=== PATIENT | male | born 1955 | race Caucasian/White ===

== ENCOUNTER 2018-07-15 10:27 | Inpatient (IN) ==
[2018-07-15] MEDS ORDERED: ALBUT/IPRATROP 3MG/0.5MG NEB 3 ML VIAL INH STA (10:42)
[2018-07-15] MEDS ORDERED: methylPREDNISolone 125 MG/2 ML VIAL IV STA (10:42)
[2018-07-15 11:02] LABS: Basophils # (auto) 0.03 K/uL (0-0.2); Basophils % (auto) 0.2 %; Eosinophils # (auto) 0.16 K/uL (0-0.5); Eosinophils % (auto) 1.2 %; Hematocrit (blood only) 52.1 % (42-52); Hemoglobin 18.4 g/dL (14.0-18.0); Immature Granulocytes # (auto) 0.04 K/uL (0.00-0.02); Immature Granulocytes % (auto) 0.3 %; Mean Corpuscular Hgb Conc 35.3 g/dL (32-36); Mean Corpuscular Volume 93.2 fL (80-100); Mean Platelet Volume 9.6 fL (7.4-10.4); Monocytes # (auto) 2.36 K/uL (0.11-0.59); Monocytes % (auto) 17.3 %; Neutrophils # (auto) 9.56 K/uL (1.4-6.5); Platelet Count 238 K/uL (130-400); RDW Coefficient of Variation 13.4 % (11.5-14.5); Red Blood Count 5.59 M/uL (4.7-6.1); White Blood Count 13.65 K/uL (4.8-10.8)
[2018-07-15 11:15] LABS: Alanine Aminotransferase 33 U/L (12-78); Albumin Level 3.8 gm/dl (3.4-5.0); Aspartate Aminotransferase 21 U/L (15-37); BUN Creatinine Ratio 16.1 (10-20); Blood Urea Nitrogen 17 mg/dl (7-18); Calcium 8.8 mg/dl (8.5-10.1); Carbon Dioxide 30 mmol/L (21-32); Chloride 103 mmol/L (98-107); Est GFR (Non-African American) 75.1; Glucose 102 mg/dl (70-99); Potassium 3.4 mmol/L (3.5-5.1); Sodium 139 mmol/L (136-145)
[2018-07-15 11:19] LABS: INR 1.1 (0.9-1.1); Partial Thromboplastin Ratio 1.1; Partial Thromboplastin Time 29.4 Seconds (21.0-31.0); Prothrombin Time 10.7 Seconds (9.0-12.0)
[2018-07-15 11:20] LABS: Albumin Globulin Ratio 1.1 (0.9-2); Alkaline Phosphatase 78 U/L (45-117); Bilirubin,Total 0.9 mg/dl (0.2-1); Globulin 3.4 gm/dl (2.5-4.0); Total Protein 7.2 gm/dl (6.4-8.2); Troponin I 0.129 ng/ml (0-0.045)
[2018-07-15] MEDS ORDERED: ASPIRIN CHEW 324 MG PO STA (11:23)
[2018-07-15 11:40] LABS: Influenza A virus by PCR Neg for Influ A (Neg); Influenza B virus by PCR Neg for Influ B (Neg)
--- NOTE | 2018-07-15 11:44 | XRay Report ---
XR chest 1V portable CLINICAL HISTORY: Dyspnea COMPARISON STUDY: Chest radiograph February 28, 2018. Chest CT May 12, 2017. FINDINGS: Severe emphysema is noted. There are postoperative finding within the left lung apex. There is no pneumothorax or pleural effusion. There is no evidence for pulmonary edema. A few nodular dens ities within the lungs are noted, the largest of which is within the right lung apex. This correspond s to a largely calcified abnormality on CT and is probably benign. Cardiomediastinal silhouette is no rmal. IMPRESSION: 1. Severe emphysema. 2. No acute cardiopulmonary findings. 3. A few nodular densities within the lungs which are largely calcified by CT. These are indeterminat e but probably benign. Electronically signed by: Eder Fontaine M.D. 07/15/2018 11:43 AM
--- NOTE | 2018-07-15 12:03 | Emergency Department Note ---
Entered by Ning Thorpe acting as a scribe for Britton Aguilera M.D. History of Present Illness General Chief complaint: Shortness of Breath/Dyspnea Stated complaint: ACUTE COPD,SOB Source: patient Mode of arrival: ambulatory Limitations: no limitations History of Present Illness Onset (ago): day(s) 2 Location: chest Radiation: non-radiation Pain Consistency: + constant Maximum Pain Intensity: 8 Current Pain Intensity: 8 Relieved By: + other (Oxygen) Associated symptoms: + chest pain, + cough and + fever/chills Treatments prior to arrival: none The patient is a 62 year old male who presents to the Emergency Room with complaints of shortness of breath for the past 2 days. He admits to a history of COPD and is on 4L NC chronically. He thinks his last COPD flare was 1 year ago. He admits to a cough, fever, chest pain and rhinorrhea. He has been trying to stay hydrated by drinking water but notes he started feeling like he is "swelling up". The patient denies any recent sick contacts. He notes his PCP did place him on steroids and antibiotics 10 days ago, which he has finished. Home Medications Home Medications Medication Instructions Recorded Confirmed Type ergocalciferol (vitamin D2) 50,000 unit PO Q14D 07/15/18 07/15/18 History fluticasone 2 spray INTRANASAL DAILY 07/15/18 07/15/18 History fluticasone-salmeterol [Advair 2 puff INHALATION DAILY 07/15/18 07/15/18 History Diskus] furosemide 20 mg PO DAILY 07/15/18 07/15/18 History pravastatin 40 mg PO DAILY 07/15/18 07/15/18 History tiotropium bromide [Spiriva 2 puff INHALATION DAILY 07/15/18 07/15/18 History Respimat] Allergies Allergy/AdvReac Type Severity Reaction Status Date / Time codeine AdvReac Unknown Rash Unverified 07/15/18 12:14 Sulfa (Sulfonamide AdvReac Unknown Rash Unverified 07/15/18 12:14 Antibiotics) Past Med/Surg History Medical History COPD with acute exacerbation (Acute) Social History Current Living Situation: Family Other Information That Helps Us Care for You: No Feels Safe at Home: Yes Safety Concerns: Feels Safe At This Time Smoking Status: Former smoker Do You Dip or Chew Tobacco: No Smoking End Date: 2013 Second Hand Exposure: No Tobacco Cessation Education Requested by Patient: No Hx Alcohol Use: Yes Alcohol Intake Frequency: other Hx Substance Use: No Beliefs That Will Affect Care: None Preferred Language: Maori Communication Ability: Effective Home Security Alarm Installer Required: No Review of Systems See HPI for pertinent positives & negatives. and A total of 10 systems reviewed and were otherwise negative Physical Exam Vital Signs Vital Signs - 24 hr 07/15/18 10:31 07/15/18 10:41 07/15/18 11:02 Temperature 37.2 C Temperature Source Oral Sepsis Recent Fever Within 48 Hours No Sepsis New/Unexplained Change in Mental Status No Sepsis Action Taken by Nursing No Action Required Pulse Rate 109 H Pulse Rate [Radial] Respiratory Rate 20 Respiratory Effort / Characteristics Labored Respiratory Depth Respiratory Pattern Blood Pressure 135/78 Blood Pressure [Left Arm] Blood Pressure Mean 97 Blood Pressure Mean [Left Arm] Pulse Oximetry 94 95 95 Oxygen Delivery Method Nasal Cannula Nasal Cannula Nasal Cannula Oxygen Flow Rate 4 4 4 07/15/18 11:10 07/15/18 11:40 07/15/18 12:00 Temperature Temperature Source Sepsis Recent Fever Within 48 Hours Sepsis New/Unexplained Change in Mental Status Sepsis Action Taken by Nursing Pulse Rate Pulse Rate [Radial] 104 H 107 H 108 H Respiratory Rate 24 30 H 25 H Respiratory Effort / Characteristics Accessory Muscle Use Labored Respiratory Depth Respiratory Pattern Blood Pressure Blood Pressure [Left Arm] 118/89 122/80 Blood Pressure Mean Blood Pressure Mean [Left Arm] 98 94 Pulse Oximetry 95 97 96 Oxygen Delivery Method Nasal Cannula Nebulizer Nasal Cannula Oxygen Flow Rate 4 4 07/15/18 12:18 07/15/18 12:30 07/15/18 13:00 Temperature Temperature Source Sepsis Recent Fever Within 48 Hours Sepsis New/Unexplained Change in Mental Status Sepsis Action Taken by Nursing Pulse Rate Pulse Rate [Radial] 110 H 110 H Respiratory Rate 28 H 27 H Respiratory Effort / Characteristics Labored Short of Breath SOB on Exertion Respiratory Depth Shallow Respiratory Pattern Tachypnea Blood Pressure Blood Pressure [Left Arm] 102/72 122/79 Blood Pressure Mean Blood Pressure Mean [Left Arm] 82 93 Pulse Oximetry 99 93 Oxygen Delivery Method Nasal Cannula Nasal Cannula Nasal Cannula Oxygen Flow Rate 4 4 4 GENERAL: Awake, alert, sitting on the edge of bed, tripoding with increased work of breathing. HENT: Normocephalic, atraumatic. Oropharynx unremarkable. EYES: Normal conjunctiva. Sclera non-icteric. NECK: Supple. No nuchal rigidity. RESPIRATORY: Increased work of breathing, very diminished air movement. CARDIAC: Tachycardic heart rate. Normal rhythm. Extremities warm and well perfused. GI: Soft, non-distended. No tenderness to palpation. No rebound or guarding. RECTAL: Deferred. MUSCULOSKELETAL: Atraumatic. Chest examination reveals no tenderness. LOWER EXTREMITIES: Calves are equal size bilaterally and non-tender. Trace bilateral pedal edema. NEURO: Normal sensorium. No sensory or motor deficits noted. No facial droop. SKIN: Warm and dry. No rash or jaundice noted. Course 1038: Past medical records reviewed. The patient was evaluated in room B10, and a complete history and physical examination were performed. 1135: I reevaluated the patient. He is resting comfortably. I discussed his results so far. 1215: I alerted Dr. Arreola about the patients case. The patient will be further evaluated. Reevaluation(s) Reevaluation #1: I alerted Dr. Arreola about the patients case. The patient will be further evaluated. Time: 12:15 Administered Medications Discontinued Medications Albuterol (Duoneb) 12 ml INH ONE STA Stop: 07/15/18 10:43 Last Admin: 07/15/18 11:10 Dose: 12 ml Aspirin (Aspirin) 324 mg PO NOW STA Stop: 07/15/18 11:24 Last Admin: 07/15/18 11:36 Dose: 324 mg Methylprednisolone (Solumedrol) 125 mg IV NOW STA Stop: 07/15/18 10:43 Last Admin: 07/15/18 11:12 Dose: 125 mg Medical Decision Making Differential Diagnosis Differential diagnoses includes but is not limited to pneumonia, bronchitis, COPD/Asthma exacerbation, pneumothorax, pulmonary embolism, congestive heart failure, acute coronary syndrome Medical Records Attestation: I reviewed the patient's medical records. Home Medications Current Medication List: was personally reviewed by me Laboratory Data Attestation: I reviewed the patient's lab results. Result diagrams: 07/15/18 10:50 07/15/18 10:50 Lab Results 07/15/18 07/15/18 07/15/18 Range/Units 10:48 10:50 10:50 WBC 13.65 H (4.8-10.8) K/uL RBC 5.59 (4.7-6.1) M/uL Hgb 18.4 H (14.0-18.0) g/dL Hct 52.1 H (42-52) % MCV 93.2 (80-100) fL MCH 32.9 (25-34) pg MCHC 35.3 (32-36) g/dL RDW Std Deviation 46.0 (36.4-46.3) fL RDW Coeff of Trent 13.4 (11.5-14.5) % Plt Count 238 (130-400) K/uL MPV 9.6 (7.4-10.4) fL Immature Gran % (Auto) 0.3 % Neut % (Auto) 70.0 % Lymph % (Auto) 11.0 % [place] % (Auto) 17.3 % Eos % (Auto) 1.2 % Baso % (Auto) 0.2 % Immature Gran # (Auto) 0.04 H (0.00-0.02) K/uL Neut # (Auto) 9.56 H (1.4-6.5) K/uL Lymph # (Auto) 1.50 (1.2-3.4) K/uL [place] # (Auto) 2.36 H (0.11-0.59) K/uL Eos # (Auto) 0.16 (0-0.5) K/uL Baso # (Auto) 0.03 (0-0.2) K/uL PT 10.7 (9.0-12.0) Seconds INR 1.1 (0.9-1.1) APTT 29.4 (21.0-31.0) Seconds PTT Ratio 1.1 Sodium (136-145) mmol/L Potassium (3.5-5.1) mmol/L Chloride (98-107) mmol/L Carbon Dioxide (21-32) mmol/L Anion Gap (3-11) BUN (7-18) mg/dl Creatinine (0.6-1.4) mg/dl Est Cr Clr Drug Dosing Est GFR ( Amer) Est GFR (Non-Af Amer) BUN/Creatinine Ratio (10-20) Glucose (70-99) mg/dl Calcium (8.5-10.1) mg/dl Total Bilirubin (0.2-1) mg/dl AST (15-37) U/L ALT (12-78) U/L Alkaline Phosphatase (45-117) U/L Troponin I (0-0.045) ng/ml Total Protein (6.4-8.2) gm/dl Albumin (3.4-5.0) gm/dl Globulin (2.5-4.0) gm/dl Albumin/Globulin Ratio (0.9-2) Influenza Type A (PCR) Neg for Influ A (Neg) Influenza Type B (PCR) Neg for Influ B (Neg) 07/15/18 Range/Units 10:50 WBC (4.8-10.8) K/uL RBC (4.7-6.1) M/uL Hgb (14.0-18.0) g/dL Hct (42-52) % MCV (80-100) fL MCH (25-34) pg MCHC (32-36) g/dL RDW Std Deviation (36.4-46.3) fL RDW Coeff of Trent (11.5-14.5) % Plt Count (130-400) K/uL MPV (7.4-10.4) fL Immature Gran % (Auto) % Neut % (Auto) % Lymph % (Auto) % [place] % (Auto) % Eos % (Auto) % Baso % (Auto) % Immature Gran # (Auto) (0.00-0.02) K/uL Neut # (Auto) (1.4-6.5) K/uL Lymph # (Auto) (1.2-3.4) K/uL [place] # (Auto) (0.11-0.59) K/uL Eos # (Auto) (0-0.5) K/uL Baso # (Auto) (0-0.2) K/uL PT (9.0-12.0) Seconds INR (0.9-1.1) APTT (21.0-31.0) Seconds PTT Ratio Sodium 139 (136-145) mmol/L Potassium 3.4 L (3.5-5.1) mmol/L Chloride 103 (98-107) mmol/L Carbon Dioxide 30 (21-32) mmol/L Anion Gap 6.0 (3-11) BUN 17 (7-18) mg/dl Creatinine 1.07 (0.6-1.4) mg/dl Est Cr Clr Drug Dosing Not Reportable Est GFR ( Amer) 87.0 Est GFR (Non-Af Amer) 75.1 BUN/Creatinine Ratio 16.1 (10-20) Glucose 102 H (70-99) mg/dl Calcium 8.8 (8.5-10.1) mg/dl Total Bilirubin 0.9 (0.2-1) mg/dl AST 21 (15-37) U/L ALT 33 (12-78) U/L Alkaline Phosphatase 78 (45-117) U/L Troponin I 0.129 H* (0-0.045) ng/ml Total Protein 7.2 (6.4-8.2) gm/dl Albumin 3.8 (3.4-5.0) gm/dl Globulin 3.4 (2.5-4.0) gm/dl Albumin/Globulin Ratio 1.1 (0.9-2) Influenza Type A (PCR) (Neg) Influenza Type B (PCR) (Neg) ECG Data Attestation: I personally reviewed and interpreted this ECG as follows: Indication: SOB/dyspnea Rate (beats per minute): 102 Rhythm: sinus tachycardia Findings: + other (normal axis); no PVC and no ST elevation Comparison ECG Date: no prior available Blood Pressure Blood Pressure Findings: Normal blood pressure MDM Narrative 62-year-old gentleman history of COPD made liters coming in with difficulty breathing over the last 2 days. Recently finished course of antibiotic and steroid from primary care doctor. Recently moved here from [place]. Tripoding with increased work of breathing diminished air sounds. Endorses some chest pain believe likely related to his increased work of breathing. Given neb and steroid. Chest x-ray completed along with EKG and laboratory studies look for evidence of pneumonia, pneumothorax, or cardiac injury. No evidence of pneumothorax. Basic labs do not show any significant electrolyte abnormality or leukocytosis. There is a slight troponin elevation of 0.1. He was given aspirin. He experienced some chest pain. Believe is likely demand related to his respiratory status. No evidence of acute pneumonia. Influenza swab was sent. Patient was significant work of breathing still with a + troponin believe that observation with continued steroids breathing treatments and cardiac monitoring is appropriate. Impression & Plan COPD with acute exacerbation, Non-ST elevation MA (NSTEMI) Critical Care Time I have personally spent 30 minutes of critical care time in the direct management of this patient. This includes bedside care, interpretation of diagnostic studies, and testing, discussion with consultants, patient, and family members, and other required patient management activities. These 30 minutes is in excess of all separately billable procedures. Critical Care Time: Yes Total Critical Care Time: 30 Discharge Plan Visit Data Chief Complaint: Shortness of Breath/Dyspnea Stated Complaint: ACUTE COPD,SOB ED Provider: Britton Aguilera Discharge Problem: COPD with acute exacerbation, Non-ST elevation MA (NSTEMI) Patient Disposition: Being Evaluated by Hospitalist Forms Stand Alone Forms: [facility] Pres[facility] Prescriptions: No Action pravastatin 40 mg tablet 40 mg PO DAILY RF: 0 fluticasone-salmeterol [Advair Diskus] 500-50 mcg/dose blister with device 2 puff Inhalation DAILY RF: 0 furosemide 20 mg tablet 20 mg PO DAILY RF: 0 ergocalciferol (vitamin D2) 50,000 unit capsule 50,000 unit PO Q14D RF: 0 fluticasone 50 mcg/actuation spray,suspension 2 spray Intranasal DAILY RF: 0 tiotropium bromide [Spiriva Respimat] 2.5 mcg/actuation mist 2 puff Inhalation DAILY RF: 0 Referrals Referrals: Reece Lambert III, CRNP [Primary Care Provider] - The scribe's documentation has been prepared under my direction and personally reviewed by me in its entirety. I confirm that the note above accurately reflects all work, treatment, procedures, and medical decision making performed by me.
--- NOTE | 2018-07-15 13:24 | History & Physical Report ---
Date of Service July 15, 2018 Assessment & Plan (1) COPD with acute exacerbation: 62 y/o M Hx advanced COPD om home 02, LE edema, HLD. Presents with progressive SOB for 2-3 days. He describes a cough which is chronic and denies fevers or rigors. He denies CP but states he has had an odd sensation of a log rolling around in his chest. His oxygen requirements have increased from 2 to 4 litres. Initial labs are notable for an elevated troponin. An EKG does not support acute ischemia. 1) COPD exacerbation - Steroids, Abx, 02, scheduled nebs 2) Elevated trop - Maybe due to hypoxia/demand - an echo has been ordered to evaluate for WMAs - ASA, high-intensity statin, heparin drip ordered. We will consult cardiology and trend his enzymes. The pt states that he h a normal stress test 2 years ago. 3) LE edema - Cont Lasix 4) HLD - Statin dose increased as above Full code - full dose Heparin Total time for this admit including review of labs, meds, imaging, records - discussion with pt and ER attending - 37 min Present on Admission?: Yes History of Present Illness Chief Complaint: Shortness of breath Primary Care Provider: Reece Lambert, III, WELL DRILL OPERATOR HELPER [employer]OL 62 y/o M Hx advanced COPD om home 02, LE edema, HLD. Presents with progressive SOB for 2-3 days. He describes a cough which is chronic and denies fevers or rigors. He denies CP but states he has had an odd sensation of a log rolling around in his chest. His oxygen requirements have increased from 2 to 4 litres. Initial labs are notable for an elevated troponin. An EKG does not support acute ischemia. PMH: 1) COPD - 02-dependent 2) HTN 3) HLD 4) Vitamin D deficiency 5) Lower extremity edema Social: Quit smoking 5 years prior, drinks in moderation Family: Mother due to complications of COPD father in good health Allergies Allergy/AdvReac Type Severity Reaction Status Date / Time codeine AdvReac Unknown Rash Unverified 07/15/18 12:14 Sulfa (Sulfonamide AdvReac Unknown Rash Unverified 07/15/18 12:14 Antibiotics) Home Medications Home Medications Medication Instructions Recorded Confirmed Type ergocalciferol (vitamin D2) 50,000 unit PO Q14D 07/15/18 07/15/18 History fluticasone 2 spray INTRANASAL DAILY 07/15/18 07/15/18 History fluticasone-salmeterol [Advair 2 puff INHALATION DAILY 07/15/18 07/15/18 History Diskus] furosemide 20 mg PO DAILY 07/15/18 07/15/18 History pravastatin 40 mg PO DAILY 07/15/18 07/15/18 History tiotropium bromide [Spiriva 2 puff INHALATION DAILY 07/15/18 07/15/18 History Respimat] Past Med/Surg History Medical History COPD with acute exacerbation (Acute) Social History Current Living Situation: Family Other Information That Helps Us Care for You: No Feels Safe at Home: Yes Safety Concerns: Feels Safe At This Time Smoking Status: Former smoker Do You Dip or Chew Tobacco: No Smoking End Date: 2013 Second Hand Exposure: No Tobacco Cessation Education Requested by Patient: No Hx Alcohol Use: Yes Alcohol Intake Frequency: other Hx Substance Use: No Beliefs That Will Affect Care: None Preferred Language: Tunisian Communication Ability: Effective Christian Science Healer Required: No Review of Systems Gen: Denies fevers, night sweats, rigors, fatigue, malaise, weight loss/gain ENT: Denies congestion, throat pain, hearing loss Eyes: Denies acute visual changes CV: Denies CP, palpitations - feeling of foreign object in chest Pulmonary: Progressive SOB as above GI: Denies N/V, diarrhea, constipation Neuro: Denies acute or unilateral weakness, acute gait impairment, headache or acute visual changes Musculoskeletal: Denies joint pain, inflammation Endocrine: Denies polydipsia, polyuria Skin: Denies acute rashes or ulcers Physical Exam 2 Vital Signs (Past 24 Hours): Last Vital Signs Temp 37.2 C 07/15/18 10:31 Pulse 107 H 07/15/18 11:40 Resp 30 H 07/15/18 11:40 BP 118/89 07/15/18 11:40 Pulse Ox 97 07/15/18 11:40 Physical Exam: General: AAO x 3, no distress ENT: No erythema or exudates, no thrush Eyes: SARIAH, EOMI Head and neck: Normocephalic, atraumatic, No JVD, neck is supple. Chest/heart: Nontender, S1,2, RRR, no murmurs, no gallops Lungs: Very poor BL air movement without wheezing/crackles Abdomen: Nontender, nondistended, BS+ Neuro: AAO x 3, speech is clear, no unilateral weakness or loss of sensation, coordination intact Musculoskeletal: No joint inflammation, muscle tenderness, FROM Skin: No acute rashes or ulcers Extremities: No clubbing, cyanosis, edema
[2018-07-15] MEDS ORDERED: POTASSIUM CHLORIDE 20 MEQ TABCR PO STA (14:58)
[2018-07-15] MEDS ORDERED: NITROGLYCERIN SL 0.4 MG/TAB TAB SL PRN (14:58)
[2018-07-15] MEDS ORDERED: methylPREDNISolone 125 MG/2 ML VIAL IV SCH (14:58)
[2018-07-15] MEDS ORDERED: ALUMINUM/MAGNESIUM SUSP 30 ML UDC PO PRN (14:58)
[2018-07-15] MEDS ORDERED: ACETAMINOPHEN 325 MG TAB PO PRN (14:58)
[2018-07-15] MEDS ORDERED: MoRPHine SULFATE 4 MG/ML 1 ML CARP\\VIAL IV PRN (14:58)
[2018-07-15] MEDS ORDERED: POLYETHYLENE (MIRALAX) 17 GM PACK PO PRN (14:58)
[2018-07-15] MEDS ORDERED: ALBUTEROL 0.083% NEBU SOLN 3 ML VIAL NEB PRN (14:58)
[2018-07-15] MEDS ORDERED: ONDANSETRON INJ 2 MG/ML 2 ML VIAL IV PRN (14:58)
[2018-07-15] MEDS ORDERED: MAGNESIUM HYDROXIDE SUSP 30 ML UDC PO PRN (14:58)
[2018-07-15] MEDS: ALBUT/IPRATROP 3MG/0.5MG NEB 3 ML VIAL NEB SCH ×2 (15:26→19:14)
[2018-07-15] MEDS ORDERED: MAGNESIUM SULFATE / D5W 1 GM/100 ML BAG IV ONE (15:30)
[2018-07-15] MEDS ORDERED: HEPARIN IV BOLUS 5,000 UNITS in SYRINGE 0 ML IV ONE (16:45)
[2018-07-15] MEDS: HEPARIN STANDARD DEXTROSE 25,000 UNITS/500 ML IV SCH (16:51)
[2018-07-15] MEDS: methylPREDNISolone 60 MG in SYRINGE 0 ML IV SCH (17:25)
[2018-07-15] MEDS ORDERED: PNEUMOCOCCAL POLYSACCHARIDES 25 MCG/0.5 ML VIAL/SYR IM ONE (18:45)
[2018-07-15] MEDS ORDERED: PNEUMOCOCCAL ADMINISTRATION CHARGE ONE (18:45)
[2018-07-15] MEDS: ATORVASTATIN 40 MG TAB PO SCH (20:17)
[2018-07-15 23:30] LABS: Partial Thromboplastin Ratio 3.8
[2018-07-15 23:31] LABS: Partial Thromboplastin Time 99.6 Seconds (21.0-31.0)
[2018-07-16] MEDS: methylPREDNISolone 60 MG in SYRINGE 0 ML IV SCH ×5 (00:14→23:48)
[2018-07-16] MEDS: ALBUT/IPRATROP 3MG/0.5MG NEB 3 ML VIAL NEB SCH ×4 (06:15→19:06)
[2018-07-16 06:48] LABS: Hematocrit (blood only) 49.6 % (42-52); Hemoglobin 17.2 g/dL (14.0-18.0); Immature Granulocytes # (auto) 0.03 K/uL (0.00-0.02); Immature Granulocytes % (auto) 0.4 %; Lymphocytes # (auto) 0.57 K/uL (1.2-3.4); Lymphocytes % (auto) 6.7 %; Mean Corpuscular Hgb Conc 34.7 g/dL (32-36); Mean Corpuscular Volume 93.6 fL (80-100); Mean Platelet Volume 9.6 fL (7.4-10.4); Monocytes % (auto) 3.5 %; Neutrophils # (auto) 7.64 K/uL (1.4-6.5); Neutrophils % (auto) 89.4 %; Platelet Count 238 K/uL (130-400); RDW Coefficient of Variation 13.4 % (11.5-14.5); RDW Standard Deviation 45.9 fL (36.4-46.3); White Blood Count 8.54 K/uL (4.8-10.8)
[2018-07-16 07:07] LABS: Partial Thromboplastin Ratio 2.4
[2018-07-16 07:17] LABS: BUN Creatinine Ratio 17.1 (10-20); Calcium 8.6 mg/dl (8.5-10.1); Creatinine Clr Calc Pharmacy 77.8 ml/min; Est GFR (African American) 107.2; Est GFR (Non-African American) 92.5; Magnesium 2.4 mg/dl (1.8-2.4); Potassium 4.1 mmol/L (3.5-5.1)
[2018-07-16 07:28] LABS: Partial Thromboplastin Time 61.3 Seconds (21.0-31.0)
[2018-07-16] MEDS: ASPIRIN 81 MG ECTAB PO SCH (08:05)
[2018-07-16] MEDS: FUROSEMIDE 20 MG TAB PO SCH (08:06)
--- NOTE | 2018-07-16 15:12 | Hospitalist Progress Note ---
Date of Service July 16, 2018 Assessment & Plan (1) COPD with acute exacerbation: 62 y/o M Hx advanced COPD om home 02, LE edema, HLD admitted because of acute on chronic respiratory distress and COPD exacerbation Patient recently moved from [facility] to his son's family in [place]. He has COPD, O2 dependent , every year average about 3-4 times exacerbation which required hospitalization, Acute on chronic respiratory distress Chronic respiratory failure on home O2 dependent COPD exacerbation Continue steroids, Abx, 02, scheduled nebs Elevated trop - Maybe due to hypoxia/demand Echo was done normal LVEF grade 1 diastolic dysfunction Has been on ASA, high-intensity statin, heparin drip ordered. We will follow-up cardiology input and trend his enzymes. The pt states that he had a normal stress test 2 years ago. Possible mild acute on chronic diastolic CHF exacerbation with mild LE edema Cont Lasix Dyslipidemia continue current medication, Patient willike to talk to employment case manager about home oxygen setting in his son's home, which could be evaluated by home health care Has ordered PT OT, cM Subjective Generally feeling better, on 4 L nasal cannula oxygen which is he usually uses at home, however when talking there was some labored breathing during the conversation, some cough with white sputum, no obvious wheezing however has significant decreased airway movement Review of Systems Constitutional: positive mild weakness, or fatigue Respiratory: See HPI Cardiac: No chest pain, No orthopnea, No PND, No claudication, No palpitations , Abdomen: No pain, No nausea, No vomiting, No diarrhea, No constipation, No GI bleeding Musculoskeletal: No joint pain, No muscle pain, No swelling, No calf pain, No problem reported : No dysuria, No urinary frequency, No incontinence, No hematuria Neurologic: No paralysis, No weakness, No numbness/tingling, No vertigo, No balance problems Psychiatric: No depression symptoms, No anhedonism, No anxiety, No insomnia, No substance abuse Heme: No abnormal bleeding/bruising, No clotting problems, No swollen lymph nodes, No night sweats Skin: No rash, No itch, No new/changing skin lesions, No color change, No bleeding Physical Exam 2 Vital Signs (Past 24 Hours): Last Vital Signs Temp 36.7 C 07/16/18 11:33 Pulse 101 H 07/16/18 15:09 Resp 18 07/16/18 15:09 BP 115/68 07/16/18 11:33 Pulse Ox 93 02/17/19 15:09 Physical Exam: General: AAO x 3, no distress, conversational ENT: No erythema or exudates, no thrush Eyes: SARIAH, EOMI Head and neck: Normocephalic, atraumatic, No JVD, neck is supple. Chest/heart: Nontender, S1,2, RRR, no murmurs, no gallops Lungs: Significant decrease in both lung breathing sound, poor air movement Abdomen: Nontender, nondistended, BS+ Neuro: AAO x 3, speech is clear, no unilateral weakness or loss of sensation, coordination intact Musculoskeletal: No joint inflammation, muscle tenderness, FROM Skin: No acute rashes or ulcers Extremities: No clubbing, cyanosis, edema Results & Data Laboratory Results Laboratory Results - last 24 hr 07/15/18 07/15/18 07/15/18 15:15 20:53 23:00 WBC RBC Hgb Hct MCV MCH MCHC RDW Std Deviation RDW Coeff of Trent Plt Count MPV Immature Gran % (Auto) Neut % (Auto) Lymph % (Auto) [place] % (Auto) Eos % (Auto) Baso % (Auto) Immature Gran # (Auto) Neut # (Auto) Lymph # (Auto) [place] # (Auto) Eos # (Auto) Baso # (Auto) APTT 99.6 H* PTT Ratio 3.8 Sodium Potassium Chloride Carbon Dioxide Anion Gap BUN Creatinine Est Cr Clr Drug Dosing Est GFR ( Amer) Est GFR (Non-Af Amer) BUN/Creatinine Ratio Glucose Calcium Magnesium Troponin I 0.083 H* 0.059 H* Triglycerides Cholesterol LDL Cholesterol, Calc VLDL Cholesterol, Calc HDL Cholesterol Cholesterol/HDL Ratio 07/16/18 07/16/18 07/16/18 06:28 06:28 06:28 WBC 8.54 RBC 5.30 Hgb 17.2 Hct 49.6 MCV 93.6 MCH 32.5 MCHC 34.7 RDW Std Deviation 45.9 RDW Coeff of Trent 13.4 Plt Count 238 MPV 9.6 Immature Gran % (Auto) 0.4 Neut % (Auto) 89.4 Lymph % (Auto) 6.7 [place] % (Auto) 3.5 Eos % (Auto) 0.0 Baso % (Auto) 0.0 Immature Gran # (Auto) 0.03 H Neut # (Auto) 7.64 H Lymph # (Auto) 0.57 L [place] # (Auto) 0.30 Eos # (Auto) 0.00 Baso # (Auto) 0.00 APTT 61.3 H* PTT Ratio 2.4 Sodium 139 Potassium 4.1 D Chloride 105 Carbon Dioxide 29 Anion Gap 5.0 BUN 15 Creatinine 0.90 Est Cr Clr Drug Dosing 77.8 Est GFR ( Amer) 107.2 Est GFR (Non-Af Amer) 92.5 BUN/Creatinine Ratio 17.1 Glucose 130 H Calcium 8.6 Magnesium 2.4 Troponin I Triglycerides 96 Cholesterol 147 LDL Cholesterol, Calc 67 VLDL Cholesterol, Calc 19 HDL Cholesterol 61 Cholesterol/HDL Ratio 2
[2018-07-16] MEDS: HEPARIN STANDARD DEXTROSE 25,000 UNITS/500 ML IV SCH (16:49)
[2018-07-16] MEDS ORDERED: COUGH DROP (SUGAR FREE) LOZ 24 LOZ/1 BOX BUCCAL STA (18:36)
[2018-07-16] MEDS ORDERED: COUGH DROP (SUGAR FREE) LOZ 24 LOZ/1 BOX BUCCAL PRN (18:40)
[2018-07-16] MEDS: ATORVASTATIN 40 MG TAB PO SCH (20:08)
[2018-07-17] MEDS: methylPREDNISolone 60 MG in SYRINGE 0 ML IV SCH ×2 (04:57→17:18)
[2018-07-17] MEDS: ALBUT/IPRATROP 3MG/0.5MG NEB 3 ML VIAL NEB SCH ×5 (05:04→19:25)
[2018-07-17 06:35] LABS: Basophils # (auto) 0.01 K/uL (0-0.2); Basophils % (auto) 0.1 %; Hematocrit (blood only) 50.6 % (42-52); Hemoglobin 17.3 g/dL (14.0-18.0); Immature Granulocytes # (auto) 0.07 K/uL (0.00-0.02); Immature Granulocytes % (auto) 0.4 %; Lymphocytes # (auto) 1.09 K/uL (1.2-3.4); Lymphocytes % (auto) 5.6 %; Mean Corpuscular Hgb Conc 34.2 g/dL (32-36); Mean Corpuscular Volume 95.3 fL (80-100); Mean Platelet Volume 9.6 fL (7.4-10.4); Monocytes # (auto) 1.01 K/uL (0.11-0.59); Monocytes % (auto) 5.2 %; Neutrophils # (auto) 17.14 K/uL (1.4-6.5); Neutrophils % (auto) 88.7 %; Platelet Count 254 K/uL (130-400); RDW Coefficient of Variation 13.4 % (11.5-14.5); RDW Standard Deviation 46.5 fL (36.4-46.3); Red Blood Count 5.31 M/uL (4.7-6.1); White Blood Count 19.32 K/uL (4.8-10.8)
[2018-07-17 07:02] LABS: BUN Creatinine Ratio 22.5 (10-20); Calcium 8.7 mg/dl (8.5-10.1); Creatinine Clr Calc Pharmacy 87.5 ml/min; Est GFR (African American) 112.5; Est GFR (Non-African American) 97.1; Magnesium 2.3 mg/dl (1.8-2.4); Potassium 3.6 mmol/L (3.5-5.1)
[2018-07-17 07:29] LABS: Partial Thromboplastin Ratio 1.9
[2018-07-17 07:31] LABS: Partial Thromboplastin Time 48.6 Seconds (21.0-31.0)
[2018-07-17] MEDS: FUROSEMIDE 20 MG TAB PO SCH (08:00)
[2018-07-17] MEDS: ASPIRIN 81 MG ECTAB PO SCH (08:00)
--- NOTE | 2018-07-17 08:22 | Hospitalist Progress Note ---
Date of Service July 17, 2018 Assessment & Plan (1) COPD with acute exacerbation: 62 y/o M Hx advanced COPD om home 02, LE edema, HLD admitted because of acute on chronic respiratory failure and COPD exacerbation Patient moved 6 months ago from [place] to be near his son's family in [place]. He has COPD, O2 dependent ,has only been hospitalized 4 times in 7 years for his copd Acute and chronic respiratory failure Chronic respiratory failure on home O2 dependent COPD exacerbation Continue steroids, Abx, 02, scheduled nebs (2) Elevated troponin: possible demand ischemia in the presence of respiratory failure, no concern for ACS (3) Diastolic heart failure: Possible mild acute on chronic diastolic CHF exacerbation with mild LE edema Cont Lasix, this could also be cor pulmonale from pulmonary htn Subjective Patient is currently moderate respiratory distress he seems fairly invested in understanding his disease process he is moved here from area about 6 months ago has seen a pulmonary clinic. He states he feels about 40% of his usual baseline he is speaking in short sentences has purse lipped breathing and significant accessory muscle use he is barrel chested likely is that at baseline Review of Systems ROS: well developed. Patient is thin but seems well-nourished No double vision blurry vision No problems with speech or swallowing No palpitations, chest pain or pressure Significant respiratory distress purse lipped breathing no audible wheezing No abdominal pain nausea vomiting diarrhea changes in appetite or weight No burning urine urine frequency or changes in color No focal joint pain or muscle pain No skin rashes or oral lesions No unusual bruising or bleeding No focused back pain or numbness or loss of strength No changes in memory or confusion Physical Exam 2 Vital Signs (Past 24 Hours): Last Vital Signs Temp 36.7 C 07/17/18 07:15 Pulse 90 07/17/18 07:15 Resp 18 07/17/18 07:15 BP 115/80 07/17/18 07:15 Pulse Ox 100 07/17/18 07:15 The patient appeared well nourished and normally developed. Vital signs as documented. Tachypneic Head exam is unremarkable. normocephalic, atraumatic Neck is with mild jugular venous distension, thyromegaly, or lymphademopathy Lungs are chávez no wheezes Cardiac exam reveals Rhythm is regular. First and second heart sounds normal. Abdominal exam reveals normal bowel sounds, no masses, no organomegaly Extremities are nonedematous and both pedal pulses are present Neurologic exam is A&Ox3, no focal deficits, strength is equal bilateral Psychologically seems neither anxious or depressed Skin is warm Dry without bruises or lesions
[2018-07-17] MEDS: ATORVASTATIN 40 MG TAB PO SCH (20:17)
[2018-07-17] MEDS: HEPARIN SOD 5,000 UNIT/0.5 ML VIAL SQ SCH (20:18)
[2018-07-18] MEDS: ALBUT/IPRATROP 3MG/0.5MG NEB 3 ML VIAL NEB SCH ×5 (05:12→19:25)
[2018-07-18] MEDS: methylPREDNISolone 60 MG in SYRINGE 0 ML IV SCH ×2 (05:27→17:43)
[2018-07-18 06:05] LABS: Hematocrit (blood only) 49.8 % (42-52); Immature Granulocytes # (auto) 0.03 K/uL (0.00-0.02); Immature Granulocytes % (auto) 0.2 %; Lymphocytes # (auto) 0.91 K/uL (1.2-3.4); Lymphocytes % (auto) 7.3 %; Mean Corpuscular Hgb Conc 34.1 g/dL (32-36); Mean Corpuscular Volume 96.5 fL (80-100); Mean Platelet Volume 9.4 fL (7.4-10.4); Monocytes # (auto) 0.74 K/uL (0.11-0.59); Monocytes % (auto) 5.9 %; Neutrophils % (auto) 86.6 %; Platelet Count 224 K/uL (130-400); RDW Coefficient of Variation 13.4 % (11.5-14.5); RDW Standard Deviation 47.5 fL (36.4-46.3); Red Blood Count 5.16 M/uL (4.7-6.1); White Blood Count 12.48 K/uL (4.8-10.8)
[2018-07-18 06:38] LABS: BUN Creatinine Ratio 24.8 (10-20); Calcium 8.6 mg/dl (8.5-10.1); Est GFR (African American) 112.5; Est GFR (Non-African American) 97.1; Magnesium 2.3 mg/dl (1.8-2.4); Potassium 4.2 mmol/L (3.5-5.1)
[2018-07-18 06:50] LABS: Partial Thromboplastin Time 26.6 Seconds (21.0-31.0)
[2018-07-18] MEDS: FUROSEMIDE 20 MG TAB PO SCH (07:35)
[2018-07-18] MEDS: ASPIRIN 81 MG ECTAB PO SCH (07:35)
[2018-07-18] MEDS: HEPARIN SOD 5,000 UNIT/0.5 ML VIAL SQ SCH ×2 (07:36→20:59)
--- NOTE | 2018-07-18 18:34 | Hospitalist Progress Note ---
Date of Service July 18, 2018 Assessment & Plan (1) COPD with acute exacerbation: 62 y/o M Hx advanced COPD om home 02, LE edema, HLD admitted because of acute on chronic respiratory failure and COPD exacerbation Patient moved 6 months ago from [place] to be near his son's family in [place]. He has COPD, O2 dependent ,has only been hospitalized 4 times in 7 years for his copd Acute and chronic respiratory failure he continues to have slow improvement but persistent dysfunction remissive tapering steroids today due to clinical evaluation showing persistent exacerbation Chronic respiratory failure on home O2 dependent COPD exacerbation Continue steroids, Abx, 02, scheduled nebs adding Brovana for long-acting beta agonist at this time (2) Elevated troponin: demand ischemia in the presence of respiratory failure, no concern for ACS (3) Diastolic heart failure: Possible mild acute on chronic diastolic CHF exacerbation with mild LE edema Cont Lasix, this could also be cor pulmonale from pulmonary htn Subjective Remains significantly short of breath using accessory muscles of breathing, pursed lip breathing, and tachypnea even at rest Review of Systems ROS: well nourished well developed. No double vision blurry vision No problems with speech or swallowing No palpitations, chest pain or pressure Of breath speaking in broken sentences No abdominal pain nausea vomiting diarrhea changes in appetite or weight No burning urine urine frequency or changes in color No focal joint pain or muscle pain No skin rashes or oral lesions No unusual bruising or bleeding No focused back pain or numbness or loss of strength No changes in memory or confusion Physical Exam 2 Vital Signs (Past 24 Hours): Last Vital Signs Temp 36.6 C 07/18/18 17:11 Pulse 102 H 07/18/18 17:11 Resp 20 07/18/18 17:11 BP 148/89 H 07/18/18 17:11 Pulse Ox 94 07/18/18 17:11 The patient appeared well nourished and normally developed. Vital signs as documented. Head exam is unremarkable. normocephalic, atraumatic Neck is without jugular venous distension, thyromegaly, or lymphademopathy Lungs very diminished breath sounds bilaterally no wheezing no focal air loss barrel chested purse lipped breathing. Cardiac exam reveals Rhythm is regular. First and second heart sounds normal. Abdominal exam reveals normal bowel sounds, no masses, no organomegaly Extremities are nonedematous and both pedal pulses are present Neurologic exam is A&Ox3, no focal deficits, strength is equal bilateral Psychologically seems neither anxious or depressed Skin is warm Dry without bruises or lesions
[2018-07-18] MEDS: ARFORMOTEROL TART 15MCG/2ML VIAL INH SCH (19:25)
[2018-07-18] MEDS: ATORVASTATIN 40 MG TAB PO SCH (20:59)
[2018-07-19] MEDS: methylPREDNISolone 60 MG in SYRINGE 0 ML IV SCH ×2 (05:22→17:10)
[2018-07-19 06:45] LABS: Partial Thromboplastin Time 27.8 Seconds (21.0-31.0)
[2018-07-19] MEDS: ARFORMOTEROL TART 15MCG/2ML VIAL INH SCH ×2 (07:17→19:42)
[2018-07-19] MEDS: ALBUT/IPRATROP 3MG/0.5MG NEB 3 ML VIAL NEB SCH ×4 (07:19→19:42)
[2018-07-19] MEDS: ASPIRIN 81 MG ECTAB PO SCH (08:25)
[2018-07-19] MEDS: FUROSEMIDE 20 MG TAB PO SCH (08:25)
[2018-07-19] MEDS: HEPARIN SOD 5,000 UNIT/0.5 ML VIAL SQ SCH ×2 (08:25→20:25)
--- NOTE | 2018-07-19 16:01 | Hospitalist Progress Note ---
Date of Service July 19, 2018 Assessment & Plan (1) COPD with acute exacerbation: 62 y/o M Hx advanced COPD om home 02, LE edema, HLD admitted because of acute on chronic respiratory failure and COPD exacerbation Patient moved 6 months ago from [place] to be near his son's family in [place]. He has COPD, O2 dependent ,has only been hospitalized 4 times in 7 years for his copd Acute and chronic respiratory failure he continues to have slow to no improvement but persistent dysfunction we will continue with steroid dosing considering pulmonary consultation attempting to retrieve outpatient pulmonary function testing records Chronic respiratory failure on home O2 dependent COPD exacerbation Continue steroids, Abx, 02, scheduled nebs adding Brovana for long-acting beta agonist at this time (2) Elevated troponin: demand ischemia in the presence of respiratory failure, no concern for ACS no chest pain even with exertion (3) Diastolic heart failure: Possible mild acute on chronic diastolic CHF exacerbation with mild LE edema Lasix, this could also be cor pulmonale from pulmonary htn Subjective Patient remains significantly short of breath with dyspnea on exertion having to pause frequently walking around his room he has no audible wheezes he has had no cough to be fairly anxious and distressed regarding this Review of Systems ROS: No double vision blurry vision No problems with speech or swallowing No palpitations, chest pain or pressure Significant dyspnea and breathlessness No abdominal pain nausea vomiting diarrhea changes in appetite or weight No burning urine urine frequency or changes in color No focal joint pain or muscle pain No skin rashes or oral lesions No unusual bruising or bleeding No focused back pain or numbness or loss of strength No changes in memory or confusion Physical Exam 2 Vital Signs (Past 24 Hours): Last Vital Signs Temp 36.7 C 07/19/18 15:52 Pulse 92 H 07/19/18 15:52 Resp 18 07/19/18 15:52 BP 94/61 L 07/19/18 07:15 Pulse Ox 98 07/19/18 15:52 The patient appeared in mild to moderate respiratory distress is barrel chested Vital signs as documented. Remains with low level tachypnea Head exam is unremarkable. normocephalic, atraumatic Neck is without jugular venous distension, thyromegaly, or lymphademopathy Lungs are almost no auscultated will breath sounds no wheezes no focal loss Cardiac exam reveals Rhythm is regular. First and second heart sounds normal. Abdominal exam reveals normal bowel sounds, no masses, no organomegaly Extremities are nonedematous and both pedal pulses are present Neurologic exam is A&Ox3, no focal deficits, strength is equal bilateral Psychologically seems anxious and depressed Skin is warm Dry without bruises or lesions
[2018-07-19] MEDS: ATORVASTATIN 40 MG TAB PO SCH (20:25)
[2018-07-20] MEDS: methylPREDNISolone 60 MG in SYRINGE 0 ML IV SCH (03:11)
[2018-07-20 06:03] LABS: Hematocrit (blood only) 48.7 % (42-52); Hemoglobin 16.7 g/dL (14.0-18.0); Mean Corpuscular Hgb Conc 34.3 g/dL (32-36); Mean Corpuscular Volume 94.9 fL (80-100); Mean Platelet Volume 9.3 fL (7.4-10.4); Platelet Count 241 K/uL (130-400); RDW Coefficient of Variation 13.2 % (11.5-14.5); RDW Standard Deviation 45.6 fL (36.4-46.3); Red Blood Count 5.13 M/uL (4.7-6.1); White Blood Count 14.34 K/uL (4.8-10.8)
[2018-07-20] MEDS: ALBUT/IPRATROP 3MG/0.5MG NEB 3 ML VIAL NEB SCH ×2 (06:08→11:21)
[2018-07-20 06:26] LABS: Partial Thromboplastin Time 27.9 Seconds (21.0-31.0)
[2018-07-20] MEDS: ARFORMOTEROL TART 15MCG/2ML VIAL INH SCH (07:12)
[2018-07-20] MEDS: ASPIRIN 81 MG ECTAB PO SCH (07:53)
[2018-07-20] MEDS: HEPARIN SOD 5,000 UNIT/0.5 ML VIAL SQ SCH (07:53)
[2018-07-20] MEDS: FUROSEMIDE 20 MG TAB PO SCH (07:54)
[2018-07-20] MEDS ORDERED: predniSONE 50 MG TAB PO SCH (09:00)
--- NOTE | 2018-07-20 19:33 | Discharge Summary ---
Date of Service July 20, 2018 Admission HPI Per Admitting Provider 62 y/o M Hx advanced COPD om home 02, LE edema, HLD. Presents with progressive SOB for 2-3 days. He describes a cough which is chronic and denies fevers or rigors. He denies CP but states he has had an odd sensation of a log rolling around in his chest. His oxygen requirements have increased from 2 to 4 litres. Initial labs are notable for an elevated troponin. An EKG does not support acute ischemia. PMH: 1) COPD - 02-dependent 2) HTN 3) HLD 4) Vitamin D deficiency 5) Lower extremity edema Social: Quit smoking 5 years prior, drinks in moderation Family: Mother due to complications of COPD father in good health Principal Diagnosis COPD with exacerbation Discharge Exam Patient's has stable oxygen sats on 4 L with ambulation he needs 5 L. He has very poor air movement in all lung chávez but no wheezes he has had no productive cough Discharge Data Allergies Allergy/AdvReac Type Severity Reaction Status Date / Time codeine AdvReac Unknown Rash Unverified 07/15/18 12:14 Sulfa (Sulfonamide AdvReac Unknown Rash Unverified 07/15/18 12:14 Antibiotics) Consultations 07/15/18 12:01 ED Decision to Admit Stat 07/16/18 15:24 Consult Case Management - Discharge Planning Routine Hospital Course (1) COPD with acute exacerbation: 62 y/o M Hx advanced COPD om home 02, LE edema, HLD admitted because of acute on chronic respiratory failure and COPD exacerbation Patient moved 6 months ago from [place] to be near his son's family in [place]. He has COPD, O2 dependent ,has only been hospitalized 4 times in 7 years for his copd Acute and chronic respiratory failure he continues to have slow to no improvement but persistent dysfunction we will continue with steroid dosing I did personally speak with Dr. James newell who follows the patient as an outpatient. He will begin to discuss the possibility of volume reduction surgery or even lung transplant as an outpatient. I had a sudarshan discussion with the patient and he is understanding that his lung disease is severe however he is 8 years old and relatively in good condition otherwise. He does have some history of distant heart related problems. The patient will continue to want to proceed with aggressive therapy Chronic respiratory failure on home O2 dependent COPD exacerbation Patient be home on oral steroids Brovana duo nebs and Spiriva (2) Elevated troponin: demand ischemia in the presence of respiratory failure, no concern for ACS no chest pain even with exertion although he gets hypoxic with exertion this is what likely precipitates is demand ischemia (3) Diastolic heart failure: Possible mild acute on chronic diastolic CHF exacerbation with mild LE edema Lasix, this could also be cor pulmonale from pulmonary htn Total Time Total Time Spent Total Time Spent (In Minutes): greater than 30 minutes were required to prepare discharge Discharge Plan Discharge Items Patient Disposition: Home - Home Health Services Reason For Visit: COPD EXACERBATION - TROP ELEVATED Discharge Diagnosis: copd exacerbation Discharge Goals: Decrease discomfort and Diagnostic testing Activity: Resume your previous activity Non-emergency contact: Primary Care Provider Call non-emergency contact if: you have any medication questions Follow-up/Referrals: Campbell Mayers MD [Physician] - 07/26/18 1:45 pm (Please, follow up at [facility] Pulmnology Office with Dr. Mayers on TuesdayJuly 26 at 1:45 pm. *This office is located in [address] of [facility]. If you need to change this appointment, call the office at [phone].) Reece Lambert III, CRNP [Primary Care Provider] - 07/24/18 11:00 am (Please, follow up with Reece SPARKS on TuesdayJuly 24 at 11:00 am. If you need to change this appointment, call the office at [phone].) Diet: Regular Addtl Provider Instructions: Please follow up [facility] pulmonary medicine Prescriptions: New arformoterol [Brovana] 15 mcg/2 mL Solution For Nebulization 15 mcg Inhalation BIDR Qty: 120 RF: 0 prednisone 10 mg tablet 10 mg PO UD Qty: 40 RF: 0 tiotropium bromide [Spiriva Respimat] 2.5 mcg/actuation mist 2 puff Inhalation DAILY Qty: 4 RF: 4 lorazepam [Ativan] 0.5 mg tablet 0.5 mg PO TID Qty: 20 RF: 0 Continue pravastatin 40 mg tablet 40 mg PO DAILY RF: 0 furosemide 20 mg tablet 20 mg PO DAILY RF: 0 ergocalciferol (vitamin D2) 50,000 unit capsule 50,000 unit PO Q14D RF: 0 fluticasone 50 mcg/actuation spray,suspension 2 spray Intranasal DAILY RF: 0 Discontinued fluticasone-salmeterol [Advair Diskus] 500-50 mcg/dose blister with device 2 puff Inhalation DAILY RF: 0 Stand-Alone Forms: [facility] Discharge Orders: Discharge Order (Routine); Ordered 07/20/18 Ordered By: Galo Joseph Admission Data Admit Date/Time: 07/15/18 12:47 Attending Provider: Galo Joseph Admit Provider: Hany Arreola Primary Care Provider: Reece Lambert III Other Providers: Ernesto Henry Roy Service: Medical Other Interventions: Discharge Summary Assessment (RN) Last Done: 07/20/18 12:41 DC Date/Time DO NOT enter until pt leaves facility: 07/20/18 14:10
== END 2018-07-20 14:10 | disposition home or self-care (01) | DRG 189 ==
LOC: ED 10:27 → SUATTDRO 12:47 → 2E 12:47 → 4W 07-18 14:35

== ENCOUNTER 2021-05-03 10:28 | Inpatient (IN) ==
[2021-05-03] MEDS ORDERED: methylPREDNISolone 125 MG/2 ML VIAL IV STA (10:58)
[2021-05-03] MEDS ORDERED: ALBUT/IPRATROP 3MG/0.5MG NEB 3 ML VIAL NEB ONE (10:58)
--- NOTE | 2021-05-03 11:03 | Emergency Department Note ---
Impression & Plan Respiratory distress, SOB (shortness of breath), Pneumonia, COVID-19, COPD exacerbation ED Provider Note NAME: HERO ORTEGA AGE: 65 SEX: M : 1955 ARRIVES VIA: Walk-In INFORMANT: [Patient][family] ED PROVIDER(S): [Sachin Franklin MD] CHIEF COMPLAINT: Short of breath HISTORY OF PRESENT ILLNESS: The patient is a 65-year-old male presents to the ER with dyspnea and cough. He has been short of breath for 3 days. He normally wears 5 L of oxygen for his COPD and this oxygen level has not been enough. He is speaking in very short sentences. He has a tightness in his chest. His upper abdominal muscles are sore from his coughing. His cough is productive of yellow mucus. No fever. No chest pain. He has not had vomiting or diarrhea. No sick contacts. He is vaccinated against COVID-19 and influenza. REVIEW OF SYSTEMS: See HPI for pertinent positives and negatives. A total of ten systems were reviewed and were otherwise negative. PMHx/PSHx: See Below SOCIAL HISTORY: See Below. PHYSICAL EXAM: GENERAL: Patient is in moderate respiratory distress. HEENT: No acute trauma, normocephalic atraumatic, mucous membranes moist, no nasal congestion, no scleral icterus. NECK: No stridor, no adenopathy, no meningismus, trachea is midline. LUNGS: Moderate respiratory distress noted. Minimal breath sounds heard bilaterally. A few scattered wheezes are heard. Speaks in very short sentences. Increased respiratory rate. Accessory muscle use noted. HEART: Mildly tachycardic, regular rhythm, no murmurs. ABDOMEN: Soft, nontender, bowel sounds positive, no hernias, no peritonitis. EXTREMITIES: No cyanosis or edema, full range of motion of all the joints without pain or difficulty, no signs for acute trauma. NEUROLOGIC: Oriented x 3, no acute motor or sensory deficits, no focal weakness. SKIN: No rash, no jaundice, no diaphoresis. DIFFERENTIAL DIAGNOSIS: Reactive airway disease, pneumonia, pneumothorax, COPD, influenza, COVID-19, CHF, infection, cardiac ischemia, pulmonary embolism, bronchitis, musculoskeletal, gastrointestinal, as well as other pathologies. EMERGENCY DEPARTMENT COURSE/PROCEDURES: ECG: Indication was shortness of breath. The ECG shows a sinus tachycardia with some PVCs. The rate is 114. There is no ST elevation, the QTc is 454. Continuous Cardiac Monitoring: An order was placed for continuous cardiac monitoring. The monitor shows a rate of 100 with normal sinus rhythm. Critical Care Note: I have personally spent 51 minutes of critical care time in the direct management of this patient. This includes bedside care, interpretation of diagnostic studies, and testing, discussion with consultants, patient, and family members, and other required patient management activities. This 51 minutes is in excess of all separately billable procedures. MEDICAL DECISION MAKING: There is a mild leukocytosis at around 12,000, this could be consistent with infection or the stress of his presentation. There is a normal hemoglobin and platelet count. No coagulopathy. No significant electrolyte abnormality or kidney failure. Lactic acid level is not elevated making severe sepsis less likely. No concerning liver enzyme elevation. ECG shows a sinus tachycardia, no obvious ischemic change. Cardiac enzyme testing x1 is slightly elevated. This elevation could be consistent with cardiac injury or potentially mismatch. Bio fire testing returned positive for COVID-19. Chest film does show a subtle bilateral lower lung pneumonia. No CHF, no pneumothorax. On exam, the patient was in some moderate respiratory distress. He was speaking in very short sentences. The patient was aggressively managed. He was placed on a 1 hour DuoNeb. He basically refused BiPAP. He does not want to be intubated. The patient was given IV saline, 500 cc. He was given IV Zosyn as antibiotic coverage. He received IV Solu-Medrol. Patient does seem to be somewhat improved compared to when he arrived. He seems to be breathing easier. He remains somewhat tachycardic though. The patient is aware of his findings, I spoke with the foster care case manager. The on- call hospitalist has been consulted. Past Med/Surg History Medical History Chronic dyspnea Chronic hypoxemic respiratory failure Chronic obstructive pulmonary disease COPD with acute exacerbation Former smoker Non-ST elevation GA (NSTEMI) Surgical History History of cataract surgery History of knee surgery S/P inguinal hernia repair Family History Sister Breast cancer Brother Lung disease Other Myocardial infarction Denies family history of Colon cancer Ovarian cancer Prostate cancer Social History Smoking Status: Never smoker Second Hand Exposure: No; Hx Alcohol Use: Yes Hx Substance Use: No Preferred Language: Slovenian Communication Ability: Effective Visual Impairment: No Limitations Hearing Ability: Hard of Hearing [employer] Required: No Beliefs That Will Affect Care: None Current Living Situation: Family current occupational status: disabled Feels Safe at Home: Yes Dental Care, Regularly: Yes Physical Activity Frequency: Does not Exercise Seatbelt Use: always Assistive Devices: Oxygen - Continuous Allergies Allergies Allergy/AdvReac Type Severity Reaction Status Date / Time fluticasone furoate AdvReac Mild Trelegy Verified 05/01/21 16:36 [From Trelegy Ellipta] 200 caused shakiness but able to use Trelegy 100 umeclidinium AdvReac Mild Trelegy Verified 05/01/21 16:36 [From Trelegy Ellipta] 200 caused shakiness but able to use Trelegy 100 vilanterol AdvReac Mild Trelegy Verified 05/01/21 16:36 [From Trelegy Ellipta] 200 caused shakiness but able to use Trelegy 100 codeine AdvReac Unknown Rash Verified 04/08/21 10:46 Sulfa (Sulfonamide AdvReac Unknown Rash Verified 04/08/21 10:46 Antibiotics) Home Meds Previous Rx's Medication Instructions Recorded Oxygen Home #1 ea 11/03/18 albuterol sulfate 90 mcg/actuation 2 puffs INHALATION Q6H PRN #18 gm 10/30/19 aerosol inhaler (Ventolin HFA) ipratropium 0.5 mg-albuterol 3 mg 3 ml INHALATION QID PRN #360 ml 11/04/20 (2.5 mg base)/3 mL nebulization soln montelukast 10 mg tablet 10 mg PO QPM #90 tab 11/04/20 (Singulair) oxycodone 5 mg tablet 5 mg PO Q4H PRN #15 tab 12/16/20 fluticasone fur. 100 mcg-umeclid 1 inh INHALATION DAILY #1 inhaler 01/08/21 62.5 mcg-vilant 25 mcg inhalat.powder (Trelegy Ellipta) furosemide 40 mg tablet 40 mg PO DAILY #90 tab 02/10/21 prednisone 10 mg tablet 10 mg PO DAILY #90 tab 03/05/21 roflumilast 500 mcg tablet 500 mcg PO DAILY #30 tab 04/08/21 (Daliresp) clotrimazole 10 mg luis 10 mg MUCOUS MEMBRANE 5XD 14 Days 04/10/21 #70 tab azelastine 137 mcg (0.1 %) nasal 2 spray INTRANASAL BID #30 ml 04/15/21 spray aerosol potassium chloride 20 mEq 20 meq PO DAILY #90 tab 04/15/21 tablet,extended release pravastatin 40 mg tablet 40 mg PO DAILY #90 tab 04/15/21 Results & Data (ED) Vital Signs Vital Signs - 24 hr 05/03/21 10:39 05/03/21 11:19 05/03/21 11:20 Temperature 37.1 C Temperature Source Temporal Artery Scan Pulse Rate 100 H 115 H 115 H Pulse Rate [Right Finger] Pulse Rate from SpO2 Sensor 116 H Respiratory Rate 26 H 21 26 H Respiratory Effort / Characteristics Non-Labored Spontaneous Respiratory Depth Normal Respiratory Pattern Regular Blood Pressure 147/84 H 145/90 H Blood Pressure Mean 105 108 Pulse Oximetry 97 93 Oxygen Delivery Method Nasal Cannula Nasal Cannula Nasal Cannula Oxygen Flow Rate 5 5 5 Sepsis Recent Fever Within 48 Hours No Sepsis New/Unexplained Change in Mental Status No Sepsis Action Taken by Nursing No Action Required 05/03/21 11:21 05/03/21 11:30 05/03/21 11:40 Temperature Temperature Source Pulse Rate 113 H 114 H Pulse Rate [Right Finger] 113 H Pulse Rate from SpO2 Sensor 114 H 115 H Respiratory Rate 22 16 19 Respiratory Effort / Characteristics Spontaneous Short of Breath SOB on Exertion Respiratory Depth Respiratory Pattern Blood Pressure 133/79 Blood Pressure Mean 97 Pulse Oximetry 93 98 97 Oxygen Delivery Method Nasal Cannula Nasal Cannula Nasal Cannula Oxygen Flow Rate 5 5 5 Sepsis Recent Fever Within 48 Hours Sepsis New/Unexplained Change in Mental Status Sepsis Action Taken by Nursing 05/03/21 11:50 05/03/21 12:00 05/03/21 12:10 Temperature Temperature Source Pulse Rate 117 H 119 H 121 H Pulse Rate [Right Finger] Pulse Rate from SpO2 Sensor 117 H 118 H 113 H Respiratory Rate 18 29 H 44 H Respiratory Effort / Characteristics Respiratory Depth Respiratory Pattern Blood Pressure 129/73 Blood Pressure Mean 91 Pulse Oximetry 95 98 93 Oxygen Delivery Method Nasal Cannula Nasal Cannula Nasal Cannula Oxygen Flow Rate 5 5 5 Sepsis Recent Fever Within 48 Hours Sepsis New/Unexplained Change in Mental Status Sepsis Action Taken by Nursing 05/03/21 12:20 05/03/21 12:30 05/03/21 12:40 Temperature Temperature Source Pulse Rate 118 H 122 H 119 H Pulse Rate [Right Finger] Pulse Rate from SpO2 Sensor 124 H 122 H 119 H Respiratory Rate 19 24 29 H Respiratory Effort / Characteristics Respiratory Depth Respiratory Pattern Blood Pressure 124/76 Blood Pressure Mean 92 Pulse Oximetry 96 98 96 Oxygen Delivery Method Nasal Cannula Nasal Cannula Nasal Cannula Oxygen Flow Rate 5 5 5 Sepsis Recent Fever Within 48 Hours Sepsis New/Unexplained Change in Mental Status Sepsis Action Taken by Nursing 05/03/21 12:50 05/03/21 13:00 Temperature Temperature Source Pulse Rate 121 H 121 H Pulse Rate [Right Finger] Pulse Rate from SpO2 Sensor 122 H 114 H Respiratory Rate 25 H 20 Respiratory Effort / Characteristics Respiratory Depth Respiratory Pattern Blood Pressure Blood Pressure Mean Pulse Oximetry 98 96 Oxygen Delivery Method Nasal Cannula Nasal Cannula Oxygen Flow Rate 5 5 Sepsis Recent Fever Within 48 Hours Sepsis New/Unexplained Change in Mental Status Sepsis Action Taken by Half-Way Medications Current Medication List: was personally reviewed by me Laboratory Data Attestation: I reviewed the patient's lab results. Result diagrams: 05/03/21 11:14 05/03/21 11:14 Lab Results 05/03/21 05/03/21 05/03/21 Range/Units 10:58 11:14 11:14 WBC 12.29 H (4.8-10.8) K/uL RBC 4.61 L (4.7-6.1) M/uL Hgb 15.6 (14.0-18.0) g/dL Hct 44.7 (42-52) % MCV 97.0 (80-100) fL MCH 33.8 (25-34) pg MCHC 34.9 (32-36) g/dL RDW Std Deviation 47.5 H (36.4-46.3) fL RDW Coeff of Trent 13.4 (11.5-14.5) % Plt Count 286 (130-400) K/uL MPV 8.8 (7.4-10.4) fL Immature Gran % (Auto) 0.3 % Neut % (Auto) 84.1 % Lymph % (Auto) 6.1 % Fountain % (Auto) 9.2 % Eos % (Auto) 0.2 % Baso % (Auto) 0.1 % Neut # (Auto) 10.34 H (1.4-6.5) K/uL Lymph # (Auto) 0.75 L (1.2-3.4) K/uL Fountain # (Auto) 1.13 H (0.11-0.59) K/uL Eos # (Auto) 0.02 (0-0.5) K/uL Baso # (Auto) 0.01 (0-0.2) K/uL Immature Gran # (Auto) 0.04 H (0.00-0.02) K/uL Absolute Nucleated RBC 0.03 H (0-0) K/uL Nucleated RBC % (auto) 0.2 % PT 10.6 (9.0-12.0) Seconds INR 1.0 (0.9-1.1) APTT 30.2 (21.0-31.0) Seconds PTT Ratio 1.1 Sodium (136-145) mmol/L Potassium (3.5-5.1) mmol/L Chloride (98-107) mmol/L Carbon Dioxide (21-32) mmol/L Anion Gap (3-11) BUN (7-18) mg/dl Creatinine (0.6-1.4) mg/dl Est Cr Clr Drug Dosing ml/min Est GFR ( Amer) ml/min Est GFR (Non-Af Amer) ml/min BUN/Creatinine Ratio (10-20) Glucose (70-99) mg/dl Lactate (0.4-2.0) mmol/L Calcium (8.5-10.1) mg/dl Magnesium (1.8-2.4) mg/dl Total Bilirubin (0.2-1) mg/dl AST (15-37) U/L ALT (12-78) Alkaline Phosphatase (45-117) U/L Troponin I (0-0.045) ng/ml C-Reactive Protein 13.70 H (0-0.29) mg/dl Total Protein (6.4-8.2) gm/dl Albumin (3.4-5.0) gm/dl Globulin (2.5-4.0) gm/dl Albumin/Globulin Ratio (0.9-2) Procalcitonin (0-0.5) ng/ml Adenovirus (PCR) (NotDetected) B. pertussis DNA (PCR) (NotDetected) B.parapertussis DNA PCR (NotDetected) C. pneumoniae DNA (PCR) (NotDetected) Coronavirus OC43 (PCR) (NotDetected) Coronavirus HKU1 (PCR) (NotDetected) Coronavirus 229E (PCR) (NotDetected) SARS-CoV-2 (PCR) (NotDetected) Coronavirus NL63 (PCR) (NotDetected) Human Metapneumovir PCR (NotDetected) Influenza Type A (PCR) (NotDetected) Influenza Type B (PCR) (NotDetected) M. pneumoniae (PCR) (NotDetected) Parainfluenza 1 (PCR) (NotDetected) Parainfluenza 2 (PCR) (NotDetected) Parainfluenza 3 (PCR) (NotDetected) Parainfluenza 4 (PCR) (NotDetected) RSV (PCR) (NotDetected) Entero/Rhino (PCR) (NotDetected) 05/03/21 05/03/21 05/03/21 Range/Units 11:14 11:14 11:14 WBC (4.8-10.8) K/uL RBC (4.7-6.1) M/uL Hgb (14.0-18.0) g/dL Hct (42-52) % MCV (80-100) fL MCH (25-34) pg MCHC (32-36) g/dL RDW Std Deviation (36.4-46.3) fL RDW Coeff of Trent (11.5-14.5) % Plt Count (130-400) K/uL MPV (7.4-10.4) fL Immature Gran % (Auto) % Neut % (Auto) % Lymph % (Auto) % Fountain % (Auto) % Eos % (Auto) % Baso % (Auto) % Neut # (Auto) (1.4-6.5) K/uL Lymph # (Auto) (1.2-3.4) K/uL Fountain # (Auto) (0.11-0.59) K/uL Eos # (Auto) (0-0.5) K/uL Baso # (Auto) (0-0.2) K/uL Immature Gran # (Auto) (0.00-0.02) K/uL Absolute Nucleated RBC (0-0) K/uL Nucleated RBC % (auto) % PT (9.0-12.0) Seconds INR (0.9-1.1) APTT (21.0-31.0) Seconds PTT Ratio Sodium 138 (136-145) mmol/L Potassium 3.7 (3.5-5.1) mmol/L Chloride 105 (98-107) mmol/L Carbon Dioxide 25 (21-32) mmol/L Anion Gap 8.0 (3-11) BUN 23 H (7-18) mg/dl Creatinine 1.09 (0.6-1.4) mg/dl Est Cr Clr Drug Dosing 62.6 ml/min Est GFR ( Amer) 83.3 ml/min Est GFR (Non-Af Amer) 71.9 ml/min BUN/Creatinine Ratio 20.8 H (10-20) Glucose 84 (70-99) mg/dl Lactate 1.6 (0.4-2.0) mmol/L Calcium 9.5 (8.5-10.1) mg/dl Magnesium 2.1 (1.8-2.4) mg/dl Total Bilirubin 0.7 (0.2-1) mg/dl AST 17 (15-37) U/L ALT 41 (12-78) Alkaline Phosphatase 81 (45-117) U/L Troponin I 0.102 H* (0-0.045) ng/ml C-Reactive Protein (0-0.29) mg/dl Total Protein 7.6 (6.4-8.2) gm/dl Albumin 3.5 (3.4-5.0) gm/dl Globulin 4.1 H (2.5-4.0) gm/dl Albumin/Globulin Ratio 0.8 L (0.9-2) Procalcitonin 0.61 H (0-0.5) ng/ml Adenovirus (PCR) (NotDetected) B. pertussis DNA (PCR) (NotDetected) B.parapertussis DNA PCR (NotDetected) C. pneumoniae DNA (PCR) (NotDetected) Coronavirus OC43 (PCR) (NotDetected) Coronavirus HKU1 (PCR) (NotDetected) Coronavirus 229E (PCR) (NotDetected) SARS-CoV-2 (PCR) (NotDetected) Coronavirus NL63 (PCR) (NotDetected) Human Metapneumovir PCR (NotDetected) Influenza Type A (PCR) (NotDetected) Influenza Type B (PCR) (NotDetected) M. pneumoniae (PCR) (NotDetected) Parainfluenza 1 (PCR) (NotDetected) Parainfluenza 2 (PCR) (NotDetected) Parainfluenza 3 (PCR) (NotDetected) Parainfluenza 4 (PCR) (NotDetected) RSV (PCR) (NotDetected) Entero/Rhino (PCR) (NotDetected) 05/03/21 Range/Units 11:21 WBC (4.8-10.8) K/uL RBC (4.7-6.1) M/uL Hgb (14.0-18.0) g/dL Hct (42-52) % MCV (80-100) fL MCH (25-34) pg MCHC (32-36) g/dL RDW Std Deviation (36.4-46.3) fL RDW Coeff of Trent (11.5-14.5) % Plt Count (130-400) K/uL MPV (7.4-10.4) fL Immature Gran % (Auto) % Neut % (Auto) % Lymph % (Auto) % Fountain % (Auto) % Eos % (Auto) % Baso % (Auto) % Neut # (Auto) (1.4-6.5) K/uL Lymph # (Auto) (1.2-3.4) K/uL Fountain # (Auto) (0.11-0.59) K/uL Eos # (Auto) (0-0.5) K/uL Baso # (Auto) (0-0.2) K/uL Immature Gran # (Auto) (0.00-0.02) K/uL Absolute Nucleated RBC (0-0) K/uL Nucleated RBC % (auto) % PT (9.0-12.0) Seconds INR (0.9-1.1) APTT (21.0-31.0) Seconds PTT Ratio Sodium (136-145) mmol/L Potassium (3.5-5.1) mmol/L Chloride (98-107) mmol/L Carbon Dioxide (21-32) mmol/L Anion Gap (3-11) BUN (7-18) mg/dl Creatinine (0.6-1.4) mg/dl Est Cr Clr Drug Dosing ml/min Est GFR ( Amer) ml/min Est GFR (Non-Af Amer) ml/min BUN/Creatinine Ratio (10-20) Glucose (70-99) mg/dl Lactate (0.4-2.0) mmol/L Calcium (8.5-10.1) mg/dl Magnesium (1.8-2.4) mg/dl Total Bilirubin (0.2-1) mg/dl AST (15-37) U/L ALT (12-78) Alkaline Phosphatase (45-117) U/L Troponin I (0-0.045) ng/ml C-Reactive Protein (0-0.29) mg/dl Total Protein (6.4-8.2) gm/dl Albumin (3.4-5.0) gm/dl Globulin (2.5-4.0) gm/dl Albumin/Globulin Ratio (0.9-2) Procalcitonin (0-0.5) ng/ml Adenovirus (PCR) Not Detected (NotDetected) B. pertussis DNA (PCR) Not Detected (NotDetected) B.parapertussis DNA PCR Not Detected (NotDetected) C. pneumoniae DNA (PCR) Not Detected (NotDetected) Coronavirus OC43 (PCR) Not Detected (NotDetected) Coronavirus HKU1 (PCR) Not Detected (NotDetected) Coronavirus 229E (PCR) Not Detected (NotDetected) SARS-CoV-2 (PCR) DETECTED A* (NotDetected) Coronavirus NL63 (PCR) Not Detected (NotDetected) Human Metapneumovir PCR Not Detected (NotDetected) Influenza Type A (PCR) Not Detected (NotDetected) Influenza Type B (PCR) Not Detected (NotDetected) M. pneumoniae (PCR) Not Detected (NotDetected) Parainfluenza 1 (PCR) Not Detected (NotDetected) Parainfluenza 2 (PCR) Not Detected (NotDetected) Parainfluenza 3 (PCR) Not Detected (NotDetected) Parainfluenza 4 (PCR) Not Detected (NotDetected) RSV (PCR) Not Detected (NotDetected) Entero/Rhino (PCR) Not Detected (NotDetected) Administered Medications Miscellaneous Information (Piperacill/Tazobac Consult Active) 1 ea N/A UD PRN PRN Reason: Consult Stop: 06/02/21 11:56 Last Admin: 05/03/21 12:53 Dose: 1 ea Documented by: [id number] Discontinued Medications Albuterol (Albut/Ipratrop 3mg/0.5mg Neb 3 Ml Vial) 12 ml NEB ONE ONE Stop: 05/03/21 10:59 Last Admin: 05/03/21 11:19 Dose: 12 ml Documented by: [id number] Piperacillin Sod/Tazobactam Sod (Zosyn) 4.5 gm in 120 mls @ 240 mls/hr IV NOW ONE Stop: 05/03/21 12:26 Last Admin: 05/03/21 12:53 Dose: 240 mls/hr Documented by: [id number] Sodium Chloride (Nss 1000ml) 500 mls @ 999 mls/hr IV .Q31M ONE Stop: 05/03/21 12:57 Last Admin: 05/03/21 12:53 Dose: 999 mls/hr Documented by: [id number] Methylprednisolone (Methylprednisolone 125 Mg/2 Ml Vial) 125 mg IV NOW STA Stop: 05/03/21 10:59 Last Admin: 05/03/21 11:15 Dose: 125 mg Documented by: [id number] Imaging Data Radiologist's Impression: Chest X-Ray 05/03/21 10:58 XR chest 1V portable HISTORY: Shortness of breath. COMPARISON: Chest 02/09/2019. FINDINGS: The lungs are hyperexpanded with severe apical predominant emphysematous changes. This remains unchanged. No pneumothorax. No pleural effusions. The heart is normal in size. There is a mildly tortuous thoracic aorta. Suture material within the left lung apex is again noted. Interstitial thickening within the mid to lower lung zones favors vascular crowding. There are progressive hazy airspace opacities within the mid to lower lung zones. This favors a superimposed pneumonitis could be due to a viral process. Old, healed left-sided rib fractures. IMPRESSION: Severe emphysema with progressive patchy hazy airspace opacities within the mid to lower lung zones. This represents a viral pneumonia. ACT 112: Negative or not required by law. Electronically signed by: Angel Bae M.D. 05/03/2021 11:19 AM Discharge Plan Visit Data Chief Complaint: Respiratory Problems Stated Complaint: COPD, COUGH, TROUBLE BREATHING ED Provider: Sachin Franklin Discharge Problem: Respiratory distress, SOB (shortness of breath), Pneumonia, COVID-19, COPD exacerbation Patient Disposition: Admitted As Inpatient Condition: Serious Forms Stand Alone Forms: Caterna Prescriptions Prescriptions: No Action (DME) Oxygen Home Liters Per Minute See Dose Instructions .ROUTE .MEDSUPPLY Qty: 1 RF: 0 albuterol sulfate [Ventolin HFA] 90 mcg/actuation HFA aerosol inhaler 2 puffs inhalation Q6H PRN (Reason: Shortness Of Breath Or Wheezing) Qty: 18 RF: 5 ipratropium-albuterol 0.5 mg-3 mg(2.5 mg base)/3 mL solution for nebulization 3 ml inhalation QID PRN (Reason: shortness of breath or wheezing) Qty: 360 RF: 5 Trelegy Ellipta 100-62.5-25 mcg blister with device 1 inh INHALATION DAILY Qty: 1 RF: 5 furosemide 40 mg tablet 40 mg PO DAILY Qty: 90 RF: 1 prednisone 10 mg tablet 10 mg PO DAILY Qty: 90 RF: 3 clotrimazole 10 mg luis 10 mg mucous membrane 5XD 14 Days Qty: 70 RF: 0 azelastine 137 mcg (0.1 %) aerosol,spray 2 spray intranasal BID Qty: 30 RF: 3 potassium chloride 20 mEq tablet extended release 20 meq PO DAILY Qty: 90 RF: 1 pravastatin 40 mg tablet 40 mg PO DAILY Qty: 90 RF: 1 montelukast [Singulair] 10 mg tablet 10 mg PO QPM Qty: 90 RF: 2 Daliresp 500 mcg tablet 500 mcg PO DAILY Qty: 30 RF: 2 oxycodone 5 mg tablet 5 mg PO Q4H PRN (Reason: pain) Qty: 15 RF: 0 Referrals Referrals: Reece Lambert III, CRNP [Primary Care Provider] -
--- NOTE | 2021-05-03 11:21 | XRay Report ---
XR chest 1V portable HISTORY: Shortness of breath. COMPARISON: Chest 02/09/2019. FINDINGS: The lungs are hyperexpanded with severe apical predominant emphysematous changes. This dusty ins unchanged. No pneumothorax. No pleural effusions. The heart is normal in size. There is a mildly tortuous thoracic aorta. Suture material within the left lung apex is again noted. Interstitial thick ening within the mid to lower lung zones favors vascular crowding. There are progressive hazy airspac e opacities within the mid to lower lung zones. This favors a superimposed pneumonitis could be due t o a viral process. Old, healed left-sided rib fractures. IMPRESSION: Severe emphysema with progressive patchy hazy airspace opacities within the mid to lower lung zones. This represents a viral pneumonia. ACT 112: Negative or not required by law. Electronically signed by: Angel Bae M.D. 05/03/2021 11:19 AM
[2021-05-03 11:29] LABS: Basophils # (auto) 0.01 K/uL (0-0.2); Basophils % (auto) 0.1 %; Eosinophils # (auto) 0.02 K/uL (0-0.5); Eosinophils % (auto) 0.2 %; Hematocrit (blood only) 44.7 % (42-52); Hemoglobin 15.6 g/dL (14.0-18.0); Immature Granulocytes # (auto) 0.04 K/uL (0.00-0.02); Immature Granulocytes % (auto) 0.3 %; Lymphocytes # (auto) 0.75 K/uL (1.2-3.4); Lymphocytes % (auto) 6.1 %; Mean Corpuscular Hemoglobin 33.8 pg (25-34); Mean Corpuscular Hgb Conc 34.9 g/dL (32-36); Mean Platelet Volume 8.8 fL (7.4-10.4); Monocytes # (auto) 1.13 K/uL (0.11-0.59); Monocytes % (auto) 9.2 %; Neutrophils # (auto) 10.34 K/uL (1.4-6.5); Neutrophils % (auto) 84.1 %; Nucleated RBC # (auto) 0.03 K/uL (0-0); Nucleated RBC % (auto) 0.2 %; Platelet Count 286 K/uL (130-400); RDW Coefficient of Variation 13.4 % (11.5-14.5); RDW Standard Deviation 47.5 fL (36.4-46.3); Red Blood Count 4.61 M/uL (4.7-6.1); White Blood Count 12.29 K/uL (4.8-10.8)
[2021-05-03 11:40] LABS: Partial Thromboplastin Ratio 1.1; Partial Thromboplastin Time 30.2 Seconds (21.0-31.0); Prothrombin Time 10.6 Seconds (9.0-12.0)
[2021-05-03 11:49] LABS: Albumin Level 3.5 gm/dl (3.4-5.0); BUN Creatinine Ratio 20.8 (10-20); Calcium 9.5 mg/dl (8.5-10.1); Creatinine Clr Calc Pharmacy 62.6 ml/min; Est GFR (African American) 83.3 ml/min; Est GFR (Non-African American) 71.9 ml/min; Magnesium 2.1 mg/dl (1.8-2.4); Potassium 3.7 mmol/L (3.5-5.1)
[2021-05-03] MEDS ORDERED: PIPERACILLIN/TAZOBACTAM 4.5 GM/120 ML BAG IV ONE (11:57)
[2021-05-03] MEDS ORDERED: PIPERACILL/TAZOBAC CONSULT ACTIVE PRN (11:57)
[2021-05-03 12:13] LABS: Albumin Globulin Ratio 0.8 (0.9-2); Bilirubin,Total 0.7 mg/dl (0.2-1); Globulin 4.1 gm/dl (2.5-4.0); Total Protein 7.6 gm/dl (6.4-8.2); Troponin I 0.102 ng/ml (0-0.045)
[2021-05-03 12:19] LABS: Adenovirus PCR Not Detected (NotDetected); Bordetella parapertussis PCR Not Detected (NotDetected); Bordetella pertussis PCR Not Detected (NotDetected); Chlamydia pneumoniae PCR Not Detected (NotDetected); Coronavirus 229E PCR Not Detected (NotDetected); Coronavirus HKU1 PCR Not Detected (NotDetected); Coronavirus NL63 PCR Not Detected (NotDetected); Coronavirus OC43PCR Not Detected (NotDetected); Human Metapneumovirus PCR Not Detected (NotDetected); Influenza A PCR Not Detected (NotDetected); Influenza B PCR Not Detected (NotDetected); Mycoplasma pneumoniae PCR Not Detected (NotDetected); Parainfluenza Virus 1 PCR Not Detected (NotDetected); Parainfluenza Virus 2 PCR Not Detected (NotDetected); Parainfluenza Virus 3 PCR Not Detected (NotDetected); Parainfluenza Virus 4 PCR Not Detected (NotDetected); Respiratory Syncytial VirusPCR Not Detected (NotDetected); Rhinovirus/Enterovirus PCR Not Detected (NotDetected)
[2021-05-03 12:21] LABS: Coronavirus CoV-2 (COVID19)PCR DETECTED (NotDetected)
[2021-05-03] MEDS ORDERED: SODIUM CHLORIDE 0.9% 1000ML 500 ML IV ONE (12:27)
--- NOTE | 2021-05-03 12:51 | History & Physical Report ---
Date of Service May 03, 2021 Assessment & Plan (1) COPD exacerbation: Plan: Solu-medrol 125mg IV given in ER, continue 40mg IV TID (on chronic 10mg PO prednisone as outpatient) Levalbuterol/ipratropium nebs q6h Doxycycline 100mg PO BID Continue his usual maintenance inhalers or hospital formulary equivalent Follow up sputum and blood culture (2) Pneumonia due to COVID-19 virus: Plan: Given COPD exacerbation above would favor continuing Solu-Medrol 40mg IV TID over dexamethasone currently Start remdesivir as requiring more O2 than baseline and only 3 days through illness COVID isolation precautions (3) Acute and chronic respiratory failure with hypoxia: Plan: Secondary to combination of COPD exacerbation and COVID-19 pneumonia. Given rapid resolution would favor COPD exacerbation most contributing at this stage. Only mildly elevated procalcitonin, doubtful secondary bacterial infection currently but consider trending if not improving, will discontinue further antibiotics other than doxycycline for COPD exacerbation Chronically on 5LPM O2 Aim O2 sats 88-92% (4) Elevated troponin: Plan: Suspect demand-ischemia in setting of illness as above. Similar rise in 06/2018 to COPD exacerbation. (5) Hyperlipidemia: Plan: Continue pravastatin 40mg PO daily Plan: VTE Prophylaxis - Lovenox 40mg SQ daily Diet - heart healthy, low Na Disposition admit to COVID isolation on med/tele Admission and Anticipated Discharge Date Admission Date: May 03, 2021 History of Present Illness Chief Complaint: Shortness of breath, cough Primary Care Provider: Reece Lambert, III, BRIDGER Burton Durbin is a 65 year old male with COPD Gold class D on chronic 5LPM O2 who presents to the ER with shortness of breath. He has 3 days of symptoms with worsening productive yellow cough, shortness of breath and difficulty completing full sentences. He is vaccinated for COVID-19 with Pfizer x2 in August 2020, no booster. He denies any chest pain, abdominal pain, diarrhea, loss of appetite, loss of taste or smell. He reports marked improvement with nebulizers and steroids given in the ER. In the ER SARS-COV-2 PCR positive. CXR concerning for viral pneumonia. Procalcitonin 0.61. He is currently requiring 6LPM O2 to maintain O2 sats > 90%. He was referred to medicine for admission and ongoing management of COPD exacerbation and COVID-19 pneumonia. Allergies Allergy/AdvReac Type Severity Reaction Status Date / Time fluticasone furoate AdvReac Mild Trelegy Verified 05/03/21 14:29 [From Trelegy Ellipta] 200 caused shakiness but able to use Trelegy 100 umeclidinium AdvReac Mild Trelegy Verified 05/03/21 14:29 [From Trelegy Ellipta] 200 caused shakiness but able to use Trelegy 100 vilanterol AdvReac Mild Trelegy Verified 05/03/21 14:29 [From Trelegy Ellipta] 200 caused shakiness but able to use Trelegy 100 codeine AdvReac Unknown Rash Verified 05/03/21 14:29 Sulfa (Sulfonamide AdvReac Unknown Rash Verified 05/03/21 14:29 Antibiotics) Home Medications Medication Instructions Recorded Confirmed Type Oxygen Home #1 ea 11/03/18 04/29/21 Rx albuterol sulfate 90 mcg/actuation 2 puffs INHALATION Q6H PRN #18 gm 10/30/19 05/03/21 Rx aerosol inhaler (Ventolin HFA) ipratropium 0.5 mg-albuterol 3 mg 3 ml INHALATION QID PRN #360 ml 11/04/20 05/03/21 Rx (2.5 mg base)/3 mL nebulization soln azelastine 137 mcg (0.1 %) nasal 2 spray INTRANASAL BID #30 ml 04/15/21 05/03/21 Rx spray aerosol fluticasone fur. 100 mcg-umeclid 1 inh INHALATION QAM 05/03/21 05/03/21 History 62.5 mcg-vilant 25 mcg inhalat.powder (Trelegy Ellipta) furosemide 40 mg tablet 40 mg PO QAM 05/03/21 05/03/21 History montelukast 10 mg tablet 10 mg PO HS 05/03/21 05/03/21 History (Singulair) potassium chloride 20 mEq 20 meq PO QAM 05/03/21 05/03/21 History tablet,extended release pravastatin 40 mg tablet 40 mg PO QAM 05/03/21 05/03/21 History prednisone 10 mg tablet 10 mg PO QAM 05/03/21 05/03/21 History Past Med/Surg History Medical History Chronic dyspnea Chronic hypoxemic respiratory failure Chronic obstructive pulmonary disease COPD with acute exacerbation Former smoker Non-ST elevation [place] (NSTEMI) Surgical History History of cataract surgery History of knee surgery S/P inguinal hernia repair Family History Sister Breast cancer Brother Lung disease Other Myocardial infarction Denies family history of Colon cancer Ovarian cancer Prostate cancer Social History Smoking Status: Former smoker Second Hand Exposure: No; Hx Alcohol Use: No Hx Substance Use: No Preferred Language: Maori Communication Ability: Effective Visual Impairment: No Limitations Hearing Ability: Hard of Hearing Exercise Physiology Professor Required: No Beliefs That Will Affect Care: None Current Living Situation: Family current occupational status: disabled Other Information That Helps Us Care for You: No Feels Safe at Home: Yes Safety Concerns: Feels Safe At This Time Dental Care, Regularly: Yes Physical Activity Frequency: Does not Exercise Seatbelt Use: always Assistive Devices: Oxygen - Continuous Review of Systems Review of Systems: All systems reviewed & are unremarkable except as noted in HPI & below Physical Exam Constitutional: well developed and + acute distress (respiratory); + not well nourished Eyes: + anicteric sclerae; normal pupil size ENMT: external ear and nose normal, oropharynx normal Respiratory: + labored breathing, + retractions, + uses accessory muscles and able to speak in complete sentences Auscultation: + diminished lung sounds (bibasal) and + wheezes (mild expiratory posteriorly); no crackles Cardiovascular: Rate/Rhythm: regular rhythm and + tachycardic Heart Sounds: no murmur Extremities: normal capillary refill; no calf tenderness and no pedal edema Gastrointestinal (Abdomen): normal bowel sounds, soft, nontender, no hepatosplenomegaly Musculoskeletal: no cyanosis or clubbing, extremities motor strength 5/5 Skin: no rashes, warm and dry Neurologic: moves all extremities and awake; not confused Psychiatric: A+Ox3, euthymic affect Results & Data Results & Data ([facility]) Vital Signs (Past 12 Hours) Vital Signs Temp Pulse Pulse Resp BP Pulse Ox 05/03/21 11:21 113 H 22 93 05/03/21 10:39 37.1 C 100 H 26 H 147/84 H 97 Laboratory Results Abnormal lab results 05/03/21 05/03/21 05/03/21 Range/Units 11:14 11:14 11:21 WBC 12.29 H (4.8-10.8) K/uL RBC 4.61 L (4.7-6.1) M/uL RDW Std Deviation 47.5 H (36.4-46.3) fL Neut # (Auto) 10.34 H (1.4-6.5) K/uL Lymph # (Auto) 0.75 L (1.2-3.4) K/uL [place] # (Auto) 1.13 H (0.11-0.59) K/uL Immature Gran # (Auto) 0.04 H (0.00-0.02) K/uL Absolute Nucleated RBC 0.03 H (0-0) K/uL BUN 23 H (7-18) mg/dl BUN/Creatinine Ratio 20.8 H (10-20) Troponin I 0.102 H* (0-0.045) ng/ml Globulin 4.1 H (2.5-4.0) gm/dl Albumin/Globulin Ratio 0.8 L (0.9-2) SARS-CoV-2 (PCR) DETECTED A* (NotDetected) Diagnostic Findings XR chest 1V portable HISTORY: Shortness of breath. COMPARISON: Chest 02/09/2019. FINDINGS: The lungs are hyperexpanded with severe apical predominant emphysematous changes. This remains unchanged. No pneumothorax. No pleural effusions. The heart is normal in size. There is a mildly tortuous thoracic aorta. Suture material within the left lung apex is again noted. Interstitial thickening within the mid to lower lung zones favors vascular crowding. There are progressive hazy airspace opacities within the mid to lower lung zones. This favors a superimposed pneumonitis could be due to a viral process. Old, healed left-sided rib fractures. IMPRESSION: Severe emphysema with progressive patchy hazy airspace opacities within the mid to lower lung zones. This represents a viral pneumonia. Medications Administered ER Medications Given: NSS 500 ml bolus Solu-Medrol 125mg IV Zosyn 4.5g IV Duoneb 12ml NEB ECG Indication: SOB/dyspnea Rate (beats per minute): 114 Rhythm: sinus tachycardia Findings: + other (T wave flattening in inferior leads) Comparison ECG Date: from (September 30, 2018) Change: no significant change Code Status & VTE Plan Code Status DNR/DNI VTE Prophylaxis Plan VTE Prophylaxis will be ordered: Yes PG Care Time/CCT Total # of Minutes Spent Total Time Spent with Patient: Total time spent is greater than 50% in coordination of care (as documented) at patient's floor/unit and/or counseling patient: Coding Level of Care Code 47761 Initial Inpt Care Lvl 3 Diagnoses Acute and chronic respiratory failure with hypoxia J96.21 Pneumonia due to COVID-19 virus U07.1; J12.82 COPD exacerbation J44.1 Elevated troponin R77.8 Hyperlipidemia E78.00 Hyperlipidemia type: pure hypercholesterolemia (1) Hyperlipidemia Hyperlipidemia type: pure hypercholesterolemia Qualified Code(s): E78.00 - Pure hypercholesterolemia, unspecified
--- NOTE | 2021-05-03 13:11 | Electrocardiogram Report ---
Test Reason : Blood Pressure : / mmHG Vent. Rate : 114 BPM Atrial Rate : 114 BPM P-R Int : 146 ms QRS Dur : 084 ms QT Int : 330 ms P-R-T Axes : 059 013 043 degrees QTc Int : 454 ms Poor data quality, interpretation may be adversely affected Sinus tachycardia Otherwise normal ECG When compared with ECG of 30-SEP-2018 13:52, Nonspecific T wave abnormality now evident in Inferior leads Confirmed by Campbell Chung ([id number]) on 05/03/2021 1:11:29 PM Referred By: Confirmed By:Campbell Chung
[2021-05-03] MEDS ORDERED: REMDESIVIR 200 MG in SODIUM CHLORIDE 0.9% 210 ML IV STA (13:32)
[2021-05-03] MEDS ORDERED: SODIUM CHLORIDE 0.9% 10ML FLUSH IV SCH (13:45)
[2021-05-03] MEDS ORDERED: ACETAMINOPHEN 325 MG TAB PO PRN (18:05)
[2021-05-03] MEDS ORDERED: POLYETHYLENE (MIRALAX) 17 GM PACK PO PRN (18:05)
[2021-05-03] MEDS ORDERED: ONDANSETRON INJ 2 MG/ML 2 ML VIAL IV PRN (18:05)
[2021-05-03] MEDS ORDERED: PIPERACILLIN/TAZOBACTAM 3.375 GM in DEXTROSE 5% 100 ML IV SCH (19:00)
[2021-05-03] MEDS ORDERED: XOPENEX/ATROVENT 1.25mg/0.5MG NEB COMBO NEB SCH (19:00)
[2021-05-03] MEDS: IPRATROPIUM BROMIDE NEB SOLN 0.02% 2.5 ML VIAL INH SCH ×2 (19:50→23:29)
[2021-05-03] MEDS: LEVALBUTEROL 1.25MG/0.5ML NEB INH SCH ×2 (19:50→23:29)
[2021-05-03] MEDS: DOXYCYCLINE HYCLATE 100 MG CAP PO SCH (19:52)
[2021-05-03] MEDS: MONTELUKAST SODIUM 10 MG TABLET PO SCH (20:43)
[2021-05-03] MEDS: methylPREDNISolone 40 MG in SYRINGE 0 ML IV SCH (20:43)
[2021-05-03] MEDS: AZELASTINE HCL 0.1% NASAL 200 SPRAYS/27,400 MCG BTL NAE SCH (20:43)
[2021-05-03] MEDS: FLUTICASONE FUROATE 100MCG 14 PUFFS/INHALER INH SCH (22:55)
[2021-05-04] MEDS: IPRATROPIUM BROMIDE NEB SOLN 0.02% 2.5 ML VIAL INH SCH (07:30)
[2021-05-04] MEDS: LEVALBUTEROL 1.25MG/0.5ML NEB INH SCH (07:30)
[2021-05-04 07:33] LABS: Hematocrit (blood only) 39.4 % (42-52); Hemoglobin 13.5 g/dL (14.0-18.0); Immature Granulocytes # (auto) 0.03 K/uL (0.00-0.02); Immature Granulocytes % (auto) 0.3 %; Lymphocytes # (auto) 0.43 K/uL (1.2-3.4); Lymphocytes % (auto) 4.3 %; Mean Corpuscular Hemoglobin 32.8 pg (25-34); Mean Corpuscular Hgb Conc 34.3 g/dL (32-36); Mean Corpuscular Volume 95.9 fL (80-100); Monocytes # (auto) 0.47 K/uL (0.11-0.59); Monocytes % (auto) 4.7 %; Neutrophils # (auto) 9.02 K/uL (1.4-6.5); Neutrophils % (auto) 90.7 %; Platelet Count 248 K/uL (130-400); RDW Coefficient of Variation 13.2 % (11.5-14.5); RDW Standard Deviation 45.9 fL (36.4-46.3); Red Blood Count 4.11 M/uL (4.7-6.1); White Blood Count 9.95 K/uL (4.8-10.8)
[2021-05-04 08:12] LABS: Blood Urea Nitrogen 23 mg/dl (7-18); Carbon Dioxide 25 mmol/L (21-32); Chloride 107 mmol/L (98-107); Est GFR (African American) 111.3 ml/min; Potassium 4.1 mmol/L (3.5-5.1); Sodium 139 mmol/L (136-145)
[2021-05-04 08:13] LABS: Alanine Aminotransferase 31 (12-78); Albumin Globulin Ratio 0.7 (0.9-2); Albumin Level 2.5 gm/dl (3.4-5.0); Alkaline Phosphatase 60 U/L (45-117); Aspartate Aminotransferase 16 U/L (15-37); BUN Creatinine Ratio 29.2 (10-20); Bilirubin,Total 0.6 mg/dl (0.2-1); Calcium 8.8 mg/dl (8.5-10.1); Creatinine Clr Calc Pharmacy 87.5 ml/min; Est GFR (Non-African American) 96.1 ml/min; Globulin 3.6 gm/dl (2.5-4.0); Glucose 139 mg/dl (70-99); Total Protein 6.1 gm/dl (6.4-8.2); Troponin I < 0.015 ng/ml (0-0.045)
[2021-05-04] MEDS ORDERED: NON-FORMULARY MEDICATION (Fluticasone-Umeclidin-Vilanter [Trelegy Ellipta] 100-62.5-25 mcg INH SCH (09:00)
[2021-05-04] MEDS: ENOXAPARIN INJ 40 MG/0.4 ML SYR SQ SCH (10:56)
[2021-05-04] MEDS: DOXYCYCLINE HYCLATE 100 MG CAP PO SCH ×2 (10:56→21:01)
[2021-05-04] MEDS: FUROSEMIDE 40 MG TAB PO SCH (10:57)
[2021-05-04] MEDS: POTASSIUM CHLORIDE CRTAB 20 MEQ TABCR PO SCH (10:58)
[2021-05-04] MEDS: PRAVASTATIN SOD 40 MG TAB PO SCH (10:59)
[2021-05-04] MEDS: methylPREDNISolone 40 MG in SYRINGE 0 ML IV SCH ×3 (10:59→21:02)
[2021-05-04] MEDS: AZELASTINE HCL 0.1% NASAL 200 SPRAYS/27,400 MCG BTL NAE SCH ×2 (11:03→21:00)
[2021-05-04] MEDS: FLUTICASONE FUROATE 100MCG 14 PUFFS/INHALER INH SCH (11:04)
[2021-05-04] MEDS: UMECLIDINIUM/VILANTEROL 62.5/25MCG 7 PUFFS/INHALER INH SCH (11:04)
[2021-05-04] MEDS ORDERED: SODIUM CHLORIDE 0.9% 10ML FLUSH IV SCH (12:00)
[2021-05-04] MEDS: REMDESIVIR 100 MG in SODIUM CHLORIDE 0.9% 230 ML IV SCH (13:05)
[2021-05-04] MEDS: SODIUM CHLORIDE 0.9% 10ML FLUSH IV SCH (14:49)
--- NOTE | 2021-05-04 18:30 | Hospitalist Progress Note ---
Date of Service May 04, 2021 Assessment & Plan (1) COPD exacerbation: Plan: Cough, suspected acute on chronic COPD exacerbation Patient with wheezing, no increased oxygen requirement, and symptoms were consistent with COPD exacerbation likely incited by Covid. Remains early and Covid course with symptoms beginning 3-4 days ago, likely, early due to COPD flare Continue methylprednisolone, decrease from 40 mg IV 3 times daily to 40 mg twice daily tomorrow if wheezes improved and doing well. Patient with chronic 10 mg prednisone daily outpatient requirement Continue levalbuterol/ipratropium nebs every 6 hours as needed Doxycycline 100 mg p.o. twice daily Continue Umeclidinium/Vilanterol daily Martínez treatment as below (2) Pneumonia due to COVID-19 virus: Plan: Symptoms more consistent with COPD, although patient is early in course and only 3 days of symptoms Methylprednisolone used instead of dexamethasone 2/2 COPD as noted above Remdesivir initiated on admission has had an increased oxygen requirement and early in illness, oxygen requirements have returned to baseline Continue remdesivir at this time, continue CMP daily Lovenox DVT prophylaxis LFTs normal (3) Acute and chronic respiratory failure with hypoxia: Plan: Suspect acute presentation 2/2 COPD but also with comorbid Covid Continue treatments as above Home requirement 5 L nasal cannula oxygen (4) Elevated troponin: Plan: Suspect demand-ischemia in setting of illness as above. Similar rise in 06/2018 to COPD exacerbation. Troponin normalized on recheck (5) Hyperlipidemia: Plan: Continue pravastatin 40mg PO daily (6) Diastolic heart failure: Plan: History of diastolic heart failure TTE 04/05/2021: LV SF normal, EF 50-55%, borderline concentric LVH, no regional wall motion abnormalities Appears near euvolemic today No signs of pulmonary edema/volume overload on chest x-ray Continue home Lasix 40 mg daily Plan: VTE Prophylaxis - Lovenox 40mg SQ daily Diet - heart healthy, low Na Disposition admit to [facility] isolation on med/tele Admission and Anticipated Discharge Date Admission Date: May 03, 2021 Subjective Seen at bedside today. Patient reports that is still somewhat short of breath, and has had intermittent wheezing but feels slightly better than when he came in. Fatigued. Reports symptoms began about a week ago, but seem to be worse in the last 3 to 4 days. No chest pain, chest pressure, nausea, vomiting, diarrhea, dyspnea. Does have a cough productive for some yellow/clear sputum which is been persistent. Patient is concerned about his Covid diagnosis and is more ability to COPD. He reports he is vaccinated to Covid. No other questions or concerns at time of bedside, Review of Systems Review of Systems: Martínez review systems negative except as noted otherwise and in subjective Physical Exam Physical Exam: General: A&Ox3. NAD. Cooperative. HEENT: Atraumatic, normocephalic. Visual acuity and hearing grossly intact. Pulm: Scattered expiratory slight wheezes, no rales/rhonchi. Good air movement, no accessory muscle use for breathing. On nasal cannula, patient reports on home baseline 5 L requirement. Cardiac: RRR, -mrg. Radial pulses intact and symmetrical. Abdominal: Nontender, nondistended, soft. BS present. Results & Data Results & Data ([facility]) Vital Signs (Past 12 Hours) Vital Signs Temp Pulse Resp BP Pulse Ox 05/04/21 12:00 36.9 C 76 20 139/68 95 05/04/21 08:00 36.9 C 77 20 125/66 94 05/04/21 07:30 83 18 92 PG Care Time/CCT Total # of Minutes Spent Total Time Spent with Patient: Total time spent is greater than 50% in coordination of care (as documented) at patient's floor/unit and/or counseling patient: Coding Level of Care Code 97196 Subseq Hosp Care Lvl 3 Diagnoses COPD exacerbation J44.1 Pneumonia due to COVID-19 virus U07.1; J12.82 Acute and chronic respiratory failure with hypoxia J96.21 Elevated troponin R77.8 Hyperlipidemia E78.00 Hyperlipidemia type: pure hypercholesterolemia Diastolic heart failure I50.32 Heart failure chronicity: chronic (1) Hyperlipidemia Hyperlipidemia type: pure hypercholesterolemia Qualified Code(s): E78.00 - Pure hypercholesterolemia, unspecified (2) Diastolic heart failure Heart failure chronicity: chronic Qualified Code(s): I50.32 - Chronic diastolic (congestive) heart failure
[2021-05-04] MEDS: MONTELUKAST SODIUM 10 MG TABLET PO SCH (21:01)
[2021-05-05 06:17] LABS: Basophils # (auto) 0.01 K/uL (0-0.2); Basophils % (auto) 0.1 %; Hematocrit (blood only) 39.8 % (42-52); Hemoglobin 13.8 g/dL (14.0-18.0); Immature Granulocytes # (auto) 0.03 K/uL (0.00-0.02); Immature Granulocytes % (auto) 0.3 %; Lymphocytes # (auto) 0.54 K/uL (1.2-3.4); Lymphocytes % (auto) 5.1 %; Mean Corpuscular Hemoglobin 33.1 pg (25-34); Mean Corpuscular Hgb Conc 34.7 g/dL (32-36); Mean Corpuscular Volume 95.4 fL (80-100); Mean Platelet Volume 8.8 fL (7.4-10.4); Monocytes # (auto) 0.53 K/uL (0.11-0.59); Neutrophils # (auto) 9.39 K/uL (1.4-6.5); Neutrophils % (auto) 89.5 %; Platelet Count 296 K/uL (130-400); RDW Coefficient of Variation 13.1 % (11.5-14.5); RDW Standard Deviation 45.5 fL (36.4-46.3); Red Blood Count 4.17 M/uL (4.7-6.1)
[2021-05-05 07:01] LABS: Albumin Level 2.4 gm/dl (3.4-5.0); BUN Creatinine Ratio 31.3 (10-20); Calcium 8.8 mg/dl (8.5-10.1); Creatinine Clr Calc Pharmacy 77.5 ml/min; Est GFR (Non-African American) 91.4 ml/min; Potassium 3.6 mmol/L (3.5-5.1)
[2021-05-05 07:04] LABS: Albumin Globulin Ratio 0.6 (0.9-2); Bilirubin,Total 0.4 mg/dl (0.2-1); Globulin 3.8 gm/dl (2.5-4.0); Total Protein 6.2 gm/dl (6.4-8.2)
[2021-05-05] MEDS: methylPREDNISolone 40 MG in SYRINGE 0 ML IV SCH ×2 (08:13→10:45)
[2021-05-05] MEDS: FUROSEMIDE 40 MG TAB PO SCH (08:15)
[2021-05-05] MEDS: UMECLIDINIUM/VILANTEROL 62.5/25MCG 7 PUFFS/INHALER INH SCH (08:16)
[2021-05-05] MEDS: FLUTICASONE FUROATE 100MCG 14 PUFFS/INHALER INH SCH (08:16)
[2021-05-05] MEDS: AZELASTINE HCL 0.1% NASAL 200 SPRAYS/27,400 MCG BTL NAE SCH ×2 (08:16→20:30)
[2021-05-05] MEDS: POTASSIUM CHLORIDE CRTAB 20 MEQ TABCR PO SCH (08:17)
[2021-05-05] MEDS: DOXYCYCLINE HYCLATE 100 MG CAP PO SCH ×2 (08:17→20:29)
[2021-05-05] MEDS: ENOXAPARIN INJ 40 MG/0.4 ML SYR SQ SCH (08:17)
[2021-05-05] MEDS: PRAVASTATIN SOD 40 MG TAB PO SCH (08:17)
[2021-05-05] MEDS: REMDESIVIR 100 MG in SODIUM CHLORIDE 0.9% 230 ML IV SCH (12:21)
--- NOTE | 2021-05-05 12:45 | Hospitalist Progress Note ---
Date of Service May 05, 2021 Assessment & Plan (1) COPD exacerbation: Plan: Cough, suspected acute on chronic COPD exacerbation Patient with wheezing, no increased oxygen requirement, and symptoms were consistent with COPD exacerbation likely incited by Covid. Remains early and Covid course with symptoms beginning 3-4 days ago, likely, early due to COPD flare Continue methylprednisolone, decrease from 40 mg IV 3 times daily to 40 mg twice daily tomorrow if wheezes improved and doing well. On conversion to daily we will switch to dexamethasone if COPD is improving/improved, and shifting more to COVID-19 guidelines. Patient with chronic 10 mg prednisone daily outpatient requirement Continue levalbuterol/ipratropium nebs every 6 hours as needed Doxycycline 100 mg p.o. twice daily Continue Umeclidinium/Vilanterol daily COVID treatment as below (2) Pneumonia due to COVID-19 virus: Plan: Symptoms more consistent with COPD, although patient is early in course and only 3 days of symptoms Methylprednisolone used instead of dexamethasone 2/2 COPD as noted above. Remdesivir initiated on admission has had an increased oxygen requirement and early in illness, oxygen requirements have returned to baseline Continue remdesivir at this time, continue CMP daily Lovenox DVT prophylaxis LFTs normal Discussed case with both pharmacy and pollen. Patient has not increased oxygen requirement or high flow and does not qualify for baricitinib at this time, additionally he is early in his course at 3 days so suspect benefit would be reduced in the setting of early viral phase versus immune response phase of illness. Regardless he has a high CRP and is very high risk due to his severe underlying COPD, and we will continue to watch carefully. Academic discussion was had of whether being that patient was early in course of illness and high risk whether he would benefit from Regeneron/monoclonal antibodies despite being inpatient status and review of NIH guidelines and data performed to inform discussion. This is not able to be given to patient even if felt that he would benefit from risk/benefits discussion due to institutional policy, and he does not meet criteria due to being inpatient and vaccinated. We will continue steroids and remdesivir, follow closely at this time. Trend CRP. (3) Acute and chronic respiratory failure with hypoxia: Plan: Suspect acute presentation 2/2 COPD but also with comorbid Covid Continue treatments as above Home requirement 5 L nasal cannula oxygen (4) Elevated troponin: Plan: Suspect demand-ischemia in setting of illness as above. Similar rise in 06/2018 to COPD exacerbation. Troponin normalized on recheck (5) Hyperlipidemia: Plan: Continue pravastatin 40mg PO daily (6) Diastolic heart failure: Plan: History of diastolic heart failure TTE 04/05/2021: LV SF normal, EF 50-55%, borderline concentric LVH, no regional wall motion abnormalities Appears near euvolemic today No signs of pulmonary edema/volume overload on chest x-ray Continue home Lasix 40 mg daily Plan: VTE Prophylaxis - Lovenox 40mg SQ daily Diet - heart healthy, low Na Disposition admit to COVID isolation on med/tele Admission and Anticipated Discharge Date Admission Date: May 03, 2021 Subjective Seen bedside. Patient reports he feels okay, a little worse than baseline but better than when he came in. No wheezing. No shortness of breath laying in bed at rest, notes he does have a dry cough and becomes very tired very quickly with any ambulation. Has not needed more oxygen than his home requirement yet. No diarrhea/constipation. Patient does report some right ear pressure which is irritating to him, reports has had his ears cleaned before I would like to know if he can have any irrigation. Extensive discussion regarding potential Covid treatment options were had with pulmonology and literature review, see below for documentation Review of Systems Review of Systems: All systems reviewed & are unremarkable except as noted in Subjective Physical Exam Physical Exam: General: A&Ox3. NAD. Cooperative. HEENT: Atraumatic, normocephalic. Visual acuity and hearing grossly intact. TM with clear ear canal, but TM with scarring and deformity (patient reports chronic, had ear damage a long time ago). No exudate/injection/effusion appreciated. Pulm: Scattered expiratory slight wheezes more prominent on forced expiration. No rales/rhonchi. Good air movement, no accessory muscle use for breathing. On nasal cannula, patient reports on home baseline 5 L requirement. Cardiac: RRR, -mrg. Radial pulses intact and symmetrical. Abdominal: Nontender, nondistended, soft. BS present. Results & Data Results & Data ([facility]) Vital Signs (Past 12 Hours) Vital Signs Temp Pulse Resp BP Pulse Ox 05/05/21 12:19 37.1 C 86 135/80 99 05/05/21 08:09 36.6 C 69 137/83 96 05/05/21 02:52 37.1 C 82 18 102/61 97 PG Care Time/CCT Total # of Minutes Spent Total Time Spent with Patient: Total time spent is greater than 50% in coordination of care (as documented) at patient's floor/unit and/or counseling patient: Coding Level of Care Code 38720 Subseq Hosp Care Lvl 3 Diagnoses COPD exacerbation J44.1 Pneumonia due to COVID-19 virus U07.1; J12.82 Acute and chronic respiratory failure with hypoxia J96.21 Elevated troponin R77.8 Hyperlipidemia E78.00 Hyperlipidemia type: pure hypercholesterolemia Diastolic heart failure I50.32 Heart failure chronicity: chronic (1) Hyperlipidemia Hyperlipidemia type: pure hypercholesterolemia Qualified Code(s): E78.00 - Pure hypercholesterolemia, unspecified (2) Diastolic heart failure Heart failure chronicity: chronic Qualified Code(s): I50.32 - Chronic diastolic (congestive) heart failure
[2021-05-05] MEDS: SODIUM CHLORIDE 0.9% 10ML FLUSH IV SCH (14:09)
[2021-05-05] MEDS: MONTELUKAST SODIUM 10 MG TABLET PO SCH (20:30)
[2021-05-05] MEDS ORDERED: methylPREDNISolone 40 MG in SYRINGE 0 ML IV SCH (21:00)
[2021-05-06 07:04] LABS: Albumin Globulin Ratio 0.7 (0.9-2); Albumin Level 2.9 gm/dl (3.4-5.0); BUN Creatinine Ratio 29.4 (10-20); Bilirubin,Total 0.6 mg/dl (0.2-1); C Reactive Protein 3.65 mg/dl (0-0.29); Calcium 9.3 mg/dl (8.5-10.1); Creatinine Clr Calc Pharmacy 66.9 ml/min; Est GFR (African American) 90.2 ml/min; Est GFR (Non-African American) 77.9 ml/min; Globulin 4.3 gm/dl (2.5-4.0); Total Protein 7.2 gm/dl (6.4-8.2)
[2021-05-06] MEDS ORDERED: dexAMETHasone 10 MG in SYRINGE 0 ML IV ONE (08:30)
[2021-05-06] MEDS: FLUTICASONE FUROATE 100MCG 14 PUFFS/INHALER INH SCH (09:21)
[2021-05-06] MEDS: UMECLIDINIUM/VILANTEROL 62.5/25MCG 7 PUFFS/INHALER INH SCH (09:22)
[2021-05-06] MEDS: ENOXAPARIN INJ 40 MG/0.4 ML SYR SQ SCH (09:23)
[2021-05-06] MEDS: PRAVASTATIN SOD 40 MG TAB PO SCH (09:24)
[2021-05-06] MEDS: POTASSIUM CHLORIDE CRTAB 20 MEQ TABCR PO SCH (09:24)
[2021-05-06] MEDS: DOXYCYCLINE HYCLATE 100 MG CAP PO SCH ×2 (09:24→19:38)
[2021-05-06] MEDS: FUROSEMIDE 40 MG TAB PO SCH (09:24)
[2021-05-06] MEDS: FLUTICASONE PROPIONATE NA SPR 16 GM BTL SCH ×2 (10:40→19:39)
--- NOTE | 2021-05-06 11:00 | Hospitalist Progress Note ---
Date of Service May 06, 2021 Assessment & Plan (1) COPD exacerbation: Plan: Cough, suspected acute on chronic COPD exacerbation Patient with wheezing, no increased oxygen requirement, and symptoms were consistent with COPD exacerbation likely incited by Covid. Remains early and Covid course with symptoms beginning 3-4 [employer] MGR, likely, early due to COPD flare Methylpred tapered from TID --> BID --> Dex x1 IV 10mg, continue dex 6mg PO starting tomorrow and as ntoed below Patient with chronic 10 mg prednisone daily outpatient requirement Continue levalbuterol/ipratropium nebs every 6 hours as needed Doxycycline 100 mg p.o. twice daily Continue Umeclidinium/Vilanterol daily COVID treatment as below (2) Pneumonia due to COVID-19 virus: Plan: Symptoms more consistent with COPD, although patient is early in course and only 3 days of symptoms Methylprednisolone used instead of dexamethasone 2/2 COPD as noted above. Remdesivir initiated on admission. has had an increased oxygen requirement and early in illness, oxygen requirements have returned to baseline Continue remdesivir at this time, continue CMP daily Lovenox DVT prophylaxis LFTs normal 05/05: Discussed case with both pharmacy and pollen. Patient has not increased oxygen requirement or high flow and does not qualify for baricitinib at this time, additionally he is early in his course at 3 days so suspect benefit would be reduced in the setting of early viral phase versus immune response phase of illness. Regardless he has a high CRP and is very high risk due to his severe underlying COPD, and we will continue to watch carefully. Academic discussion was had of whether being that patient was early in course of illness and high risk whether he would benefit from Regeneron/monoclonal antibodies despite being inpatient status and review of NIH guidelines and data performed to inform discussion. This is not able to be given to patient even if felt that he would benefit from risk/benefits discussion due to institutional policy, and he does not meet criteria due to being inpatient and vaccinated. We will continue steroids and remdesivir, follow closely at this time. Trend CRP. 05/06: CRP downtrending improving. Pt with improved dyspnea at rest, continues to have limiting exertional symptoms worse than baseline. CT: Patchy bilateral airspace opacities consistent with an infectious process. Severe emphysema. Multiple stable noncalcified and calcified pulmonary nodules. These are benign given stability. (3) Acute and chronic respiratory failure with hypoxia: Plan: Suspect acute presentation 2/2 COPD but also with comorbid Covid Continue treatments as above Home requirement 5 L nasal cannula oxygen (4) Elevated troponin: Plan: Suspect demand-ischemia in setting of illness as above. Similar rise in 06/2018 to COPD exacerbation. Troponin normalized on recheck (5) Hyperlipidemia: Plan: Continue pravastatin 40mg PO daily (6) Diastolic heart failure: Plan: History of diastolic heart failure TTE 04/05/2021: LV SF normal, EF 50-55%, borderline concentric LVH, no regional wall motion abnormalities Appears euvolemic today No signs of pulmonary edema/volume overload on chest x-ray Continue home Lasix 40 mg daily Plan: VTE Prophylaxis - Lovenox 40mg SQ daily Diet - heart healthy, low Na Admission and Anticipated Discharge Date Admission Date: May 03, 2021 Subjective Procedure at the bedside today. He reports he feels better rested when he came in, but continues to feel short of breath quickly with exertion and while he is able to catch his breath more quickly still feels this is taking longer than his normal baseline. He feels his wheezing has greatly improved. Continues to have sinus congestion, intermittent cough or clear/white sputum. Review of Systems Review of Systems: 10 point review systems negative except as noted otherwise and in subjective Physical Exam Physical Exam: General: A&Ox3. NAD. Cooperative. HEENT: Atraumatic, normocephalic. Visual acuity and hearing grossly intact. Pulm: Scattered expiratory slight wheezes more prominent on forced expiration. Improved air movement from prior. No rales/rhonchi. Good air movement, no accessory muscle use for breathing. On nasal cannula, patient reports on home baseline 5 L requirement. Cardiac: RRR, -mrg. Radial pulses intact and symmetrical. Abdominal: Nontender, nondistended, soft. BS present. Results & Data Results & Data ([facility]) Vital Signs (Past 12 Hours) Vital Signs Temp Pulse Resp BP Pulse Ox 05/06/21 08:18 37.1 C 81 18 142/78 H 98 05/06/21 04:37 36.6 C 83 18 145/89 H 98 PG Care Time/CCT Total # of Minutes Spent Total Time Spent with Patient: Total time spent is greater than 50% in coordination of care (as documented) at patient's floor/unit and/or counseling patient: Coding Level of Care Code 18606 Subseq Hosp Care Lvl 3 Diagnoses COPD exacerbation J44.1 Pneumonia due to COVID-19 virus U07.1; J12.82 Acute and chronic respiratory failure with hypoxia J96.21 Elevated troponin R77.8 Hyperlipidemia E78.00 Hyperlipidemia type: pure hypercholesterolemia Diastolic heart failure I50.32 Heart failure chronicity: chronic (1) Hyperlipidemia Hyperlipidemia type: pure hypercholesterolemia Qualified Code(s): E78.00 - Pure hypercholesterolemia, unspecified (2) Diastolic heart failure Heart failure chronicity: chronic Qualified Code(s): I50.32 - Chronic diastolic (congestive) heart failure
--- NOTE | 2021-05-06 12:12 | CT Scan Report ---
CT OF THE CHEST WITHOUT IV CONTRAST CLINICAL HISTORY: hypoxia, severe COPD + COVID19. COMPARISON STUDY: Chest CT November 21, 2020. Chest radiograph May 03, 2021. CT DOSE: 458.36 mGycm TECHNIQUE: Axial images of the chest were obtained without IV contrast. Images were reviewed in the axial, sagittal, and coronal planes. IV contrast was not administered for this examination. Automat ed exposure control was utilized for the study. A dose lowering technique was utilized adhering to t he principles of ALARA. FINDINGS: No enlarged axillary, mediastinal or hilar lymph nodes are present. The size the heart is normal. There is no pericardial effusion. There is moderate coronary artery calcification. No pneumot horax or pleural effusion is noted. The central airways are patent. There are severe emphysema. Multi ple calcified nodules are unchanged from earlier exams. Noncalcified nodules are also unchanged. Thes e nodules are benign given stability. Note is made of mild airspace opacities within the anterior seg ment of the right upper lobe, the right middle lobe and the left lower lobe. These have developed sin ce prior chest CT. No confluent consolidation is present. Several old thoracic spine compression frac tures are unchanged. Visualized portions of the upper abdomen are unremarkable on this unenhanced exa m. IMPRESSION: 1. Patchy bilateral airspace opacities consistent with an infectious process. 2. Severe emphysema. 3. Multiple stable noncalcified and calcified pulmonary nodules. These are benign given stability. ACT 112: Negative or not required by law. Electronically signed by: Eder Fontaine M.D. 05/06/2021 12:10 PM
[2021-05-06] MEDS: REMDESIVIR 100 MG in SODIUM CHLORIDE 0.9% 230 ML IV SCH (12:50)
[2021-05-06] MEDS: SODIUM CHLORIDE 0.9% 10ML FLUSH IV SCH (12:50)
[2021-05-06 13:39] LABS: Potassium 4.3 mmol/L (3.5-5.1)
[2021-05-06] MEDS: MONTELUKAST SODIUM 10 MG TABLET PO SCH (19:38)
[2021-05-06] MEDS: LEVALBUTEROL 1.25MG/0.5ML NEB INH PRN (19:42)
[2021-05-06] MEDS: IPRATROPIUM BROMIDE NEB SOLN 0.02% 2.5 ML VIAL INH PRN (19:42)
[2021-05-07] MEDS: IPRATROPIUM BROMIDE NEB SOLN 0.02% 2.5 ML VIAL INH PRN ×2 (06:56→19:40)
[2021-05-07] MEDS: LEVALBUTEROL 1.25MG/0.5ML NEB INH PRN ×2 (06:56→19:40)
[2021-05-07 08:06] LABS: Albumin Globulin Ratio 0.8 (0.9-2); Albumin Level 2.7 gm/dl (3.4-5.0); BUN Creatinine Ratio 33.5 (10-20); Bilirubin,Total 0.4 mg/dl (0.2-1); Calcium 8.9 mg/dl (8.5-10.1); Creatinine Clr Calc Pharmacy 80.3 ml/min; Est GFR (African American) 107.5 ml/min; Est GFR (Non-African American) 92.7 ml/min; Globulin 3.5 gm/dl (2.5-4.0); Potassium 3.3 mmol/L (3.5-5.1); Total Protein 6.2 gm/dl (6.4-8.2)
[2021-05-07] MEDS: PRAVASTATIN SOD 40 MG TAB PO SCH (09:24)
[2021-05-07] MEDS: ENOXAPARIN INJ 40 MG/0.4 ML SYR SQ SCH (09:24)
[2021-05-07] MEDS: dexAMETHasone 1 MG TAB PO SCH (09:25)
[2021-05-07] MEDS: FUROSEMIDE 40 MG TAB PO SCH (09:26)
[2021-05-07] MEDS: FLUTICASONE FUROATE 100MCG 14 PUFFS/INHALER INH SCH (09:28)
[2021-05-07] MEDS: UMECLIDINIUM/VILANTEROL 62.5/25MCG 7 PUFFS/INHALER INH SCH (09:28)
[2021-05-07] MEDS: POTASSIUM CHLORIDE CRTAB 20 MEQ TABCR PO SCH (09:28)
[2021-05-07] MEDS: DOXYCYCLINE HYCLATE 100 MG CAP PO SCH ×2 (09:29→21:08)
[2021-05-07] MEDS: FLUTICASONE PROPIONATE NA SPR 16 GM BTL SCH ×2 (09:29→21:08)
[2021-05-07 09:53] LABS: Basophils # (auto) 0.01 K/uL (0-0.2); Basophils % (auto) 0.1 %; Eosinophils # (auto) 0.01 K/uL (0-0.5); Eosinophils % (auto) 0.1 %; Hematocrit (blood only) 48.2 % (42-52); Hemoglobin 16.7 g/dL (14.0-18.0); Immature Granulocytes # (auto) 0.06 K/uL (0.00-0.02); Immature Granulocytes % (auto) 0.5 %; Lymphocytes # (auto) 1.21 K/uL (1.2-3.4); Lymphocytes % (auto) 9.5 %; Mean Corpuscular Hemoglobin 33.3 pg (25-34); Mean Corpuscular Hgb Conc 34.6 g/dL (32-36); Mean Corpuscular Volume 96.2 fL (80-100); Mean Platelet Volume 8.8 fL (7.4-10.4); Monocytes # (auto) 1.01 K/uL (0.11-0.59); Neutrophils # (auto) 10.38 K/uL (1.4-6.5); Neutrophils % (auto) 81.8 %; Platelet Count 382 K/uL (130-400); RDW Standard Deviation 45.8 fL (36.4-46.3); Red Blood Count 5.01 M/uL (4.7-6.1); White Blood Count 12.68 K/uL (4.8-10.8)
[2021-05-07] MEDS: SODIUM CHLORIDE 0.9% 10ML FLUSH IV SCH (12:15)
[2021-05-07] MEDS: REMDESIVIR 100 MG in SODIUM CHLORIDE 0.9% 230 ML IV SCH (12:15)
[2021-05-07] MEDS ORDERED: SODIUM CHLORIDE 0.65% NA SOLN 45 ML (OCEAN) PRN (17:59)
--- NOTE | 2021-05-07 17:59 | Hospitalist Progress Note ---
Date of Service May 07, 2021 Assessment & Plan (1) COPD exacerbation: Plan: Cough, suspected acute on chronic COPD exacerbation Patient with wheezing, no increased oxygen requirement, and symptoms were consistent with COPD exacerbation likely incited by Covid. Remains early and Covid course with symptoms beginning 3-4 [employer], likely, early due to COPD flare Methylpred tapered from TID --> BID --> Dex x1 IV 10mg -> continue dex 6mg PO. Patient with chronic 10 mg prednisone daily outpatient requirement Continue levalbuterol/ipratropium nebs every 6 hours as needed Doxycycline 100 mg p.o. twice daily x5 days Continue Umeclidinium/Vilanterol daily COVID treatment as below (2) Pneumonia due to COVID-19 virus: Plan: Symptoms more consistent with COPD, had sx for ~3 days before admission Methylprednisolone used instead of dexamethasone 2/2 COPD as noted above then converted Remdesivir initiated on admission. has had an increased oxygen requirement and early in illness, oxygen requirements have returned to baseline Continue remdesivir complete tomorrow Lovenox DVT prophylaxis LFTs normal 05/05: Discussed case with both pharmacy and pollen. Patient has not increased oxygen requirement or high flow and does not qualify for baricitinib at this time, additionally he is early in his course at 3 days so suspect benefit would be reduced in the setting of early viral phase versus immune response phase of illness. Regardless he has a high CRP and is very high risk due to his severe underlying COPD, and we will continue to watch carefully. Academic discussion was had of whether being that patient was early in course of illness and high risk whether he would benefit from Regeneron/monoclonal antibodies despite being inpatient status and review of NIH guidelines and data performed to inform discussion. This is not able to be given to patient even if felt that he would benefit from risk/benefits discussion due to institutional policy, and he does not meet criteria due to being inpatient and vaccinated. We will continue steroids and remdesivir, follow closely at this time. Trend CRP. 05/06: CRP downtrending improving. Pt with improved dyspnea at rest, continues to have limiting exertional symptoms worse than baseline. CT: Patchy bilateral airspace opacities consistent with an infectious process. Severe emphysema. Multiple stable noncalcified and calcified pulmonary nodules. These are benign given stability. - 05/07: Pt reports doing well at rest, but still with increased fatigue with ambulation and requires rest and pauses with small distance ambulation and with speaking. His CRP has continued to downtrend. He understands that some patients with Covid do suddenly worsen around day 8-10 of illness, he feels he is doing well and is near his normal baseline at this point. If able to ambulate reasonably close to his baseline he would prefer to work with PT and return home with a pulse ox once remdesivir course is complete tomorrow. He is certainly high risk, he understands this and is reliable with family support. Will have ambulatory pulse ox tomorrow, and if well anticipate progression/acute discharge with very close follow-up to PCP and home with return precautions. (3) Acute and chronic respiratory failure with hypoxia: Plan: Suspect acute presentation 2/2 COPD but also with comorbid Covid Continue treatments as above Home requirement 5 L nasal cannula oxygen (4) Elevated troponin: Plan: Suspect demand-ischemia in setting of illness as above. Similar rise in 06/2018 to COPD exacerbation. Troponin normalized on recheck (5) Hyperlipidemia: Plan: Continue pravastatin 40mg PO daily (6) Diastolic heart failure: Plan: History of diastolic heart failure TTE 04/05/2021: LV SF normal, EF 50-55%, borderline concentric LVH, no regional wall motion abnormalities Appears euvolemic today No signs of pulmonary edema/volume overload on chest x-ray Continue home Lasix 40 mg daily Plan: VTE Prophylaxis - Lovenox 40mg SQ daily Diet - heart healthy, low Na Admission and Anticipated Discharge Date Admission Date: May 03, 2021 Subjective Procedure at the bedside today. He reports he feels better rested when he came in, but continues to feel short of breath quickly with exertion and while he is able to catch his breath more quickly still feels this is taking longer than his normal baseline. He feels his wheezing has greatly improved. Continues to have sinus congestion, intermittent cough or clear/white sputum. Review of Systems Review of Systems: 10 point review systems negative except as noted otherwise and in subjective Physical Exam Physical Exam: General: A&Ox3. NAD. Cooperative. HEENT: Atraumatic, normocephalic. Visual acuity and hearing grossly intact. Pulm: Scattered expiratory slight wheezes more prominent on forced expiration. Improved air movement from prior. No rales/rhonchi. Good air movement, no accessory muscle use for breathing. On nasal cannula, patient reports on home baseline 5 L requirement. Cardiac: RRR, -mrg. Radial pulses intact and symmetrical. Abdominal: Nontender, nondistended, soft. BS present. Results & Data Results & Data ([facility]) Vital Signs (Past 12 Hours) Vital Signs Temp Pulse Resp BP BP Pulse Ox Pulse Ox 05/07/21 15:19 37.1 C 100 H 18 144/86 H 98 05/07/21 13:42 92 05/07/21 12:13 37.1 C 94 H 22 147/75 H 94 05/07/21 08:13 36.6 C 79 18 134/82 96 05/07/21 06:57 80 20 97 Pulse Ox Pulse Ox 05/07/21 15:19 05/07/21 13:42 91 86 L 05/07/21 12:13 05/07/21 08:13 05/07/21 06:57 PG Care Time/CCT Total # of Minutes Spent Total Time Spent with Patient: Total time spent is greater than 50% in coordination of care (as documented) at patient's floor/unit and/or counseling patient: Coding Level of Care Code 11688 Subseq Hosp Care Lvl 2 Diagnoses COPD exacerbation J44.1 Pneumonia due to COVID-19 virus U07.1; J12.82 Acute and chronic respiratory failure with hypoxia J96.21 Elevated troponin R77.8 Hyperlipidemia E78.00 Hyperlipidemia type: pure hypercholesterolemia Diastolic heart failure I50.32 Heart failure chronicity: chronic (1) Hyperlipidemia Hyperlipidemia type: pure hypercholesterolemia Qualified Code(s): E78.00 - Pure hypercholesterolemia, unspecified (2) Diastolic heart failure Heart failure chronicity: chronic Qualified Code(s): I50.32 - Chronic diastolic (congestive) heart failure
[2021-05-07] MEDS: MONTELUKAST SODIUM 10 MG TABLET PO SCH (21:08)
[2021-05-08 08:39] LABS: Albumin Level 2.8 gm/dl (3.4-5.0); BUN Creatinine Ratio 32.5 (10-20); Calcium 8.8 mg/dl (8.5-10.1); Creatinine Clr Calc Pharmacy 89.8 ml/min; Est GFR (African American) 112.5 ml/min; Est GFR (Non-African American) 97.1 ml/min; Potassium 3.5 mmol/L (3.5-5.1)
[2021-05-08 08:42] LABS: Albumin Globulin Ratio 0.8 (0.9-2); Bilirubin,Total 0.6 mg/dl (0.2-1); Globulin 3.5 gm/dl (2.5-4.0); Total Protein 6.3 gm/dl (6.4-8.2)
[2021-05-08] MEDS: DOXYCYCLINE HYCLATE 100 MG CAP PO SCH (09:11)
[2021-05-08] MEDS: POTASSIUM CHLORIDE CRTAB 20 MEQ TABCR PO SCH (09:11)
[2021-05-08] MEDS: FUROSEMIDE 40 MG TAB PO SCH (09:12)
[2021-05-08] MEDS: dexAMETHasone 1 MG TAB PO SCH (09:13)
[2021-05-08] MEDS: PRAVASTATIN SOD 40 MG TAB PO SCH (09:13)
[2021-05-08] MEDS: ENOXAPARIN INJ 40 MG/0.4 ML SYR SQ SCH (09:14)
[2021-05-08] MEDS: FLUTICASONE PROPIONATE NA SPR 16 GM BTL SCH (09:16)
[2021-05-08] MEDS: FLUTICASONE FUROATE 100MCG 14 PUFFS/INHALER INH SCH (09:16)
[2021-05-08] MEDS: UMECLIDINIUM/VILANTEROL 62.5/25MCG 7 PUFFS/INHALER INH SCH (09:16)
[2021-05-08] MEDS: IPRATROPIUM BROMIDE NEB SOLN 0.02% 2.5 ML VIAL INH PRN (09:25)
[2021-05-08] MEDS: LEVALBUTEROL 1.25MG/0.5ML NEB INH PRN (09:25)
--- NOTE | 2021-05-08 19:55 | Discharge Summary ---
Date of Service May 08, 2021 Admission HPI Per Admitting Provider Burton Durbin is a 65 year old male with COPD Gold class D on chronic 5LPM O2 who presents to the ER with shortness of breath. He has 3 days of symptoms with worsening productive yellow cough, shortness of breath and difficulty completing full sentences. He is vaccinated for COVID-19 with Pfizer x2 in August 2020, no booster. He denies any chest pain, abdominal pain, diarrhea, loss of appetite, loss of taste or smell. He reports marked improvement with nebulizers and steroids given in the ER. In the ER SARS-COV-2 PCR positive. CXR concerning for viral pneumonia. Procalcitonin 0.61. He is currently requiring 6LPM O2 to maintain O2 sats > 90%. He was referred to medicine for admission and ongoing management of COPD exacerbation and COVID-19 pneumonia. Admission Exam Per Admitting Provider Constitutional: well developed and + acute distress (respiratory); + not well nourished Eyes: + anicteric sclerae; normal pupil size ENMT: external ear and nose normal, oropharynx normal Respiratory: + labored breathing, + retractions, + us es accessory muscles and able to speak in complete sentences Auscultation: + diminished lung sounds (bibasal) and + wheezes (mild expiratory posteriorly); no crackles Cardiovascular: Rate/Rhythm: regular rhythm and + tachycardic Heart Sounds: no murmur Extremities: normal capillary refill; no calf tenderness and no pedal edema Gastrointestinal (Abdomen): normal bowel sounds, soft, nontender, no hepatosplenomegaly Musculoskeletal: no cyanosis or clubbing, extremities motor strength 5/5 Skin: no rashes, warm and dry Neurologic: moves all extremities and awake; not confused Psychiatric: A+Ox3, euthymic affect Principal Diagnosis Acute COPD Exacerbation COVID19+ PNA Discharge Exam General: A&Ox3. NAD. Cooperative. HEENT: Atraumatic, normocephalic. Visual acuity and hearing grossly intact. Pulm: No wheezes, trace bibasilar crackles improved with cough, moderate move ment, no accessory muscle use for breathing. On nasal cannula, patient reports on home baseline 5 L requirement. Cardiac: RRR, -mrg. Radial pulses intact and symmetrical. Abdominal: Nontender, nondistended, soft. BS present. SpO2 94% at rest on home 5L O2. Ambulated 30feet x2 with SpO2 trough 89% Discharge Data Allergies Allergy/AdvReac Type Severity Reaction Status Date / Time fluticasone furoate AdvReac Mild Trelegy Verified 05/03/21 14:29 [From Trelegy Ellipta] 200 caused shakiness but able to use Trelegy 100 umeclidinium AdvReac Mild Trelegy Verified 05/03/21 14:29 [From Trelegy Ellipta] 200 caused shakiness but able to use Trelegy 100 vilanterol AdvReac Mild Trelegy Verified 05/03/21 14:29 [From Trelegy Ellipta] 200 caused shakiness but able to use Trelegy 100 codeine AdvReac Unknown Rash Verified 05/03/21 14:29 Sulfa (Sulfonamide AdvReac Unknown Rash Verified 05/03/21 14:29 Antibiotics) Consultations 05/03/21 13:04 ED Decision to Admit Stat Ordered Studies 05/06/21 10:57 CT chest diagnostic wo con Urgent Hospital Course (1) COPD exacerbation: Burton is a 65yo M With a history of severe COPD/emphysema who presented and was treated for an acute on chronic COPD exacerbation, who was also found to have Covid. On day of discharge patient was at his baseline oxygen requirements, and felt like he was in his normal baseline. He reported he had been able to ambulate back and forth from the bathroom similar to how he normally would. Feels he has to take a slightly longer rest, but not substantially different. Ambulated with patient in room, heart rate in 60s, oxygen at rest approximately 94%, ambulated 30 feet x 2 with decrease in SPO2 to 89% and then rise with rest. He reports that he understands that he is very high risk given his underlying COPD, and Covid can progress around days 8-12 but being that his Covid symptoms has resolved, he does not currently meet criteria for additional Covid treatments, and he has family support and home oxygen monitoring he would prefer to be discharged with close follow-up and strict return precautions. Discussed this with his son who agrees. He will monitor his resting and ambulatory oxygen, and if he begins to worsen will present for reevaluation.Close follow-ups with PCP/pulm. With COPD exacerbation and underlying steroid requirement slightly modified dexamethasone course, extended to complete the total 10 days with a 2- day stepdown bed conversion back to prednisone. (Dexamethasone 6 mg until 10 total days of steroids, then 4 mg for a day, 2 mg for a day, then convert back to prednisone). To Do As Outpatient: 1. Complete Dexamethasone Course 2. Followup with PCP, Pulmonology 3. SpO2 monitoring Cough, suspected acute on chronic COPD exacerbation Patient with wheezing, no increased oxygen requirement, and symptoms were consistent with COPD exacerbation likely incited by Covid. Remains early and Covid course with symptoms beginning 3-4 [employer] Methylpred load given in ER, then 40mg TID tapered to BID, to dex 10mg, then do dex 6mg to be consistent with covid tx and COPD sx improved. Patient with chronic 10 mg prednisone daily outpatient requirement Doxycycline 100 mg p.o. twice daily x5 days completed Continue Umeclidinium/Vilanterol daily COVID treatment as below - COPD sx resolved at time of d/c (2) Pneumonia due to COVID-19 virus: Symptoms more consistent with COPD, had sx for ~3 days before admission Methylprednisolone used instead of dexamethasone 2/2 COPD as noted above then converted Remdesivir initiated on admission. has had an increased oxygen requirement and early in illness, oxygen requirements have returned to baseline. Completed x5 days. - Vaccinated Lovenox DVT prophylaxis used with no signs of DVT/PE LFTs normal 05/05: Discussed case with both pharmacy and pulm. Patient has not increased oxygen requirement or high flow and does not qualify for baricitinib at this time, additionally he is early in his course at 3 days so suspect benefit would be reduced in the setting of early viral phase versus immune response phase of illness. Regardless he has a high CRP and is very high risk due to his severe underlying COPD, and we will continue to watch carefully. Academic discussion was had of whether being that patient was early in course of illness and high risk whether he would benefit from Regeneron/monoclonal antibodies despite being inpatient status and review of NIH guidelines and data performed to inform discussion. This is not able to be given to patient even if felt that he would benefit from risk/benefits discussion due to institutional policy, and he does not meet criteria due to being inpatient and vaccinated. We will continue steroids and remdesivir, follow closely at this time. Trend CRP. 05/06: CRP downtrending improving. Pt with improved dyspnea at rest, continues to have limiting exertional symptoms worse than baseline. CT: Patchy bilateral airspace opacities consistent with an infectious process. Severe emphysema. Multiple stable noncalcified and calcified pulmonary nodules. These are benign given stability. - 05/07: Pt reports doing well at rest, but still with increased fatigue with a mbulation and requires rest and pauses with small distance ambulation and with speaking. His CRP has continued to downtrend. He understands that some patients with Covid do suddenly worsen around day 8-10 of illness, he feels he is doing well and is near his normal baseline at this point. If able to ambulate reasonably close to his baseline he would prefer to work with PT and return home with a pulse ox once remdesivir course is complete tomorrow. He is certainly high risk, he understands this and is reliable with family support. Will have ambulatory pulse ox tomorrow, and if well anticipate progression/acute discharge with very close follow-up to PCP and home with return precautions. - 05/08: On day of discharge patient was at his baseline oxygen requirements, and felt like he was in his normal baseline. He reported he had been able to ambulate back and forth from the bathroom similar to how he normally would. Feels he has to take a slightly longer rest, but not substantially different. He reports that he understands that he is very high risk given his underlying COPD, and Covid can progress around days 8-12 but being that his Covid symptoms has resolved, he does not currently meet criteria for additional Covid treatments, and he has family support and home oxygen monitoring he would prefer to be discharged with close follow-up and strict return precautions. Discussed this with his son who is in agreement as well. He will monitor his resting and ambulatory oxygen, and if he begins to worsen will present for reevaluation.Close follow-ups with PCP/pulm. Given that he had a COPD exacerbation and underlying steroid requirement slightly modified dexamethasone course, extended to complete the total 10 days with a 2-day stepdown bed conversion back to prednisone. (Dexamethasone 6 mg until 10 total days of steroids, then 4 mg for a day, 2 mg for a day, then convert back to prednisone). (3) Acute and chronic respiratory failure with hypoxia: Suspect acute presentation 2/2 COPD but also with comorbid Covid Continue treatments as above Home requirement 5 L nasal cannula oxygen (4) Elevated troponin: Suspect demand-ischemia in setting of illness as above. Similar rise in 06/2018 to COPD exacerbation. Troponin normalized on recheck (5) Hyperlipidemia: Continue pravastatin 40mg PO daily (6) Diastolic heart failure: History of diastolic heart failure TTE 04/05/2021: LV SF normal, EF 50-55%, borderline concentric LVH, no regional wall motion abnormalities Appears euvolemic at dc No signs of pulmonary edema/volume overload Continue home Lasix 40 mg daily VTE Prophylaxis - Lovenox 40mg SQ daily. 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 ) Josue Segura MD [Physician] - Diet: Regular Addtl Attending Provider Instructions: You were seen in the [facility] for an acute COPD flare and were found to have COVID19 which likely exacerbated your COPD flare. You completed a course of doxycycline for your COPD flare. You are also treated with steroids which were initially directed for COPD, and converted to a steroid formulation more consistent with Covid treatment. You had improvement of your COPD symptoms, and returned to near your normal breathing baseline with home oxygen requirements by time of discharge. Given your severe underlying COPD, and Covid diagnosis early in its course, the risks and benefits of continued observation were discussed. Some patients do worsen after a delay with Covid, often between days 8-12 of illness. Given your underlying severe COPD, should your Covid worsen you can quickly become critically ill and it is very important immediately to present for reevaluation if you experience worsening symptoms. You expressed an understanding of this, and were comfortable with discharge home with oxygen level monitoring and family support. Your case was also discussed with your son who understood, and noted family was present in the home and with oxygen mo nitoring capability available. You also experienced some right ear pressure during admission. Your ear was examined twice with an otoscope, no wax impaction was appreciated. Your eardrum did have some scarring from prior damage, no perforation was appreciated. You are feeling is likely due to sinus congestion and eustachian tube dysfunction which should gradually improve as you recover from Covid, you may also use [id number] Flonase nasally twice daily to assist with the clearance of the symptoms. If they persist for more than another week or 2, please follow-up with your primary care physician. You completed a 5-day course of remdesivir during admission and tolerated this well. You have been discharged on a dexamethasone taper as below. This is slightly different from typical Covid dosing to help bridge you back to your underlying steroid requirement. Please take dexamethasone 6 mg daily for 5 more days, then 4 mg daily for 1 day, then 2 mg daily for 1 day, then resume your normal prednisone 10 mg daily home dosing. Follow-up appointments are being scheduled for you with your primary care physician and pulmonology. You should be seen for follow-up by your primary care physician within 1 week. If you develop any new or worsening symptoms including fever, chills, sweats, chest pain, chest pressure, difficulty breathing, uncontrolled nausea/vomiting, rash, wheezing, passing out or nearly passing out, bleeding, black/bloody bowel movements, or other new or concerning symptoms please call your primary care physician, or call 911 for re-evaluation in the emergency department if you are very concerned. Pending Studies at Discharge: No Stand-Alone Forms: [facility], Smoking Cessation Medications and DC Order Prescriptions: New dexamethasone 1 mg Tablet See Rx Instructions .ROUTE .COMPLEX 5 Days Qty: 36 RF: 0 Continued (DME) Oxygen Home Liters Per Minute See Dose Instructions .ROUTE .MEDSUPPLY Qty: 1 RF: 0 albuterol sulfate [Ventolin HFA] 90 mcg/actuation HFA aerosol inhaler 2 puffs inhalation Q6H PRN (Reason: Shortness Of Breath Or Wheezing) Qty: 18 RF: 5 ipratropium-albuterol 0.5 mg-3 mg(2.5 mg base)/3 mL solution for nebulization 3 ml inhalation QID PRN (Reason: shortness of breath or wheezing) Qty: 360 RF: 5 azelastine 137 mcg (0.1 %) aerosol,spray 2 spray intranasal BID Qty: 30 RF: 3 furosemide 40 mg tablet 40 mg PO QAM RF: 0 prednisone 10 mg tablet 10 mg PO QAM RF: 0 pravastatin 40 mg tablet 40 mg PO QAM RF: 0 montelukast [Singulair] 10 mg tablet 10 mg PO HS RF: 0 potassium chloride 20 mEq tablet extended release 20 meq PO QAM RF: 0 Trelegy Ellipta 100-62.5-25 mcg blister with device 1 inh INHALATION QAM RF: 0 Discharge Orders: Discharge Order (Routine); Ordered 05/08/21 Ordered By: Tico Castle Admission Data Admit Date/Time: 05/03/21 13:20 Attending Provider: Tico Castle Admit Provider: Justen Roberts Primary Care Provider: Reece Lambert III Other Providers: Justen Roberts Other Interventions: Discharge Summary Assessment (RN) Last Done: 05/08/21 14:48 Coding Level of Care Code D/C DAY MANAGEMENT >30 MINS Diagnoses COPD exacerbation J44.1 Pneumonia due to COVID-19 virus U07.1; J12.82 Acute and chronic respiratory failure with hypoxia J96.21 Elevated troponin R77.8 Hyperlipidemia E78.00 Hyperlipidemia type: pure hypercholesterolemia Diastolic heart failure I50.32 Heart failure chronicity: chronic
== END 2021-05-08 16:34 | disposition home or self-care (01) | DRG 177 ==
LOC: ED 10:28 → SUATTDRO 13:20 → EDINP 13:20 → 2N 05-04 21:00
DX: U07.1 COVID-19; Z88.8 Allergy status to other drugs, medicaments and biological substances; Z87.891 Personal history of nicotine dependence; J44.1 Chronic obstructive pulmonary disease with (acute) exacerbation; J44.0 Chronic obstructive pulmonary disease with (acute) lower respiratory infection; Z88.2 Allergy status to sulfonamides; Z99.81 Dependence on supplemental oxygen; J12.82 Pneumonia due to coronavirus disease 2019; Z88.5 Allergy status to narcotic agent; J96.21 Acute and chronic respiratory failure with hypoxia; I50.32 Chronic diastolic (congestive) heart failure; I24.8 Other forms of acute ischemic heart disease; I25.2 Old myocardial infarction; Z66 Do not resuscitate; E78.5 Hyperlipidemia, unspecified

== ENCOUNTER 2022-02-07 13:28 | Observation (INO) ==
--- NOTE | 2022-02-07 14:05 | Emergency Department Note ---
Impression & Plan Acute exacerbation of chronic obstructive pulmonary disease ED Provider Note NAME: HERO ORTGEA AGE: 66 SEX: M : 1955 ARRIVES VIA: Walk-In INFORMANT: Patient, ED PROVIDER(S): Roe Roman MD Chief Complaint: Shortness of breath HPI: Patient does present due to concern for shortness of breath. The patient never had any aspiration but states that he woke up Tuesday and felt somewhat chilled and was having some cough. Cough is nonproductive. The patient does have a known history of COPD for which she does take 10 mg of prednisone at all times has been using his nebulizers throughout the week. Patient states that he seem to worsen on Tuesday after he had been seen by his primary care doctor. [place] any fevers or chills or chest pains. Patient denies any current leg swelling calf pain or history of DVT or PE. Patient denies any nausea or vomiting. The patient does follow with Dr. Gee with pulmonology. The patient is not on any current antibiotics. Patient denies any productive cough. Patient does wear 5 L at all times and is a former smoker last marking 15 years prior. ROS: See HPI for pertinent positives and negatives. A total of 10 systems were reviewed and otherwise negative. Past medical history: See below Surgical history: See below Social history: See below Physical Exam: GENERAL: NAD, wearing a mask, non-toxic. EYE EXAM: Normal conjunctiva. PERRL, no anisocoria and EOM's grossly intact w/o pain. NECK: Supple, no nuchal rigidity, no adenopathy, non-tender. No signs of meningismus. FROM of the neck with good chin to chest and neck extension. No stridor. LUNGS: Clear to auscultation. Normal chest wall mechanics. HEART: Tachycardic and regular, no MR negative Homans' sign bilaterally.G. ABDOMEN: Abdomen soft, non-tender, normo-active bowel sounds, no masses, no rebound or guarding. BACK: No CVA TTP. SKIN: No rashes and no bruising. UPPER EXTREMITIES: Upper extremities are grossly normal. LOWER EXTREMITIES: Grossly normal, no edema. NEURO EXAM: A&O x3, cranial nerves II-XII grossly intact, normal speech, moves all 4 extremities. Differential diagnoses: Reactive airway disease, pneumonia, pneumothorax, COPD, CHF, infections, cardiac ischemia, pulmonary embolism, musculoskeletal, gastrointestinal, as well as other pathologies. Course: Patient was seen and evaluated the bedside. Full history physical exam was performed. EKG interpreted by me Sinus tachycardia, rate of 101, normal intervals, normal axis, no ST elevations. No significant change from comparison EKG May 03, 2021. Imaging Studies: See Below Cardiac monitoring: An order was placed for continuous cardiac monitoring. The monitor shows a rate of 102 with tachycardic and regular rhythm. MDM: Patient was seen due to concern for shortness of breath. The patient has complained of exertional dyspnea but without any chest pain. Blood work is obtained along with an EKG troponin and VBG. The patient was ordered IV fluids DuoNeb steroids and magnesium. COVID swab also ordered. Patient is a white count of 16. The patient does take chronic steroids. H&H is normal with a normal platelet count. Kidney function is unremarkable. BSG at 133. Procalcitonin was added. This is not elevated. Patient's COVID-negative. Chest x-ray does show emphysematous and chronic fibrotic changes. Given the patient's COPD and lack of improving symptoms do believe the patient would benefit from inpatient treatment at this time. I did speak with the on-call hospitalist Dr. Castle and the patient was admitted to the medicine service. Past Med/Surg History Medical History Chronic dyspnea Chronic hypoxemic respiratory failure Chronic obstructive pulmonary disease COPD exacerbation COPD with acute exacerbation COVID-19 Former smoker Non-ST elevation NM (NSTEMI) Pneumonia Respiratory distress SOB (shortness of breath) Surgical History History of cataract surgery History of knee surgery S/P inguinal hernia repair Family History Sister Breast cancer Brother Lung disease Other Myocardial infarction Denies family history of Colon cancer Ovarian cancer Prostate cancer Social History Smoking Status: Never smoker Second Hand Exposure: No; Hx Alcohol Use: No Hx Substance Use: No Preferred Language: Austrian Communication Ability: Effective Visual Impairment: No Limitations Hearing Ability: Hard of Hearing It Intern Required: No Beliefs That Will Affect Care: None marital status: Single Current Living Situation: Family current occupational status: disabled Feels Safe at Home: Yes Childhood Exposure to Second-Hand Smoke: Yes Dental Care, Regularly: No Physical Activity Frequency: Does not Exercise Seatbelt Use: always Sunscreen Use: Yes Assistive Devices: Oxygen - Continuous Allergies Allergies Allergy/AdvReac Type Severity Reaction Status Date / Time fluticasone furoate AdvReac Mild Trelegy Verified 02/07/22 16:46 [From Trelegy Ellipta] 200 caused shakiness but able to use Trelegy 100 umeclidinium AdvReac Mild Trelegy Verified 02/07/22 16:46 [From Trelegy Ellipta] 200 caused shakiness but able to use Trelegy 100 vilanterol AdvReac Mild Trelegy Verified 02/07/22 16:46 [From Trelegy Ellipta] 200 caused shakiness but able to use Trelegy 100 codeine AdvReac Unknown Rash Verified 02/07/22 16:46 Sulfa (Sulfonamide AdvReac Unknown Rash Verified 02/07/22 16:46 Antibiotics) Home Meds Home Medications Medication Instructions Recorded Confirmed prednisone 10 mg tablet 10 mg PO QAM 05/03/21 02/07/22 cetirizine 10 mg tablet (Zyrtec) 10 mg PO DAILY PRN allergies 06/16/21 02/07/22 Oxygen Home 02/02/22 02/07/22 doxycycline hyclate 100 mg capsule 100 mg PO BID PRN recurrent 02/02/22 02/07/22 infection acetic acid 2 % ear solution 5 drp otic (ear) QID PRN .. 02/07/22 02/07/22 clotrimazole 10 mg luis 10 mg PO DIRECTED PRN .. 02/07/22 02/07/22 Previous Rx's Medication Instructions Recorded albuterol sulfate 90 mcg/actuation 2 puffs inhalation Q6H PRN 10/30/19 aerosol inhaler (Ventolin HFA) Shortness Of Breath Or Wheezing #18 grams furosemide 40 mg tablet 40 mg PO QAM #90 tabs 08/12/21 montelukast 10 mg tablet 10 mg PO HS #90 tabs 08/12/21 (Singulair) potassium chloride 20 mEq 20 meq PO QAM #90 tabs 10/08/21 tablet,extended release azelastine 137 mcg (0.1 %) nasal 2 spray intranasal BID #30 mL 10/09/21 spray aerosol ipratropium 0.5 mg-albuterol 3 mg See Rx Instructions .Route 10/09/21 (2.5 mg base)/3 mL nebulization .COMPLEX #1,080 mL soln pravastatin 40 mg tablet 40 mg PO QAM #90 tabs 12/30/21 fluticasone fur. 100 mcg-umeclid 1 inh inhalation QAM #60 ea 12/31/21 62.5 mcg-vilant 25 mcg inhalat.powder (Trelegy Ellipta) Results & Data (ED) Vital Signs Vital Signs - 24 hr 02/07/22 13:55 02/07/22 14:28 02/07/22 15:39 Temperature 37.5 C Temperature Source Oral Pulse Rate 101 H Pulse Rate [Right Finger] 98 H Pulse Rate from SpO2 Sensor Respiratory Rate 22 16 Respiratory Effort / Characteristics Non-Labored Spontaneous Respiratory Depth Blood Pressure 124/74 Blood Pressure [Left Arm] Blood Pressure Mean 90 Blood Pressure Mean [Left Arm] Pulse Oximetry 95 96 Oxygen Delivery Method Nasal Cannula Nasal Cannula Room Air Oxygen Flow Rate 5 5 Sepsis Recent Fever Within 48 Hours No Sepsis New/Unexplained Change in Mental Status No Sepsis Action Taken by Nursing No Action Required 02/07/22 14:17 02/07/22 14:20 02/07/22 14:30 Temperature Temperature Source Pulse Rate 101 H 101 H 100 H Pulse Rate [Right Finger] Pulse Rate from SpO2 Sensor 101 H 101 H 102 H Respiratory Rate 21 29 H 18 Respiratory Effort / Characteristics Respiratory Depth Blood Pressure Blood Pressure [Left Arm] Blood Pressure Mean Blood Pressure Mean [Left Arm] Pulse Oximetry 96 96 96 Oxygen Delivery Method Nasal Cannula Nasal Cannula Nasal Cannula Oxygen Flow Rate 5 5 5 Sepsis Recent Fever Within 48 Hours Sepsis New/Unexplained Change in Mental Status Sepsis Action Taken by Nursing 02/07/22 14:31 02/07/22 14:31 02/07/22 14:40 Temperature Temperature Source Pulse Rate 97 H 96 H Pulse Rate [Right Finger] Pulse Rate from SpO2 Sensor 97 H 97 H Respiratory Rate 21 17 Respiratory Effort / Characteristics Respiratory Depth Blood Pressure 100/83 Blood Pressure [Left Arm] Blood Pressure Mean 88 Blood Pressure Mean [Left Arm] Pulse Oximetry 96 97 Oxygen Delivery Method Nasal Cannula Nasal Cannula Nasal Cannula Oxygen Flow Rate 5 5 5 Sepsis Recent Fever Within 48 Hours Sepsis New/Unexplained Change in Mental Status Sepsis Action Taken by Nursing 02/07/22 14:50 02/07/22 15:00 02/07/22 15:01 Temperature Temperature Source Pulse Rate 97 H 98 H Pulse Rate [Right Finger] Pulse Rate from SpO2 Sensor 99 H 98 H Respiratory Rate 21 24 Respiratory Effort / Characteristics Respiratory Depth Blood Pressure 137/76 Blood Pressure [Left Arm] Blood Pressure Mean 96 Blood Pressure Mean [Left Arm] Pulse Oximetry 98 98 Oxygen Delivery Method Nasal Cannula Nasal Cannula Nasal Cannula Oxygen Flow Rate 5 5 5 Sepsis Recent Fever Within 48 Hours Sepsis New/Unexplained Change in Mental Status Sepsis Action Taken by Nursing 02/07/22 15:01 02/07/22 15:10 02/07/22 15:20 Temperature Temperature Source Pulse Rate 97 H 97 H 102 H Pulse Rate [Right Finger] Pulse Rate from SpO2 Sensor 101 H 98 H 101 H Respiratory Rate 18 16 18 Respiratory Effort / Characteristics Respiratory Depth Blood Pressure Blood Pressure [Left Arm] Blood Pressure Mean Blood Pressure Mean [Left Arm] Pulse Oximetry 97 97 95 Oxygen Delivery Method Nasal Cannula Nasal Cannula Nasal Cannula Oxygen Flow Rate 5 5 5 Sepsis Recent Fever Within 48 Hours Sepsis New/Unexplained Change in Mental Status Sepsis Action Taken by Nursing 02/07/22 15:30 02/07/22 15:30 02/07/22 15:40 Temperature Temperature Source Pulse Rate 101 H 103 H Pulse Rate [Right Finger] Pulse Rate from SpO2 Sensor 101 H 103 H Respiratory Rate 23 25 H Respiratory Effort / Characteristics Respiratory Depth Blood Pressure 116/85 Blood Pressure [Left Arm] Blood Pressure Mean 95 Blood Pressure Mean [Left Arm] Pulse Oximetry 95 94 Oxygen Delivery Method Nasal Cannula Nasal Cannula Nasal Cannula Oxygen Flow Rate 5 5 5 Sepsis Recent Fever Within 48 Hours Sepsis New/Unexplained Change in Mental Status Sepsis Action Taken by Nursing 02/07/22 15:50 02/07/22 15:58 02/07/22 17:20 Temperature Temperature Source Pulse Rate 102 H Pulse Rate [Right Finger] 100 H 109 H Pulse Rate from SpO2 Sensor 101 H Respiratory Rate 25 H 22 28 H Respiratory Effort / Characteristics Spontaneous Non-Labored Spontaneous Respiratory Depth Normal Blood Pressure Blood Pressure [Left Arm] 125/74 Blood Pressure Mean Blood Pressure Mean [Left Arm] 91 Pulse Oximetry 96 96 93 Oxygen Delivery Method Nasal Cannula Nasal Cannula Nasal Cannula Oxygen Flow Rate 5 5 6 Sepsis Recent Fever Within 48 Hours Sepsis New/Unexplained Change in Mental Status Sepsis Action Taken by Nursing 02/07/22 16:00 02/07/22 16:00 02/07/22 16:10 Temperature Temperature Source Pulse Rate 100 H 100 H Pulse Rate [Right Finger] Pulse Rate from SpO2 Sensor 100 H 101 H Respiratory Rate 18 11 L Respiratory Effort / Characteristics Respiratory Depth Blood Pressure 126/76 Blood Pressure [Left Arm] Blood Pressure Mean 92 Blood Pressure Mean [Left Arm] Pulse Oximetry 96 94 Oxygen Delivery Method Oxygen Flow Rate Sepsis Recent Fever Within 48 Hours Sepsis New/Unexplained Change in Mental Status Sepsis Action Taken by Nursing 02/07/22 16:20 02/07/22 16:30 02/07/22 16:31 Temperature Temperature Source Pulse Rate 101 H 104 H Pulse Rate [Right Finger] Pulse Rate from SpO2 Sensor 98 H 106 H Respiratory Rate 15 20 Respiratory Effort / Characteristics Respiratory Depth Blood Pressure 140/76 Blood Pressure [Left Arm] Blood Pressure Mean 97 Blood Pressure Mean [Left Arm] Pulse Oximetry 96 96 Oxygen Delivery Method Oxygen Flow Rate Sepsis Recent Fever Within 48 Hours Sepsis New/Unexplained Change in Mental Status Sepsis Action Taken by Nursing 02/07/22 16:31 02/07/22 16:40 02/07/22 16:50 Temperature Temperature Source Pulse Rate 102 H 104 H 105 H Pulse Rate [Right Finger] Pulse Rate from SpO2 Sensor 103 H 104 H 105 H Respiratory Rate 21 20 26 H Respiratory Effort / Characteristics Respiratory Depth Blood Pressure Blood Pressure [Left Arm] Blood Pressure Mean Blood Pressure Mean [Left Arm] Pulse Oximetry 95 94 96 Oxygen Delivery Method Oxygen Flow Rate Sepsis Recent Fever Within 48 Hours Sepsis New/Unexplained Change in Mental Status Sepsis Action Taken by Nursing 02/07/22 17:00 02/07/22 17:00 02/07/22 17:10 Temperature Temperature Source Pulse Rate 105 H 106 H Pulse Rate [Right Finger] Pulse Rate from SpO2 Sensor 101 H 105 H Respiratory Rate 22 28 H Respiratory Effort / Characteristics Respiratory Depth Blood Pressure 125/74 Blood Pressure [Left Arm] Blood Pressure Mean 91 Blood Pressure Mean [Left Arm] Pulse Oximetry 96 95 Oxygen Delivery Method Oxygen Flow Rate Sepsis Recent Fever Within 48 Hours Sepsis New/Unexplained Change in Mental Status Sepsis Action Taken by Nursing 02/07/22 17:20 02/07/22 17:30 02/07/22 17:30 Temperature Temperature Source Pulse Rate 108 H 107 H Pulse Rate [Right Finger] Pulse Rate from SpO2 Sensor 109 H 106 H Respiratory Rate 18 24 Respiratory Effort / Characteristics Respiratory Depth Blood Pressure 117/68 Blood Pressure [Left Arm] Blood Pressure Mean 84 Blood Pressure Mean [Left Arm] Pulse Oximetry 92 93 Oxygen Delivery Method Oxygen Flow Rate Sepsis Recent Fever Within 48 Hours Sepsis New/Unexplained Change in Mental Status Sepsis Action Taken by Nursing 02/07/22 17:40 02/07/22 17:50 02/07/22 18:00 Temperature Temperature Source Pulse Rate 106 H 105 H Pulse Rate [Right Finger] Pulse Rate from SpO2 Sensor 107 H 106 H Respiratory Rate 23 25 H Respiratory Effort / Characteristics Respiratory Depth Blood Pressure 133/81 Blood Pressure [Left Arm] Blood Pressure Mean 98 Blood Pressure Mean [Left Arm] Pulse Oximetry 94 95 Oxygen Delivery Method Oxygen Flow Rate Sepsis Recent Fever Within 48 Hours Sepsis New/Unexplained Change in Mental Status Sepsis Action Taken by Nursing 02/07/22 18:00 02/07/22 18:10 02/07/22 18:20 Temperature Temperature Source Pulse Rate 103 H 101 H 100 H Pulse Rate [Right Finger] Pulse Rate from SpO2 Sensor 103 H 99 H 99 H Respiratory Rate 20 24 23 Respiratory Effort / Characteristics Respiratory Depth Blood Pressure Blood Pressure [Left Arm] Blood Pressure Mean Blood Pressure Mean [Left Arm] Pulse Oximetry 93 95 94 Oxygen Delivery Method Oxygen Flow Rate Sepsis Recent Fever Within 48 Hours Sepsis New/Unexplained Change in Mental Status Sepsis Action Taken by Nursing 02/07/22 18:30 02/07/22 18:30 02/07/22 18:40 Temperature Temperature Source Pulse Rate 98 H 96 H Pulse Rate [Right Finger] Pulse Rate from SpO2 Sensor 98 H 96 H Respiratory Rate 21 22 Respiratory Effort / Characteristics Respiratory Depth Blood Pressure 131/79 Blood Pressure [Left Arm] Blood Pressure Mean 96 Blood Pressure Mean [Left Arm] Pulse Oximetry 95 96 Oxygen Delivery Method Oxygen Flow Rate Sepsis Recent Fever Within 48 Hours Sepsis New/Unexplained Change in Mental Status Sepsis Action Taken by Nursing 02/07/22 18:50 02/07/22 19:00 02/07/22 19:00 Temperature Temperature Source Pulse Rate 94 H 94 H Pulse Rate [Right Finger] Pulse Rate from SpO2 Sensor 94 H 93 H Respiratory Rate 23 22 Respiratory Effort / Characteristics Respiratory Depth Blood Pressure 124/70 Blood Pressure [Left Arm] Blood Pressure Mean 88 Blood Pressure Mean [Left Arm] Pulse Oximetry 95 97 Oxygen Delivery Method Oxygen Flow Rate Sepsis Recent Fever Within 48 Hours Sepsis New/Unexplained Change in Mental Status Sepsis Action Taken by Care Home Medications Current Medication List: was personally reviewed by me Laboratory Data Attestation: I reviewed the patient's lab results. Result diagrams: 02/07/22 14:11 02/07/22 14:11 Lab Results 02/07/22 02/07/22 02/07/22 Range/Units 14:11 14:11 14:11 WBC 16.90 H (4.8-10.8) K/ul RBC 5.13 (4.63-6.08) M/uL Hgb 16.3 (14.0-18.0) g/dl Hct 46.7 (40.1-51.0) % MCV 91.0 (80.0-100.0) fL MCH 31.8 (25.0-34.0) pg MCHC 34.9 (32.0-36.0) g/dL RDW Std Deviation 45.0 (36.4-46.3) fL RDW Coeff of Trent 13.3 (11.5-14.5) % Plt Count 343 (130-400) K/uL MPV 9.1 L (9.4-12.4) fL Immature Gran % (Auto) 0.6 % Neut % (Auto) 88.1 % Lymph % (Auto) 4.5 % [place] % (Auto) 6.5 % Eos % (Auto) 0.1 % Baso % (Auto) 0.2 % Neut # (Auto) 14.89 H (1.4-6.5) K/uL Lymph # (Auto) 0.76 L (1.2-3.4) K/uL [place] # (Auto) 1.10 H (0.24-0.82) K/uL Eos # (Auto) 0.02 (0-0.50) K/uL Baso # (Auto) 0.03 (0-0.2) K/uL Immature Gran # (Auto) 0.10 H (0.00-0.02) K/uL VBG pH (7.36-7.41) VBG pCO2 (38-50) mmHg VBG pO2 mmHg VBG HCO3 mmol/L VBG O2 Saturation % VBG Base Excess mEq/L Sodium 139 (136-145) mmol/L Potassium 3.9 (3.5-5.1) mmol/L Chloride 101 (98-107) mmol/L Carbon Dioxide 29 (21-32) mmol/L Anion Gap 9 (3-11) BUN 17 (6-23) mg/dl Creatinine 0.99 (0.6-1.4) mg/dl Est Cr Clr Drug Dosing Not Reportable Est GFR ( Amer) 92.9 ml/min Est GFR (Non-Af Amer) 80.2 ml/min BUN/Creatinine Ratio 17.2 (10-20) Glucose 133 H (70-99(Fasting)) mg/dl Calcium 9.7 (8.5-10.1) mg/dl Magnesium 2.0 (1.7-2.4) mg/dl Total Bilirubin 0.8 (0.2-1.0) mg/dl AST 15 (13-39) U/L ALT 20 (7-52) U/L Alkaline Phosphatase 71 (34-104) U/L Troponin I High Sens 7.7 (0-20) pg/ml Total Protein 7.4 (6.0-8.3) gm/dl Albumin 4.3 (3.4-5.0) gm/dl Globulin 3.1 (2.5-4.0) gm/dl Albumin/Globulin Ratio 1.4 (0.9-2) Procalcitonin 0.06 (0-0.5) ng/ml Adenovirus (PCR) (NotDetected) B. pertussis DNA (PCR) (NotDetected) B.parapertussis DNA PCR (NotDetected) C. pneumoniae DNA (PCR) (NotDetected) Coronavirus OC43 (PCR) (NotDetected) Coronavirus HKU1 (PCR) (NotDetected) Coronavirus 229E (PCR) (NotDetected) SARS-CoV-2 (PCR) (NotDetected) Coronavirus NL63 (PCR) (NotDetected) Human Metapneumovir PCR (NotDetected) Influenza Type A (PCR) (NotDetected) Influenza Type B (PCR) (NotDetected) M. pneumoniae (PCR) (NotDetected) Parainfluenza 1 (PCR) (NotDetected) Parainfluenza 2 (PCR) (NotDetected) Parainfluenza 3 (PCR) (NotDetected) Parainfluenza 4 (PCR) (NotDetected) RSV (PCR) (NotDetected) Entero/Rhino (PCR) (NotDetected) SARS-CoV-2, RNA, NAAT (NEGATIVE) 02/07/22 02/07/22 02/07/22 Range/Units 14:44 15:42 17:45 WBC (4.8-10.8) K/ul RBC (4.63-6.08) M/uL Hgb (14.0-18.0) g/dl Hct (40.1-51.0) % MCV (80.0-100.0) fL MCH (25.0-34.0) pg MCHC (32.0-36.0) g/dL RDW Std Deviation (36.4-46.3) fL RDW Coeff of Trent (11.5-14.5) % Plt Count (130-400) K/uL MPV (9.4-12.4) fL Immature Gran % (Auto) % Neut % (Auto) % Lymph % (Auto) % [place] % (Auto) % Eos % (Auto) % Baso % (Auto) % Neut # (Auto) (1.4-6.5) K/uL Lymph # (Auto) (1.2-3.4) K/uL [place] # (Auto) (0.24-0.82) K/uL Eos # (Auto) (0-0.50) K/uL Baso # (Auto) (0-0.2) K/uL Immature Gran # (Auto) (0.00-0.02) K/uL VBG pH 7.36 (7.36-7.41) VBG pCO2 56 H (38-50) mmHg VBG pO2 31 mmHg VBG HCO3 32 mmol/L VBG O2 Saturation < 60.0 % VBG Base Excess 4.6 mEq/L Sodium (136-145) mmol/L Potassium (3.5-5.1) mmol/L Chloride (98-107) mmol/L Carbon Dioxide (21-32) mmol/L Anion Gap (3-11) BUN (6-23) mg/dl Creatinine (0.6-1.4) mg/dl Est Cr Clr Drug Dosing Est GFR ( Amer) ml/min Est GFR (Non-Af Amer) ml/min BUN/Creatinine Ratio (10-20) Glucose (70-99(Fasting)) mg/dl Calcium (8.5-10.1) mg/dl Magnesium (1.7-2.4) mg/dl Total Bilirubin (0.2-1.0) mg/dl AST (13-39) U/L ALT (7-52) U/L Alkaline Phosphatase (34-104) U/L Troponin I High Sens (0-20) pg/ml Total Protein (6.0-8.3) gm/dl Albumin (3.4-5.0) gm/dl Globulin (2.5-4.0) gm/dl Albumin/Globulin Ratio (0.9-2) Procalcitonin (0-0.5) ng/ml Adenovirus (PCR) Not Detected (NotDetected) B. pertussis DNA (PCR) Not Detected (NotDetected) B.parapertussis DNA PCR Not Detected (NotDetected) C. pneumoniae DNA (PCR) Not Detected (NotDetected) Coronavirus OC43 (PCR) Not Detected (NotDetected) Coronavirus HKU1 (PCR) Not Detected (NotDetected) Coronavirus 229E (PCR) Not Detected (NotDetected) SARS-CoV-2 (PCR) Not Detected (NotDetected) Coronavirus NL63 (PCR) Not Detected (NotDetected) Human Metapneumovir PCR Not Detected (NotDetected) Influenza Type A (PCR) Not Detected (NotDetected) Influenza Type B (PCR) Not Detected (NotDetected) M. pneumoniae (PCR) Not Detected (NotDetected) Parainfluenza 1 (PCR) Not Detected (NotDetected) Parainfluenza 2 (PCR) Not Detected (NotDetected) Parainfluenza 3 (PCR) Not Detected (NotDetected) Parainfluenza 4 (PCR) Not Detected (NotDetected) RSV (PCR) Not Detected (NotDetected) Entero/Rhino (PCR) Not Detected (NotDetected) SARS-CoV-2, RNA, NAAT NEGATIVE (NEGATIVE) Administered Medications Discontinued Medications Albuterol (Albut/Ipratrop 3mg/0.5mg Neb 3 Ml Vial) 12 ml INH ONE STA Stop: 02/07/22 14:12 Last Admin: 02/07/22 14:26 Dose: 12 ml Documented By: BEAN Albuterol (Albut/Ipratrop 3mg/0.5mg Neb 3 Ml Vial) 12 ml NEB ONE ONE; Protocol Stop: 02/07/22 15:37 Last Admin: 02/07/22 15:57 Dose: 12 ml Documented By: BEAN Sodium Chloride (Nss) 500 mls @ 999 mls/hr IV .Q31M STA Stop: 02/07/22 14:41 Last Infusion: 02/07/22 14:54 Dose: 0 mls/hr Documented By: Admin: 02/07/22 14:23 Dose: 999 mls/hr Documented By: PETE Magnesium Sulfate/Dextrose (Magnesium Sulfate / D5w) 1 gm in 100 mls @ 100 mls/hr IV Q1H ILEANA Stop: 02/07/22 16:14 Last Infusion: 02/07/22 16:38 Dose: 0 mls/hr Documented By: Admin: 02/07/22 15:31 Dose: 100 mls/hr Documented By: Infusion: 02/07/22 15:21 Dose: 0 mls/hr Documented By: Admin: 02/07/22 14:18 Dose: 100 mls/hr Documented By: PETE Sodium Chloride (Nss 1000ml) 500 mls @ 999 mls/hr IV .Q31M ONE Stop: 02/07/22 16:06 Last Infusion: 02/07/22 17:11 Dose: 0 mls/hr Documented By: Admin: 02/07/22 16:34 Dose: 999 mls/hr Documented By: PETE Doxycycline Hyclate 100 mg/ (Dextrose) 110 mls @ 50 mls/hr IV NOW STA Stop: 02/07/22 18:47 Last Infusion: 02/07/22 20:14 Dose: 0 mls/hr Documented By: Admin: 02/07/22 17:20 Dose: 50 mls/hr Documented By: LOVE Methylprednisolone (Methylprednisolone 125 Mg/2 Ml Vial) 125 mg IV NOW STA Stop: 02/07/22 14:12 Last Admin: 02/07/22 14:17 Dose: 125 mg Documented By: PETE Imaging Data Radiologist's Impression: Chest X-Ray 02/07/22 14:11 XR chest 1V portable HISTORY: 66 years-old Male Dyspnea acute shortness of breath COMPARISON: Chest CT 05/06/2021, chest radiograph 05/03/2021 TECHNIQUE: AP view of the chest FINDINGS: Severe emphysema with chronic fibrotic changes. Mild bibasilar opacities suggest atelectasis. No pneumothorax, large pleural effusion or overt pulmonary edema. Degenerative changes of the shoulders and spine. IMPRESSION: Severe emphysema with chronic fibrotic changes and mild bibasilar atelectasis. ACT 112: Negative or not required by law. The above report was generated using voice recognition software. It may contain grammatical, syntax or spelling errors. Electronically signed by: Clark Bess M.D. 02/07/2022 3:13 PM Discharge Plan Visit Data Chief Complaint: Respiratory Problems Stated Complaint: ASPIRATION, ACUTE COPD PATIENT..COUGH ED Provider: Roe Roman Discharge Problem: Acute exacerbation of chronic obstructive pulmonary disease Patient Disposition: Admitted As Inpatient
[2022-02-07] MEDS ORDERED: methylPREDNISolone 125 MG/2 ML VIAL IV STA (14:11)
[2022-02-07] MEDS ORDERED: ALBUT/IPRATROP 3MG/0.5MG NEB 3 ML VIAL INH STA (14:11)
[2022-02-07] MEDS ORDERED: SODIUM CHLORIDE 0.9% 500 ML IV STA (14:11)
[2022-02-07] MEDS: MAGNESIUM SULFATE / D5W 1 GM/100 ML BAG IV SCH ×2 (14:18→15:31)
[2022-02-07 14:36] LABS: Basophils # (auto) 0.03 K/uL (0-0.2); Basophils % (auto) 0.2 %; Eosinophils # (auto) 0.02 K/uL (0-0.50); Eosinophils % (auto) 0.1 %; Hematocrit (blood only) 46.7 % (40.1-51.0); Hemoglobin 16.3 g/dl (14.0-18.0); Immature Granulocytes % (auto) 0.6 %; Lymphocytes # (auto) 0.76 K/uL (1.2-3.4); Lymphocytes % (auto) 4.5 %; Mean Corpuscular Hemoglobin 31.8 pg (25.0-34.0); Mean Corpuscular Hgb Conc 34.9 g/dL (32.0-36.0); Mean Platelet Volume 9.1 fL (9.4-12.4); Monocytes % (auto) 6.5 %; Neutrophils # (auto) 14.89 K/uL (1.4-6.5); Neutrophils % (auto) 88.1 %; Platelet Count 343 K/uL (130-400); RDW Coefficient of Variation 13.3 % (11.5-14.5); Red Blood Count 5.13 M/uL (4.63-6.08)
[2022-02-07 14:57] LABS: Base Excess VBG 4.6 mEq/L; HCO3 VBG 32 mmol/L; Oxygen Saturation VBG < 60.0 %; PCO2 VBG 56 mmHg (38-50); PO2 VBG 31 mmHg; pH VBG 7.36 (7.36-7.41)
[2022-02-07 15:06] LABS: Troponin I High Sensitivity 7.7 pg/ml (0-20)
[2022-02-07 15:08] LABS: Alanine Aminotransferase 20 U/L (7-52); Albumin Globulin Ratio 1.4 (0.9-2); Albumin Level 4.3 gm/dl (3.4-5.0); Alkaline Phosphatase 71 U/L (34-104); Anion Gap 9 (3-11); Aspartate Aminotransferase 15 U/L (13-39); BUN Creatinine Ratio 17.2 (10-20); Bilirubin,Total 0.8 mg/dl (0.2-1.0); Blood Urea Nitrogen 17 mg/dl (6-23); Calcium 9.7 mg/dl (8.5-10.1); Carbon Dioxide 29 mmol/L (21-32); Chloride 101 mmol/L (98-107); Est GFR (African American) 92.9 ml/min; Est GFR (Non-African American) 80.2 ml/min; Globulin 3.1 gm/dl (2.5-4.0); Glucose 133 mg/dl (70-99(Fasting)); Potassium 3.9 mmol/L (3.5-5.1); Sodium 139 mmol/L (136-145); Total Protein 7.4 gm/dl (6.0-8.3)
--- NOTE | 2022-02-07 15:15 | XRay Report ---
XR chest 1V portable HISTORY: 66 years-old Male Dyspnea acute shortness of breath COMPARISON: Chest CT 05/06/2021, chest radiograph 05/03/2021 TECHNIQUE: AP view of the chest FINDINGS: Severe emphysema with chronic fibrotic changes. Mild bibasilar opacities suggest atelectasis. No pneu mothorax, large pleural effusion or overt pulmonary edema. Degenerative changes of the shoulders and spine. IMPRESSION: Severe emphysema with chronic fibrotic changes and mild bibasilar atelectasis. ACT 112: Negative or not required by law. The above report was generated using voice recognition software. It may contain grammatical, syntax o r spelling errors. Electronically signed by: Clark Bess M.D. 02/07/2022 3:13 PM
[2022-02-07] MEDS ORDERED: ALBUT/IPRATROP 3MG/0.5MG NEB 3 ML VIAL NEB ONE (15:36)
[2022-02-07] MEDS ORDERED: SODIUM CHLORIDE 0.9% 1000ML 500 ML IV ONE (15:36)
--- NOTE | 2022-02-07 16:00 | History & Physical Report ---
Date of Service February 07, 2022 Assessment & Plan (1) Acute exacerbation of chronic obstructive pulmonary disease: Plan: - Low grade fever/chills x 2 week with increase in cough frequency/sputum production and BARCENAS. - No new O2 requirement, he remains on 5 L NC at all times with no hypoxia, although his CO2 on vBG is slightly high at 56. - WBC elevated but likely in setting of chronic prednisone use; procalcitonin is negative and CXR without evidence of pneumonia. - Continue home inhalers/therapies or hospital formulary equivalent: Trelegy AM, albuterol prn, Zyrtec daily prn, Singulair HS. - Scheduled DuoNebs QID. - Incentive spirometry ordered. - He is on chronic prednisone, 10 g daily; received 125 mg IV Solu-Medrol on ED. - Continue 40 mg IV BID. - Doxycycline 100 mg IV BID. - Mucinex 1200 mg BID. (2) Chronic hypoxemic respiratory failure: Plan: - Continuous 5 L NC requirement. - Additional management of acute COPD exacerbation as above. - Dr. Segura is his clinical documentation manager. Overall prognosis is very poor. Was referred to [facility] for lung transplant, however has not followed up and leaning against this due to concerns he would not have the physical stamina to recover. (3) Diastolic heart failure: Plan: - Appears euvolemic today. - Echo 03/2021: LV SF normal, EF 50-55%, borderline concentric LVH, no regional wall motion abnormalities. - Continue Lasix 40 mg daily. (4) Hyperlipidemia: Plan: - Continue pravastatin 40 mg daily. Plan - Admit to med/tele. - SCDs, Lovenox for VTE ppx. - DNR/DNI. History of Present Illness Chief Complaint: cough, SOB x1 week Primary Care Provider: Reece Lambert, III, ORDERING MACHINE OPERATOR Burton Durbin is a 66-year-old male with past medical history significant for COPD on 5L NC at all times, HFpEF, aortic valve insufficiency, and hyperlipidemia who is presenting today with worsening shortness of breath over the past several days. Last Tuesday, patient woke up with chills and general body aches, which had persisted over the past week. On Tuesday, he developed a cough which is mostly dry but occasionally productive of sputum. His cough is worse on lying flat or on his side, but he denies significant shortness of breath. He feels he is getting more winded ambulating throughout his home, which she is usually able to do successfully while using his usual oxygen requirement of 5 L. He denies recent sick contacts or known COVID exposures. He denies lightheadedness, dizziness, chest pain/pressure, SOB at rest, or palpitations. He has an 80 pack year history but quit 10+ years ago. Upon presentation to ED, he is following tachycardic with HR in 90s, otherwise vital signs within normal limits and stable, he is afebrile and SpO2 > 92% on his usual 5L NC. Labs are significant for an elevated WBC 16.9, some CO2 retention vBG 7.36/56/31/32. Renal function is at baseline, he is without any electrolyte abnormalities, troponin within normal limits, PTC .0.6, COVID neg. CXR with severe emphysema and chronic fibrotic changes and bibasilar atelectasis. Allergies Allergy/AdvReac Type Severity Reaction Status Date / Time fluticasone furoate AdvReac Mild Trelegy Verified 02/07/22 16:46 [From Trelegy Ellipta] 200 caused shakiness but able to use Trelegy 100 umeclidinium AdvReac Mild Trelegy Verified 02/07/22 16:46 [From Trelegy Ellipta] 200 caused shakiness but able to use Trelegy 100 vilanterol AdvReac Mild Trelegy Verified 02/07/22 16:46 [From Trelegy Ellipta] 200 caused shakiness but able to use Trelegy 100 codeine AdvReac Unknown Rash Verified 02/07/22 16:46 Sulfa (Sulfonamide AdvReac Unknown Rash Verified 02/07/22 16:46 Antibiotics) Home Medications Medication Instructions Recorded Confirmed Type albuterol sulfate 90 mcg/actuation 2 puffs inhalation Q6H PRN 10/30/19 02/07/22 Rx aerosol inhaler (Ventolin HFA) Shortness Of Breath Or Wheezing #18 grams prednisone 10 mg tablet 10 mg PO QAM 05/03/21 02/07/22 History cetirizine 10 mg tablet (Zyrtec) 10 mg PO DAILY PRN allergies 06/16/21 02/07/22 History furosemide 40 mg tablet 40 mg PO QAM #90 tabs 08/12/21 02/07/22 Rx montelukast 10 mg tablet 10 mg PO HS #90 tabs 08/12/21 02/07/22 Rx (Singulair) potassium chloride 20 mEq 20 meq PO QAM #90 tabs 10/08/21 02/07/22 Rx tablet,extended release azelastine 137 mcg (0.1 %) nasal 2 spray intranasal BID #30 mL 10/09/21 02/07/22 Rx spray aerosol ipratropium 0.5 mg-albuterol 3 mg See Rx Instructions .Route 10/09/21 02/07/22 Rx (2.5 mg base)/3 mL nebulization .COMPLEX #1,080 mL soln pravastatin 40 mg tablet 40 mg PO QAM #90 tabs 12/30/21 02/07/22 Rx fluticasone fur. 100 mcg-umeclid 1 inh inhalation QAM #60 ea 12/31/21 02/07/22 Rx 62.5 mcg-vilant 25 mcg inhalat.powder (Trelegy Ellipta) Oxygen Home 02/02/22 02/07/22 History doxycycline hyclate 100 mg capsule 100 mg PO BID PRN recurrent 02/02/22 02/07/22 History infection acetic acid 2 % ear solution 5 drp otic (ear) QID PRN .. 02/07/22 02/07/22 History clotrimazole 10 mg luis 10 mg PO DIRECTED PRN .. 02/07/22 02/07/22 History Past Med/Surg History Medical History Chronic dyspnea Chronic hypoxemic respiratory failure Chronic obstructive pulmonary disease COPD exacerbation COPD with acute exacerbation COVID-19 Former smoker Non-ST elevation [place] (NSTEMI) Pneumonia Respiratory distress SOB (shortness of breath) Surgical History History of cataract surgery History of knee surgery S/P inguinal hernia repair Family History Sister Breast cancer Brother Lung disease Other Myocardial infarction Denies family history of Colon cancer Ovarian cancer Prostate cancer Social History Smoking Status: Never smoker Second Hand Exposure: No; Hx Alcohol Use: No Hx Substance Use: No Preferred Language: Polish Communication Ability: Effective Visual Impairment: No Limitations Hearing Ability: Hard of Hearing Assessment Expert Required: No Beliefs That Will Affect Care: None marital status: Single Current Living Situation: Family current occupational status: disabled Feels Safe at Home: Yes Childhood Exposure to Second-Hand Smoke: Yes Dental Care, Regularly: No Physical Activity Frequency: Does not Exercise Seatbelt Use: always Sunscreen Use: Yes Assistive Devices: Oxygen - Continuous Review of Systems Review of Systems: Constitutional: fever/chills x one week; no weakness, fatigue, myalgias, anorexia, night sweats Eyes: No diplopia, no worsening or blurred vision ENT: normal hearing, no trouble swallowing Respiratory: new productive cough at rest and activity with associated BARCENAS Cardiovascular: No chest pain, tightness or palpitations Abdomen: No pain, nausea, vomiting, diarrhea or constipation : Denies dysuria, hematuria, increased urgency/frequency, urinary retention Musculoskeletal: No joint pain, calf pain, swelling Neurologic: No weakness, numbness/tingling, or balance problems Psychiatric: No anxiety or depression Skin: No rash or itch Physical Exam Physical Exam: General: awake, alert, no apparent distress Head: Normocephalic, atraumatic ENT: PERRL, EOMI, no pharyngeal exudate, mucous membranes moist Chest: some scattered wheezing, on 5L NC Cardiac: Regular rate and rhythm, no murmur, no JVD, normal peripheral pulses, good capillary refill Abdominal: NABS x 4 quadrants, soft, nontender to palpation, no rebound, guarding or tenderness Extremities: Normal inspection, no peripheral edema or erythema, calfs nontender to palpation Psych: Normal mood and affect Neuro: AAO x 3, strength intact bilaterally and rated 5/5, no motor deficits, speech is clear, no peripheral sensory deficits Skin: no rash or erythema Results & Data Results & Data ([facility]) Vital Signs (Past 12 Hours) Vital Signs Temp Pulse Pulse Resp BP Pulse Ox O2 Del Method 02/07/22 15:39 Room Air 02/07/22 14:28 98 H 16 96 Nasal Cannula 02/07/22 13:55 37.5 C 101 H 22 124/74 95 Nasal Cannula O2 Flow Rate 02/07/22 15:39 02/07/22 14:28 5 02/07/22 13:55 5 Laboratory Results Abnormal lab results 02/07/22 02/07/22 02/07/22 Range/Units 14:11 14:11 14:44 WBC 16.90 H (4.8-10.8) K/ul MPV 9.1 L (9.4-12.4) fL Neut # (Auto) 14.89 H (1.4-6.5) K/uL Lymph # (Auto) 0.76 L (1.2-3.4) K/uL Thayer # (Auto) 1.10 H (0.24-0.82) K/uL Immature Gran # (Auto) 0.10 H (0.00-0.02) K/uL VBG pCO2 56 H (38-50) mmHg Glucose 133 H (70-99(Fasting)) mg/dl Diagnostic Findings Chest X-Ray 02/07/22 14:11 XR chest 1V portable HISTORY: 66 years-old Male Dyspnea acute shortness of breath COMPARISON: Chest CT 05/06/2021, chest radiograph 05/03/2021 TECHNIQUE: AP view of the chest FINDINGS: Severe emphysema with chronic fibrotic changes. Mild bibasilar opacities suggest atelectasis. No pneumothorax, large pleural effusion or overt pulmonary edema. Degenerative changes of the shoulders and spine. IMPRESSION: Severe emphysema with chronic fibrotic changes and mild bibasilar atelectasis. ACT 112: Negative or not required by law. The above report was generated using voice recognition software. It may contain grammatical, syntax or spelling errors. Electronically signed by: Clark Bess M.D. 02/07/2022 3:13 PM ECG Additional Comments: Sinus tachycardia Otherwise normal ECG When compared with ECG of 03-MAY-2021 11:10, No significant change was found Code Status & VTE Plan Code Status DNR/DNI. Supervising Physician Co-Signing Physician Notes Patient seen and examined, chart reviewed, case discussed with Glenis Powell and I agree with the assessment and plan as above except as otherwise noted Labs and images reviewed 66-year-old male with a history of chronic respiratory failure, COPD, heart failure preserved ejection fraction, LVH, AI, HLD who presents with several days of worsening shortness of breath and productive cough. Worsening shortness of breath with ambulation. CXR with severe emphysema and chronic changes, no acute abnormalities. With increased wheezing on arrival to ER, improved following methylprednisolone and albuterol treatment. Suspicious for acute on chronic COPD exacerbation. At time of bedside assessment patient with improved breathi ng, trace scattered end expiratory wheezes. Heart rate regular and tachycardic with soft systolic murmur. Patient feels clinically improved, but still fatigued and more short of breath than his normal baseline. Endorses some fever and chills in the prior to 3 days. Acute on chronic COPD exacerbation with chronic hypoxic respiratory failure on home oxygen Home oxygen requirement 5 L, patient with increased shortness of breath on this requirement Continue inhaler/pulmonary equivalent Continue steroids, will moved to twice daily. Doxycycline twice daily. Continue Mucinex. Incentive spirometry, flutter valve. Troponin normal COVID-negative Given poor baseline and fever/chills normal Pro-Silvio we will add bio fire. Otherwise agree with management above. PG Care Time/CCT Total # of Minutes Spent Total Time Spent with Patient: Total time spent is greater than 50% in coordination of care (as documented) at patient's floor/unit and/or counseling patient: Coding Level of Care Code 29387 Initial Inpt Care Lvl 3 Diagnoses Acute exacerbation of chronic obstructive pulmonary disease J44.1 Chronic hypoxemic respiratory failure J96.11 Diastolic heart failure I50.32 Heart failure chronicity: chronic Hyperlipidemia E78.00 Hyperlipidemia type: pure hypercholesterolemia (1) Hyperlipidemia Hyperlipidemia type: pure hypercholesterolemia Qualified Code(s): E78.00 - Pure hypercholesterolemia, unspecified (2) Diastolic heart failure Heart failure chronicity: chronic Qualified Code(s): I50.32 - Chronic diastol ic (congestive) heart failure
[2022-02-07] MEDS ORDERED: DOXYCYCLINE HYCLATE 100 MG in DEXTROSE 5% 100 ML IV STA (16:36)
[2022-02-07 18:42] LABS: Adenovirus PCR Not Detected (NotDetected); Bordetella parapertussis PCR Not Detected (NotDetected); Bordetella pertussis PCR Not Detected (NotDetected); Chlamydia pneumoniae PCR Not Detected (NotDetected); Coronavirus 229E PCR Not Detected (NotDetected); Coronavirus CoV-2 (COVID19)PCR Not Detected (NotDetected); Coronavirus HKU1 PCR Not Detected (NotDetected); Coronavirus NL63 PCR Not Detected (NotDetected); Coronavirus OC43PCR Not Detected (NotDetected); Human Metapneumovirus PCR Not Detected (NotDetected); Influenza A PCR Not Detected (NotDetected); Influenza B PCR Not Detected (NotDetected); Mycoplasma pneumoniae PCR Not Detected (NotDetected); Parainfluenza Virus 1 PCR Not Detected (NotDetected); Parainfluenza Virus 2 PCR Not Detected (NotDetected); Parainfluenza Virus 3 PCR Not Detected (NotDetected); Parainfluenza Virus 4 PCR Not Detected (NotDetected); Respiratory Syncytial VirusPCR Not Detected (NotDetected); Rhinovirus/Enterovirus PCR Not Detected (NotDetected)
[2022-02-07] MEDS ORDERED: POLYETHYLENE (MIRALAX) 17 GM PACK PO PRN (20:23)
[2022-02-07] MEDS ORDERED: ALBUTEROL HFA 8 GM INHALER INH PRN (20:23)
[2022-02-07] MEDS ORDERED: ACETAMINOPHEN 325 MG TAB PO PRN (20:23)
[2022-02-07] MEDS ORDERED: ACETIC ACID 2% OTIC SOLN 15 ML BTL OT PRN (20:23)
[2022-02-07] MEDS ORDERED: ONDANSETRON INJ 2 MG/ML 2 ML VIAL IV PRN (20:23)
[2022-02-07] MEDS ORDERED: ALBUT/IPRATROP 3MG/0.5MG NEB 3 ML VIAL NEB PRN (20:23)
[2022-02-07] MEDS ORDERED: CETIRIZINE HCL 10 MG TABLET PO PRN (20:23)
[2022-02-07] MEDS: ACETIC ACID 2% OTIC SOLN 15 ML BTL OT SCH ×2 (22:35→22:43)
[2022-02-07] MEDS: ENOXAPARIN INJ 40 MG/0.4 ML SYR SQ SCH (22:38)
[2022-02-07] MEDS: guaiFENesin 600 MG TABCR PO SCH (22:38)
[2022-02-07] MEDS: methylPREDNISolone 40 MG in SYRINGE 0 ML IV SCH (22:40)
[2022-02-07] MEDS: MONTELUKAST SODIUM 10 MG TABLET PO SCH (22:40)
[2022-02-07] MEDS ORDERED: ALBUT/IPRATROP 3MG/0.5MG NEB 3 ML VIAL NEB SCH (23:00)
[2022-02-07] MEDS: AZELASTINE HCL 0.1% NASAL 200 SPRAYS/27,400 MCG BTL NAE SCH (23:30)
[2022-02-08] MEDS: ALBUTEROL 0.083% NEBU SOLN 3 ML VIAL NEB SCH ×4 (00:18→11:18)
[2022-02-08] MEDS ORDERED: DOXYCYCLINE HYCLATE 100 MG in DEXTROSE 5% 100 ML IV SCH (06:00)
[2022-02-08 06:02] LABS: Hemoglobin 14.4 g/dl (14.0-18.0); Mean Corpuscular Hgb Conc 33.5 g/dL (32.0-36.0); Mean Corpuscular Volume 92.5 fL (80.0-100.0); Mean Platelet Volume 8.9 fL (9.4-12.4); Platelet Count 336 K/uL (130-400); RDW Coefficient of Variation 13.2 % (11.5-14.5); RDW Standard Deviation 44.6 fL (36.4-46.3); Red Blood Count 4.65 M/uL (4.63-6.08); White Blood Count 21.39 K/ul (4.8-10.8)
[2022-02-08 06:26] LABS: BUN Creatinine Ratio 24.4 (10-20); Calcium 9.3 mg/dl (8.5-10.1); Creatinine Clr Calc Pharmacy 83.2 ml/min; Est GFR (African American) 110.6 ml/min; Est GFR (Non-African American) 95.4 ml/min; Potassium 3.7 mmol/L (3.5-5.1)
[2022-02-08 06:50] LABS: Basophils # (auto) 0.03 K/uL (0-0.2); Basophils % (auto) 0.1 %; Immature Granulocytes # (auto) 0.16 K/uL (0.00-0.02); Immature Granulocytes % (auto) 0.7 %; Lymphocytes % (auto) 2.8 %; Monocytes # (auto) 0.62 K/uL (0.24-0.82); Monocytes % (auto) 2.9 %; Neutrophils # (auto) 19.98 K/uL (1.4-6.5); Neutrophils % (auto) 93.5 %
--- NOTE | 2022-02-08 07:56 | Hospitalist Progress Note ---
Date of Service February 08, 2022 Assessment & Plan (1) Acute exacerbation of chronic obstructive pulmonary disease: Plan: Low grade fever/chills x 2 week with increase in cough frequency/sputum production and BARCENAS. Prior +COVID last winter Respiratory biofire NEGATIVE Typically on 5L NC at all times --> CO2 56 CXR without pneumonia Procal negative WBC elevation likely 2nd to steroids, afebrile (monitor) Up to 6L this morning, back to 5L Increased methylprednisolone to 40mg IV TID for today Typically on 10mg prednisone daily Monitor/decrease to BID tomorrow pending status Continue doxycycline BID for acute exacerbation --> will change to PO to prevent excess volume Continue hospital formula inhaler unless patient able to bring in Trelegy Continue zyrtec, singular Continue mucinex BID Continue duonebs q6h prn --> will change to scheduled consider adding hypertonic saline neb to help clear secretions Continue incentive spirometer, flutter valve Reports sputum clear/white but check sputum cx for completeness Check iron panel/b12/folate to ensure not contributing to SOB given severe emphysema/hgb 14 (although likely diluted from 1L IVF given on admit) Also checking BNP given complaints of abdominal fullness/CHF contributing from chronic steroid use not ruled out. Consider diamox given elevated CO2 if elevated prior ECHO w/ preserved EF Consider pulm consult pending course (follows with Dr Segura) --?on 10mg prednisone daily, not on M-W-F prevention abx or bactrim for PJP prophylaxis --consider if not improving titrate O2 to maintain sats 88% or greater (2) Chronic hypoxemic respiratory failure: Plan: On 5L continuous at home, acute COPD exacerbation expected as above on chronic prednisone as above, quit smoking >10 years ago, 80 pack year hx initial talks of weaning the prednisone to 7.5mg daily but he never weaned Per note, "CT chest with 05/06/2021 which demonstrated diffuse centrilobular emphysema and multiple stable noncalcified and calcified nodules. 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 Overall prognosis is very poor. Was referred to [facility] for lung transplant, however has not followed up and leaning against this due to concerns he would not have the physical stamina to recover. consider pulm consult pending course (3) Diastolic heart failure: Plan: Appeared euvolemic on exam, however reports some LE swelling and abdominal fullness with patient with hx diastolic HF got 1L IVF in ER, BUN 17--> 19 Prior Echo 03/2021: LV SF normal, EF 50-55%, borderline concentric LVH, no regional wall motion abnormalities. - Continue Lasix 40 mg daily for now measure I&O, daily weights (weight 748kg on 02/02 in system, weights higher prior but 71.1kg this morning, ?accuracy of prior weights) does have some increased LE swelling, low suspicion for DVT/nontender/nonerythematous check BNP consider additional/increased lasix pending such hx aortic valve insufficiency (4) Hyperlipidemia: Plan: Continue pravastatin 40 mg daily. Plan DVT proph -- SCDs, lovenox Continued inpatient stay, increased steroids IV, converted doxy to PO check sputum cx/bnp/increase lasix if needed Admission and Anticipated Discharge Date Admission Date: February 07, 2022 Subjective Eval around 11:30 States feeling better than day prior but not back to usual self. Takes trelegy at home as well as mucinex twice daily to help thin mucus. Typically on 5L at baseline -- was down to 4 L this morning but back to 5L. Discussed increasing his methylprednisolone for today and hopefully back down tomorrow. Denies shortness of breath with inspiration or pleuritic chest pain. Admits prior Tuesday woke up in a profuse head/toe sweat. Saw PCP Tuesday. had been having chills since last week, sputum production but was clear. typical exacerbations not including fever/chills, he did send sputum sample down this morning. on chroinic 10mg prednisone. prior talks of weaning off but didn't want to try that until was sure wanted to go through with transplantation and had been maintained on 10mg daily. He does endorse that for about the past week he's had increased abdominal fullness and swelling. Does NOT take lasix daily, however furosemide 40mg daily is on medication list. Will also check BNP, hx diastolic HF Hgb 14.4, no blood in urine/stool reported and discussed checking iron levels to ensure anemia not contributing to shortness of breath. Physical Exam Physical Exam: General: WD male, chronically ill appearing, sitting up in bed, receiving nebulizer treatment, NAD, occasional non-productive cough, general pallor/duskiness HEENT: head normocephalic, atraumatic, pupils equal, trachea midline, mmm Resp: prolonged expiratory phase, no audible wheezing, fine bibasilar crackles, on 5L NC. clubbing of nails CV: RRR, +faint murmur, trace b/l LE edema, nonpitting GI: +BS, soft, nontender, +distended no pond MSK/Neuro: moves all extremities, no slurred speech/facial droop, no focal deficit Psych: AOx3, cooperative Skin: cool, dry, no obvious rashes or lesions Results & Data Results & Data ([facility]) Vital Signs (Past 12 Hours) Vital Signs Temp Pulse Pulse Pulse Resp BP Pulse Ox 02/08/22 07:19 85 16 97 02/08/22 03:43 36.8 C 90 18 125/74 97 02/08/22 02:36 98 H 98 02/08/22 00:00 87 02/07/22 23:29 37.0 C 96 H 18 125/66 93 02/07/22 22:55 96 H 24 96 02/07/22 21:33 02/07/22 21:12 36.8 C 97 H 24 154/72 H 98 02/07/22 21:18 O2 Del Method O2 Flow Rate 02/08/22 07:19 Nasal Cannula 6 02/08/22 03:43 Nasal Cannula 6 02/08/22 02:36 Nasal Cannula 6 02/08/22 00:00 02/07/22 23:29 Room Air 02/07/22 22:55 Nasal Cannula 5 02/07/22 21:33 Nasal Cannula 6 02/07/22 21:12 Nasal Cannula 6 02/07/22 21:18 Nasal Cannula 6 Laboratory Results 02/08/22 02/08/22 02/08/22 Range/Units 09:14 05:46 05:46 WBC (4.8-10.8) K/ul RBC (4.63-6.08) M/uL Hgb (14.0-18.0) g/dl Hct (40.1-51.0) % MCV (80.0-100.0) fL MCH (25.0-34.0) pg MCHC (32.0-36.0) g/dL RDW Std Deviation (36.4-46.3) fL RDW Coeff of Trent (11.5-14.5) % Plt Count (130-400) K/uL MPV (9.4-12.4) fL Immature Gran % (Auto) % Neut % (Auto) % Lymph % (Auto) % [place] % (Auto) % Eos % (Auto) % Baso % (Auto) % Neut # (Auto) (1.4-6.5) K/uL Lymph # (Auto) (1.2-3.4) K/uL [place] # (Auto) (0.24-0.82) K/uL Eos # (Auto) (0-0.50) K/uL Baso # (Auto) (0-0.2) K/uL Immature Gran # (Auto) (0.00-0.02) K/uL VBG pH (7.36-7.41) VBG pCO2 (38-50) mmHg VBG pO2 mmHg VBG HCO3 mmol/L VBG O2 Saturation % VBG Base Excess mEq/L Sodium 138 (136-145) mmol/L Potassium 3.7 (3.5-5.1) mmol/L Chloride 104 (98-107) mmol/L Carbon Dioxide 27 (21-32) mmol/L Anion Gap 7 (3-11) BUN 19 (6-23) mg/dl Creatinine 0.78 (0.6-1.4) mg/dl Est Cr Clr Drug Dosing 83.2 Est GFR ( Amer) 110.6 ml/min Est GFR (Non-Af Amer) 95.4 ml/min BUN/Creatinine Ratio 24.4 H (10-20) Glucose 160 H (70-99(Fasting)) mg/dl Calcium 9.3 (8.5-10.1) mg/dl Magnesium (1.7-2.4) mg/dl Iron 18 L (35-175) mcg/dl Total Bilirubin (0.2-1.0) mg/dl AST (13-39) U/L ALT (7-52) U/L Alkaline Phosphatase (34-104) U/L Troponin I High Sens (0-20) pg/ml Total Protein (6.0-8.3) gm/dl Albumin (3.4-5.0) gm/dl Globulin (2.5-4.0) gm/dl Albumin/Globulin Ratio (0.9-2) Vitamin B12 672 (180-914) pg/ml Folate 12.92 (>5.38) ng/ml Procalcitonin (0-0.5) ng/ml Adenovirus (PCR) (NotDetected) B. pertussis DNA (PCR) (NotDetected) B.parapertussis DNA PCR (NotDetected) C. pneumoniae DNA (PCR) (NotDetected) Coronavirus OC43 (PCR) (NotDetected) Coronavirus HKU1 (PCR) (NotDetected) Coronavirus 229E (PCR) (NotDetected) SARS-CoV-2 (PCR) (NotDetected) Coronavirus NL63 (PCR) (NotDetected) Hepatitis C Ab (EIA) Hep C Ab Signal/Cutoff Human Metapneumovir PCR (NotDetected) Influenza Type A (PCR) (NotDetected) Influenza Type B (PCR) (NotDetected) M. pneumoniae (PCR) (NotDetected) Parainfluenza 1 (PCR) (NotDetected) Parainfluenza 2 (PCR) (NotDetected) Parainfluenza 3 (PCR) (NotDetected) Parainfluenza 4 (PCR) (NotDetected) RSV (PCR) (NotDetected) Entero/Rhino (PCR) (NotDetected) SARS-CoV-2, RNA, NAAT (NEGATIVE) 02/08/22 02/07/22 02/07/22 Range/Units 05:46 17:45 15:42 WBC 21.39 H (4.8-10.8) K/ul RBC 4.65 (4.63-6.08) M/uL Hgb 14.4 (14.0-18.0) g/dl Hct 43.0 (40.1-51.0) % MCV 92.5 (80.0-100.0) fL MCH 31.0 (25.0-34.0) pg MCHC 33.5 (32.0-36.0) g/dL RDW Std Deviation 44.6 (36.4-46.3) fL RDW Coeff of Trent 13.2 (11.5-14.5) % Plt Count 336 (130-400) K/uL MPV 8.9 L (9.4-12.4) fL Immature Gran % (Auto) 0.7 % Neut % (Auto) 93.5 % Lymph % (Auto) 2.8 % Sau[place] % (Auto) 2.9 % Eos % (Auto) 0.0 % Baso % (Auto) 0.1 % Neut # (Auto) 19.98 H (1.4-6.5) K/uL Lymph # (Auto) 0.60 L (1.2-3.4) K/uL [place] # (Auto) 0.62 (0.24-0.82) K/uL Eos # (Auto) 0.00 (0-0.50) K/uL Baso # (Auto) 0.03 (0-0.2) K/uL Immature Gran # (Auto) 0.16 H (0.00-0.02) K/uL VBG pH (7.36-7.41) VBG pCO2 (38-50) mmHg VBG pO2 mmHg VBG HCO3 mmol/L VBG O2 Saturation % VBG Base Excess mEq/L Sodium (136-145) mmol/L Potassium (3.5-5.1) mmol/L Chloride (98-107) mmol/L Carbon Dioxide (21-32) mmol/L Anion Gap (3-11) BUN (6-23) mg/dl Creatinine (0.6-1.4) mg/dl Est Cr Clr Drug Dosing Est GFR ( Amer) ml/min Est GFR (Non-Af Amer) ml/min BUN/Creatinine Ratio (10-20) Glucose (70-99(Fasting)) mg/dl Calcium (8.5-10.1) mg/dl Magnesium (1.7-2.4) mg/dl Iron (35-175) mcg/dl Total Bilirubin (0.2-1.0) mg/dl AST (13-39) U/L ALT (7-52) U/L Alkaline Phosphatase (34-104) U/L Troponin I High Sens (0-20) pg/ml Total Protein (6.0-8.3) gm/dl Albumin (3.4-5.0) gm/dl Globulin (2.5-4.0) gm/dl Albumin/Globulin Ratio (0.9-2) Vitamin B12 (180-914) pg/ml Folate (>5.38) ng/ml Procalcitonin (0-0.5) ng/ml Adenovirus (PCR) Not Detected (NotDetected) B. pertussis DNA (PCR) Not Detected (NotDetected) B.parapertussis DNA PCR Not Detected (NotDetected) C. pneumoniae DNA (PCR) Not Detected (NotDetected) Coronavirus OC43 (PCR) Not Detected (NotDetected) Coronavirus HKU1 (PCR) Not Detected (NotDetected) Coronavirus 229E (PCR) Not Detected (NotDetected) SARS-CoV-2 (PCR) Not Detected (NotDetected) Coronavirus NL63 (PCR) Not Detected (NotDetected) Hepatitis C Ab (EIA) Hep C Ab Signal/Cutoff Human Metapneumovir PCR Not Detected (NotDetected) Influenza Type A (PCR) Not Detected (NotDetected) Influenza Type B (PCR) Not Detected (NotDetected) M. pneumoniae (PCR) Not Detected (NotDetected) Parainfluenza 1 (PCR) Not Detected (NotDetected) Parainfluenza 2 (PCR) Not Detected (NotDetected) Parainfluenza 3 (PCR) Not Detected (NotDetected) Parainfluenza 4 (PCR) Not Detected (NotDetected) RSV (PCR) Not Detected (NotDetected) Entero/Rhino (PCR) Not Detected (NotDetected) SARS-CoV-2, RNA, NAAT NEGATIVE (NEGATIVE) 02/07/22 02/07/22 02/07/22 Range/Units 14:44 14:11 14:11 WBC (4.8-10.8) K/ul RBC (4.63-6.08) M/uL Hgb (14.0-18.0) g/dl Hct (40.1-51.0) % MCV (80.0-100.0) fL MCH (25.0-34.0) pg MCHC (32.0-36.0) g/dL RDW Std Deviation (36.4-46.3) fL RDW Coeff of Trent (11.5-14.5) % Plt Count (130-400) K/uL MPV (9.4-12.4) fL Immature Gran % (Auto) % Neut % (Auto) % Lymph % (Auto) % [place] % (Auto) % Eos % (Auto) % Baso % (Auto) % Neut # (Auto) (1.4-6.5) K/uL Lymph # (Auto) (1.2-3.4) K/uL [place] # (Auto) (0.24-0.82) K/uL Eos # (Auto) (0-0.50) K/uL Baso # (Auto) (0-0.2) K/uL Immature Gran # (Auto) (0.00-0.02) K/uL VBG pH 7.36 (7.36-7.41) VBG pCO2 56 H (38-50) mmHg VBG pO2 31 mmHg VBG HCO3 32 mmol/L VBG O2 Saturation < 60.0 % VBG Base Excess 4.6 mEq/L Sodium (136-145) mmol/L Potassium (3.5-5.1) mmol/L Chloride (98-107) mmol/L Carbon Dioxide (21-32) mmol/L Anion Gap (3-11) BUN (6-23) mg/dl Creatinine (0.6-1.4) mg/dl Est Cr Clr Drug Dosing Est GFR ( Amer) ml/min Est GFR (Non-Af Amer) ml/min BUN/Creatinine Ratio (10-20) Glucose (70-99(Fasting)) mg/dl Calcium (8.5-10.1) mg/dl Magnesium (1.7-2.4) mg/dl Iron (35-175) mcg/dl Total Bilirubin (0.2-1.0) mg/dl AST (13-39) U/L ALT (7-52) U/L Alkaline Phosphatase (34-104) U/L Troponin I High Sens (0-20) pg/ml Total Protein (6.0-8.3) gm/dl Albumin (3.4-5.0) gm/dl Globulin (2.5-4.0) gm/dl Albumin/Globulin Ratio (0.9-2) Vitamin B12 (180-914) pg/ml Folate (>5.38) ng/ml Procalcitonin 0.06 (0-0.5) ng/ml Adenovirus (PCR) (NotDetected) B. pertussis DNA (PCR) (NotDetected) B.parapertussis DNA PCR (NotDetected) C. pneumoniae DNA (PCR) (NotDetected) Coronavirus OC43 (PCR) (NotDetected) Coronavirus HKU1 (PCR) (NotDetected) Coronavirus 229E (PCR) (NotDetected) SARS-CoV-2 (PCR) (NotDetected) Coronavirus NL63 (PCR) (NotDetected) Hepatitis C Ab (EIA) Pending Hep C Ab Signal/Cutoff Pending Human Metapneumovir PCR (NotDetected) Influenza Type A (PCR) (NotDetected) Influenza Type B (PCR) (NotDetected) M. pneumoniae (PCR) (NotDetected) Parainfluenza 1 (PCR) (NotDetected) Parainfluenza 2 (PCR) (NotDetected) Parainfluenza 3 (PCR) (NotDetected) Parainfluenza 4 (PCR) (NotDetected) RSV (PCR) (NotDetected) Entero/Rhino (PCR) (NotDetected) SARS-CoV-2, RNA, NAAT (NEGATIVE) 02/07/22 02/07/22 Range/Units 14:11 14:11 WBC 16.90 H (4.8-10.8) K/ul RBC 5.13 (4.63-6.08) M/uL Hgb 16.3 (14.0-18.0) g/dl Hct 46.7 (40.1-51.0) % MCV 91.0 (80.0-100.0) fL MCH 31.8 (25.0-34.0) pg MCHC 34.9 (32.0-36.0) g/dL RDW Std Deviation 45.0 (36.4-46.3) fL RDW Coeff of Trent 13.3 (11.5-14.5) % Plt Count 343 (130-400) K/uL MPV 9.1 L (9.4-12.4) fL Immature Gran % (Auto) 0.6 % Neut % (Auto) 88.1 % Lymph % (Auto) 4.5 % Sau[place] % (Auto) 6.5 % Eos % (Auto) 0.1 % Baso % (Auto) 0.2 % Neut # (Auto) 14.89 H (1.4-6.5) K/uL Lymph # (Auto) 0.76 L (1.2-3.4) K/uL [place] # (Auto) 1.10 H (0.24-0.82) K/uL Eos # (Auto) 0.02 (0-0.50) K/uL Baso # (Auto) 0.03 (0-0.2) K/uL Immature Gran # (Auto) 0.10 H (0.00-0.02) K/uL VBG pH (7.36-7.41) VBG pCO2 (38-50) mmHg VBG pO2 mmHg VBG HCO3 mmol/L VBG O2 Saturation % VBG Base Excess mEq/L Sodium 139 (136-145) mmol/L Potassium 3.9 (3.5-5.1) mmol/L Chloride 101 (98-107) mmol/L Carbon Dioxide 29 (21-32) mmol/L Anion Gap 9 (3-11) BUN 17 (6-23) mg/dl Creatinine 0.99 (0.6-1.4) mg/dl Est Cr Clr Drug Dosing Not Reportable Est GFR ( Amer) 92.9 ml/min Est GFR (Non-Af Amer) 80.2 ml/min BUN/Creatinine Ratio 17.2 (10-20) Glucose 133 H (70-99(Fasting)) mg/dl Calcium 9.7 (8.5-10.1) mg/dl Magnesium 2.0 (1.7-2.4) mg/dl Iron (35-175) mcg/dl Total Bilirubin 0.8 (0.2-1.0) mg/dl AST 15 (13-39) U/L ALT 20 (7-52) U/L Alkaline Phosphatase 71 (34-104) U/L Troponin I High Sens 7.7 (0-20) pg/ml Total Protein 7.4 (6.0-8.3) gm/dl Albumin 4.3 (3.4-5.0) gm/dl Globulin 3.1 (2.5-4.0) gm/dl Albumin/Globulin Ratio 1.4 (0.9-2) Vitamin B12 (180-914) pg/ml Folate (>5.38) ng/ml Procalcitonin (0-0.5) ng/ml Adenovirus (PCR) (NotDetected) B. pertussis DNA (PCR) (NotDetected) B.parapertussis DNA PCR (NotDetected) C. pneumoniae DNA (PCR) (NotDetected) Coronavirus OC43 (PCR) (NotDetected) Coronavirus HKU1 (PCR) (NotDetected) Coronavirus 229E (PCR) (NotDetected) SARS-CoV-2 (PCR) (NotDetected) Coronavirus NL63 (PCR) (NotDetected) Hepatitis C Ab (EIA) Hep C Ab Signal/Cutoff Human Metapneumovir PCR (NotDetected) Influenza Type A (PCR) (NotDetected) Influenza Type B (PCR) (NotDetected) M. pneumoniae (PCR) (NotDetected) Parainfluenza 1 (PCR) (NotDetected) Parainfluenza 2 (PCR) (NotDetected) Parainfluenza 3 (PCR) (NotDetected) Parainfluenza 4 (PCR) (NotDetected) RSV (PCR) (NotDetected) Entero/Rhino (PCR) (NotDetected) SARS-CoV-2, RNA, NAAT (NEGATIVE) Diagnostic Findings Chest X-Ray 02/07/22 14:11 XR chest 1V portable HISTORY: 66 years-old Male Dyspnea acute shortness of breath COMPARISON: Chest CT 05/06/2021, chest radiograph 05/03/2021 TECHNIQUE: AP view of the chest FINDINGS: Severe emphysema with chronic fibrotic changes. Mild bibasilar opacities suggest atelectasis. No pneumothorax, large pleural effusion or overt pulmonary edema. Degenerative changes of the shoulders and spine. IMPRESSION: Severe emphysema with chronic fibrotic changes and mild bibasilar atelectasis. ACT 112: Negative or not required by law. The above report was generated using voice recognition software. It may contain grammatical, syntax or spelling errors. Electronically signed by: Clark Bess M.D. 02/07/2022 3:13 PM PG Care Time/CCT Total # of Minutes Spent Total Time Spent with Patient: Total time spent is greater than 50% in coordination of care (as documented) at patient's floor/unit and/or counseling patient: Coding Level of Care Code 19320 Subseq Hosp Care Lvl 3 Diagnoses Acute exacerbation of chronic obstructive pulmonary disease J44.1 Chronic hypoxemic respiratory failure J96.11 Diastolic heart failure I50.32 Heart failure chronicity: chronic Hyperlipidemia E78.00 Hyperlipidemia type: pure hypercholesterolemia (1) Hyperlipidemia Hyperlipidemia type: pure hypercholesterolemia Qualified Code(s): E78.00 - Pure hypercholesterolemia, unspecified (2) Diastolic heart failure Heart failure chronicity: chronic Qualified Code(s): I50.32 - Chronic diastolic (congestive) heart failure
[2022-02-08] MEDS: FUROSEMIDE 40 MG TAB PO SCH (08:04)
[2022-02-08] MEDS: PRAVASTATIN SOD 40 MG TAB PO SCH (08:04)
[2022-02-08] MEDS: POTASSIUM CHLORIDE CRTAB 20 MEQ TABCR PO SCH (08:04)
[2022-02-08] MEDS: guaiFENesin 600 MG TABCR PO SCH ×2 (08:04→20:03)
[2022-02-08] MEDS: FLUTICASONE FUROATE 100MCG 14 PUFFS/INHALER INH SCH (08:05)
[2022-02-08] MEDS: AZELASTINE HCL 0.1% NASAL 200 SPRAYS/27,400 MCG BTL NAE SCH ×2 (08:05→20:03)
[2022-02-08] MEDS: methylPREDNISolone 40 MG in SYRINGE 0 ML IV SCH ×3 (08:05→20:33)
[2022-02-08] MEDS: UMECLIDINIUM/VILANTEROL 62.5/25MCG 7 PUFFS/INHALER INH SCH (08:06)
[2022-02-08] MEDS: ACETIC ACID 2% OTIC SOLN 15 ML BTL OT SCH ×5 (08:07→20:47)
[2022-02-08] MEDS ORDERED: NON-FORMULARY MEDICATION (Fluticasone-Umeclidin-Vilanter [Trelegy Ellipta] 100-62.5-25 mcg INH SCH (09:00)
--- NOTE | 2022-02-08 10:21 | Electrocardiogram Report ---
Test Reason : Blood Pressure : / mmHG Vent. Rate : 101 BPM Atrial Rate : 101 BPM P-R Int : 136 ms QRS Dur : 084 ms QT Int : 350 ms P-R-T Axes : 064 010 062 degrees QTc Int : 453 ms Poor data quality, interpretation may be adversely affected Sinus tachycardia Nonspecific ST and T wave abnormality Abnormal ECG When compared with ECG of 03-MAY-2021 11:10, No significant change was found Confirmed by Campbell Chung ([id number]) on 02/08/2022 10:21:16 AM Referred By: REFERRED SELF Confirmed By:Campbell Chung
[2022-02-08 10:29] LABS: Folate (Folic Acid) 12.92 ng/ml (>5.38)
[2022-02-08 12:46] LABS: Ferritin 244.3 ng/ml (8-388)
[2022-02-08] MEDS: ALBUT/IPRATROP 3MG/0.5MG NEB 3 ML VIAL NEB SCH ×3 (15:32→22:49)
[2022-02-08] MEDS ORDERED: IRON SUCROSE 200 MG in 0.9 % SODIUM CHLORIDE 100 ML IV ONE (18:00)
[2022-02-08] MEDS ORDERED: FUROSEMIDE 40 MG TAB PO ONE (18:45)
[2022-02-08] MEDS ORDERED: POTASSIUM CHLORIDE CRTAB 20 MEQ TABCR PO STA (18:45)
[2022-02-08] MEDS: ENOXAPARIN INJ 40 MG/0.4 ML SYR SQ SCH (20:02)
[2022-02-08] MEDS: DOXYCYCLINE HYCLATE 100 MG CAP PO SCH (20:04)
[2022-02-08] MEDS: MONTELUKAST SODIUM 10 MG TABLET PO SCH (20:05)
[2022-02-09] MEDS: ALBUT/IPRATROP 3MG/0.5MG NEB 3 ML VIAL NEB SCH ×6 (03:13→22:46)
--- NOTE | 2022-02-09 08:26 | Hospitalist Progress Note ---
Date of Service February 09, 2022 Assessment & Plan (1) Acute exacerbation of chronic obstructive pulmonary disease: Plan: Low grade fever/chills x 2 week with increase in cough frequency/sputum production and BARCENAS. Prior +COVID last winter Respiratory biofire NEGATIVE Typically on 5L NC at all times --> CO2 56 CXR without pneumonia Procal negative WBC elevation likely 2nd to steroids, afebrile (monitor) -- decreased Doxy converted to PO BID to prevent excess volume Increased methylprednisolone to 40mg TID for 02/08, decreased to 20mg TID for today slow taper back to 10mg daily at discharge Changed DUONEBS to SCHEDULED for now, albuterol HFA at bedside as needed Brought in home trelegy --> can transition back from hospital formulary Continue zyrtec, singular, mucinex BID Continue incentive spirometer/flutter valve Monitor sputum cx Consider pulm consult pending course (follows with Dr Segura) --?on 10mg prednisone daily, not on M-W- prevention abx or bactrim for PJP prophylaxis --consider if not improving, however holding off as patient improved on exam today Supplemental O2 to maintain sats --> on usual 5L but O2 99%. Titrate to maintain. Consider repeat 2step to demonstrate baseline needs at rest/exertion (2) Chronic hypoxemic respiratory failure: Plan: On 5L continuous at home, acute COPD exacerbation expected as above on chronic prednisone as above, quit smoking >10 years ago, 80 pack year hx initial talks of weaning the prednisone to 7.5mg daily but he never weaned Per note, "CT chest with 05/06/2021 which demonstrated diffuse centrilobular emphysema and multiple stable noncalcified and calcified nodules. 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 Overall prognosis is very poor. Was referred to [facility] for lung transplant, however has not followed up and leaning against this due to concerns he would not have the physical stamina to recover. consider pulm consult pending course Improving/stable on 5L currently --> consider repeat 2step to demonstrate needs at d/c (3) Diastolic heart failure: Plan: Appeared euvolemic on exam, however reports some LE swelling and abdominal fullness with patient with hx diastolic HF got 1L IVF in ER, BUN 17--> 19 Prior Echo 03/2021: LV SF normal, EF 50-55%, borderline concentric LVH, no regional wall motion abnormalities. On lasix 40mg daily BNp checked wnl, however given extra 40mg lasix x 1 02/08 with stable kidney function on repeat and reported improvement in LE swelling and abdominal distention Monitor I&O, daily weights IMPROVED --> monitor after evening dose lasix (4) Hyperlipidemia: Plan: Continue pravastatin 40 mg daily. (5) Anemia: Plan: Check iron panel/b12/folate to ensure not contributing to SOB given severe emphysema/hgb 14 (although likely diluted from 1L IVF given on admit) * Iron 18, trans % sat 7%. Venofer 200mg on 01/08, will repeat for 02/09 * Also given extra 40mg lasix x 1 02/08 with increased methylprednisolone to 40mg TID (decreased back to 20mg TID for today) and plan to given extra dose this evening given improvement in abdominal distension/LE edema and Cr stable B12/folate wnl monitor for any bleeding CBC in AM Plan DVT proph -- SCDs, lovenox SQ while inpatient consulted PT If improving, consider transition to PO steroids tomorrow with taper and outpt f/u pulmonology additional lasix tonight, consider prn dosing for weight gain/edema consider 2step prior to d/c to demonstrate if any increased baseline O2 requirements Admission and Anticipated Discharge Date Admission Date: February 07, 2022 Subjective Patient evaluated this morning, states feeling much better. Sputum still clear/white in color, lightening up per patient. Sputum cx pending. Holding off adding hypertonic saline nebs as appears to be clearing secretions much better. Getting nebulizers scheduled, order for albuterol HFA for at bedside- does have to use frequently at home. Denies any fever/chills, chest pain. Breathing back to baseline. Discussed titrating his steroids and hopefully transition to PO tomorrow with slow taper. Discussed lasix last evening additional dose. He notes he had less abdominal fullness this morning and improvement in distension along with LE edema. Discussed additional dose for tonight while on steroids but will monitor to see if any additional dosing needed. Possible that he needs additional prn dosing for weight gain while on steroids. Questions/concerns addressed at this time. Review of Systems Review of Systems: All systems reviewed & are unremarkable except as noted in HPI & below Physical Exam Physical Exam: General: WD male, chronically ill appearing, improvement in pallor, NAD sitting up in bed HEENT: head normocephalic, atraumatic, pupils equal, trachea midline, mmm Resp: prolonged expiratory phase, no audible wheezing, diminished throughout, decreased fine bibasilar crackles, on 5L NC 99%, clubbing of nails CV: RRR, +faint murmur, trace b/l LE edema RESOLVED GI: +BS, soft, nontender, +distended (MUCH LESS) no pond MSK/Neuro: moves all extremities, no slurred speech/facial droop, no focal deficit Psych: AOx3, cooperative Skin: cool, dry, no obvious rashes or lesions Results & Data Results & Data ([facility]) Vital Signs (Past 12 Hours) Vital Signs Temp Pulse Pulse Pulse Resp BP Pulse Ox 02/09/22 07:26 36.5 C 113/71 99 02/09/22 07:00 88 02/09/22 07:16 95 H 18 95 02/09/22 06:42 36.5 C 87 18 119/75 95 02/09/22 03:22 36.5 C 84 18 127/69 95 02/09/22 03:16 87 14 94 02/08/22 22:20 88 02/09/22 00:21 02/08/22 23:51 36.7 C 94 H 18 118/78 94 02/08/22 22:49 99 H 20 96 O2 Del Method O2 Flow Rate 02/09/22 07:26 Nasal Cannula 5 02/09/22 07:00 02/09/22 07:16 Nasal Cannula 5 02/09/22 06:42 Nasal Cannula 5 02/09/22 03:22 Nasal Cannula 5 02/09/22 03:16 Nasal Cannula 5 02/08/22 22:20 02/09/22 00:21 Nasal Cannula 5 02/08/22 23:51 Nasal Cannula 5 02/08/22 22:49 Nasal Cannula 5 Laboratory Results 02/09/22 02/09/22 02/08/22 Range/Units 08:38 08:38 11:48 WBC 17.96 H (4.8-10.8) K/ul RBC 4.72 (4.63-6.08) M/uL Hgb 14.7 (14.0-18.0) g/dl Hct 42.9 (40.1-51.0) % MCV 90.9 (80.0-100.0) fL MCH 31.1 (25.0-34.0) pg MCHC 34.3 (32.0-36.0) g/dL RDW Std Deviation 44.2 (36.4-46.3) fL RDW Coeff of Trent 13.2 (11.5-14.5) % Plt Count 377 (130-400) K/uL MPV 9.1 L (9.4-12.4) fL Sodium 140 (136-145) mmol/L Potassium 4.0 (3.5-5.1) mmol/L Chloride 103 (98-107) mmol/L Carbon Dioxide 28 (21-32) mmol/L Anion Gap 9 (3-11) BUN 18 (6-23) mg/dl Creatinine 0.87 (0.6-1.4) mg/dl Est Cr Clr Drug Dosing 80.6 ml/min Est GFR ( Amer) 105.7 ml/min Est GFR (Non-Af Amer) 91.2 ml/min BUN/Creatinine Ratio 20.7 H (10-20) Glucose 164 H (70-99(Fasting)) mg/dl Calcium 9.5 (8.5-10.1) mg/dl Magnesium 2.0 (1.7-2.4) mg/dl Iron (35-175) mcg/dl TIBC (250-450) mcg/dl Unsaturated IBC (155-355) mcg/dl Transferrin % Sat (20-50) % Ferritin (8-388) ng/ml B-Natriuretic Peptide 83 (0-100) pg/ml Vitamin B12 (180-914) pg/ml Folate (>5.38) ng/ml 02/08/22 02/08/22 Range/Units 09:14 05:46 WBC (4.8-10.8) K/ul RBC (4.63-6.08) M/uL Hgb (14.0-18.0) g/dl Hct (40.1-51.0) % MCV (80.0-100.0) fL MCH (25.0-34.0) pg MCHC (32.0-36.0) g/dL RDW Std Deviation (36.4-46.3) fL RDW Coeff of Trent (11.5-14.5) % Plt Count (130-400) K/uL MPV (9.4-12.4) fL Sodium (136-145) mmol/L Potassium (3.5-5.1) mmol/L Chloride (98-107) mmol/L Carbon Dioxide (21-32) mmol/L Anion Gap (3-11) BUN (6-23) mg/dl Creatinine (0.6-1.4) mg/dl Est Cr Clr Drug Dosing ml/min Est GFR ( Amer) ml/min Est GFR (Non-Af Amer) ml/min BUN/Creatinine Ratio (10-20) Glucose (70-99(Fasting)) mg/dl Calcium (8.5-10.1) mg/dl Magnesium (1.7-2.4) mg/dl Iron 18 L (35-175) mcg/dl TIBC 260 (250-450) mcg/dl Unsaturated IBC 242 (155-355) mcg/dl Transferrin % Sat 7 L (20-50) % Ferritin 244.3 (8-388) ng/ml B-Natriuretic Peptide (0-100) pg/ml Vitamin B12 672 (180-914) pg/ml Folate 12.92 (>5.38) ng/ml PG Care Time/CCT Total # of Minutes Spent Total Time Spent with Patient: Total time spent is greater than 50% in coordination of care (as documented) at patient's floor/unit and/or counseling patient: Coding Level of Care Code 52034 Subseq Hosp Care Lvl 3 Diagnoses Acute exacerbation of chronic obstructive pulmonary disease J44.1 Chronic hypoxemic respiratory failure J96.11 Diastolic heart failure I50.32 Heart failure chronicity: chronic Hyperlipidemia E78.00 Hyperlipidemia type: pure hypercholesterolemia Anemia D64.9 (1) Hyperlipidemia Hyperlipidemia type: pure hypercholesterolemia Qualified Code(s): E78.00 - Pure hypercholesterolemia, unspecified (2) Diastolic heart failure Heart failure chronicity: chronic Qualified Code(s): I50.32 - Chronic diastolic (congestive) heart failure
[2022-02-09] MEDS: ACETIC ACID 2% OTIC SOLN 15 ML BTL OT SCH ×5 (08:31→20:28)
[2022-02-09] MEDS: AZELASTINE HCL 0.1% NASAL 200 SPRAYS/27,400 MCG BTL NAE SCH ×2 (08:32→20:21)
[2022-02-09] MEDS: DOXYCYCLINE HYCLATE 100 MG CAP PO SCH ×2 (08:32→20:22)
[2022-02-09] MEDS: FLUTICASONE FUROATE 100MCG 14 PUFFS/INHALER INH SCH (08:34)
[2022-02-09] MEDS: FUROSEMIDE 40 MG TAB PO SCH (08:36)
[2022-02-09] MEDS: guaiFENesin 600 MG TABCR PO SCH ×2 (08:37→20:23)
[2022-02-09] MEDS: POTASSIUM CHLORIDE CRTAB 20 MEQ TABCR PO SCH (08:37)
[2022-02-09] MEDS: PRAVASTATIN SOD 40 MG TAB PO SCH (08:38)
[2022-02-09] MEDS: methylPREDNISolone 20 MG in SYRINGE 0 ML IV SCH ×3 (08:48→20:25)
[2022-02-09] MEDS ORDERED: IRON SUCROSE 200 MG in 0.9 % SODIUM CHLORIDE 100 ML IV ONE (09:00)
[2022-02-09 09:32] LABS: Hematocrit (blood only) 42.9 % (40.1-51.0); Hemoglobin 14.7 g/dl (14.0-18.0); Mean Corpuscular Hemoglobin 31.1 pg (25.0-34.0); Mean Corpuscular Hgb Conc 34.3 g/dL (32.0-36.0); Mean Corpuscular Volume 90.9 fL (80.0-100.0); Mean Platelet Volume 9.1 fL (9.4-12.4); Platelet Count 377 K/uL (130-400); RDW Coefficient of Variation 13.2 % (11.5-14.5); RDW Standard Deviation 44.2 fL (36.4-46.3); Red Blood Count 4.72 M/uL (4.63-6.08); White Blood Count 17.96 K/ul (4.8-10.8)
[2022-02-09 09:56] LABS: BUN Creatinine Ratio 20.7 (10-20); Calcium 9.5 mg/dl (8.5-10.1); Creatinine Clr Calc Pharmacy 80.6 ml/min; Est GFR (African American) 105.7 ml/min; Est GFR (Non-African American) 91.2 ml/min
[2022-02-09] MEDS: UMECLIDINIUM/VILANTEROL 62.5/25MCG 7 PUFFS/INHALER INH SCH (10:45)
[2022-02-09] MEDS: FLUTICASONE/UMECLIDIN/VILANTER 100-62.5-25 INH SCH (10:47)
[2022-02-09] MEDS ORDERED: FUROSEMIDE 40 MG TAB PO ONE (20:00)
[2022-02-09] MEDS: ENOXAPARIN INJ 40 MG/0.4 ML SYR SQ SCH (20:22)
[2022-02-09] MEDS: MONTELUKAST SODIUM 10 MG TABLET PO SCH (20:26)
[2022-02-10] MEDS: ALBUT/IPRATROP 3MG/0.5MG NEB 3 ML VIAL NEB SCH ×3 (02:28→10:47)
[2022-02-10 06:22] LABS: Hematocrit (blood only) 40.9 % (40.1-51.0); Hemoglobin 13.6 g/dl (14.0-18.0); Mean Corpuscular Hemoglobin 30.9 pg (25.0-34.0); Mean Corpuscular Hgb Conc 33.3 g/dL (32.0-36.0); Platelet Count 331 K/uL (130-400); RDW Coefficient of Variation 13.1 % (11.5-14.5); RDW Standard Deviation 45.1 fL (36.4-46.3)
[2022-02-10 06:48] LABS: Calcium 9.1 mg/dl (8.5-10.1); Creatinine Clr Calc Pharmacy 86.6 ml/min; Est GFR (African American) 112.4 ml/min; Est GFR (Non-African American) 96.9 ml/min; Potassium 3.9 mmol/L (3.5-5.1)
[2022-02-10 07:54] LABS: Estimated Average Glucose 108 mg/dl; Hemoglobin A1C 5.4 % (4.5-5.6)
[2022-02-10] MEDS: FLUTICASONE/UMECLIDIN/VILANTER 100-62.5-25 INH SCH (08:03)
[2022-02-10] MEDS: FUROSEMIDE 40 MG TAB PO SCH (08:04)
[2022-02-10] MEDS: guaiFENesin 600 MG TABCR PO SCH (08:04)
[2022-02-10] MEDS: PRAVASTATIN SOD 40 MG TAB PO SCH (08:04)
[2022-02-10] MEDS: DOXYCYCLINE HYCLATE 100 MG CAP PO SCH (08:05)
[2022-02-10] MEDS: methylPREDNISolone 20 MG in SYRINGE 0 ML IV SCH (08:05)
[2022-02-10] MEDS: AZELASTINE HCL 0.1% NASAL 200 SPRAYS/27,400 MCG BTL NAE SCH (08:06)
[2022-02-10] MEDS: ACETIC ACID 2% OTIC SOLN 15 ML BTL OT SCH ×2 (08:06→12:20)
[2022-02-10] MEDS: POTASSIUM CHLORIDE CRTAB 20 MEQ TABCR PO SCH (08:08)
--- NOTE | 2022-02-10 08:10 | Hospitalist Progress Note ---
Date of Service February 10, 2022 Assessment & Plan (1) Acute exacerbation of chronic obstructive pulmonary disease: Plan: Low grade fever/chills x 2 week with increase in cough frequency/sputum production and BARCENAS. Prior +COVID last winter Respiratory biofire NEGATIVE Typically on 5L NC at all times --> CO2 56 CXR without pneumonia Procal negative WBC elevation likely 2nd to steroids, afebrile (monitor) -- decreased Doxy converted to PO BID to prevent excess volume Increased methylprednisolone to 40mg TID for 02/08, decreased to 20mg TID for today slow taper back to 10mg daily at discharge Changed DUONEBS to SCHEDULED for now, albuterol HFA at bedside as needed Brought in home trelegy --> can transition back from hospital formulary Continue zyrtec, singular, mucinex BID Continue incentive spirometer/flutter valve Monitor sputum cx Consider pulm consult pending course (follows with Dr Segura) --?on 10mg prednisone daily, not on M-W- prevention abx or bactrim for PJP prophylaxis --consider if not improving, however holding off as patient improved on exam today Supplemental O2 to maintain sats --> on usual 5L but O2 99%. Titrate to maintain. Consider repeat 2step to demonstrate baseline needs at rest/exertion (2) Chronic hypoxemic respiratory failure: Plan: On 5L continuous at home, acute COPD exacerbation expected as above on chronic prednisone as above, quit smoking >10 years ago, 80 pack year hx initial talks of weaning the prednisone to 7.5mg daily but he never weaned Per note, "CT chest with 05/06/2021 which demonstrated diffuse centrilobular emphysema and multiple stable noncalcified and calcified nodules. 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 Overall prognosis is very poor. Was referred to [facility] for lung transplant, however has not followed up and leaning against this due to concerns he would not have the physical stamina to recover. consider pulm consult pending course Improving/stable on 5L currently --> consider repeat 2step to demonstrate needs at d/c (3) Diastolic heart failure: Plan: Appeared euvolemic on exam, however reports some LE swelling and abdominal fullness with patient with hx diastolic HF got 1L IVF in ER, BUN 17--> 19 Prior Echo 03/2021: LV SF normal, EF 50-55%, borderline concentric LVH, no regional wall motion abnormalities. On lasix 40mg daily BNp checked wnl, however given extra 40mg lasix x 1 02/08 with stable kidney function on repeat and reported improvement in LE swelling and abdominal distention Monitor I&O, daily weights IMPROVED --> monitor after evening dose lasix (4) Hyperlipidemia: Plan: Continue pravastatin 40 mg daily. (5) Anemia: Plan: Check iron panel/b12/folate to ensure not contributing to SOB given severe emphysema/hgb 14 (although likely diluted from 1L IVF given on admit) * Iron 18, trans % sat 7%. Venofer 200mg on 01/08, will repeat for 02/09 * Also given extra 40mg lasix x 1 02/08 with increased methylprednisolone to 40mg TID (decreased back to 20mg TID for today) and plan to given extra dose this evening given improvement in abdominal distension/LE edema and Cr stable B12/folate wnl monitor for any bleeding CBC in AM Plan DVT proph -- SCDs, lovenox SQ while inpatient consulted PT If improving, consider transition to PO steroids tomorrow with taper and outpt f/u pulmonology additional lasix tonight, consider prn dosing for weight gain/edema consider 2step prior to d/c to demonstrate if any increased baseline O2 requirements Admission and Anticipated Discharge Date Admission Date: February 07, 2022 Results & Data Results & Data ([facility]) Vital Signs (Past 12 Hours) Vital Signs Temp Pulse Pulse Pulse Resp BP BP 02/10/22 07:24 02/10/22 07:17 36.7 C 85 18 131/58 L 02/10/22 07:03 88 16 02/10/22 06:57 92 H 02/10/22 03:39 36.5 C 89 18 125/73 02/10/22 02:29 91 H 22 02/10/22 00:00 97 H 02/09/22 23:24 36.5 C 88 18 111/72 02/09/22 22:46 97 H Pulse Ox O2 Del Method O2 Flow Rate 02/10/22 07:24 Nasal Cannula 3 02/10/22 07:17 98 Nasal Cannula 3 02/10/22 07:03 94 Nasal Cannula 3 02/10/22 06:57 02/10/22 03:39 95 High Flow Nasal Cannula 3 02/10/22 02:29 94 Nasal Cannula 3 02/10/22 00:00 02/09/22 23:24 94 Nasal Cannula 3 02/09/22 22:46 95 Nasal Cannula 3 Laboratory Results 02/10/22 02/10/22 02/10/22 Range/Units 05:29 05:29 05:29 WBC 11.80 H (4.8-10.8) K/ul RBC 4.40 L (4.63-6.08) M/uL Hgb 13.6 L (14.0-18.0) g/dl Hct 40.9 (40.1-51.0) % MCV 93.0 (80.0-100.0) fL MCH 30.9 (25.0-34.0) pg MCHC 33.3 (32.0-36.0) g/dL RDW Std Deviation 45.1 (36.4-46.3) fL RDW Coeff of Trent 13.1 (11.5-14.5) % Plt Count 331 (130-400) K/uL MPV 9.0 L (9.4-12.4) fL Sodium 140 (136-145) mmol/L Potassium 3.9 (3.5-5.1) mmol/L Chloride 104 (98-107) mmol/L Carbon Dioxide 30 (21-32) mmol/L Anion Gap 6 (3-11) BUN 18 (6-23) mg/dl Creatinine 0.75 (0.6-1.4) mg/dl Est Cr Clr Drug Dosing 86.6 ml/min Est GFR ( Amer) 112.4 ml/min Est GFR (Non-Af Amer) 96.9 ml/min BUN/Creatinine Ratio 24.0 H (10-20) Glucose 109 H (70-99(Fasting)) mg/dl Estimat Average Glucose 108 mg/dl Hemoglobin A1c 5.4 (4.5-5.6) % Calcium 9.1 (8.5-10.1) mg/dl Magnesium 2.0 (1.7-2.4) mg/dl Hepatitis C Ab (EIA) (NON-REACTIVE) Hep C Ab Signal/Cutoff (<1.00) 02/09/22 02/09/22 02/07/22 Range/Units 08:38 08:38 14:11 WBC 17.96 H (4.8-10.8) K/ul RBC 4.72 (4.63-6.08) M/uL Hgb 14.7 (14.0-18.0) g/dl Hct 42.9 (40.1-51.0) % MCV 90.9 (80.0-100.0) fL MCH 31.1 (25.0-34.0) pg MCHC 34.3 (32.0-36.0) g/dL RDW Std Deviation 44.2 (36.4-46.3) fL RDW Coeff of Trent 13.2 (11.5-14.5) % Plt Count 377 (130-400) K/uL MPV 9.1 L (9.4-12.4) fL Sodium 140 (136-145) mmol/L Potassium 4.0 (3.5-5.1) mmol/L Chloride 103 (98-107) mmol/L Carbon Dioxide 28 (21-32) mmol/L Anion Gap 9 (3-11) BUN 18 (6-23) mg/dl Creatinine 0.87 (0.6-1.4) mg/dl Est Cr Clr Drug Dosing 80.6 ml/min Est GFR ( Amer) 105.7 ml/min Est GFR (Non-Af Amer) 91.2 ml/min BUN/Creatinine Ratio 20.7 H (10-20) Glucose 164 H (70-99(Fasting)) mg/dl Estimat Average Glucose mg/dl Hemoglobin A1c (4.5-5.6) % Calcium 9.5 (8.5-10.1) mg/dl Magnesium 2.0 (1.7-2.4) mg/dl Hepatitis C Ab (EIA) NON-REACTIVE (NON-REACTIVE) Hep C Ab Signal/Cutoff 0.08 (<1.00) PG Care Time/CCT Total # of Minutes Spent Total Time Spent with Patient: Total time spent is greater than 50% in coordination of care (as documented) at patient's floor/unit and/or counseling patient: Coding Diagnoses Acute exacerbation of chronic obstructive pulmonary disease J44.1 Chronic hypoxemic respiratory failure J96.11 Diastolic heart failure I50.32 Heart failure chronicity: chronic Hyperlipidemia E78.00 Hyperlipidemia type: pure hypercholesterolemia Anemia D64.9 (1) Diastolic heart failure Heart failure chronicity: chronic Qualified Code(s): I50.32 - Chronic diastolic (congestive) heart failure (2) Hyperlipidemia Hyperlipidemia type: pure hypercholesterolemia Qualified Code(s): E78.00 - Pure hypercholesterolemia, unspecified
[2022-02-10] MEDS ORDERED: predniSONE 50 MG TAB PO SCH (09:00)
--- NOTE | 2022-02-10 10:25 | Discharge Summary ---
Date of Service February 10, 2022 Admission HPI Per Admitting Provider Burton Durbin is a 66-year-old male with past medical history significant for COPD on 5L NC at all times, HFpEF, aortic valve insufficiency, and hyperlipidemia who is presenting today with worsening shortness of breath over the past several days. Last Tuesday, patient woke up with chills and general body aches, which had persisted over the past week. On Tuesday, he developed a cough which is mostly dry but occasionally productive of sputum. His cough is worse on lying flat or on his side, but he denies significant shortness of breath. He feels he is getting more winded ambulating throughout his home, which she is usually able to do successfully while using his usual oxygen requirement of 5 L. He denies recent sick contacts or known COVID exposures. He denies lightheadedness, dizziness, chest pain/pressure, SOB at rest, or palpitations. He has an 80 pack year history but quit 10+ years ago. Upon presentation to ED, he is following tachycardic with HR in 90s, otherwise vital signs within normal limits and stable, he is afebrile and SpO2 > 92% on his usual 5L NC. Labs are significant for an elevated WBC 16.9, some CO2 retention vBG 7.36/56/31/32. Renal function is at baseline, he is without any electrolyte abnormalities, troponin within normal limits, PTC .0.6, COVID neg. CXR with severe emphysema and chronic fibrotic changes and bibasilar atelectasis. Admission Exam Per Admitting Provider General: awake, alert, no apparent distress Head: Normocephalic, atraumatic ENT: PERRL, EOMI, no pharyngeal exudate, mucous membranes moist Chest: some scattered wheezing, on 5L NC Cardiac: Regular rate and rhythm, no murmur, no JVD, normal peripheral pulses, good capillary refill Abdominal: NABS x 4 quadrants, soft, nontender to palpation, no rebound, guarding or tenderness Extremities: Normal inspection, no peripheral edema or erythema, calfs nontender to palpation Psych: Normal mood and affect Neuro: AAO x 3, strength intact bilaterally and rated 5/5, no motor deficits, speech is clear, no peripheral sensory deficits Skin: no rash or erythema Principal Diagnosis COPD Exacerbation, Pneumonia Discharge Exam General: WD male, chronically ill appearing, improvement in pallor, NAD sitting up in bed HEENT: head normocephalic, atraumatic, pupils equal, trachea midline, mmm Resp: prolonged expiratory phase, no audible wheezing, diminished throughout, decreased fine bibasilar crackles, on 3L at rest with SpO2 94%, clubbing of nails CV: RRR, +faint murmur, trace b/l LE edema RESOLVED GI: +BS, soft, nontender, +distended (MUCH LESS) no pond MSK/Neuro: moves all extremities, no slurred speech/facial droop, no focal deficit Psych: AOx3, cooperative Skin: cool, dry, no obvious rashes or lesions Discharge Data Allergies Allergy/AdvReac Type Severity Reaction Status Date / Time fluticasone furoate AdvReac Mild Trelegy Verified 02/07/22 16:46 [From Trelegy Ellipta] 200 caused shakiness but able to use Trelegy 100 umeclidinium AdvReac Mild Trelegy Verified 02/07/22 16:46 [From Trelegy Ellipta] 200 caused shakiness but able to use Trelegy 100 vilanterol AdvReac Mild Trelegy Verified 02/07/22 16:46 [From Trelegy Ellipta] 200 caused shakiness but able to use Trelegy 100 codeine AdvReac Unknown Rash Verified 02/07/22 16:46 Sulfa (Sulfonamide AdvReac Unknown Rash Verified 02/07/22 16:46 Antibiotics) Consultations 02/07/22 15:44 ED Decision to Admit Stat Hospital Course (1) Acute exacerbation of chronic obstructive pulmonary disease: Low grade fever/chills x 2 week with increase in cough frequency/sputum production and BARCENAS. Prior +COVID last winter Respiratory biofire NEGATIVE procal negative Typically on 5L NC at all times--> CO2 56 on admit CXR without pneumonia reported, however reported fever/sputum production concerning for a possible pneumonia Sputum cx obtained --> initially light normal joseph, however final GS with haemo influenza, streptococcus pneumoniae (sensitivities pending at d/c) was going to complete 5 days doxy, but given dose rocephin prior to d/c and added augmentin to complete full course for pneumonia outpatient with 7 days rocephin/augmentin Given prior chronic prednisone use, required increased dosing to 30mg IV TID, decreased to 20mg TID and decision to give the 50mg prednisone after 20mg dose this morning and d/c on prednisone 50mg daily, titrate every 3 days by 10mg to usual 10mg dose complete abx to continue mucinex BID and nebulizers around the clock for the next week then resume usual as needed also to continue additional lasix for next 2 days given improvement in edema (resolved) and abdominal fullness. BNP was negative however continued improvement in CR with use and steroids. (prior ECHO w/ EF 50-55%). He is to double dose of lasix for weight gain >3lb in 24 hours or 5lb in a week period. Continue low sodium diet at discharge Also given Venofer replacement x 3 doses inpatient for low iron 2 step --> did require 5-6 L w/ ambulation but stayed stable at rest on3L. patient with home oximeter. discussed checking/titrating when his O2 is 88- 90% to maintain sat and not overcorrection F/u pul, also recommended f/u [facility] to discuss transplant. he does report feeling better and wanting to consider. prior w/ poor reserves and scared about recovery. Rec to f/u for discussion to make best informed decision. (2) Chronic hypoxemic respiratory failure: On 5L continuous at home, acute COPD exacerbation expected as above on chronic prednisone as above, quit smoking >10 years ago, 80 pack year hx initial talks of weaning the prednisone to 7.5mg daily but he never weaned Per note, "CT chest with 05/06/2021 which demonstrated diffuse centrilobular emphysema and multiple stable noncalcified and calcified nodules. Based on the CT, I suspect that he would be a poor candidate for bronchoscopic lung volume reduction given the diffuse nature of his emphysema." Follows with Dr Segura, ref to [facility] for lung transplant but hadn't followed up. Recommended following up to discuss options. Also to f/u locally with Dr Segura after discharge Abx/steroids/lasix/tx as outlined above 2step prior to d/c w/ acceptable O2 on 3L @ rest, 5L w exertion Patient reports checking/titrating O2 at home but hadn't over past 7-8 months recommended titrating when at rest to prevent overcorrection given elevated CO2 on admit (3) Diastolic heart failure: Appeared euvolemic on exam, however reports some LE swelling and abdominal fu llness with patient with hx diastolic HF got 1L IVF in ER, BUN 17--> 19 Prior Echo 03/2021: LV SF normal, EF 50-55%, borderline concentric LVH, no regional wall motion abnormalities. On lasix 40mg daily [employer] BNp checked wnl, however given extra 40mg lasix x 1 02/08 with stable kidney function on repeat and reported improvement in LE swelling and abdominal distention and additional dose given evening 02/09 To monitor daily weights/additional lasix as needed instructed to minimum extra lasix next two days at discharge and additional as needed for edema/weight gain with PO Kcl supplementation (4) Hyperlipidemia: Continued pravastatin 40 mg daily. (5) Anemia: Check iron panel/b12/folate to ensure not contributing to SOB given severe emphysema/hgb 14 (although likely diluted from 1L IVF given on admit) * Iron 18, trans % sat 7%. Venofer 200mg on 02/08, 02/09, 02/10 Additional lasix provided with stable kidney function and improvement in breathing B12/folate wnl F/u PCP for routine c-scope monitoring if not done Denied any blood in urine/stool hgb stable and had initially been given IVF/additional Lasix as above Plan DVT proph -- SCDs, lovenox SQ while inpatient consulted PT -- stable for return home Continue Augmentin/Doxy as outlined, steroid taper, diuretics monitor weights/additional lasix as needed Titrate O2 when at rest f/u pulmonary and PCP at discharge Total Time Total Time Spent Total Time Spent (In Minutes): 60 Discharge Plan Discharge Items Patient Disposition: Home - Self-Care Reason For Visit: COPD EXACERBATION Discharge Diagnosis: COPD Exacerbation Goals: You have been hospitalized for an acute medical problem. During your stay at [facility], we have made an effort to correct the problem that brought you to the hospital while keeping you as comfortable as possible. Medications were used to bring your condition under control and your discharge instructions will include directions for any medications you should take after leaving the hospital. Please make sure you see your Primary Care Provider as part of your follow up plan. Activity: Resume your previous activity Non-emergency contact: Primary Care Provider and [employer] Call non-emergency contact if: you have any medication questions, your symptoms worsen and you have a fever Follow-up/Referrals: Reece Lambert III, CRNP [Primary Care Provider] - 02/22/22 4:00 pm Diet: Heart Healthy Addtl Attending Provider Instructions: You have been hospitalized for a COPD exacerbation. You will continue doxycycline 100mg by mouth twice daily for another 2 days worth of treatment to complete five day course. Your sputum culture did come back with bacteria, and you were given a dose of IV antibiotics prior to discharge but you also will continue Augmentin twice a day for six additional days to complete total 7 days. You were treated with steroids and will continue taper with the following: * Prednisone 50mg daily x 3 days, then * Prednisone 40mg daily x 3 days, then * Prednisone 30mg x 3 days, then * Prednisone 20mg x 3 days, then resume your usual 10mg daily These have been sent as 20mg tablets, so please make sure you will be taking the correct dose. You should continue your nebulizers scheduled for the next 2-3 days then can resume your usual regimen. You should monitor your oxygen levels at home and maintain O2 88-90% or greater at rest and increased needs with ambulation. It is likely the 5L sufficiency with ambulation given 2step, but when sitting in bed/not active and can check your pulse ox, if able should titrate to lowest (3L) if oxygen levels acceptable. You should continue your Lasix daily, but take an extra dose for this evening and tomorrow evening and then monitor your weights at home. If you develop any increased swelling in your legs or abdomen, you can take an additional dose of Lasix if your weight goes up greater than 3lb in a 24 hour period or for 5lb gain in a week period. We have also checked your iron stores and they were low. You were given IV replacement while in the hospital which also should help with shortness of breath. Sometimes Lasix causes us to retain fluid and this can cause breathing to worsen. When you take your extra lasix for the next 2 days, you should take an additional dose of your oral potassium to prevent lower levels. You should continue follow up with your PCP in next 7-10 days to monitor your progress and also follow up with Dr Segura from pulmonology to discuss follow up with [facility] for possible lung transplant. Please return to the ER with any worsening shortness of breath, chest pain, fevers, or for any other symptoms concerning for you. It has been a pleasure being a part of the medical team providing for you while you have been in the hospital. Take care! Pending Studies at Discharge: Yes Studies:: Sputum culture -- sensitivities Stand-Alone Forms: My [facility] Medications and DC Order Prescriptions: New doxycycline hyclate 100 mg Capsule 100 mg PO BID Qty: 4 0RF guaifenesin [Mucinex] 600 mg Tablet Extended Release 12hr 1,200 mg PO BID Qty: 60 0RF prednisone 20 mg tablet See Rx Instructions .ROUTE .COMPLEX Qty: 23 0RF Rx Instructions: Please take 50mg by mouth x 3 days, then decrease by 10mg every three days until 10mg. Then, continue 10mg daily as previously taking. amoxicillin-pot clavulanate 875-125 mg tablet 1 tab PO BID Qty: 12 0RF Continued albuterol sulfate [Ventolin HFA] 90 mcg/actuation HFA aerosol inhaler 2 puffs inhalation Q6H PRN (Reason: Shortness Of Breath Or Wheezing) Qty: 18 5RF montelukast [Singulair] 10 mg tablet 10 mg PO HS Qty: 90 3RF furosemide 40 mg tablet 40 mg PO QAM Qty: 90 3RF potassium chloride 20 mEq tablet extended release 20 meq PO QAM Qty: 90 3RF ipratropium-albuterol 0.5 mg-3 mg(2.5 mg base)/3 mL solution for nebulization See Rx Instructions .ROUTE .COMPLEX Qty: 1080 1RF Dose Instruction: USE 1 VIAL BY INHALATION 4 TIMES DAILY NEEDED FOR SHORTNESS OF BREATH OR WHEEZING Rx Instructions: USE 1 VIAL BY INHALATION 4 TIMES DAILY NEEDED FOR SHORTNESS OF BREATH OR WHEEZING azelastine 137 mcg (0.1 %) aerosol,spray 2 spray intranasal BID Qty: 30 3RF Rx Instructions: administer into each nostril pravastatin 40 mg tablet 40 mg PO QAM Qty: 90 1RF Trelegy Ellipta 100-62.5-25 mcg blister with device 1 inh INHALATION QAM Qty: 60 3RF prednisone 2.5 mg tablet 7.5 mg PO DAILY 30 Days Qty: 90 0RF doxycycline hyclate 100 mg capsule 100 mg PO BID PRN (Reason: recurrent infection) (DME) Oxygen Home Liters Per Minute See Rx Instructions .ROUTE .MEDSUPPLY Dose Instruction: As directed Rx Instructions: 4-5L nasal cannula continuously cetirizine [Zyrtec] 10 mg tablet 10 mg PO DAILY PRN (Reason: allergies) clotrimazole 10 mg Jacklyn 10 mg PO DIRECTED PRN (Reason: ..) acetic acid 2 % solution 5 drp otic (ear) QID PRN (Reason: ..) Discharge Orders: Discharge Order (Routine); Ordered 02/10/22 Ordered By: Elinor Patten Admission Data Admit Date/Time: 02/07/22 19:13 Attending Provider: Marc Hernández Admit Provider: Tico Castle Primary Care Provider: Reece Lambert III Other Providers: Tico Castle Other Interventions: Discharge Summary Assessment (RN) Last Done: 02/10/22 10:59 Supervising Physician Co-Signing Physician Notes During face to face encounter, discussed current hospital stay and obtained physical exam. I discussed discharge plan with KIRTI Patten and patient. I reviewed above not and agree with it. Patient admitted for COPD exacerbation, will discharged on steroids and antibiotics Coding Level of Care Code D/C DAY MANAGEMENT >30 MINS Diagnoses Acute exacerbation of chronic obstructive pulmonary disease J44.1 Chronic hypoxemic respiratory failure J96.11 Diastolic heart failure I50.32 Heart failure chronicity: chronic Hyperlipidemia E78.00 Hyperlipidemia type: pure hypercholesterolemia Anemia D64.9
[2022-02-10] MEDS ORDERED: IRON SUCROSE 200 MG in 0.9 % SODIUM CHLORIDE 100 ML IV ONE (10:35)
[2022-02-10] MEDS ORDERED: cefTRIAXone SODIUM 1,000 MG in DEXTROSE 5% 50 ML IV SCH (12:30)
== END 2022-02-10 14:39 | disposition home or self-care (01) ==
LOC: ED 13:28 → SUATTDRO 19:13 → INTOOBSV 19:13 → EDINP 19:13 → 2S 21:14 → 2W 02-08 17:32
DX: Z99.81 Dependence on supplemental oxygen; Z88.8 Allergy status to other drugs, medicaments and biological substances; Z82.49 Family history of ischemic heart disease and other diseases of the circulatory system; Z87.891 Personal history of nicotine dependence; Z86.16 Personal history of COVID-19; J44.1 Chronic obstructive pulmonary disease with (acute) exacerbation; E78.5 Hyperlipidemia, unspecified; Z88.5 Allergy status to narcotic agent; Z83.6 Family history of other diseases of the respiratory system; D64.9 Anemia, unspecified; I50.32 Chronic diastolic (congestive) heart failure; Z80.3 Family history of malignant neoplasm of breast; J96.11 Chronic respiratory failure with hypoxia; Z79.899 Other long term (current) drug therapy; Z88.2 Allergy status to sulfonamides

== ENCOUNTER 2022-04-04 10:12 | Observation (INO) ==
[2022-04-04] MEDS ORDERED: ALBUT/IPRATROP 3MG/0.5MG NEB 3 ML VIAL NEB ONE (11:28)
[2022-04-04] MEDS ORDERED: methylPREDNISolone 125 MG/2 ML VIAL IV STA (11:28)
--- NOTE | 2022-04-04 11:53 | XRay Report ---
XR chest 2V PA/lateral CLINICAL HISTORY: SOB, hx of COPD COMPARISON STUDY: Chest CT May 06, 2021. Chest radiograph February 07, 2022. FINDINGS: Severe emphysema is noted. There is no pneumothorax or pleural effusion. Calcified granulom a within the right upper lobe is unchanged. No consolidation is identified. Minimal bibasilar opaciti es favor atelectasis or scarring. There is no consolidation to suggest pneumonia. Cardiac size is nor mal. Mediastinal contours are normal. IMPRESSION: No acute cardiopulmonary findings. Emphysema. ACT 112: Negative or not required by law. Electronically signed by: Eder Fontaine M.D. 04/04/2022 11:50 AM
--- NOTE | 2022-04-04 12:00 | Emergency Department Note ---
History of Present Illness General Chief complaint: Congestion Stated complaint: CONGESTION,SINUS PRESSURE,COPD Time Seen by Provider: 04/04/22 11:02 History of Present Illness Maximum Pain Intensity: 8 This 66-year-old male with history of anemia, COPD, pneumonia, chronic dyspnea, LVH, steroid dependence, diastolic dysfunction, aortic valve insufficiency, aortic root dilatation, elevated lipids, hypokalemia, hypomagnesia diastolic heart failure, and vitamin D deficiency, presents today with his son, for evaluation of exacerbation of shortness of breath. Patient has known COPD and emphysema. He has had numerous ED visits over the last several years. Patient states he had been doing fairly well until the last few days. He has had increasing shortness of breath, cough, and head congestion. He feels like he has a sinus infection. He states that usually if he gets seen fast enough, he can be treated with oral antibiotics on an outpatient basis. He was not able to see his PCP, and now states that when he gets this bad, he is usually admitted for a day or 2. He wears O2 by nasal cannula at 3 L, recently reduced from 5 L. However, he states at home when he ambulates, even on 5 L, his O2 sats dropped into the upper 80s. When he is sedentary, his saturations returned to the 90s, but he still feels short of breath. He did use a DuoNeb nebulizer treatment about an hour ago, and states that did not really help. His son accompanies him today. Patient denies any chest pain, nausea, or vomiting. No known ill contacts. Home Medications Medication Instructions Recorded Confirmed Type albuterol sulfate 90 mcg/actuation 2 puffs inhalation Q6H PRN 10/30/19 04/04/22 Rx aerosol inhaler (Ventolin HFA) Shortness Of Breath Or Wheezing #18 grams cetirizine 10 mg tablet (Zyrtec) 10 mg PO DAILY PRN allergies 06/16/21 04/04/22 History furosemide 40 mg tablet 40 mg PO QAM #90 tabs 08/12/21 04/04/22 Rx montelukast 10 mg tablet 10 mg PO HS #90 tabs 08/12/21 04/04/22 Rx (Singulair) potassium chloride 20 mEq 20 meq PO QAM #90 tabs 10/08/21 04/04/22 Rx tablet,extended release azelastine 137 mcg (0.1 %) nasal 2 spray intranasal BID #30 mL 10/09/21 04/04/22 Rx spray aerosol pravastatin 40 mg tablet 40 mg PO QAM #90 tabs 12/30/21 04/04/22 Rx fluticasone fur. 100 mcg-umeclid 1 inh inhalation QAM #60 ea 12/31/21 04/04/22 Rx 62.5 mcg-vilant 25 mcg inhalat.powder (Trelegy Ellipta) Oxygen Home 02/02/22 02/26/22 History guaifenesin 600 mg tablet, 1,200 mg PO BID #60 tabs 02/10/22 04/04/22 Rx extended release 12 hr (Mucinex) ipratropium 0.5 mg-albuterol 3 mg See Rx Instructions .Route 03/18/22 04/04/22 Rx (2.5 mg base)/3 mL nebulization .COMPLEX #1,080 mL soln prednisone 10 mg tablet 10 mg PO DAILY 04/04/22 04/04/22 History Allergies Allergy/AdvReac Type Severity Reaction Status Date / Time fluticasone furoate AdvReac Mild Trelegy Verified 02/22/22 15:48 [From Trelegy Ellipta] 200 caused shakiness but able to use Trelegy 100 umeclidinium AdvReac Mild Trelegy Verified 02/22/22 15:48 [From Trelegy Ellipta] 200 caused shakiness but able to use Trelegy 100 vilanterol AdvReac Mild Trelegy Verified 02/22/22 15:48 [From Trelegy Ellipta] 200 caused shakiness but able to use Trelegy 100 codeine AdvReac Unknown Rash Verified 02/22/22 15:48 Sulfa (Sulfonamide AdvReac Unknown Rash Verified 02/22/22 15:48 Antibiotics) Past Med/Surg History Medical History Chronic dyspnea Chronic hypoxemic respiratory failure Chronic obstructive pulmonary disease COPD exacerbation COPD with acute exacerbation COVID-19 Former smoker Non-ST elevation PA (NSTEMI) Pneumonia Respiratory distress SOB (shortness of breath) Surgical History History of cataract surgery History of knee surgery S/P inguinal hernia repair Family History Sister Breast cancer Brother Lung disease Other Myocardial infarction Denies family history of Colon cancer Ovarian cancer Prostate cancer Social History Smoking Status: Former smoker Tobacco Type: Cigarettes Second Hand Exposure: No; Hx Alcohol Use: Yes Alcohol type: beer Hx Substance Use: No Preferred Language: Mexican Communication Ability: Effective Visual Impairment: No Limitations Hearing Ability: Hard of Hearing 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: No Beliefs That Will Affect Care: None marital status: Single Current Living Situation: Family current occupational status: disabled Feels Safe at Home: Yes Safety Concerns: Feels Safe At This Time Childhood Exposure to Second-Hand Smoke: Yes Dental Care, Regularly: No Physical Activity Frequency: Does not Exercise Seatbelt Use: always Sunscreen Use: Yes Assistive Devices: Oxygen - Continuous Review of Systems A total of 10 systems reviewed and were otherwise negative Physical Exam Vital Signs Vital Signs - 24 hr 04/04/22 10:45 04/04/22 11:44 Temperature 36.6 C Temperature Source Temporal Artery Scan Pulse Rate 99 H Pulse Rate [Right Finger] 102 H Respiratory Rate 24 26 H Respiratory Effort / Characteristics Spontaneous Labored Retracting Blood Pressure 158/85 H Blood Pressure Mean 109 Pulse Oximetry 96 95 Oxygen Delivery Method Nasal Cannula Nasal Cannula Oxygen Flow Rate 3 Sepsis Recent Fever Within 48 Hours No Sepsis New/Unexplained Change in Mental Status N/A Sepsis Action Taken by Nursing No Action Required General: Well-developed, well-nourished, middle-aged white male, who looks older than his stated age. Sitting on the bed. Alert and oriented. Visibly working hard of breathing. Tachypneic. Skin: Warm dry with good turgor. No rashes or lesions. No edema. HEENT: Normocephalic atraumatic. Eyes PERRLA, EOMI. No conjunctiva or scleral injection. Ears TMs intact bilaterally with good light reflexes. No erythema or bulging. No hemotympanum. Canals are patent. Nares patent bilaterally without turbinate enlargement. No significant drainage. No epistaxis. Oropharynx without erythema or exudate. Uvula midline, oral mucosa moist. No lesions present. Lymphatics are palpated without anterior or posterior chain enlargement or tenderness. Heart: Heart tachycardic with regular rhythm. No GR. Soft systolic murmur is noted. Peripheral pulses are 2+. Lungs: Patient has expiratory wheezing on the right lower lobe. No crackles or rhonchi. Fair air movement. Abdomen: Abdomen was inspected, auscultated, and palpated. Bowel sounds present x 4. Soft, nontender to palpation. No hepato-splenomegaly. No masses noted. No rebound. Musculoskeletal: Gross motor function of the upper and lower extremities is intact and unremarkable. Neurologic: Gross sensation is intact across the upper and lower extremities by soft touch. Course Administered Medications Azelastine HCl (Azelastine Hcl 0.1% Nasal 200 Sprays/27,400 Mcg Btl) 2 sprays NA BID [facility] Stop: 05/04/22 20:59 Last Admin: 04/05/22 19:52 Dose: 2 sprays Documented By: Admin: 04/05/22 08:44 Dose: 2 sprays Documented By: Admin: 04/04/22 19:52 Dose: 2 sprays Documented By: SALVADOR Fluticasone Furoate (Fluticasone Furoate 100mcg 14 Puffs/Inhaler) 1 puffs INH QAM [facility] Stop: 05/05/22 08:59 Last Admin: 04/05/22 08:44 Dose: 1 puffs Documented By: LASHA Furosemide (Furosemide 40 Mg Tab) 40 mg PO QAM [facility] Stop: 05/05/22 08:59 Last Admin: 04/05/22 08:45 Dose: 40 mg Documented By: LASHA Guaifenesin (Guaifenesin 600 Mg Tabcr) 1,200 mg PO BID [facility] Stop: 05/04/22 20:59 Last Admin: 04/05/22 19:52 Dose: 1,200 mg Documented By: Admin: 04/05/22 08:44 Dose: 1,200 mg Documented By: Admin: 04/04/22 19:53 Dose: 1,200 mg Documented By: SALVADOR Cefepime HCl 2,000 mg/ Syringe 20 mls @ 5 mls/min IV Q8H [facility]; Protocol Stop: 04/11/22 16:59 Last Admin: 04/06/22 00:41 Dose: 5 mls/min Documented By: Admin: 04/05/22 17:11 Dose: 5 mls/min Documented By: Admin: 04/05/22 08:45 Dose: 5 mls/min Documented By: Admin: 04/05/22 00:26 Dose: 5 mls/min Documented By: Admin: 04/04/22 17:57 Dose: 5 mls/min Documented By: SUGEY Levalbuterol HCl (Levalbuterol Hcl 1.25 Mg/3 Ml Neb) 1.25 mg NEB Q6R [facility]; Protocol Stop: 05/04/22 18:59 Last Admin: 04/06/22 06:49 Dose: 1.25 mg Documented By: Admin: 04/06/22 00:21 Dose: 1.25 mg Documented By: SALVADOR(2) Admin: 04/05/22 19:22 Dose: 1.25 mg Documented By: SALVADOR(2) Admin: 04/05/22 12:20 Dose: 1.25 mg Documented By: Admin: 04/05/22 06:08 Dose: 1.25 mg Documented By: Admin: 04/05/22 00:44 Dose: 1.25 mg Documented By: Admin: 04/04/22 20:11 Dose: 1.25 mg Documented By: LEA Montelukast Sodium (Montelukast Sodium 10 Mg Tablet) 10 mg PO HS [facility] Stop: 05/04/22 20:59 Last Admin: 04/05/22 19:52 Dose: 10 mg Documented By: Admin: 04/04/22 19:53 Dose: 10 mg Documented By: SALVADOR Potassium Chloride (Potassium Chloride Crtab 20 Meq Tabcr) 20 meq PO QAM [facility] Stop: 05/05/22 08:59 Last Admin: 04/05/22 08:45 Dose: 20 meq Documented By: LASHA Pravastatin Sodium (Pravastatin Sod 40 Mg Tab) 40 mg PO QAM [facility] Stop: 05/05/22 08:59 Last Admin: 04/05/22 08:45 Dose: 40 mg Documented By: LASHA Umeclidinium/Vilanterol (Umeclidinium/Vilanterol 62.5/25mcg 7 Puffs/Inhaler) 1 puffs INH QAM [facility] Stop: 05/05/22 08:59 Last Admin: 04/05/22 08:44 Dose: 1 puffs Documented By: LASHA Discontinued Medications Albuterol (Albut/Ipratrop 3mg/0.5mg Neb 3 Ml Vial) 12 ml NEB ONE ONE; Protocol Stop: 04/04/22 11:29 Last Admin: 04/04/22 11:43 Dose: 12 ml Documented By: ELLYN Furosemide (Furosemide 20 Mg Tab) 20 mg PO NOW STA Stop: 04/04/22 20:29 Last Admin: 04/04/22 20:54 Dose: 20 mg Documented By: SALVADOR Methylprednisolone (Methylprednisolone 125 Mg/2 Ml Vial) 125 mg IV NOW STA Stop: 04/04/22 11:29 Last Admin: 04/04/22 11:55 Dose: 125 mg Documented By: MISTI Prednisone (Prednisone 20 Mg Tab) 40 mg PO NOW STA Stop: 04/05/22 09:09 Last Admin: 04/05/22 10:29 Dose: 40 mg Documented By: LASHA Medical Decision Making Differential Diagnosis COPD exacerbation, emphysema exacerbation, COVID infection, pneumonia, other viral pneumonia, anemia, influenza Medical Records Attestation: I reviewed the patient's medical records. Home Medications Current Medication List: was personally reviewed by me Laboratory Data CBC, chemistry panel, procalcitonin, magnesium, high-sensitivity troponin, and influenza/COVID swab were all obtained. CBC shows elevation white count of 15.1. This is likely due to his chronic steroid use. Chemistry panel was entirely unremarkable. Magnesium is normal. Procalcitonin is normal. Troponin is normal. Nasal swab was negative for COVID/influenza/RSV. Result diagrams: 04/05/22 09:28 04/04/22 11:52 Lab Results 04/04/22 04/04/22 04/04/22 Range/Units 11:52 11:52 11:52 WBC 15.11 H (4.8-10.8) K/ul RBC 5.01 (4.63-6.08) M/uL Hgb 16.0 (14.0-18.0) g/dl Hct 46.7 (40.1-51.0) % MCV 93.2 (80.0-100.0) fL MCH 31.9 (25.0-34.0) pg MCHC 34.3 (32.0-36.0) g/dL RDW Std Deviation 47.8 H (36.4-46.3) fL RDW Coeff of Trent 14.0 (11.5-14.5) % Plt Count 271 (130-400) K/uL MPV 8.9 L (9.4-12.4) fL Immature Gran % (Auto) 0.5 % Neut % (Auto) 87.6 % Lymph % (Auto) 6.9 % Zavala % (Auto) 4.2 % Eos % (Auto) 0.5 % Baso % (Auto) 0.3 % Neut # (Auto) 13.24 H (1.4-6.5) K/uL Lymph # (Auto) 1.05 L (1.2-3.4) K/uL Z[place]ala # (Auto) 0.63 (0.24-0.82) K/uL Eos # (Auto) 0.07 (0-0.50) K/uL Baso # (Auto) 0.04 (0-0.2) K/uL Immature Gran # (Auto) 0.08 H (0.00-0.02) K/uL Sodium 143 (136-145) mmol/L Potassium 3.7 (3.5-5.1) mmol/L Chloride 105 (98-107) mmol/L Carbon Dioxide 32 (21-32) mmol/L Anion Gap 6 (3-11) BUN 16 (6-23) mg/dl Creatinine 0.88 (0.6-1.4) mg/dl Est Cr Clr Drug Dosing Not Reportable Est GFR ( Amer) 105.2 ml/min Est GFR (Non-Af Amer) 90.8 ml/min BUN/Creatinine Ratio 18.2 (10-20) Glucose 92 (70-99(Fasting)) mg/dl Calcium 9.8 (8.5-10.1) mg/dl Magnesium 1.9 (1.7-2.4) mg/dl Total Bilirubin 0.7 (0.2-1.0) mg/dl AST 14 (13-39) U/L ALT 17 (7-52) U/L Alkaline Phosphatase 61 (34-104) U/L Troponin I High Sens 7.5 (0-20) pg/ml Total Protein 6.9 (6.0-8.3) gm/dl Albumin 4.4 (3.4-5.0) gm/dl Globulin 2.5 (2.5-4.0) gm/dl Albumin/Globulin Ratio 1.8 (0.9-2) Procalcitonin < 0.05 (0-0.5) ng/ml SARS-CoV-2 (PCR) (Negative) Influenza Type A (PCR) (Neg) Influenza Type B (PCR) (Neg) RSV (RT-PCR) (Neg) 04/04/22 Range/Units 12:00 WBC (4.8-10.8) K/ul RBC (4.63-6.08) M/uL Hgb (14.0-18.0) g/dl Hct (40.1-51.0) % MCV (80.0-100.0) fL MCH (25.0-34.0) pg MCHC (32.0-36.0) g/dL RDW Std Deviation (36.4-46.3) fL RDW Coeff of Trent (11.5-14.5) % Plt Count (130-400) K/uL MPV (9.4-12.4) fL Immature Gran % (Auto) % Neut % (Auto) % Lymph % (Auto) % Zavala % (Auto) % Eos % (Auto) % Baso % (Auto) % Neut # (Auto) (1.4-6.5) K/uL Lymph # (Auto) (1.2-3.4) K/uL Z[place]ala # (Auto) (0.24-0.82) K/uL Eos # (Auto) (0-0.50) K/uL Baso # (Auto) (0-0.2) K/uL Immature Gran # (Auto) (0.00-0.02) K/uL Sodium (136-145) mmol/L Potassium (3.5-5.1) mmol/L Chloride (98-107) mmol/L Carbon Dioxide (21-32) mmol/L Anion Gap (3-11) BUN (6-23) mg/dl Creatinine (0.6-1.4) mg/dl Est Cr Clr Drug Dosing Est GFR ( Amer) ml/min Est GFR (Non-Af Amer) ml/min BUN/Creatinine Ratio (10-20) Glucose (70-99(Fasting)) mg/dl Calcium (8.5-10.1) mg/dl Magnesium (1.7-2.4) mg/dl Total Bilirubin (0.2-1.0) mg/dl AST (13-39) U/L ALT (7-52) U/L Alkaline Phosphatase (34-104) U/L Troponin I High Sens (0-20) pg/ml Total Protein (6.0-8.3) gm/dl Albumin (3.4-5.0) gm/dl Globulin (2.5-4.0) gm/dl Albumin/Globulin Ratio (0.9-2) Procalcitonin (0-0.5) ng/ml SARS-CoV-2 (PCR) NEGATIVE (Negative) Influenza Type A (PCR) Negative (Neg) Influenza Type B (PCR) Negative (Neg) RSV (RT-PCR) Negative (Neg) Imaging Data My Impression: Chest x-ray obtained today was reviewed by me and read by radiology. It was compared to his previous films from February 07, 2022. Severe emphysema is noted. No pneumothorax or pleural effusion. Atelectasis changes at the bases. No consolidation to suggest pneumonia. No acute cardiopulmonary findings. Radiologist's Impression: Chest X-Ray 04/04/22 11:14 XR chest 2V PA/lateral CLINICAL HISTORY: SOB, hx of COPD COMPARISON STUDY: Chest CT May 06, 2021. Chest radiograph February 07, 2022. FINDINGS: Severe emphysema is noted. There is no pneumothorax or pleural effusion. Calcified granuloma within the right upper lobe is unchanged. No consolidation is identified. Minimal bibasilar opacities favor atelectasis or scarring. There is no consolidation to suggest pneumonia. Cardiac size is normal. Mediastinal contours are normal. IMPRESSION: No acute cardiopulmonary findings. Emphysema. ACT 112: Negative or not required by law. Electronically signed by: Eder Fontaine M.D. 04/04/2022 11:50 AM ECG Data Additional Comments: EKG obtained today was reviewed with Dr. Mckeon. It shows normal sinus rhythm with nonspecific T wave abnormality present in the lateral leads. No acute ST wave changes. Rate of 99. Blood Pressure Blood Pressure Findings: Elevated blood pressure Blood Pressure Disposition: elevated BP felt to be situational MDM Narrative Patient was evaluated in room B11. Conservative care measures were discussed. IV was established. Labs were obtained. EKG and chest x-ray were also obtained. Labs were entirely unremarkable. Nasal swab was negative. EKG showed tachycardia but no change from previous studies. He was placed on a site monitor and remained in a sinus rhythm while in the ED. No ectopy was noted. Chest x-ray showed no acute pulmonary findings. Patient was given an hour-long DuoNeb as well as Solu-Medrol 125 mg IV. Respiratory comfort did not improve. He remained on 5 L O2 by nasal cannula with adequate saturation. Given his history and visible respiratory discomfort, I did suggest admission for antibiotics and pulmonary care. Patient was agreeable. Hospitalist service was consulted for admission. Please see that dictation for final management. Patient remained stable while in the ED. He was seen in conjunction with Dr. Mckeon, who also evaluated the patient and concurred with today's diagnosis and treatment plan. Impression & Plan Acute exacerbation of chronic obstructive pulmonary disease Discharge Plan Visit Data Chief Complaint: Congestion Stated Complaint: CONGESTION,SINUS PRESSURE,COPD ED Provider: Antwan Mckeon ED Midlevel Provider: Hernando Bruno Discharge Problem: Acute exacerbation of chronic obstructive pulmonary disease Patient Disposition: Admitted As Inpatient Discharge Instructions Interventions: ED Discharge Assessment Last Done: 04/04/22 15:33
[2022-04-04 12:17] LABS: Basophils # (auto) 0.04 K/uL (0-0.2); Basophils % (auto) 0.3 %; Eosinophils # (auto) 0.07 K/uL (0-0.50); Eosinophils % (auto) 0.5 %; Hematocrit (blood only) 46.7 % (40.1-51.0); Immature Granulocytes # (auto) 0.08 K/uL (0.00-0.02); Immature Granulocytes % (auto) 0.5 %; Lymphocytes # (auto) 1.05 K/uL (1.2-3.4); Lymphocytes % (auto) 6.9 %; Mean Corpuscular Hemoglobin 31.9 pg (25.0-34.0); Mean Corpuscular Hgb Conc 34.3 g/dL (32.0-36.0); Mean Corpuscular Volume 93.2 fL (80.0-100.0); Mean Platelet Volume 8.9 fL (9.4-12.4); Monocytes # (auto) 0.63 K/uL (0.24-0.82); Monocytes % (auto) 4.2 %; Neutrophils # (auto) 13.24 K/uL (1.4-6.5); Neutrophils % (auto) 87.6 %; Platelet Count 271 K/uL (130-400); RDW Standard Deviation 47.8 fL (36.4-46.3); Red Blood Count 5.01 M/uL (4.63-6.08); White Blood Count 15.11 K/ul (4.8-10.8)
[2022-04-04 12:56] LABS: Alanine Aminotransferase 17 U/L (7-52); Albumin Globulin Ratio 1.8 (0.9-2); Albumin Level 4.4 gm/dl (3.4-5.0); Alkaline Phosphatase 61 U/L (34-104); Anion Gap 6 (3-11); Aspartate Aminotransferase 14 U/L (13-39); BUN Creatinine Ratio 18.2 (10-20); Bilirubin,Total 0.7 mg/dl (0.2-1.0); Blood Urea Nitrogen 16 mg/dl (6-23); Calcium 9.8 mg/dl (8.5-10.1); Carbon Dioxide 32 mmol/L (21-32); Chloride 105 mmol/L (98-107); Est GFR (African American) 105.2 ml/min; Est GFR (Non-African American) 90.8 ml/min; Globulin 2.5 gm/dl (2.5-4.0); Glucose 92 mg/dl (70-99(Fasting)); Magnesium 1.9 mg/dl (1.7-2.4); Potassium 3.7 mmol/L (3.5-5.1); Sodium 143 mmol/L (136-145); Total Protein 6.9 gm/dl (6.0-8.3)
[2022-04-04 13:05] LABS: Troponin I High Sensitivity 7.5 pg/ml (0-20)
[2022-04-04 13:19] LABS: Influenza A virus by PCR Negative (Neg); Influenza B virus by PCR Negative (Neg); RSV by PCR Negative (Neg); SARS CoV2 RNA(COVID-19)Cepheid NEGATIVE (Negative)
--- NOTE | 2022-04-04 14:29 | History & Physical Report ---
Date of Service April 04, 2022 Assessment & Plan (1) Acute exacerbation of chronic obstructive pulmonary disease: Plan: Acute exacerbation of COPD in 66 yo male with severe COPD reports feeling worse over course of past week. Gets hypoxic ambulating. Patient will be admitted, given sputum production, anr recent hospital stays, as well as severe COPD, will place on cefepime. Will continue corticosteroids will place on oral steroids in AM. will discuss case with pulmonary in AM. will hold consult (2) Hyperlipidemia: Plan: resume home meds (3) Diastolic heart failure: Plan: Patient does not appear to be in CHF, will monitor History of Present Illness Chief Complaint: SOB Primary Care Provider: Reece Lambert III, BRIDGER Burton Durbin is a 66-year-old male with past medical history significant for advanced COPD on 5L NC at all times, HFpEF, aortic valve insufficiency, and hyperlipidemia who is presenting today with worsening shortness of breath over the past several days. Last PFT 11/19/2020 with an FEV1 of 24%, TLC 109% and DLCO 27%. He uses his nebulizer 5-6 times per day. He takes Zyrtec daily. He is on Trelegy 100 mcg daily. He is also on prednisone at a dose of 10 mg daily. He was unable to tolerate BiPAP in the past and is not interested in BiPAP at this time. Patient reports that for the past 5 days, he has had more SOB especially when he ambulates, he states that even on 5 liters, his oxygen O2 sat decreases to 89% with just a few steps. He reports that the lung transplant program is requesting 4-6 months of being nicotine free as well as participating in [facility] rehab. He denies recent sick contacts or known COVID exposures. He denies lightheadedness, dizziness, chest pain/pressure, SOB at rest, or palpitations. He has an 80 pack year history but quit 10+ years ago. Upon presentation to ED, he is following tachycardic with HR in 100s, otherwise vital signs within normal limits and stable, he is afebrile and SpO2 > 92% on his usual 5L NC. Allergies Allergy/AdvReac Type Severity Reaction Status Date / Time fluticasone furoate AdvReac Mild Trelegy Verified 02/22/22 15:48 [From Trelegy Ellipta] 200 caused shakiness but able to use Trelegy 100 umeclidinium AdvReac Mild Trelegy Verified 02/22/22 15:48 [From Trelegy Ellipta] 200 caused shakiness but able to use Trelegy 100 vilanterol AdvReac Mild Trelegy Verified 02/22/22 15:48 [From Trelegy Ellipta] 200 caused shakiness but able to use Trelegy 100 codeine AdvReac Unknown Rash Verified 02/22/22 15:48 Sulfa (Sulfonamide AdvReac Unknown Rash Verified 02/22/22 15:48 Antibiotics) Home Medications Medication Instructions Recorded Confirmed Type albuterol sulfate 90 mcg/actuation 2 puffs inhalation Q6H PRN 10/30/19 04/04/22 Rx aerosol inhaler (Ventolin HFA) Shortness Of Breath Or Wheezing #18 grams cetirizine 10 mg tablet (Zyrtec) 10 mg PO DAILY PRN allergies 06/16/21 04/04/22 History furosemide 40 mg tablet 40 mg PO QAM #90 tabs 08/12/21 04/04/22 Rx montelukast 10 mg tablet 10 mg PO HS #90 tabs 08/12/21 04/04/22 Rx (Singulair) potassium chloride 20 mEq 20 meq PO QAM #90 tabs 10/08/21 04/04/22 Rx tablet,extended release azelastine 137 mcg (0.1 %) nasal 2 spray intranasal BID #30 mL 10/09/21 04/04/22 Rx spray aerosol pravastatin 40 mg tablet 40 mg PO QAM #90 tabs 12/30/21 04/04/22 Rx fluticasone fur. 100 mcg-umeclid 1 inh inhalation QAM #60 ea 12/31/21 04/04/22 Rx 62.5 mcg-vilant 25 mcg inhalat.powder (Trelegy Ellipta) Oxygen Home 02/02/22 02/26/22 History guaifenesin 600 mg tablet, 1,200 mg PO BID #60 tabs 02/10/22 04/04/22 Rx extended release 12 hr (Mucinex) ipratropium 0.5 mg-albuterol 3 mg See Rx Instructions .Route 03/18/22 04/04/22 Rx (2.5 mg base)/3 mL nebulization .COMPLEX #1,080 mL soln prednisone 10 mg tablet 10 mg PO DAILY 04/04/22 04/04/22 History Past Med/Surg History Medical History Chronic dyspnea Chronic hypoxemic respiratory failure Chronic obstructive pulmonary disease COPD exacerbation COPD with acute exacerbation COVID-19 Former smoker Non-ST elevation IN (NSTEMI) Pneumonia Respiratory distress SOB (shortness of breath) Surgical History History of cataract surgery History of knee surgery S/P inguinal hernia repair Family History Sister Breast cancer Brother Lung disease Other Myocardial infarction Denies family history of Colon cancer Ovarian cancer Prostate cancer Social History Smoking Status: Former smoker Tobacco Type: Cigarettes Second Hand Exposure: No; Hx Alcohol Use: Yes Alcohol type: beer Hx Substance Use: No Preferred Language: Chadian Communication Ability: Effective Visual Impairment: No Limitations Hearing Ability: Hard of Hearing Turning Lathe Tender Required: No Beliefs That Will Affect Care: None marital status: Single Current Living Situation: Family current occupational status: disabled Feels Safe at Home: Yes Safety Concerns: Feels Safe At This Time Childhood Exposure to Second-Hand Smoke: Yes Dental Care, Regularly: No Physical Activity Frequency: Does not Exercise Seatbelt Use: always Sunscreen Use: Yes Assistive Devices: None and Oxygen - Continuous Review of Systems Review of Systems: Constitutional: no weakness, fatigue, myalgias, anorexia, night sweats Eyes: No diplopia, no worsening or blurred vision ENT: normal hearing, no trouble swallowing Respiratory: worsening SOB on exertion Cardiovascular: No chest pain, tightness or palpitations Abdomen: No pain, nausea, vomiting, diarrhea or constipation : Denies dysuria, hematuria, increased urgency/frequency, urinary retention Musculoskeletal: No joint pain, calf pain, swelling Neurologic: No weakness, numbness/tingling, or balance problems Psychiatric: No anxiety or depression Skin: No rash or itch Physical Exam Physical Exam: General: awake, alert, no apparent distress Head: Normocephalic, atraumatic ENT: PERRL, EOMI, no pharyngeal exudate, mucous membranes moist Chest: some scattered wheezing, on 5L NC Cardiac: Regular rate and rhythm, no murmur, no JVD, normal peripheral pulses, good capillary refill Abdominal: NABS x 4 quadrants, soft, nontender to palpation, no rebound, guarding or tenderness Extremities: Normal inspection, no peripheral edema or erythema, calfs nontender to palpation Psych: Normal mood and affect Neuro: AAO x 3, strength intact bilaterally and rated 5/5, no motor deficits, speech is clear, no peripheral sensory deficits Skin: no rash or erythema Results & Data Results & Data ([facility]) Vital Signs (Past 12 Hours) Vital Signs Temp Pulse Pulse Resp BP BP Pulse Ox 04/04/22 12:45 107 H 21 97 04/04/22 12:30 103 H 17 100 04/04/22 12:15 100 H 22 100 04/04/22 12:00 98 H 22 100 04/04/22 11:45 99 H 19 100 04/04/22 11:44 98 H 23 100 04/04/22 11:44 147/82 H 04/04/22 11:40 101 H 21 04/04/22 11:15 101 H 22 95 04/04/22 11:00 101 H 24 93 04/04/22 10:59 106 H 15 95 04/04/22 12:08 102 H 24 148/82 H 99 04/04/22 11:44 102 H 26 H 95 04/04/22 10:45 36.6 C 99 H 24 158/85 H 96 O2 Del Method O2 Flow Rate 04/04/22 12:45 04/04/22 12:30 04/04/22 12:15 04/04/22 12:00 04/04/22 11:45 04/04/22 11:44 04/04/22 11:44 04/04/22 11:40 04/04/22 11:15 04/04/22 11:00 04/04/22 10:59 04/04/22 12:08 Aerosol Mask, Nebulizer 04/04/22 11:44 Nasal Cannula 04/04/22 10:45 Nasal Cannula 3 PG Care Time/CCT Total # of Minutes Spent Total Time Spent with Patient: Total time spent is greater than 50% in coordination of care (as documented) at patient's floor/unit and/or counseling patient: Coding Level of Care Code 82671 Initial Inpt Care Lvl 3 Diagnoses Acute exacerbation of chronic obstructive pulmonary disease J44.1 Hyperlipidemia E78.00 Hyperlipidemia type: pure hypercholesterolemia Diastolic heart failure I50.32 Heart failure chronicity: chronic (1) Hyperlipidemia Hyperlipidemia type: pure hypercholesterolemia Qualified Code(s): E78.00 - Pure hypercholesterolemia, unspecified (2) Diastolic heart failure Heart failure chronicity: chronic Qualified Code(s): I50.32 - Chronic diastolic (congestive) heart failure
[2022-04-04 14:47] LABS: Base Excess VBG 5.8 mEq/L; HCO3 VBG 33 mmol/L; Oxygen Saturation VBG < 60.0 %; PCO2 VBG 55 mmHg (38-50); PO2 VBG 26 mmHg; pH VBG 7.38 (7.36-7.41)
[2022-04-04] MEDS ORDERED: Patient's HEIGHT &/or WEIGHT Needed SCH (16:15)
[2022-04-04] MEDS: CEFEPIME 2,000 MG in SYRINGE 0 ML IV SCH (17:57)
[2022-04-04] MEDS: AZELASTINE HCL 0.1% NASAL 200 SPRAYS/27,400 MCG BTL SCH (19:52)
[2022-04-04] MEDS: guaiFENesin 600 MG TABCR PO SCH (19:53)
[2022-04-04] MEDS: MONTELUKAST SODIUM 10 MG TABLET PO SCH (19:53)
[2022-04-04] MEDS: LEVALBUTEROL HCL 1.25 MG/3 ML NEB NEB SCH (20:11)
[2022-04-04] MEDS ORDERED: FUROSEMIDE 20 MG TAB PO STA (20:28)
[2022-04-05] MEDS: CEFEPIME 2,000 MG in SYRINGE 0 ML IV SCH ×3 (00:26→17:11)
[2022-04-05] MEDS: LEVALBUTEROL HCL 1.25 MG/3 ML NEB NEB SCH ×4 (00:44→19:22)
[2022-04-05] MEDS: FLUTICASONE FUROATE 100MCG 14 PUFFS/INHALER INH SCH (08:44)
[2022-04-05] MEDS: AZELASTINE HCL 0.1% NASAL 200 SPRAYS/27,400 MCG BTL SCH ×2 (08:44→19:52)
[2022-04-05] MEDS: UMECLIDINIUM/VILANTEROL 62.5/25MCG 7 PUFFS/INHALER INH SCH (08:44)
[2022-04-05] MEDS: guaiFENesin 600 MG TABCR PO SCH ×2 (08:44→19:52)
[2022-04-05] MEDS: POTASSIUM CHLORIDE CRTAB 20 MEQ TABCR PO SCH (08:45)
[2022-04-05] MEDS: FUROSEMIDE 40 MG TAB PO SCH (08:45)
[2022-04-05] MEDS: PRAVASTATIN SOD 40 MG TAB PO SCH (08:45)
[2022-04-05] MEDS ORDERED: FLUTICASONE/UMECLIDIN/VILANTER 100-62.5-25 INH SCH (09:00)
[2022-04-05] MEDS ORDERED: predniSONE 20 MG TAB PO STA (09:08)
--- NOTE | 2022-04-05 09:51 | Electrocardiogram Report ---
Test Reason : Blood Pressure : / mmHG Vent. Rate : 099 BPM Atrial Rate : 099 BPM P-R Int : 134 ms QRS Dur : 094 ms QT Int : 370 ms P-R-T Axes : 078 037 082 degrees QTc Int : 474 ms Poor data quality, interpretation may be adversely affected Normal sinus rhythm Nonspecific T wave abnormality Lateral leads Abnormal ECG When compared with ECG of 07-FEB-2022 15:23, No significant change Confirmed by Owen Novoa ([id number]) on 04/05/2022 9:50:40 AM Referred By: REFERRED SELF Confirmed By:Owen Novoa
[2022-04-05 10:13] LABS: Basophils # (auto) 0.01 K/uL (0-0.2); Basophils % (auto) 0.1 %; Hematocrit (blood only) 44.6 % (40.1-51.0); Hemoglobin 15.4 g/dl (14.0-18.0); Immature Granulocytes % (auto) 0.8 %; Lymphocytes # (auto) 1.24 K/uL (1.2-3.4); Lymphocytes % (auto) 9.5 %; Mean Corpuscular Hemoglobin 31.4 pg (25.0-34.0); Mean Corpuscular Hgb Conc 34.5 g/dL (32.0-36.0); Mean Platelet Volume 9.1 fL (9.4-12.4); Monocytes # (auto) 0.53 K/uL (0.24-0.82); Monocytes % (auto) 4.1 %; Neutrophils # (auto) 11.15 K/uL (1.4-6.5); Neutrophils % (auto) 85.5 %; Platelet Count 319 K/uL (130-400); RDW Coefficient of Variation 13.9 % (11.5-14.5); RDW Standard Deviation 46.8 fL (36.4-46.3); White Blood Count 13.03 K/ul (4.8-10.8)
[2022-04-05 10:46] LABS: Troponin I High Sensitivity 7.9 pg/ml (0-20)
[2022-04-05 10:51] LABS: C Reactive Protein 3.02 mg/dl (0-0.5)
--- NOTE | 2022-04-05 14:11 | XRay Report ---
XR chest 2V PA/lateral CLINICAL HISTORY: copd exacerbation TECHNIQUE: 2 views of the chest were obtained. Comparison: Comparison is made to chest radiograph 04/04/2022 FINDINGS: No lines and tubes are seen. The aorta is tortuous. The remainder of the cardiomediastinal silhouette is unremarkable. Scarring is noted in the right lower lung. Emphysema is seen. No evidence of pleura l effusion or pneumothorax. IMPRESSION: Scarring and emphysema are seen without evidence of acute abnormality such as pneumonia. ACT 112: Negative or not required by law. Electronically signed by: Roberto Goldstein M.D. 04/05/2022 2:08 PM
[2022-04-05] MEDS: MONTELUKAST SODIUM 10 MG TABLET PO SCH (19:52)
--- NOTE | 2022-04-05 21:05 | Hospitalist Progress Note ---
Date of Service April 05, 2022 Assessment & Plan (1) Acute exacerbation of chronic obstructive pulmonary disease: Plan: Acute exacerbation of COPD in 66 yo male with severe COPD reports feeling worse over course of past week. Gets hypoxic ambulating. Patient will be admitted, given sputum production, and recent hospital stays, as well as severe COPD, continue on cefepime. Will continue corticosteroids will discuss case with pulmonary: will order MWF azithromycin at discharge will hold consult Patient will need to followup with pulmonary as an outpatient, and work on lung transplant. (2) Hyperlipidemia: Plan: resume home meds (3) Diastolic heart failure: Plan: Patient does not appear to be in CHF, will monitor Admission and Anticipated Discharge Date Admission Date: April 04, 2022 Subjective Patient reports having more sputum production today, he feels it is thanks to using the flutter valve and incentive spirometer. Review of Systems Review of Systems: All systems reviewed & are unremarkable except as noted in HPI & below Physical Exam Physical Exam: General: awake, alert, no apparent distress Head: Normocephalic, atraumatic ENT: PERRL, EOMI, no pharyngeal exudate, mucous membranes moist Chest: some scattered wheezing, on 5L NC Cardiac: Regular rate and rhythm, no murmur, no JVD, normal peripheral pulses, good capillary refill Abdominal: NABS x 4 quadrants, soft, nontender to palpation, no rebound, guarding or tenderness Extremities: Normal inspection, no peripheral edema or erythema, calfs nontender to palpation Psych: Normal mood and affect Neuro: AAO x 3, strength intact bilaterally and rated 5/5, no motor deficits, speech is clear, no peripheral sensory deficits Skin: no rash or erythema Results & Data Results & Data ([facility]) Vital Signs (Past 12 Hours) Vital Signs Temp Pulse Pulse Resp BP Pulse Ox O2 Del Method 04/05/22 19:22 85 18 96 Nasal Cannula 04/05/22 15:16 36.6 C 93 H 18 125/72 97 Nasal Cannula 04/05/22 13:41 36.8 C 85 24 04/05/22 12:20 83 19 88 L Nasal Cannula 04/05/22 11:45 24 128/76 98 Nasal Cannula O2 Flow Rate 04/05/22 19:22 2 04/05/22 15:16 3 04/05/22 13:41 04/05/22 12:20 3 04/05/22 11:45 3 PG Care Time/CCT Total # of Minutes Spent Total Time Spent with Patient: Total time spent is greater than 50% in coordination of care (as documented) at patient's floor/unit and/or counseling patient: Coding Level of Care Code 32110 Subseq Hosp Care Lvl 3 Diagnoses Acute exacerbation of chronic obstructive pulmonary disease J44.1 Hyperlipidemia E78.00 Hyperlipidemia type: pure hypercholesterolemia Diastolic heart failure I50.32 Heart failure chronicity: chronic Time Spent (min) 40 (1) Hyperlipidemia Hyperlipidemia type: pure hypercholesterolemia Qualified Code(s): E78.00 - Pure hypercholesterolemia, unspecified (2) Diastolic heart failure Heart failure chronicity: chronic Qualified Code(s): I50.32 - Chronic diastolic (congestive) heart failure
[2022-04-06] MEDS: LEVALBUTEROL HCL 1.25 MG/3 ML NEB NEB SCH ×4 (00:21→18:59)
[2022-04-06] MEDS: CEFEPIME 2,000 MG in SYRINGE 0 ML IV SCH ×3 (00:41→17:47)
[2022-04-06] MEDS: FLUTICASONE FUROATE 100MCG 14 PUFFS/INHALER INH SCH (08:43)
[2022-04-06] MEDS: AZELASTINE HCL 0.1% NASAL 200 SPRAYS/27,400 MCG BTL SCH ×2 (08:43→20:16)
[2022-04-06] MEDS: FUROSEMIDE 40 MG TAB PO SCH (08:44)
[2022-04-06] MEDS: POTASSIUM CHLORIDE CRTAB 20 MEQ TABCR PO SCH (08:44)
[2022-04-06] MEDS: guaiFENesin 600 MG TABCR PO SCH ×2 (08:44→20:17)
[2022-04-06] MEDS: UMECLIDINIUM/VILANTEROL 62.5/25MCG 7 PUFFS/INHALER INH SCH (08:45)
[2022-04-06] MEDS: PRAVASTATIN SOD 40 MG TAB PO SCH (08:45)
[2022-04-06] MEDS: ENOXAPARIN INJ 40 MG/0.4 ML SYR SQ SCH (09:43)
[2022-04-06] MEDS ORDERED: predniSONE 20 MG TAB PO STA (11:07)
--- NOTE | 2022-04-06 20:12 | Hospitalist Progress Note ---
Date of Service April 06, 2022 Assessment & Plan (1) Acute exacerbation of chronic obstructive pulmonary disease: Plan: Acute exacerbation of COPD in 66 yo male with severe COPD reports feeling worse over course of past week. Gets hypoxic ambulating. Patient will be admitted, given sputum production, and recent hospital stays, as well as severe COPD, continue on cefepime. Will continue corticosteroids will discuss case with pulmonary: will order MWF azithromycin at discharge will hold consult Patient will need to followup with pulmonary as an outpatient, and work on lung transplant. Patient appears to be improving on 04/06 will continue cefepime, final dose on 04/08 for COPD exacerbation. will likely dc on azithromycin and daliresp. (2) Hyperlipidemia: Plan: resume home meds (3) Diastolic heart failure: Plan: Patient does not appear to be in CHF, will monitor Admission and Anticipated Discharge Date Admission Date: April 04, 2022 Subjective Patient reports no new symptoms. He states he is feeling better. Review of Systems Review of Systems: All systems reviewed & are unremarkable except as noted in HPI & below Physical Exam Physical Exam: General: awake, alert, no apparent distress Head: Normocephalic, atraumatic ENT: PERRL, EOMI, no pharyngeal exudate, mucous membranes moist Chest: some scattered wheezing, on 5L NC Cardiac: Regular rate and rhythm, no murmur, no JVD, normal peripheral pulses, good capillary refill Abdominal: NABS x 4 quadrants, soft, nontender to palpation, no rebound, guarding or tenderness Extremities: Normal inspection, no peripheral edema or erythema, calfs nontender to palpation Psych: Normal mood and affect Neuro: AAO x 3, strength intact bilaterally and rated 5/5, no motor deficits, speech is clear, no peripheral sensory deficits Skin: no rash or erythema Results & Data Results & Data ([facility]) Vital Signs (Past 12 Hours) Vital Signs Temp Pulse Pulse Pulse Resp BP Pulse Ox 04/06/22 19:00 96 H 96 H 18 96 04/06/22 14:27 36.7 C 87 22 132/83 99 04/06/22 13:30 84 16 98 04/06/22 11:23 36.5 C 87 18 137/69 98 04/06/22 10:23 O2 Del Method O2 Flow Rate 04/06/22 19:00 Nasal Cannula 3 04/06/22 14:27 Nasal Cannula 3 04/06/22 13:30 Nasal Cannula 3 04/06/22 11:23 Nasal Cannula 3 04/06/22 10:23 Nasal Cannula 3 PG Care Time/CCT Total # of Minutes Spent Total Time Spent with Patient: Total time spent is greater than 50% in coordination of care (as documented) at patient's floor/unit and/or counseling patient: Coding Level of Care Code 30002 Subseq Hosp Care Lvl 3 Diagnoses Acute exacerbation of chronic obstructive pulmonary disease J44.1 Hyperlipidemia E78.00 Hyperlipidemia type: pure hypercholesterolemia Diastolic heart failure I50.32 Heart failure chronicity: chronic Time Spent (min) 35 (1) Hyperlipidemia Hyperlipidemia type: pure hypercholesterolemia Qualified Code(s): E78.00 - Pure hypercholesterolemia, unspecified (2) Diastolic heart failure Heart failure chronicity: chronic Qualified Code(s): I50.32 - Chronic diastolic (congestive) heart failure
[2022-04-06] MEDS: MONTELUKAST SODIUM 10 MG TABLET PO SCH (20:17)
[2022-04-07] MEDS: CEFEPIME 2,000 MG in SYRINGE 0 ML IV SCH ×3 (00:38→17:47)
[2022-04-07] MEDS: LEVALBUTEROL HCL 1.25 MG/3 ML NEB NEB SCH ×3 (00:49→12:22)
[2022-04-07] MEDS: PRAVASTATIN SOD 40 MG TAB PO SCH (08:23)
[2022-04-07] MEDS: FUROSEMIDE 40 MG TAB PO SCH (08:23)
[2022-04-07] MEDS: POTASSIUM CHLORIDE CRTAB 20 MEQ TABCR PO SCH (08:24)
[2022-04-07] MEDS: guaiFENesin 600 MG TABCR PO SCH ×2 (08:24→19:46)
[2022-04-07] MEDS: predniSONE 20 MG TAB PO SCH (08:25)
[2022-04-07] MEDS: FLUTICASONE FUROATE 100MCG 14 PUFFS/INHALER INH SCH (08:25)
[2022-04-07] MEDS: UMECLIDINIUM/VILANTEROL 62.5/25MCG 7 PUFFS/INHALER INH SCH (08:25)
[2022-04-07] MEDS: AZELASTINE HCL 0.1% NASAL 200 SPRAYS/27,400 MCG BTL SCH ×2 (08:25→19:46)
[2022-04-07] MEDS: ENOXAPARIN INJ 40 MG/0.4 ML SYR SQ SCH (08:28)
[2022-04-07 10:23] LABS: Basophils # (auto) 0.03 K/uL (0-0.2); Basophils % (auto) 0.3 %; Eosinophils # (auto) 0.14 K/uL (0-0.50); Eosinophils % (auto) 1.4 %; Hematocrit (blood only) 45.5 % (40.1-51.0); Hemoglobin 15.5 g/dl (14.0-18.0); Immature Granulocytes # (auto) 0.07 K/uL (0.00-0.02); Immature Granulocytes % (auto) 0.7 %; Lymphocytes # (auto) 2.02 K/uL (1.2-3.4); Lymphocytes % (auto) 19.5 %; Mean Corpuscular Hemoglobin 31.6 pg (25.0-34.0); Mean Corpuscular Hgb Conc 34.1 g/dL (32.0-36.0); Mean Corpuscular Volume 92.7 fL (80.0-100.0); Mean Platelet Volume 8.7 fL (9.4-12.4); Monocytes # (auto) 0.88 K/uL (0.24-0.82); Monocytes % (auto) 8.5 %; Neutrophils # (auto) 7.23 K/uL (1.4-6.5); Neutrophils % (auto) 69.6 %; Platelet Count 307 K/uL (130-400); RDW Coefficient of Variation 13.8 % (11.5-14.5); RDW Standard Deviation 47.2 fL (36.4-46.3); Red Blood Count 4.91 M/uL (4.63-6.08); White Blood Count 10.37 K/ul (4.8-10.8)
[2022-04-07 10:48] LABS: Anion Gap 5 (3-11); BUN Creatinine Ratio 23.4 (10-20); Blood Urea Nitrogen 22 mg/dl (6-23); C Reactive Protein < 0.50 mg/dl (0-0.5); Calcium 9.6 mg/dl (8.5-10.1); Carbon Dioxide 32 mmol/L (21-32); Chloride 104 mmol/L (98-107); Creatinine Clr Calc Pharmacy 69.1 ml/min; Est GFR (African American) 98.9 ml/min; Est GFR (Non-African American) 85.3 ml/min; Glucose 115 mg/dl (70-99(Fasting)); Sodium 141 mmol/L (136-145)
--- NOTE | 2022-04-07 11:25 | XRay Report ---
XR chest 2V PA/lateral CLINICAL HISTORY: hypoxia TECHNIQUE: 2 views of the chest were obtained. Comparison: Comparison is made to chest radiograph 04/05/2022 FINDINGS: No lines and tubes are seen. The cardiomediastinal silhouette is normal. Extensive emphysema is seen. No evidence of pleural effusion or pneumothorax. Multilevel degenerative changes are seen. IMPRESSION: Emphysema is seen without evidence of pneumonia. ACT 112: Negative or not required by law. Electronically signed by: Roberto Goldstein M.D. 04/07/2022 11:24 AM
[2022-04-07] MEDS ORDERED: LEVALBUTEROL HCL 1.25 MG/3 ML NEB NEB PRN (12:27)
[2022-04-07] MEDS: MONTELUKAST SODIUM 10 MG TABLET PO SCH (19:46)
--- NOTE | 2022-04-07 21:29 | Hospitalist Progress Note ---
Date of Service April 07, 2022 Assessment & Plan (1) Acute exacerbation of chronic obstructive pulmonary disease: Plan: Acute exacerbation of COPD in 66 yo male with severe COPD reports feeling worse over course of past week. Gets hypoxic ambulating. Patient will be admitted, given sputum production, and recent hospital stays, as well as severe COPD, continue on cefepime. Will continue corticosteroids discussed case with pulmonary: will order MWF azithromycin at discharge May benefit from daliresp at discharge as well. no need for pulmonary consult. Patient will need to followup with [facility] pulmonary as an outpatient, and work on lung transplant. Patient is agreeable to pulmonary rehab, this will need to be arranged in town. Patient also may benefit from bronchoscopic lung reduction over at [facility] as this cannot be done at this facility. Plan to discharge patient after completing 5 days of Cefepime as patient has required multiple admissions on Doxycycline. This will be on 04/09 early afternoon. Also explained to patient that he should nto use rescue inhalers daily. (2) Hyperlipidemia: Plan: resume home meds (3) Diastolic heart failure: Plan: Patient does not appear to be in CHF, will monitor Admission and Anticipated Discharge Date Admission Date: April 04, 2022 Subjective Patient reports feeling significantly better today. He states he is close to his baseline. Review of Systems Review of Systems: All systems reviewed & are unremarkable except as noted in HPI & below Physical Exam Physical Exam: General: awake, alert, no apparent distress Head: Normocephalic, atraumatic ENT: PERRL, EOMI, no pharyngeal exudate, mucous membranes moist Chest: clear, improved breath sounds. Cardiac: Regular rate and rhythm, no murmur, no JVD, normal peripheral pulses, good capillary refill Abdominal: NABS x 4 quadrants, soft, nontender to palpation, no rebound, guarding or tenderness Extremities: Normal inspection, no peripheral edema or erythema, calfs nontender to palpation Psych: Normal mood and affect Neuro: AAO x 3, strength intact bilaterally and rated 5/5, no motor deficits, speech is clear, no peripheral sensory deficits Skin: no rash or erythema Results & Data Results & Data ([facility]) Vital Signs (Past 12 Hours) Vital Signs Temp Pulse Resp BP Pulse Ox O2 Del Method O2 Flow Rate 04/07/22 14:35 37 C 88 22 126/82 97 Nasal Cannula 3 04/07/22 12:23 80 18 98 Nasal Cannula 3 PG Care Time/CCT Total # of Minutes Spent Total Time Spent with Patient: Total time spent is greater than 50% in coordination of care (as documented) at patient's floor/unit and/or counseling patient: Coding Level of Care Code 90288 Subseq Hosp Care Lvl 3 Diagnoses Acute exacerbation of chronic obstructive pulmonary disease J44.1 Hyperlipidemia E78.00 Hyperlipidemia type: pure hypercholesterolemia Diastolic heart failure I50.32 Heart failure chronicity: chronic Time Spent (min) 35 (1) Hyperlipidemia Hyperlipidemia type: pure hypercholesterolemia Qualified Code(s): E78.00 - Pure hypercholesterolemia, unspecified (2) Diastolic heart failure Heart failure chronicity: chronic Qualified Code(s): I50.32 - Chronic diastolic (congestive) heart failure
[2022-04-08] MEDS: CEFEPIME 2,000 MG in SYRINGE 0 ML IV SCH ×2 (01:44→08:46)
[2022-04-08] MEDS: AZELASTINE HCL 0.1% NASAL 200 SPRAYS/27,400 MCG BTL SCH ×2 (08:44→20:20)
[2022-04-08] MEDS: guaiFENesin 600 MG TABCR PO SCH ×2 (08:44→20:20)
[2022-04-08] MEDS: FLUTICASONE FUROATE 100MCG 14 PUFFS/INHALER INH SCH (08:45)
[2022-04-08] MEDS: FUROSEMIDE 40 MG TAB PO SCH (08:45)
[2022-04-08] MEDS: UMECLIDINIUM/VILANTEROL 62.5/25MCG 7 PUFFS/INHALER INH SCH (08:45)
[2022-04-08] MEDS: ENOXAPARIN INJ 40 MG/0.4 ML SYR SQ SCH (08:45)
[2022-04-08] MEDS: POTASSIUM CHLORIDE CRTAB 20 MEQ TABCR PO SCH (08:46)
[2022-04-08] MEDS: predniSONE 20 MG TAB PO SCH (08:46)
[2022-04-08] MEDS: PRAVASTATIN SOD 40 MG TAB PO SCH (08:46)
--- NOTE | 2022-04-08 14:41 | Hospitalist Progress Note ---
Date of Service April 08, 2022 Assessment & Plan (1) Acute exacerbation of chronic obstructive pulmonary disease: Plan: Acute exacerbation of COPD in 66 yo male with severe O2-dependent COPD reports feeling worse over course of past week. Patient will be admitted, given sputum production, and recent hospital stays, as well as severe COPD, continued on cefepime and steroids discussed case with pulmonary: will order MWF azithromycin at discharge May benefit from daliresp at discharge as well. no need for pulmonary consult, can f/u upon d/c Patient will need to followup with [facility] pulmonary as an outpatient, and work on lung transplant. Patient is agreeable to pulmonary rehab, this will be arranged prior to d/c. Patient also may benefit from bronchoscopic lung reduction over at [facility] as this cannot be done at this facility. Plan to discharge patient after completing 5 days of Cefepime as patient has required multiple admissions on Doxycycline. This will be on 04/09 early afternoon. Also explained to patient that he should not use rescue inhalers daily. O2 has been weaned down to 1L so far today. I have educated pt that over oxygenation can lead to CO2 retention and respiratory failure. Will repeat two step prior to dc to determine new supplemental O2 needs both at rest and with exertion. (2) Hyperlipidemia: Plan: resume home meds (3) Diastolic heart failure: Plan: Patient does not appear to be in CHF, will monitor Plan Maintain hospitalization through 04/09 to complete total of 5 day course of Cefepime. Plan d/w Dr. Oliveros. Admission and Anticipated Discharge Date Admission Date: April 04, 2022 Subjective Patient seen on daily rounds this morning. He is resting comfortably on edge of bed. Has no new complaints/concerns. Reports subjectively feeling much better since admission. He is able to get up and ambulate to the bathroom and back to bed w/o feeling BARCENAS. He continues to have mild cough with yellow sputum. No SOB @ rest. He denies cp. Review of Systems Review of Systems: All systems reviewed and are unremarkable except as noted in HPI and below. Denies fever, chills, fatigue, headache, nasal congestion, sore throat, chest pain, palpitations, orthopnea, PND, abdominal pain, n/v/d, constipation, dysuria, hematuria, frequency, back pain, joint pain or swelling, easy bruising or bleeding, skin lesions or rashes. Physical Exam Physical Exam: GENERAL: 66 yo Well-developed, well-nourished WM. NAD. LUNGS: Poor air exchange. Diminished throughout with no w/r/r appreciated. CARDIOVASCULAR: Regular rate and rhythm. ABDOMEN: Soft, non-tender and non-distended. BS normoactive x 4 quad. EXTREMITIES: No edema. Non-tender. Peripheral pulses +2/4. NEUROLOGIC: A&O x3. PSYCHIATRIC: Cooperative. Appropriate mood and affect. SKIN: Warm, dry, intact. No rashes or lesions. Results & Data Results & Data ([facility]) Vital Signs (Past 12 Hours) Vital Signs Temp Pulse Resp BP Pulse Ox O2 Del Method O2 Flow Rate 04/08/22 10:47 36.5 C 92 H 14 134/74 94 Nasal Cannula 1.0 04/08/22 07:30 Nasal Cannula 3 04/08/22 07:33 36.5 C 18 119/73 97 Nasal Cannula 3.0 Laboratory Results no labs PG Care Time/CCT Total # of Minutes Spent Total Time Spent with Patient: Total time spent is greater than 50% in coordination of care (as documented) at patient's floor/unit and/or counseling patient: Coding Level of Care Code 03642 Subseq Hosp Care Lvl 2 Diagnoses Acute exacerbation of chronic obstructive pulmonary disease J44.1 Hyperlipidemia E78.00 Hyperlipidemia type: pure hypercholesterolemia Diastolic heart failure I50.32 Heart failure chronicity: chronic (1) Hyperlipidemia Hyperlipidemia type: pure hypercholesterolemia Qualified Code(s): E78.00 - Pure hypercholesterolemia, unspecified (2) Diastolic heart failure Heart failure chronicity: chronic Qualified Code(s): I50.32 - Chronic diastolic (congestive) heart failure
[2022-04-08] MEDS: levoFLOXacin/D5W 750 MG/150 ML BAG IV ONE ×2 (17:01→17:02)
[2022-04-08] MEDS: MONTELUKAST SODIUM 10 MG TABLET PO SCH (20:20)
[2022-04-09] MEDS: ENOXAPARIN INJ 40 MG/0.4 ML SYR SQ SCH (08:18)
[2022-04-09] MEDS: AZELASTINE HCL 0.1% NASAL 200 SPRAYS/27,400 MCG BTL SCH (08:18)
[2022-04-09] MEDS: FLUTICASONE FUROATE 100MCG 14 PUFFS/INHALER INH SCH (08:18)
[2022-04-09] MEDS: guaiFENesin 600 MG TABCR PO SCH (08:19)
[2022-04-09] MEDS: FUROSEMIDE 40 MG TAB PO SCH (08:19)
[2022-04-09] MEDS: UMECLIDINIUM/VILANTEROL 62.5/25MCG 7 PUFFS/INHALER INH SCH (08:19)
[2022-04-09] MEDS: predniSONE 20 MG TAB PO SCH (08:19)
[2022-04-09] MEDS: PRAVASTATIN SOD 40 MG TAB PO SCH (08:19)
[2022-04-09] MEDS: POTASSIUM CHLORIDE CRTAB 20 MEQ TABCR PO SCH (08:19)
[2022-04-09] MEDS ORDERED: levoFLOXacin 750 MG TAB PO SCH (11:00)
--- NOTE | 2022-04-09 11:28 | Discharge Summary ---
Date of Service April 09, 2022 Admission HPI Per Admitting Provider Burton Durbin is a 66-year-old male with past medical history significant for advanced COPD on 5L NC at all times, HFpEF, aortic valve insufficiency, and hyperlipidemia who is presenting today with worsening shortness of breath over the past several days. Last PFT 11/19/2020 with an FEV1 of 24%, TLC 109% and DLCO 27%. He uses his nebulizer 5-6 times per day. He takes Zyrtec daily. He is on Trelegy 100 mcg daily. He is also on prednisone at a dose of 10 mg daily. He was unable to tolerate BiPAP in the past and is not interested in BiPAP at this time. Patient reports that for the past 5 days, he has had more SOB especially when he ambulates, he states that even on 5 liters, his oxygen O2 sat decreases to 89% with just a few steps. He reports that the lung transplant program is requesting 4-6 months of being nicotine free as well as participating in [facility] rehab. He denies recent sick contacts or known COVID exposures. He denies lightheadedness, dizziness, chest pain/pressure, SOB at rest, or palpitations. He has an 80 pack year history but quit 10+ years ago. Upon presentation to ED, he is following tachycardic with HR in 100s, otherwise vital signs within normal limits and stable, he is afebrile and SpO2 > 92% on his usual 5L NC. Principal Diagnosis 1. Infectious pneumonitis 2. COPD Exacerbation Discharge Exam GENERAL: 66 yo Well-developed, well-nourished WM. NAD. LUNGS: Poor air exchange. Diminished throughout with no w/r/r appreciated. CARDIOVASCULAR: Regular rate and rhythm. ABDOMEN: Soft, non-tender and non-distended. BS normoactive x 4 quad. EXTREMITIES: No edema. Non-tender. Peripheral pulses +2/4. NEUROLOGIC: A&O x3. PSYCHIATRIC: Cooperative. Appropriate mood and affect. SKIN: Warm, dry, intact. No rashes or lesions. Discharge Data Allergies Allergy/AdvReac Type Severity Reaction Status Date / Time fluticasone furoate AdvReac Mild Trelegy Verified 02/22/22 15:48 [From Trelegy Ellipta] 200 caused shakiness but able to use Trelegy 100 umeclidinium AdvReac Mild Trelegy Verified 02/22/22 15:48 [From Trelegy Ellipta] 200 caused shakiness but able to use Trelegy 100 vilanterol AdvReac Mild Trelegy Verified 02/22/22 15:48 [From Trelegy Ellipta] 200 caused shakiness but able to use Trelegy 100 codeine AdvReac Unknown Rash Verified 02/22/22 15:48 Sulfa (Sulfonamide AdvReac Unknown Rash Verified 02/22/22 15:48 Antibiotics) Ordered Studies Chest X-Ray 04/04/22 11:14 XR chest 2V PA/lateral CLINICAL HISTORY: SOB, hx of COPD COMPARISON STUDY: Chest CT May 06, 2021. Chest radiograph February 07, 2022. FINDINGS: Severe emphysema is noted. There is no pneumothorax or pleural effusi on. Calcified granuloma within the right upper lobe is unchanged. No consolidation is identified. Minimal bibasilar opacities favor atelectasis or scarring. There is no consolidation to suggest pneumonia. Cardiac size is normal. Mediastinal contours are normal. IMPRESSION: No acute cardiopulmonary findings. Emphysema. ACT 112: Negative or not required by law. Electronically signed by: Eder Fontaine M.D. 04/04/2022 11:50 AM Chest X-Ray 04/05/22 09:18 XR chest 2V PA/lateral CLINICAL HISTORY: copd exacerbation TECHNIQUE: 2 views of the chest were obtained. Comparison: Comparison is made to chest radiograph 04/04/2022 FINDINGS: No lines and tubes are seen. The aorta is tortuous. The remainder of the cardiomediastinal silhouette is unremarkable. Scarring is noted in the right lower lung. Emphysema is seen. No evidence of pleural effusion or pneumothorax. IMPRESSION: Scarring and emphysema are seen without evidence of acute abnormality such as pneumonia. ACT 112: Negative or not required by law. Electronically signed by: Roberto Goldstein M.D. 04/05/2022 2:08 PM Chest X-Ray 04/07/22 09:57 XR chest 2V PA/lateral CLINICAL HISTORY: hypoxia TECHNIQUE: 2 views of the chest were obtained. Comparison: Comparison is made to chest radiograph 04/05/2022 FINDINGS: No lines and tubes are seen. The cardiomediastinal silhouette is normal. Extensive emphysema is seen. No evidence of pleural effusion or pneumothorax. Multilevel degenerative changes are seen. IMPRESSION: Emphysema is seen without evidence of pneumonia. ACT 112: Negative or not required by law. Electronically signed by: Roberto Goldstein M.D. 04/07/2022 11:24 AM Name: BURTON DURBIN Acct: [id number] Status: ADM IN : 1955 [facility] [place] Date: 04/04/22 Age: 66 Sex: M Dis Date: Loc: Medical/Surgical/Ortho [address] [place] [address]/Bed: [facility] Spec: [id number] Collected: 04/04/22 Received: 04/04/[address]: Marc Hernández M.D. Source: Sputum, Expectorated OV Order: Ordered: Sputum Cult/Smr Procedure Result Verified Site Gram Stain Final 04/05/22 Gram Stain Result Many WBCs Seen No Epithelial Cells Many Gram Positive Cocci Few Gram Negative Bacilli Sputum Culture Final 04/08/22 Organism 1 Stenotrophomonas maltophilia Quantity Many Sens Sensitivities to Follow Normal [place] Moderate Normal [place] Steno malt RX M.I.C. --- --------- Ceftazidime S <=1 Levofloxacin S <=0.5 Trimeth/Sulfa S <=2/38 S = SENSITIVE I = INTERMEDIATE R = RESISTANT Hospital Course (1) Acute exacerbation of chronic obstructive pulmonary disease: Acute exacerbation of COPD in 66 yo male with severe O2-dependent COPD reports feeling worse over course of past week. Patient will be admitted, given sputum production, and recent hospital stays, as well as severe COPD, initially treated with steroids, empiric cefepime, O2, and nebs sputum culture ordered discussed case with pulmonary: can f/u upon d/c-notified Dr. Segura of his pending d/c on 04/09 Patient will need to followup with [facility] as an outpatient, and work on lung transplant. Patient is agreeable to pulmonary rehab, this will be arranged by Dr. Segura's office. Patient also may benefit from bronchoscopic lung reduction over at [facility] as this cannot be done at this facility; however, pulmonology feels that he is a poor candidate for this due to how extensive his emphysema is Also explained to patient that he should not use rescue inhalers daily. O2 has been weaned down to 1L so far today. I have educated pt that over oxygenation can lead to CO2 retention and respiratory failure. Plan was for him to complete 5 days of Cefepime; however, sputum grew out stenotrophomonas of which Cefepime does not cover. He has been changed to Levaquin on 04/08 and will be discharged 5 more days (for total of 7 days). Plan to rx Zithromax for him to start on MWF after he completes course of Levaquin. He will be started on Daliresp upon d/c, start with 250mcg daily x 4 weeks and then can increase to 500 mcg daily (slow titrate to avoid significant side effects) Can resume Prednisone 10mg daily on 04/10, f/u with pulm regarding plan to wean Prednsione Dr. Segura recommended second pulm opinion, referral will be made to [facility] upon dc. (2) Hyperlipidemia: resume home meds (3) Diastolic heart failure: Patient does not appear to be in CHF-continue daily Lasix Plan D/c home on course of Levaquin and remaining details as outlined above. F/U with pulm and pcp. Plan has been d/w Dr. Taurus Jorge who has also seen and evaluated this patient and agrees with aforementioned. Total Time Total Time Spent Total Time Spent (In Minutes): >30 minutes Discharge Plan Discharge Items Patient Disposition: Home - Self-Care Reason For Visit: COPD EXACERBATION Discharge Diagnosis: infectious pneumonitis exacerbation of chronic lung disease Activity: Per Instructions section Activity Comment: as tolerated Non-emergency contact: Primary Care Provider and Pensionholder Information Clerk Call non-emergency contact if: you have any medication questions Follow-up/Referrals: Reece Lambert III, CRNP [Primary Care Provider] - 04/15/22 2:00 pm (APPT WITH DR JORGE) Diet: Regular and Heart Healthy Addtl Attending Provider Instructions: You were hospitalized due to an exacerbation of your chronic lung disease. You were treated with breathing treatments, oxygen, steroids, and antibiotics. The sputum that you were coughing up was sent to to the lab and grew out a bacteria. Unfortunately, that bacteria was not covered by the IV antibiotics that you were receiving in the hospital and your antibiotics were changed on 04/08 to Levaquin. You will be sent home on 5 more days (next dose is due on 04/10) to complete. You will take your antibiotic once a day in the morning. Regarding your steroids, you can resume your Prednisone 10mg daily that you were taking prior to the hospitalization. You are also being started on a medication called Daliresp. You will start on 250mcg once a day for 4 weeks. After that, your dose will be increased to 500mcg daily. This can be done by your validation engineer. Most common side effect of this medication is diarrhea. Pulmonology has expressed that they would like to wean your Prednisone. This can be discussed at your follow up pulmonology visit. It is recommended that you participate in pulmonary rehabilitation. This will be arranged by the pulmonology office. You are going to be started on an antibiotic that you will take every Tuesday, Tuesday, and Tuesday. This antibiotic is called Zithromax. Please DO NOT start this antibiotic until you have completed the Levaquin as directed. During your hospitalization, we were able to wean your oxygen down to needing no oxygen while you are at rest, 1 Liter when you sleep, and only 2 Liters with activity. You had a repeat evaluation by the respiratory therapists to determine your new oxygen needs which confirmed this and we have sent an updated prescription to your oxygen provider. You will need to discuss wanting 2 portable oxygen tanks with your oxygen provider as the hospital is not able to arrange this for you. It is advised that you follow up with your family healthcare provider within 1 week of discharge from the hospital. If you have any questions/concerns following your discharge, feel free to contact the nonemergency number listed on your discharge paperwork. In the event of a medical emergency, call 911. Pending Studies at Discharge: No Stand-Alone Forms: My [facility] [employer], Smoking Cessation Medications and DC Order Prescriptions: New levofloxacin 750 mg Tablet 750 mg PO DAILY@1100 Qty: 5 0RF azithromycin [Zithromax] 250 mg tablet 250 mg PO .MWF Qty: 12 0RF roflumilast [Daliresp] 250 mcg tablet 250 mcg PO DAILY 28 Days Qty: 28 0RF Continued albuterol sulfate [Ventolin HFA] 90 mcg/actuation HFA aerosol inhaler 2 puffs inhalation Q6H PRN (Reason: Shortness Of Breath Or Wheezing) Qty: 18 5RF montelukast [Singulair] 10 mg tablet 10 mg PO HS Qty: 90 3RF furosemide 40 mg tablet 40 mg PO QAM Qty: 90 3RF potassium chloride 20 mEq tablet extended release 20 meq PO QAM Qty: 90 3RF azelastine 137 mcg (0.1 %) aerosol,spray 2 spray intranasal BID Qty: 30 3RF Rx Instructions: administer into each nostril pravastatin 40 mg tablet 40 mg PO QAM Qty: 90 1RF Trelegy Ellipta 100-62.5-25 mcg blister with device 1 inh INHALATION QAM Qty: 60 3RF ipratropium-albuterol 0.5 mg-3 mg(2.5 mg base)/3 mL solution for nebulization See Rx Instructions .ROUTE .COMPLEX Qty: 1080 1RF Dose Instruction: USE 1 VIAL BY INHALATION 4 TIMES DAILY NEEDED FOR SHORTNESS OF BREATH OR WHEEZING Rx Instructions: USE 1 VIAL BY INHALATION 5 TIMES DAILY NEEDED FOR SHORTNESS OF BREATH OR WHEEZING cetirizine [Zyrtec] 10 mg tablet 10 mg PO DAILY PRN (Reason: allergies) prednisone 10 mg tablet 10 mg PO DAILY guaifenesin [Mucinex] 600 mg Tablet Extended Release 12hr 1,200 mg PO BID Qty: 60 0RF No Action (DME) Oxygen Home Liters Per Minute See Rx Instructions .ROUTE .MEDSUPPLY Dose Instruction: As directed Rx Instructions: 4-5L nasal cannula continuously Discharge Orders: Discharge Order (Routine); Ordered 04/09/22 Ordered By: Yamilex Freeman Admission Data Admit Date/Time: 04/04/22 14:16 Attending Provider: Taurus Jorge Admit Provider: Marc Hernández Primary Care Provider: Reece Lambert III Other Interventions: Discharge Summary Assessment (RN) Last Done: 04/09/22 12:48 Supervising Physician Co-Signing Physician Notes I supervised Yamilex Freeman PA-C on the care of this patient. I interviewed and examined the patient independently of her. The plan is as written in her note except for any following changes/exceptions: None 66yo M w/ advanced COPD doing well today. On low-levels of typical O2 for him. Sputum cx with Stenotrophomonas, so will d/c on levofloxacin. Coding Level of Care Code D/C DAY MANAGEMENT >30 MINS Diagnoses Acute exacerbation of chronic obstructive pulmonary disease J44.1 Hyperlipidemia E78.00 Hyperlipidemia type: pure hypercholesterolemia Diastolic heart failure I50.32 Heart failure chronicity: chronic
--- NOTE | 2022-04-09 12:35 | Emergency Department Note ---
ED Visit Note I have personally evaluated this patient examined her and reviewed the pertinent labs and data. I have discussed the case with the physician event sales assistant and agree with the plan. Please refer to the PA note. This patient has a history of COPD comes in with increasing shortness of breath he was given albuterol Atrovent nebs every 1 hour and IV Solu-Medrol although he looks better he still does not feel he can go up to going home on my exam he seems more comfortable and he is moving better air than when I initially saw him. He will be admitted/observed med .
== END 2022-04-09 14:24 | disposition home or self-care (01) ==
LOC: ED 10:12 → 3E 14:16 → INTOOBSV 14:16 → SUATTDRO 14:16 → 3E 15:33

== ENCOUNTER 2023-05-28 09:34 | Observation (INO) ==
--- NOTE | 2023-05-28 10:51 | XRay Report ---
XR chest 1V not portable HISTORY: 67 years-old Male Dyspnea acute shortness of breath COMPARISON: Chest CT 05/25/2023 TECHNIQUE: PA view of the chest FINDINGS: Cardiomediastinal and hilar silhouettes are within normal limits. Severe pulmonary emphysema with chr onic interstitial coarsening. Unchanged nodular foci at the lung apices. No pneumothorax, pleural eff usion or pulmonary edema. No airspace consolidation to suggest pneumonia. Healed chronic left-sided r ib fractures. IMPRESSION: 1. Emphysema without acute process. 2. Prior granulomatous disease. ACT 112: Negative or not required by law. The above report was generated using voice recognition software. It may contain grammatical, syntax o r spelling errors. Electronically signed by: Clark Bess M.D. 05/28/2023 10:50 AM
--- NOTE | 2023-05-28 11:45 | Emergency Department Note ---
Impression & Plan COVID-19, COPD (chronic obstructive pulmonary disease), Acute on chronic respiratory failure ED Provider Note NAME: HERO ORTEGA AGE: 67 SEX: M ARRIVES VIA: Walk-In INFORMANT: Patient ED PROVIDER(S): Isaiah Rodgers MD CHIEF COMPLAINT: Shortness of breath PLAN: Disposition: Admit MEDICAL DECISION MAKING: The patient is a pleasant 67-year-old gentleman with past medical history of end-stage COPD on home oxygen who presents to the emergency department via walk- in accompanied by family for worsening cough, congestion with thick clear sputum production and difficulty breathing over the past several days. He reports he has been feeling feverish and bodyaches. He denies nausea, vomiting, diarrhea or urinary symptoms. On evaluation the patient is uncomfortable but in NAD, afebrile with HR in the 100s, respiratory rate in the mid 20s and O2 saturation in the mid 90s on his home 3 L nasal cannula. He appears clinically dry. Lung sounds are diminished bilaterally with underlying wheeze and prolonged expiratory phase with mild increased work of breathing but in no acute distress. EKG without overt acute ischemia. Chest x-ray negative for acute cardiopulmonary process. WBC, H/H and platelets within normal limits. ABG is unremarkable. Chemistry without metabolic acidosis. Lactic acid 1.3, within normal limits. High- sensitivity troponin 6.4, within normal limits. Procalcitonin is not elevated. Respiratory BioFire was positive for COVID-19. Upon reevaluation patient did have some improvement after initial treatment with IV fluid hydration, Solu- Medrol and hour-long DuoNeb as well as guaifenesin. He did have improvement his work of breathing however still with mild work of breathing from his baseline and agrees plan for admission for further management. Case was discussed with Alex Qureshi, [facility], with Dr. Naidu, [facility] hospitalist who will evaluate the patient for admission. Triage Nursing notes reviewed and agree them. Prior/external medical records reviewed Vital Signs: reviewed Differential diagnosis: Reactive airway disease, pneumonia, pneumothorax, COPD, CHF, infections, cardiac ischemia, pulmonary embolism, musculoskeletal, gastrointestinal, as well as other pathologies. ER treatment provided: See below. Diagnostics interpreted by me: ECG: Normal sinus rhythm, 96 bpm, no ectopy, no overt ST elevation or depression, QTc 454, QRS 88 Cardiac Monitoring: An order for continuous cardiac monitoring was placed and demonstrated Normal sinus rhythm, 96 bpm, no ectopy. Laboratory studies: See below Imaging studies: See below Consultation(s): Case was discussed with Alex Qureshi, [facility], with Dr. Naidu, [facility] hospitalist who will evaluate the patient for admission. HPI: The patient is a pleasant 67-year-old gentleman with past medical history of end-stage COPD on home oxygen who presents to the emergency department via walk-in accompanied by family for worsening cough, congestion with thick clear sputum production and difficulty breathing over the past several days. He reports he has been feeling feverish and bodyaches. He denies nausea, vomiting, diarrhea or urinary symptoms. ROS: See above HPI for pertinent positives & negatives. A total of 10 systems reviewed and were otherwise negative. VITALS:See Below PHYSICAL EXAMINATION: GENERAL: Awake, alert, uncomfortable-appearing, in no distress HENT: Normocephalic, atraumatic. Oropharynx with dry mucous membranes and otherwise unremarkable. EYES: Normal conjunctiva. Sclera non-icteric. NECK: Supple. No nuchal rigidity. FROM. No JVD. RESPIRATORY: Lung sounds are diminished bilaterally with underlying wheeze and prolonged expiratory phase. Mild increased work of breathing but in no acute distress. CARDIAC: Tachycardic rate, normal rhythm. Extremities warm and well perfused. Pulses equal. ABDOMEN: Soft, non-distended. No tenderness to palpation. No rebound or guarding. No masses. RECTAL: Deferred. MUSCULOSKELETAL: Chest examination reveals no tenderness. The back is symmetrical on inspection without obvious abnormality. There is no CVA tenderness to palpation. No joint edema. LOWER EXTREMITIES: Calves are equal size bilaterally and non-tender. No edema. No discoloration. NEURO: Normal sensorium. No sensory or motor deficits noted. SKIN: No rash or jaundice noted. Isaiha Rodgers MD Past Med/Surg History Medical History COVID-19 Acute pneumonia Chronic obstructive pulmonary disease with hypoxia End stage COPD Elevated troponin COPD exacerbation Pneumonia SOB (shortness of breath) Respiratory distress Chronic dyspnea Chronic hypoxemic respiratory failure Chronic obstructive pulmonary disease Former smoker Non-ST elevation ND (NSTEMI) COPD with acute exacerbation Surgical History S/P inguinal hernia repair History of cataract surgery History of knee surgery Family History Sister Breast cancer Brother Lung disease Other Myocardial infarction Denies family history of Colon cancer Ovarian cancer Prostate cancer Social History Smoking Status: Former smoker Tobacco Type: Cigarettes Age Started Using Tobacco: 22; Age Quit Using Tobacco: 57; packs per day: 2; Second Hand Exposure: No; Do You Dip or Chew Tobacco: Yes; Hx Alcohol Use: Yes Alcohol type: beer Hx Substance Use: No Preferred Language: German Communication Ability: Effective Visual Impairment: No Limitations Hearing Ability: Hard of Hearing Director Market Intelligence Required: No Beliefs That Will Affect Care: None marital status: Single Current Living Situation: Family current occupational status: disabled Feels Safe at Home: Yes Childhood Exposure to Second-Hand Smoke: Yes Diet: regular Diet Comment: regular Dental Care, Regularly: No Physical Activity Frequency: Does not Exercise Seatbelt Use: always Sunscreen Use: Yes Assistive Devices: Oxygen - Continuous Allergies Allergies Allergy/AdvReac Type Severity Reaction Status Date / Time codeine AdvReac Unknown Rash Verified 05/28/23 14:53 Sulfa (Sulfonamide AdvReac Unknown Rash Verified 05/28/23 14:53 Antibiotics) Home Meds Home Medications Medication Instructions Recorded Confirmed cetirizine 10 mg tablet (Zyrtec) 10 mg PO DAILY PRN allergies 06/16/21 05/28/23 ipratropium 0.5 mg-albuterol 3 mg See Rx Instructions .Route .COMPLEX 05/28/23 05/28/23 (2.5 mg base)/3 mL nebulization soln Previous Rx's Medication Instructions Recorded guaifenesin 600 mg tablet, 600 mg PO BID #60 tabs 04/12/22 extended release 12 hr (Mucinex) Oxygen Home #1 ea 04/14/22 montelukast 10 mg tablet 10 mg PO HS #90 tabs 06/09/22 (Singulair) azelastine 137 mcg (0.1 %) nasal 2 spray intranasal BID #30 mL 07/13/22 spray aerosol potassium chloride 20 mEq 20 meq PO QAM #90 tabs 08/09/22 tablet,extended release albuterol sulfate 90 mcg/actuation 2 puff inhalation Q6H PRN 01/10/23 aerosol inhaler (Ventolin HFA) Shortness Of Breath Or Wheezing #18 grams fluticasone fur. 200 mcg-umeclid 1 inh inhalation DAILY #60 ea 04/18/23 62.5 mcg-vilant 25 mcg inhalat.powder (Trelegy Ellipta) furosemide 40 mg tablet 40 mg PO QAM #90 tabs 05/19/23 pravastatin 40 mg tablet 40 mg PO QAM #90 tabs 05/19/23 prednisone 5 mg tablet 5 mg PO DAILY #90 tabs 05/19/23 Results & Data (ED) Vital Signs Vital Signs - 24 hr 05/28/23 10:19 05/28/23 12:49 05/28/23 13:00 Temperature 37.2 C Temperature Source Temporal Artery Scan Pulse Rate 103 H 92 H Pulse Rate [Finger] 97 H Pulse Rate from SpO2 Sensor 90 Respiratory Rate 26 H 20 16 Respiratory Effort / Characteristics Spontaneous Short of Breath SOB on Exertion Spontaneous SOB on Exertion Respiratory Depth Normal Blood Pressure 134/72 108/63 Blood Pressure Mean 92 78 Blood Pressure Position Sitting Pulse Oximetry 96 97 100 Oxygen Delivery Method Nasal Cannula Nasal Cannula Oxygen Flow Rate 3 3 Sepsis Recent Fever Within 48 Hours No Sepsis New/Unexplained Change in Mental Status No Sepsis Action Taken by Nursing No Action Required 05/28/23 13:03 05/28/23 13:31 05/28/23 14:00 Temperature Temperature Source Pulse Rate 94 H 97 H 106 H Pulse Rate [Finger] Pulse Rate from SpO2 Sensor Respiratory Rate 18 21 Respiratory Effort / Characteristics Respiratory Depth Blood Pressure 113/67 128/70 Blood Pressure Mean 82 89 Blood Pressure Position Pulse Oximetry 98 99 Oxygen Delivery Method Nasal Cannula Nasal Cannula Oxygen Flow Rate 3 3 Sepsis Recent Fever Within 48 Hours Sepsis New/Unexplained Change in Mental Status Sepsis Action Taken by Nursing 05/28/23 14:18 05/28/23 15:00 05/28/23 15:40 Temperature 36.6 C Temperature Source Oral Pulse Rate 106 H Pulse Rate [Finger] Pulse Rate from SpO2 Sensor 106 H Respiratory Rate 19 Respiratory Effort / Characteristics Respiratory Depth Blood Pressure 117/67 Blood Pressure Mean 83 Blood Pressure Position Pulse Oximetry 96 Oxygen Delivery Method Nasal Cannula Nasal Cannula Oxygen Flow Rate 2 2.5 Sepsis Recent Fever Within 48 Hours Sepsis New/Unexplained Change in Mental Status Sepsis Action Taken by Nursing 05/28/23 15:50 Temperature Temperature Source Pulse Rate 105 H Pulse Rate [Finger] Pulse Rate from SpO2 Sensor 104 H Respiratory Rate 21 Respiratory Effort / Characteristics Respiratory Depth Blood Pressure Blood Pressure Mean Blood Pressure Position Pulse Oximetry 96 Oxygen Delivery Method Nasal Cannula Oxygen Flow Rate 2.5 Sepsis Recent Fever Within 48 Hours Sepsis New/Unexplained Change in Mental Status Sepsis Action Taken by Nursing Laboratory Data Attestation: I reviewed the patient's lab results. 05/28/23 11:35 05/28/23 11:35 Lab Results 05/28/23 05/28/23 Range/Units 11:35 12:40 WBC 10.46 (4.8-10.8) K/ul RBC 5.18 (4.70-6.10) M/uL Hgb 16.7 (14.0-18.0) g/dl Hct 49.2 (42.0-52.0) % MCV 95.0 (80.0-100.0) fL MCH 32.2 (25.0-34.0) pg MCHC 33.9 (32.0-36.0) g/dL RDW Std Deviation 46.7 H (36.4-46.3) fL RDW Coeff of Trent 13.2 (11.5-14.5) % Plt Count 216 (130-400) K/uL MPV 9.1 L (9.4-12.4) fL Immature Gran % (Auto) 0.5 % Neut % (Auto) 80.4 % Lymph % (Auto) 6.9 % [place] % (Auto) 11.3 % Eos % (Auto) 0.4 % Baso % (Auto) 0.5 % Neut # (Auto) 8.42 H (1.40-6.50) K/uL Lymph # (Auto) 0.72 L (1.20-3.40) K/uL [place] # (Auto) 1.18 H (0.11-0.59) K/uL Eos # (Auto) 0.04 (0.00-0.50) K/uL Baso # (Auto) 0.05 (0.00-0.20) K/uL Immature Gran # (Auto) 0.05 (0.01-0.20) K/uL ESR 19 (0-20) mm/hr PT 10.9 (9.0-12.0) Seconds INR 1.0 (0.9-1.1) APTT 32 H (21-31) Seconds PTT Ratio 1.1 VBG pH 7.39 (7.36-7.41) VBG pCO2 52 H (38-50) mmHg VBG pO2 21 mmHg VBG HCO3 32 mmol/L VBG O2 Saturation < 60.0 % VBG Base Excess 5.2 mEq/L Sodium 139 (136-145) mmol/L Potassium 3.5 (3.5-5.1) mmol/L Chloride 101 (98-107) mmol/L Carbon Dioxide 29 (21-32) mmol/L Anion Gap 9 (3-11) BUN 13 (6-23) mg/dl Creatinine 0.98 (0.6-1.4) mg/dl Est Cr Clr Drug Dosing Not Reportable Est GFR ( Amer) 93.4 ml/min Est GFR (Non-Af Amer) 80.6 ml/min BUN/Creatinine Ratio 13.3 (10-20) Glucose 96 (70-99(Fasting)) mg/dl Lactate 1.3 (0.4-2.0) mmol/L Calcium 9.2 (8.6-10.3) mg/dl Magnesium 1.8 (1.7-2.4) mg/dl Ferritin 197.7 (8-388) ng/ml Total Bilirubin 0.6 (0.2-1.0) mg/dl AST 15 (13-39) U/L ALT 15 (7-52) U/L Alkaline Phosphatase 66 (34-104) U/L Troponin I High Sens 6.4 (0-20) pg/ml C-Reactive Protein 5.97 H (0-0.5) mg/dl Total Protein 7.1 (6.0-8.3) gm/dl Albumin 4.5 (3.4-5.0) gm/dl Globulin 2.6 (2.5-4.0) gm/dl Albumin/Globulin Ratio 1.7 (0.9-2) Procalcitonin 0.09 (0-0.5) ng/ml Adenovirus (PCR) Not Detected (NotDetected) B. pertussis DNA (PCR) Not Detected (NotDetected) B.parapertussis DNA PCR Not Detected (NotDetected) C. pneumoniae DNA (PCR) Not Detected (NotDetected) Coronavirus OC43 (PCR) Not Detected (NotDetected) Coronavirus HKU1 (PCR) Not Detected (NotDetected) Coronavirus 229E (PCR) Not Detected (NotDetected) SARS-CoV-2 (PCR) DETECTED A* (NotDetected) Coronavirus NL63 (PCR) Not Detected (NotDetected) Human Metapneumovir PCR Not Detected (NotDetected) Influenza Type A (PCR) Not Detected (NotDetected) Influenza Type B (PCR) Not Detected (NotDetected) M. pneumoniae (PCR) Not Detected (NotDetected) Parainfluenza 1 (PCR) Not Detected (NotDetected) Parainfluenza 2 (PCR) Not Detected (NotDetected) Parainfluenza 3 (PCR) Not Detected (NotDetected) Parainfluenza 4 (PCR) Not Detected (NotDetected) RSV (PCR) Not Detected (NotDetected) Entero/Rhino (PCR) Not Detected (NotDetected) Administered Medications Albuterol (Albut/Ipratrop 3mg/0.5mg Neb 3 Ml Vial) 3 ml NEB QIDR [facility]; Protocol Stop: 06/27/23 18:59 Last Admin: 05/28/23 18:13 Dose: Not Given Documented By: ELLYN Budesonide (Budesonide 0.5 Mg/2 Ml Vial (Pulmicort)) 0.5 mg NEB BIDR ILEANA Stop: 06/27/23 18:59 Last Admin: 05/28/23 18:12 Dose: 0.5 mg Documented By: ELLYN Formoterol Fumarate (Formoterol 20 Mcg/2 Ml Vial) 20 mcg NEB BID17 ILEANA Stop: 06/27/23 16:59 Last Admin: 05/28/23 18:12 Dose: 20 mcg Documented By: ELLYN Guaifenesin (Guaifenesin 600 Mg Tabcr) 600 mg PO BID ILEANA Stop: 06/27/23 20:59 Last Admin: 05/28/23 22:11 Dose: 600 mg Documented By: LEATHER GRADER Methylprednisolone 40 mg/ (Syringe) 0.64 mls @ 1.5 mls/min IV Q8H [facility] Stop: 06/27/23 20:59 Last Admin: 05/28/23 22:11 Dose: 1.5 mls/min Documented By: LEATHER GRADER Umeclidinium Roark (Umeclidinium Roark 62.5mcg/Blister 7 Puffs/Inhaler) 1 puffs INH DAILY ILEANA Stop: 06/27/23 17:59 Last Admin: 05/28/23 22:10 Dose: 1 puffs Documented By: LEATHER GRADER Discontinued Medications Albuterol (Albut/Ipratrop 3mg/0.5mg Neb 3 Ml Vial) 12 ml NEB ONE ONE; Protocol Stop: 05/28/23 12:23 Last Admin: 05/28/23 12:46 Dose: 12 ml Documented By: BRANDAN Enoxaparin Sodium (Enoxaparin Inj 40 Mg/0.4 Ml Syr) 40 mg SQ ONE ONE Stop: 05/28/23 20:01 Last Admin: 05/28/23 22:16 Dose: 40 mg Documented By: LEATHER GRADER Enoxaparin Sodium (Enoxaparin Inj 40 Mg/0.4 Ml Syr) Confirm Administered Dose 40 mg .ROUTE .STK-MED ONE Stop: 05/28/23 22:17 Last Admin: 05/28/23 22:22 Dose: Not Given Documented By: LEATHER GRADER Guaifenesin (Guaifenesin 600 Mg Tabcr) 1,200 mg PO NOW STA Stop: 05/28/23 12:23 Last Admin: 05/28/23 12:56 Dose: 1,200 mg Documented By: TANJA Sodium Chloride (Nss) 1,000 mls @ 999 mls/hr IV .Q1H1M ONE Stop: 05/28/23 13:22 Last Infusion: 05/28/23 15:30 Dose: Infused Documented By: LEATHER GRADER Admin: 05/28/23 12:56 Dose: 999 mls/hr Documented By: TANJA Azithromycin 500 mg/ Dextrose 255 mls @ 127.5 mls/hr IV NOW STA Stop: 05/28/23 18:37 Last Infusion: 05/28/23 20:20 Dose: Infused Documented By: LEATHER GRADER Admin: 05/28/23 18:15 Dose: 127.5 mls/hr Documented By: SHARYN Methylprednisolone (Methylprednisolone 125 Mg/2 Ml Vial) 125 mg IV NOW STA Stop: 05/28/23 12:23 Last Admin: 05/28/23 12:56 Dose: 125 mg Documented By: TANJA Miscellaneous (Patient's Height &/Or Weight Needed) 1 each N/A Q2H ILEANA Stop: 06/27/23 19:59 Last Admin: 05/28/23 20:52 Dose: 1 each Documented By: LEATHER GRADER Imaging Data Radiologist's Impression: Chest X-Ray 05/28/23 09:58 XR chest 1V not portable HISTORY: 67 years-old Male Dyspnea acute shortness of breath COMPARISON: Chest CT 05/25/2023 TECHNIQUE: PA view of the chest FINDINGS: Cardiomediastinal and hilar silhouettes are within normal limits. Severe pulmonary emphysema with chronic interstitial coarsening. Unchanged nodular foci at the lung apices. No pneumothorax, pleural effusion or pulmonary edema. No airspace consolidation to suggest pneumonia. Healed chronic left-sided rib fractures. IMPRESSION: 1. Emphysema without acute process. 2. Prior granulomatous disease. ACT 112: Negative or not required by law. The above report was generated using voice recognition software. It may contain grammatical, syntax or spelling errors. Electronically signed by: Clark Bess M.D. 05/28/2023 10:50 AM Discharge Plan Visit Data Chief Complaint: Shortness of Breath/Dyspnea Stated Complaint: DIFFICULTY BREATHING, WORSENING COPD ED Provider: Isaiah Rodgers Discharge Problem: COVID-19, COPD (chronic obstructive pulmonary disease), Acute on chronic respiratory failure Discharge Instructions Interventions: ED Discharge Assessment Last Done: 05/28/23 17:42 Discharge Problem: COPD (chronic obstructive pulmonary disease) Qualifiers: COPD type: COPD with acute exacerbation Qualified Code(s): J44.1 - Chronic obstructive pulmonary disease with (acute) exacerbation Acute on chronic respiratory failure Qualifiers: Respiratory failure complication: unspecified whether with hypoxia or hypercapnia Qualified Code(s): J96.20 - Acute and chronic respiratory failure, unspecified whether with hypoxia or hypercapnia
[2023-05-28 12:03] LABS: Basophils # (auto) 0.05 K/uL (0.00-0.20); Basophils % (auto) 0.5 %; Eosinophils # (auto) 0.04 K/uL (0.00-0.50); Eosinophils % (auto) 0.4 %; Hematocrit (blood only) 49.2 % (42.0-52.0); Hemoglobin 16.7 g/dl (14.0-18.0); Immature Granulocytes # (auto) 0.05 K/uL (0.01-0.20); Immature Granulocytes % (auto) 0.5 %; Lymphocytes # (auto) 0.72 K/uL (1.20-3.40); Lymphocytes % (auto) 6.9 %; Mean Corpuscular Hemoglobin 32.2 pg (25.0-34.0); Mean Corpuscular Hgb Conc 33.9 g/dL (32.0-36.0); Mean Platelet Volume 9.1 fL (9.4-12.4); Monocytes # (auto) 1.18 K/uL (0.11-0.59); Monocytes % (auto) 11.3 %; Neutrophils # (auto) 8.42 K/uL (1.40-6.50); Neutrophils % (auto) 80.4 %; Platelet Count 216 K/uL (130-400); RDW Coefficient of Variation 13.2 % (11.5-14.5); RDW Standard Deviation 46.7 fL (36.4-46.3); Red Blood Count 5.18 M/uL (4.70-6.10); White Blood Count 10.46 K/ul (4.8-10.8)
--- NOTE | 2023-05-28 12:09 | Electrocardiogram Report ---
Test Reason : Blood Pressure : / mmHG Vent. Rate : 096 BPM Atrial Rate : 096 BPM P-R Int : 144 ms QRS Dur : 088 ms QT Int : 360 ms P-R-T Axes : 066 018 065 degrees QTc Int : 454 ms Normal sinus rhythm Normal ECG When compared with ECG of 04-APR-2022 11:41, No significant change was found Confirmed by Owen Novoa ([id number]) on 05/28/2023 12:08:51 PM Referred By: Confirmed By:Owen Novoa
[2023-05-28 12:17] LABS: Alanine Aminotransferase 15 U/L (7-52); Albumin Globulin Ratio 1.7 (0.9-2); Albumin Level 4.5 gm/dl (3.4-5.0); Alkaline Phosphatase 66 U/L (34-104); Anion Gap 9 (3-11); Aspartate Aminotransferase 15 U/L (13-39); BUN Creatinine Ratio 13.3 (10-20); Bilirubin,Total 0.6 mg/dl (0.2-1.0); Blood Urea Nitrogen 13 mg/dl (6-23); Calcium 9.2 mg/dl (8.6-10.3); Carbon Dioxide 29 mmol/L (21-32); Chloride 101 mmol/L (98-107); Est GFR (African American) 93.4 ml/min; Est GFR (Non-African American) 80.6 ml/min; Globulin 2.6 gm/dl (2.5-4.0); Glucose 96 mg/dl (70-99(Fasting)); Magnesium 1.8 mg/dl (1.7-2.4); Potassium 3.5 mmol/L (3.5-5.1); Sodium 139 mmol/L (136-145); Total Protein 7.1 gm/dl (6.0-8.3)
[2023-05-28 12:22] LABS: Troponin I High Sensitivity 6.4 pg/ml (0-20)
[2023-05-28] MEDS ORDERED: guaiFENesin 600 MG TABCR PO STA (12:22)
[2023-05-28] MEDS ORDERED: SODIUM CHLORIDE 0.9% 1,000 ML IV ONE (12:22)
[2023-05-28] MEDS ORDERED: methylPREDNISolone 125 MG/2 ML VIAL IV STA (12:22)
[2023-05-28] MEDS ORDERED: ALBUT/IPRATROP 3MG/0.5MG NEB 3 ML VIAL NEB ONE (12:22)
[2023-05-28 12:24] LABS: Partial Thromboplastin Ratio 1.1; Partial Thromboplastin Time 32 Seconds (21-31); Prothrombin Time 10.9 Seconds (9.0-12.0)
[2023-05-28 12:38] LABS: Adenovirus PCR Not Detected (NotDetected); Bordetella parapertussis PCR Not Detected (NotDetected); Bordetella pertussis PCR Not Detected (NotDetected); Chlamydia pneumoniae PCR Not Detected (NotDetected); Coronavirus 229E PCR Not Detected (NotDetected); Coronavirus HKU1 PCR Not Detected (NotDetected); Coronavirus NL63 PCR Not Detected (NotDetected); Coronavirus OC43PCR Not Detected (NotDetected); Human Metapneumovirus PCR Not Detected (NotDetected); Influenza A PCR Not Detected (NotDetected); Influenza B PCR Not Detected (NotDetected); Mycoplasma pneumoniae PCR Not Detected (NotDetected); Parainfluenza Virus 1 PCR Not Detected (NotDetected); Parainfluenza Virus 2 PCR Not Detected (NotDetected); Parainfluenza Virus 3 PCR Not Detected (NotDetected); Parainfluenza Virus 4 PCR Not Detected (NotDetected); Respiratory Syncytial VirusPCR Not Detected (NotDetected); Rhinovirus/Enterovirus PCR Not Detected (NotDetected)
[2023-05-28 12:50] LABS: Coronavirus CoV-2 (COVID19)PCR DETECTED (NotDetected)
[2023-05-28 12:57] LABS: Base Excess VBG 5.2 mEq/L; HCO3 VBG 32 mmol/L; Oxygen Saturation VBG < 60.0 %; PCO2 VBG 52 mmHg (38-50); PO2 VBG 21 mmHg; pH VBG 7.39 (7.36-7.41)
--- NOTE | 2023-05-28 15:53 | History & Physical Report ---
Date of Service May 28, 2023 Assessment & Plan (1) COPD exacerbation: Plan: -Admit to the PCU on tele and pulse oximetry -Currently hemodynamically stable and stable on 2L NC -Patient presented to the ED with 3 days of progressive cough, SOB, and BARCENAS requiring increased oxygen need with exertion -Found to be covid 19 positive on full respiratory biofire -Chest xray shows signs consistent with his chronic lung disease but is negative for signs of viral pneumonia at this time -At this time he is presented more as a COPD exacerbation than Covid Pneumonia -S/P Hour long DuoNeb, 125 mg IV Solu-medrol, and 1L NSS in the ED -Will continue IV solu-medrol 40 mg q8h -Will start him on IV azithromycin for a total of 5 days -Will convert his Trelegy to Formoterol and Budesonide Nebs -Continue QIDR DuoNebs, Incentive spirometry, flutter therapy -Will obtain Sputum culture with Gram stain -Prn O2 to keep SpO2 between 89-92% -Will obtain ferritin, ERS, and CRP -Will consult Pulmonology to follow while admitted as he [facility] -SQ Lovenox for DVT PPX -HH diet -AM CBC, CMP, mag (2) COVID-19: Plan: -See COPD exacerbation (3) Diastolic heart failure: Plan: -Appears euvolemic on exam -S/P 1L NSS in the ED -Will continue home daily lasix to prevent volume overload -HH/2gm sodium restricted diet (4) End stage COPD: Plan: -Normally on 5 mg PO prednisone daily -Hold PO prednisone while on IV steroids -See COPD exacerbation for rest of plan Plan The patient was discussed with Dr. Naidu at the time of the admission History of Present Illness Chief Complaint: Worsening SOB Primary Care Provider: Reece Lambert, III, BRIDGER Bisi is a 67 year old male with a PMH significant for end-stage COPD on 1 to 5 L nasal cannula chronically, on chronic steroid therapy and HFpEF who presented to the [facility] ED on 05/28 with complaints of URI symptoms and increased SOB than baseline. He remained stable on his baseline 2L NC, tachycardic ar 106, and otherwise stable. Labs were significant for a lymphocyte count of 0.72, VBG pH of 7.39 with pCO2 of 52, and pO2 of 21, and Covid 19 positive. Chest xray was read as "1. Emphysema without acute process. 2. Prior granulomatous disease. ". Prior to admission the patient was given an hour long albuterol treatment, a dose of Guaifenesin, 1L NSS, and 125 mg IV methylprednisolone. At the time of the exam the patient was sitting in bed in no acute distress with his son sitting bedside. He states that he started to develop a productive cough with white sputum, increased SOB, and significant BARCENAS compared to baseline symptoms 3 days ago. When asked, he states that he does not have a chronic cough at baseline, despite his end stage COPD. His oxygen has been stable at rest, but he states he is having to increase his O2 requirements with minimal exertion. He denies recent fever, chills, chest pain, hemoptysis, nausea, vomiting, diarrhea, dysuria, hematuria, melena, LE Swelling, and recent trauma. He had some improvement in symptoms with the initial treatment in the ED. I explained that he is high risk for clinical decline with his significant Pulmonary disease, he expressed understaging. We discussed code status, he confirms that he is a DNR/DNI. Please refer to Dr. Naidu's attestaion for any changes to the treatment plan Allergies Allergy/AdvReac Type Severity Reaction Status Date / Time codeine AdvReac Unknown Rash Verified 05/28/23 14:53 Sulfa (Sulfonamide AdvReac Unknown Rash Verified 05/28/23 14:53 Antibiotics) Home Medications Medication Instructions Recorded Confirmed Type cetirizine 10 mg tablet (Zyrtec) 10 mg PO DAILY PRN allergies 06/16/21 05/28/23 History guaifenesin 600 mg tablet, 600 mg PO BID #60 tabs 04/12/22 05/28/23 Rx extended release 12 hr (Mucinex) Oxygen Home #1 ea 04/14/22 05/26/23 Rx montelukast 10 mg tablet 10 mg PO HS #90 tabs 06/09/22 05/28/23 Rx (Singulair) azelastine 137 mcg (0.1 %) nasal 2 spray intranasal BID #30 mL 07/13/22 05/28/23 Rx spray aerosol potassium chloride 20 mEq 20 meq PO QAM #90 tabs 08/09/22 05/28/23 Rx tablet,extended release albuterol sulfate 90 mcg/actuation 2 puff inhalation Q6H PRN 01/10/23 05/28/23 Rx aerosol inhaler (Ventolin HFA) Shortness Of Breath Or Wheezing #18 grams fluticasone fur. 200 mcg-umeclid 1 inh inhalation DAILY #60 ea 04/18/23 05/28/23 Rx 62.5 mcg-vilant 25 mcg inhalat.powder (Trelegy Ellipta) furosemide 40 mg tablet 40 mg PO QAM #90 tabs 05/19/23 05/28/23 Rx pravastatin 40 mg tablet 40 mg PO QAM #90 tabs 05/19/23 05/28/23 Rx prednisone 5 mg tablet 5 mg PO DAILY #90 tabs 05/19/23 05/28/23 Rx ipratropium 0.5 mg-albuterol 3 mg See Rx Instructions .Route .COMPLEX 05/28/23 05/28/23 History (2.5 mg base)/3 mL nebulization soln Past Med/Surg History Medical History COVID-19 Acute pneumonia Chronic obstructive pulmonary disease with hypoxia End stage COPD Elevated troponin COPD exacerbation Pneumonia SOB (shortness of breath) Respiratory distress Chronic dyspnea Chronic hypoxemic respiratory failure Chronic obstructive pulmonary disease Former smoker Non-ST elevation [place] (NSTEMI) COPD with acute exacerbation Surgical History S/P inguinal hernia repair History of cataract surgery History of knee surgery Family History Sister Breast cancer Brother Lung disease Other Myocardial infarction Denies family history of Colon cancer Ovarian cancer Prostate cancer Social History Smoking Status: Former smoker Tobacco Type: Cigarettes Age Started Using Tobacco: 22; Age Quit Using Tobacco: 57; packs per day: 2; Second Hand Exposure: No; Do You Dip or Chew Tobacco: No; Hx Alcohol Use: Yes Alcohol type: beer Hx Substance Use: No Preferred Language: Montserratian Communication Ability: Effective Visual Impairment: No Limitations Hearing Ability: Hard of Hearing 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: No Beliefs That Will Affect Care: None marital status: Single Current Living Situation: Family current occupational status: disabled Other Information That Helps Us Care for You: No Feels Safe at Home: Yes Safety Concerns: Feels Safe At This Time Childhood Exposure to Second-Hand Smoke: Yes Diet: regular Diet Comment: regular Dental Care, Regularly: No Physical Activity Frequency: Does not Exercise Seatbelt Use: always Sunscreen Use: Yes Assistive Devices: Oxygen - Continuous Physical Exam Physical Exam: Physical Exam: General: In no acute distress, stated age, well-nourished, non-toxic appearing HEENT: Normocephalic, atraumatic, no scleral icterus, pupils around round, symmetrical, and reactive to light, moist mucus membranes, trachea midline, no thyromegaly Chest/Pulm: No respiratory distress, symmetrical chest expansion, patient with minimal air movement in the lower and middle lung chávez with expiratory wheezing in the upper lung chávez Cardiac: RRR, no murmurs noted Abdomen: Negative for ascites and bruising, normoactive bowel sounds, soft, non-tender to palpation throughout Musculoskeletal: Symmetrical and without signs of acute trauma, upper and lower extremities with full ROM, no atrophy, spasticity, or flaccidity Extremities: Radial, dorsalis pedis, and posterior tibial pulses are intact and symmetrical, no edema noted in the BL LE's Skin: Warm, dry, no rashes , lesions, or scars noted Neuro: Alert and oriented to person, place, month, year, and president, no focal defects, no tremors noted Psych: No acute distress, calm and cooperative during the exam Results & Data Results & Data Vital Signs (Past 12 Hours) Vital Signs Temp Pulse Pulse Resp BP Pulse Ox O2 Del Method 05/28/23 14:18 Nasal Cannula 05/28/23 14:00 106 H 21 128/70 99 Nasal Cannula 05/28/23 13:31 97 H 18 113/67 98 Nasal Cannula 05/28/23 13:03 94 H 05/28/23 13:00 92 H 16 108/63 100 05/28/23 12:49 97 H 20 97 Nasal Cannula 05/28/23 10:19 37.2 C 103 H 26 H 134/72 96 Nasal Cannula O2 Flow Rate 05/28/23 14:18 2 05/28/23 14:00 3 05/28/23 13:31 3 05/28/23 13:03 05/28/23 13:00 05/28/23 12:49 3 05/28/23 10:19 3 Laboratory Results Abnormal lab results 05/28/23 05/28/23 Range/Units 11:35 12:40 RDW Std Deviation 46.7 H (36.4-46.3) fL MPV 9.1 L (9.4-12.4) fL Neut # (Auto) 8.42 H (1.40-6.50) K/uL Lymph # (Auto) 0.72 L (1.20-3.40) K/uL Barton # (Auto) 1.18 H (0.11-0.59) K/uL APTT 32 H (21-31) Seconds VBG pCO2 52 H (38-50) mmHg SARS-CoV-2 (PCR) DETECTED A* (NotDetected) Diagnostic Findings Chest X-Ray 05/28/23 09:58 XR chest 1V not portable HISTORY: 67 years-old Male Dyspnea acute shortness of breath COMPARISON: Chest CT 05/25/2023 TECHNIQUE: PA view of the chest FINDINGS: Cardiomediastinal and hilar silhouettes are within normal limits. Severe pulmonary emphysema with chronic interstitial coarsening. Unchanged nodular foci at the lung apices. No pneumothorax, pleural effusion or pulmonary edema. No airspace consolidation to suggest pneumonia. Healed chronic left-sided rib fractures. IMPRESSION: 1. Emphysema without acute process. 2. Prior granulomatous disease. ACT 112: Negative or not required by law. The above report was generated using voice recognition software. It may contain grammatical, syntax or spelling errors. Electronically signed by: Clark Bess M.D. 05/28/2023 10:50 AM ECG Additional Comments: Normal sinus rhythm Normal ECG When compared with ECG of 04-APR-2022 11:41, No significant change was found Confirmed by Owen Novoa ([id number]) on 05/28/2023 12:08:51 PM Code Status & VTE Plan Code Status DNR/DNI VTE Prophylaxis Plan VTE Prophylaxis will be ordered: Yes Supervising Physician Co-Signing Physician Notes Attending addendum: I have physically seen this patient, have supervised the KETTY's activities, and agree with the H&P unless as otherwise noted. Assessment and Plan: COPD exacerbation/COVID-19 infection- Admit to PCU Aggravated by COVID-19 infection, with remainder of respiratory BioFire negative Patient primarily symptoms of dyspnea on exertion, it appears to be at baseline oxygenation with nasal cannula oxygen at home requirement and pulse ox of 93 to 94% on 2 L on arrival Received Solu-Medrol 125 mg IV, hour-long DuoNeb, and 1 L normal saline from the ED Continue with Solu-Medrol 40 mg IV every 8 hours Azithromycin 500 mg IV daily Duonebs every 4 hours while awake and every 2 hours when necessary. Converting Trelegy to formoterol and budesonide Follow sputum Gram stain and culture Titrate pulse ox for range 90-92% Follows with pulmonology, who has already seen patient in the ED, and will follow their suggestions PG Care Time/CCT Total # of Minutes Spent Total Time Spent with Patient: Total time spent is greater than 50% in coordination of care (as documented) at patient's floor/unit and/or counseling patient: Coding [place] [address] INT INP/OBS CARE 3/75MIN Patient Type Established Medical Decision Making High Complexity Diagnoses COPD exacerbation J44.1 COVID-19 U07.1 Chronic diastolic heart failure I50.32 Heart failure chronicity: chronic End stage COPD J44.9 (3) Diastolic heart failure Heart failure chronicity: chronic Qualified Code(s): I50.32 - Chronic diastolic (congestive) heart failure
[2023-05-28] MEDS ORDERED: ACETAMINOPHEN 325 MG TAB PO PRN (16:19)
[2023-05-28] MEDS ORDERED: AZITHROMYCIN 500 MG in DEXTROSE 5% 250 ML IV STA (16:38)
[2023-05-28 16:52] LABS: C Reactive Protein 5.97 mg/dl (0-0.5)
--- NOTE | 2023-05-28 16:57 | Pulmonary Consultation ---
Date of Consultation May 28, 2023 Assessment & Plan (1) COPD (chronic obstructive pulmonary disease): COPD type: COPD with acute exacerbation Qualified Code(s): J44.1 - Chronic obstructive pulmonary disease with (acute) exacerbation (2) Solitary pulmonary nodule on lung CT: (3) Chronic obstructive pulmonary disease with hypoxia: (4) Chronic hypoxemic respiratory failure: Plan Chest x-ray 05/28/2023 personally reviewed: Portable film, good inspiratory effort, bilateral costophrenic angles are blunted, bilateral cardiophrenic angles are clean, increased right hilar vascular markings, no clear lung infiltrate appreciated PFT 12/08/2022 personally reviewed: Very severe obstructive lung dysfunction, air trapping, severe decrease in DLCO FVC 3.26 L 85%, FEV1 0.84 L 29%, FEV1/FVC 26%, TLC 134%, RV/TLC 175%, DLCO 26% --Chronic hypoxic respiratory failure Patient is usually on 2 L at rest and up to 5 L oxygen on exertion at home Seems to be at baseline COVID-19 PCR positive, rest of the respiratory bio fire negative CRP 5.97 Procalcitonin 0.09 Continue with O2 supplementation to keep oxygen saturation between 90-92%. Recommend patient to be kept euvolemic to negative balance --Severe COPD On Trelegy inhaler at home Also takes 5 mg of prednisone on a daily basis -- Chronic steroid dependence 5 mg prednisone on a daily basis Plan: Patient seems to be at baseline when it comes to his oxygen requirement Complaints of more shortness of breath on exertion. Chest x-ray does not show any clear infiltrate. Continue with antibiotics Follow-up CRP and procalcitonin If the CRP is elevated then give dexamethasone 6 mg on a daily basis BiPAP nightly and as needed shortness of breath Case discussed with primary team Please note the above document was generated using voice recognition software. It may contain grammatical, syntax or spelling errors.Any formal questions or concerns about the content, text or information contained within the body of this dictation should be directly addressed to the provider for clarification. History of Present Illness History of Present Illness 67-year-old male to the hospital for worsening shortness of breath Past medical history: End-stage COPD on oxygen at home, HFpEF Pulmonary consulted for the same Patient follows up with Dr. Segura, he was seen by Ry Fleming on 12/22/2022 Notes reviewed At the time of examination patient was not in respiratory distress He was saturating 93-94% on 3 L nasal cannula He stated that at rest he is doing okay but on minimal exertion he does get short of breath which is associated with chest tightness. He has been coughing more lately and he has difficulty bringing up the phlegm Subjective fever and chills No N or V. Social history: > [id number] smoking history, quit at the age of 57 Allergies Allergy/AdvReac Type Severity Reaction Status Date / Time codeine AdvReac Unknown Rash Verified 05/28/23 14:53 Sulfa (Sulfonamide AdvReac Unknown Rash Verified 05/28/23 14:53 Antibiotics) Home Medications Medication Instructions Recorded Confirmed Type cetirizine 10 mg tablet (Zyrtec) 10 mg PO DAILY PRN allergies 06/16/21 05/28/23 History guaifenesin 600 mg tablet, 600 mg PO BID #60 tabs 04/12/22 05/28/23 Rx extended release 12 hr (Mucinex) Oxygen Home #1 ea 04/14/22 05/26/23 Rx montelukast 10 mg tablet 10 mg PO HS #90 tabs 06/09/22 05/28/23 Rx (Singulair) azelastine 137 mcg (0.1 %) nasal 2 spray intranasal BID #30 mL 07/13/22 05/28/23 Rx spray aerosol potassium chloride 20 mEq 20 meq PO QAM #90 tabs 08/09/22 05/28/23 Rx tablet,extended release albuterol sulfate 90 mcg/actuation 2 puff inhalation Q6H PRN 01/10/23 05/28/23 Rx aerosol inhaler (Ventolin HFA) Shortness Of Breath Or Wheezing #18 grams fluticasone fur. 200 mcg-umeclid 1 inh inhalation DAILY #60 ea 04/18/23 05/28/23 Rx 62.5 mcg-vilant 25 mcg inhalat.powder (Trelegy Ellipta) furosemide 40 mg tablet 40 mg PO QAM #90 tabs 05/19/23 05/28/23 Rx pravastatin 40 mg tablet 40 mg PO QAM #90 tabs 05/19/23 05/28/23 Rx prednisone 5 mg tablet 5 mg PO DAILY #90 tabs 05/19/23 05/28/23 Rx ipratropium 0.5 mg-albuterol 3 mg See Rx Instructions .Route .COMPLEX 05/28/23 05/28/23 History (2.5 mg base)/3 mL nebulization soln Patient History Medical History COVID-19 Acute pneumonia Chronic obstructive pulmonary disease with hypoxia End stage COPD Elevated troponin COPD exacerbation Pneumonia SOB (shortness of breath) Respiratory distress Chronic dyspnea Chronic hypoxemic respiratory failure Chronic obstructive pulmonary disease Former smoker Non-ST elevation [place] (NSTEMI) COPD with acute exacerbation Surgical History S/P inguinal hernia repair History of cataract surgery History of knee surgery Family History Sister Breast cancer Brother Lung disease Other Myocardial infarction Denies family history of Colon cancer Ovarian cancer Prostate cancer Social History Smoking Status: Former smoker Tobacco Type: Cigarettes Age Started Using Tobacco: 22; Age Quit Using Tobacco: 57; packs per day: 2; Second Hand Exposure: No; Do You Dip or Chew Tobacco: No; Hx Alcohol Use: Yes Alcohol type: beer Hx Substance Use: No Preferred Language: Ukrainian Communication Ability: Effective Visual Impairment: No Limitations Hearing Ability: Hard of Hearing Recovery Assistant Required: No Beliefs That Will Affect Care: None marital status: Single Current Living Situation: Family current occupational status: disabled Other Information That Helps Us Care for You: No Feels Safe at Home: Yes Safety Concerns: Feels Safe At This Time Childhood Exposure to Second-Hand Smoke: Yes Diet: regular Diet Comment: regular Dental Care, Regularly: No Physical Activity Frequency: Does not Exercise Seatbelt Use: always Sunscreen Use: Yes Assistive Devices: Oxygen - Continuous Review of Systems 2 Review of Systems: All systems reviewed & are unremarkable except as noted in HPI & below Physical Exam 2 Physical Exam: Constitutional: No acute distress HEENT: EOMI, PERRLA Respiratory system: Decreased air entry bilaterally, no wheeze, no rhonchi, positive crackles bilateral lower lobes CVS: S1-S2 positive, distant heart sounds Abdomen: Soft, nontender, nondistended, positive bowel sounds x4 Extremities: +2 pulses bilaterally radialis/ dorsalis pedis, no cyanosis, no edema Neuro: Awake alert oriented x3 Psych: Normal mood and affect G/U: No Paul Skin: no rashes, warm and dry Lymphatic: no cervical or axillary lymphadenopathy Results & Data Results & Data Vital Signs (Past 12 Hours) Vital Signs Temp Pulse Pulse Resp BP Pulse Ox O2 Del Method 05/28/23 14:18 Nasal Cannula 05/28/23 14:00 106 H 21 128/70 99 Nasal Cannula 05/28/23 13:31 97 H 18 113/67 98 Nasal Cannula 05/28/23 13:03 94 H 05/28/23 13:00 92 H 16 108/63 100 05/28/23 12:49 97 H 20 97 Nasal Cannula 05/28/23 10:19 37.2 C 103 H 26 H 134/72 96 Nasal Cannula O2 Flow Rate 05/28/23 14:18 2 05/28/23 14:00 3 05/28/23 13:31 3 05/28/23 13:03 05/28/23 13:00 05/28/23 12:49 3 05/28/23 10:19 3 Laboratory Results 05/28/23 11:35 05/28/23 11:35 PG Care Time/CCT Total # of Minutes Spent Total Time Spent with Patient: Total time spent is greater than 50% in coordination of care (as documented) at patient's floor/unit and/or counseling patient: Coding Level of Care Code 54401 INT INP/OBS CARE 3/75MIN Diagnoses COPD (chronic obstructive pulmonary disease) J44.1 COPD type: COPD with acute exacerbation Solitary pulmonary nodule on lung CT R91.1 Chronic obstructive pulmonary disease with hypoxia J44.9; R09.02 Chronic hypoxemic respiratory failure J96.11
[2023-05-28 17:13] LABS: Ferritin 197.7 ng/ml (8-388)
[2023-05-28] MEDS: FORMOTEROL 20 MCG/2 ML VIAL NEB SCH (18:12)
[2023-05-28] MEDS: BUDESONIDE 0.5 MG/2 ML VIAL (PULMICORT) NEB SCH (18:12)
[2023-05-28] MEDS: ALBUT/IPRATROP 3MG/0.5MG NEB 3 ML VIAL NEB SCH (18:13)
[2023-05-28] MEDS ORDERED: ENOXAPARIN INJ 40 MG/0.4 ML SYR SQ ONE (20:00)
[2023-05-28] MEDS ORDERED: Patient's HEIGHT &/or WEIGHT Needed SCH (20:00)
[2023-05-28] MEDS: UMECLIDINIUM BROMIDE 62.5MCG/BLISTER 7 PUFFS/INHALER INH SCH (22:10)
[2023-05-28] MEDS: guaiFENesin 600 MG TABCR PO SCH (22:11)
[2023-05-28] MEDS: methylPREDNISolone 40 MG in SYRINGE 0 ML IV SCH (22:11)
[2023-05-28] MEDS ORDERED: ENOXAPARIN INJ 40 MG/0.4 ML SYR ONE (22:16)
[2023-05-29] MEDS: methylPREDNISolone 40 MG in SYRINGE 0 ML IV SCH ×3 (05:48→20:56)
[2023-05-29 06:42] LABS: Hematocrit (blood only) 43.2 % (42.0-52.0); Hemoglobin 15.3 g/dl (14.0-18.0); Immature Granulocytes # (auto) 0.04 K/uL (0.01-0.20); Immature Granulocytes % (auto) 0.5 %; Lymphocytes # (auto) 0.63 K/uL (1.20-3.40); Lymphocytes % (auto) 8.3 %; Mean Corpuscular Hemoglobin 32.8 pg (25.0-34.0); Mean Corpuscular Hgb Conc 35.4 g/dL (32.0-36.0); Mean Corpuscular Volume 92.5 fL (80.0-100.0); Mean Platelet Volume 9.2 fL (9.4-12.4); Monocytes # (auto) 0.26 K/uL (0.11-0.59); Monocytes % (auto) 3.4 %; Neutrophils # (auto) 6.62 K/uL (1.40-6.50); Neutrophils % (auto) 87.8 %; Platelet Count 231 K/uL (130-400); RDW Coefficient of Variation 13.2 % (11.5-14.5); RDW Standard Deviation 45.1 fL (36.4-46.3); Red Blood Count 4.67 M/uL (4.70-6.10); White Blood Count 7.55 K/ul (4.8-10.8)
[2023-05-29 07:16] LABS: Albumin Globulin Ratio 1.6 (0.9-2); Albumin Level 4.1 gm/dl (3.4-5.0); BUN Creatinine Ratio 21.5 (10-20); Bilirubin,Total 0.5 mg/dl (0.2-1.0); Creatinine Clr Calc Pharmacy 84.1 ml/min; Est GFR (African American) 109.2 ml/min; Est GFR (Non-African American) 94.2 ml/min; Globulin 2.5 gm/dl (2.5-4.0); Potassium 3.8 mmol/L (3.5-5.1); Total Protein 6.6 gm/dl (6.0-8.3)
[2023-05-29] MEDS: BUDESONIDE 0.5 MG/2 ML VIAL (PULMICORT) NEB SCH ×2 (07:36→17:13)
[2023-05-29] MEDS: FORMOTEROL 20 MCG/2 ML VIAL NEB SCH ×2 (07:36→17:12)
[2023-05-29] MEDS: ALBUT/IPRATROP 3MG/0.5MG NEB 3 ML VIAL NEB SCH ×3 (07:36→15:39)
--- NOTE | 2023-05-29 07:56 | Hospitalist Progress Note ---
Date of Service May 29, 2023 Assessment & Plan (1) COVID-19: Plan: Patient admitted with shortness of breath and cough and found to have COVID-19 Patient does report increased shortness of breath with exertion. Home oxygen 2.5 L/min by nasal cannula. Patient does have desaturation with ambulation Continue with IV steroids while inpatient. Will plan on discharging patient with steroid taper when he is ready. (2) Acute on chronic respiratory failure: Plan: COPD exacerbation secondary to COVID-19 infection Continue supplemental oxygen to maintain SpO2 between 88 and 92% Patient on home O2 as listed above Outpatient follow-up with pulmonary clinic (3) COPD exacerbation: Plan: Follows with Dr. Segura in the outpatient clinic PFTs from 12/08/2022 with severe obstructive lung dysfunction, air trapping, severe decrease in DLCO. * FVC 85% of predicted, FEV1 29% of predicted, FEV1/FVC 34% of predicted. RV 234% of predicted, TLC 134% of predicted, RV/TLC 175% of predicted, DLCOunc 26% of predicted with minimal improvement for alveolar volume to 34% of predicted Continue patient on ICS/LAMA/LABA Continue IV steroids until discharge and then convert to prednisone taper Follow-up in the outpatient clinic in 1 to 2 weeks Continue supplemental oxygen to maintain SpO2 between 88 and 92% Leukotriene inhibitor held on admission. Will resume this tonight. (4) Hyperglycemia: Plan: Most likely from steroids No history of diabetes mellitus Most recent hemoglobin A1c is from January 2022 which was 5.4% Plan Anticipate patient will be discharged home when stable No additional discharge needs at this time. Admission and Anticipated Discharge Date Admission Date: May 28, 2023 Subjective Attending: Dr. Hernández 67-year-old male admitted yesterday for COPD exacerbation. Chronic respiratory failure with hypoxia on 1.5 L of oxygen at home. COVID-19 PCR is positive. The rest of the respiratory bio fire is negative. CRP is 5.97 on admission. Procalcitonin is negative at 0.09 In addition to the oxygen, patient is on Trelegy Ellipta daily at home as well as 5 mg of prednisone daily. Patient follows with the pulmonary clinic with Dr. Segura and LATONIA Henning. VBG reviewed and stable On admission, patient was started on azithromycin. Will continue this pending pulmonary comment as they were consulted Ankle brachial index [facility] on 05/19/2023 reveals moderate obstruction of 0.41 with the right hand compared to the right foot. Patient has 0.86 (mild obstructive) the left hand and left foot. Report is pending and has not been transferred to [facility] at this time. Review of Systems 2 Review of Systems: A total of 10 systems was reviewed and is negative other than as listed in the HPI Physical Exam 2 Physical Exam: GENERAL : No acute distress EYES: No icterus, gaze conjugate NOSE: No evidence of epistaxis MOUTH: No lesions or candidiasis NECK: Supple LUNGS: CTA B/L, no wheezes, rales or rhonchi HEART: Regular, rate controlled ABDOMEN: Soft, NT, ND, BS Present EXTREMITIES: No LE edema, pedal pulses intact NEURO: A&OX3 Results & Data Results & Data Vital Signs (Past 12 Hours) Vital Signs Temp Pulse Pulse Resp BP BP Pulse Ox 05/29/23 07:39 85 14 95 05/29/23 05:00 05/29/23 04:56 36.8 C 83 17 147/92 H 97 05/29/23 04:50 82 05/29/23 04:10 81 19 97 05/29/23 00:43 05/28/23 23:40 84 26 H 95 05/28/23 23:30 84 21 95 05/28/23 23:20 93 H 22 96 05/28/23 23:13 84 05/28/23 23:10 85 23 95 05/28/23 23:00 84 18 96 05/28/23 22:50 83 23 95 05/28/23 22:40 86 22 96 05/28/23 22:30 85 20 98 05/28/23 22:20 91 H 21 96 05/28/23 22:10 94 H 20 96 05/28/23 22:00 86 24 97 05/28/23 21:50 85 21 96 05/28/23 21:40 88 23 95 05/28/23 21:30 93 H 23 97 05/28/23 21:20 91 H 26 H 95 05/28/23 21:10 91 H 25 H 98 05/28/23 21:00 93 H 21 96 05/28/23 20:50 93 H 23 97 05/28/23 20:40 95 H 24 97 05/28/23 20:30 103 H 26 H 95 05/28/23 20:20 106 H 22 94 05/28/23 20:14 101 H 27 H 96 05/28/23 20:14 128/72 05/28/23 20:10 95 05/28/23 20:00 70 L 05/28/23 19:50 99 O2 Del Method O2 Flow Rate 05/29/23 07:39 Nasal Cannula 2 05/29/23 05:00 Nasal Cannula 4 05/29/23 04:56 Nasal Cannula 4 05/29/23 04:50 05/29/23 04:10 Nasal Cannula 4 05/29/23 00:43 Nasal Cannula 3 05/28/23 23:40 05/28/23 23:30 Nasal Cannula 2.5 05/28/23 23:20 05/28/23 23:13 05/28/23 23:10 05/28/23 23:00 Nasal Cannula 2.5 05/28/23 22:50 05/28/23 22:40 05/28/23 22:30 Nasal Cannula 2.5 05/28/23 22:20 05/28/23 22:10 05/28/23 22:00 Nasal Cannula 2.5 05/28/23 21:50 Nasal Cannula 2.5 05/28/23 21:40 Nasal Cannula 2.5 05/28/23 21:30 Nasal Cannula 2.5 05/28/23 21:20 Nasal Cannula 2.5 05/28/23 21:10 Nasal Cannula 2.5 05/28/23 21:00 Nasal Cannula 2.5 05/28/23 20:50 05/28/23 20:40 05/28/23 20:30 05/28/23 20:20 05/28/23 20:14 05/28/23 20:14 05/28/23 20:10 05/28/23 20:00 05/28/23 19:50 Laboratory Results Abnormal lab results 05/28/23 05/28/23 05/29/23 Range/Units 11:35 12:40 06:10 RBC 4.67 L (4.70-6.10) M/uL RDW Std Deviation 46.7 H (36.4-46.3) fL MPV 9.1 L 9.2 L (9.4-12.4) fL Neut # (Auto) 8.42 H 6.62 H (1.40-6.50) K/uL Lymph # (Auto) 0.72 L 0.63 L (1.20-3.40) K/uL [place] # (Auto) 1.18 H (0.11-0.59) K/uL APTT 32 H (21-31) Seconds VBG pCO2 52 H (38-50) mmHg BUN/Creatinine Ratio 21.5 H (10-20) Glucose 170 H (70-99(Fasting)) mg/dl C-Reactive Protein 5.97 H (0-0.5) mg/dl SARS-CoV-2 (PCR) DETECTED A* (NotDetected) 05/29/23 06:10 05/29/23 06:10 PG Care Time/CCT Total # of Minutes Spent Total Time Spent with Patient: Total time spent is greater than 50% in coordination of care (as documented) at patient's floor/unit and/or counseling patient: Coding Level of Care Code 04831 SUB INP/OBS CARE 2/35MIN Diagnoses COVID-19 U07.1 Acute on chronic respiratory failure J96.20 Respiratory failure complication: unspecified whether with hypoxia or hypercapnia COPD exacerbation J44.1 Hyperglycemia R73.9 Time Spent (min) 40 Comment 20 minutes spent [id number] with patient close chart review and documentation (2) Acute on chronic respiratory failure Respiratory failure complication: unspecified whether with hypoxia or hypercapnia Qualified Code(s): J96.20 - Acute and chronic respiratory failure, unspecified whether with hypoxia or hypercapnia
[2023-05-29] MEDS ORDERED: DEXAMETHASONE SOD INJ 4 MG/ML VIAL IV SCH (09:00)
[2023-05-29] MEDS: UMECLIDINIUM BROMIDE 62.5MCG/BLISTER 7 PUFFS/INHALER INH SCH (10:02)
[2023-05-29] MEDS: FUROSEMIDE 40 MG TAB PO SCH (10:02)
[2023-05-29] MEDS: PRAVASTATIN SOD 40 MG TAB PO SCH (10:02)
[2023-05-29] MEDS: guaiFENesin 600 MG TABCR PO SCH ×2 (10:02→20:55)
[2023-05-29] MEDS ORDERED: ALBUT/IPRATROP 3MG/0.5MG NEB 3 ML VIAL NEB PRN (15:20)
[2023-05-29] MEDS: AZITHROMYCIN 500 MG in DEXTROSE 5% 250 ML IV SCH (17:01)
--- NOTE | 2023-05-29 17:10 | Pulmonology Progress Note ---
Date of Service May 29, 2023 Assessment & Plan (1) COPD (chronic obstructive pulmonary disease): COPD type: COPD with acute exacerbation Qualified Code(s): J44.1 - Chronic obstructive pulmonary disease with (acute) exacerbation (2) Solitary pulmonary nodule on lung CT: (3) Chronic obstructive pulmonary disease with hypoxia: (4) Chronic hypoxemic respiratory failure: Plan Chest x-ray 05/28/2023 personally reviewed: Portable film, good inspiratory effort, bilateral costophrenic angles are blunted, bilateral cardiophrenic angles are clean, increased right hilar vascular markings, no clear lung infiltrate appreciated PFT 12/08/2022 personally reviewed: Very severe obstructive lung dysfunction, air trapping, severe decrease in DLCO FVC 3.26 L 85%, FEV1 0.84 L 29%, FEV1/FVC 26%, TLC 134%, RV/TLC 175%, DLCO 26% --Chronic hypoxic respiratory failure Patient is usually on 2 L at rest and up to 5 L oxygen on exertion at home Seems to be at baseline COVID-19 PCR positive, rest of the respiratory bio fire negative CRP 5.97 Procalcitonin 0.09 Continue with O2 supplementation to keep oxygen saturation between 90-92%. Recommend patient to be kept euvolemic to negative balance --Severe COPD On Trelegy inhaler at home Also takes 5 mg of prednisone on a daily basis -- Chronic steroid dependence 5 mg prednisone on a daily basis Plan: Add hypertonic saline 7% nebulized, can consider addition of Mucomyst as well if he still complaining of chest congestion and difficulty breathing of the phlegm Continue with flutter valve Decrease Solu-Medrol to 40 mg twice daily. Can gradually titrated off in the next couple of days to prednisone and then back to his home dose of 5 mg BiPAP nightly and as needed shortness of breath Complete the course of azithromycin for 5 days, can consider discharging him on 250 mg azithromycin [id number]. QTc 454 No further recommendation from pulmonary perspective, will sign off Please call directly with any questions Case was discussed with Dr. Hernández Please note the above document was generated using voice recognition software. It may contain grammatical, syntax or spelling errors.Any formal questions or concerns about the content, text or information contained within the body of this dictation should be directly addressed to the provider for clarification. Admission and Anticipated Discharge Date Admission Date: May 28, 2023 Subjective Patient seen and examined at bedside. No acute distress, no adverse events overnight He said he is feeling better since coming to the hospital He was saturating 93 to 94% at rest on 2 L nasal cannula. Denied any nausea or vomiting No headache Fair appetite Does complain of coughing and difficulty bringing up the phlegm Review of Systems 2 Review of Systems: All systems reviewed & are unremarkable except as noted in Subjective Physical Exam 2 Physical Exam: Constitutional: No acute distress HEENT: EOMI, PERRLA Respiratory system: Decreased air entry bilaterally, no wheeze, no rhonchi, positive crackles bilateral lower lobes CVS: S1-S2 positive, distant heart sounds Abdomen: Soft, nontender, nondistended, positive bowel sounds x4 Extremities: +2 pulses bilaterally radialis/ dorsalis pedis, no cyanosis, no edema Neuro: Awake alert oriented x3 Psych: Normal mood and affect G/U: No Paul Skin: no rashes, warm and dry Lymphatic: no cervical or axillary lymphadenopathy Results & Data Results & Data Vital Signs (Past 12 Hours) Vital Signs Temp Pulse Resp BP Pulse Ox O2 Del Method O2 Del Method 05/29/23 16:06 36.7 C 93 H 18 138/85 88 L Nasal Cannula 05/29/23 11:22 91 H 14 95 Nasal Cannula 05/29/23 10:21 36.5 C 84 16 139/82 92 Nasal Cannula 05/29/23 08:00 Nasal Cannula 05/29/23 08:00 Nasal Cannula 05/29/23 07:51 36.5 C 91 H 18 147/92 H 94 Nasal Cannula 05/29/23 07:39 85 14 95 Nasal Cannula O2 Flow Rate O2 Flow Rate 05/29/23 16:06 2 05/29/23 11:22 2 05/29/23 10:21 2 05/29/23 08:00 2 05/29/23 08:00 2 05/29/23 07:51 2 05/29/23 07:39 2 Laboratory Results 05/29/23 06:10 05/29/23 06:10 PG Care Time/CCT Total # of Minutes Spent Total Time Spent with Patient: Total time spent is greater than 50% in coordination of care (as documented) at patient's floor/unit and/or counseling patient: Coding Level of Care Code 11813 SUB INP/OBS CARE 3/50MIN Diagnoses COPD (chronic obstructive pulmonary disease) J44.1 COPD type: COPD with acute exacerbation Solitary pulmonary nodule on lung CT R91.1 Chronic obstructive pulmonary disease with hypoxia J44.9; R09.02 Chronic hypoxemic respiratory failure J96.11
[2023-05-29] MEDS: SODIUM CHLOR 7% 4 ML NEB NEB SCH (17:27)
[2023-05-29] MEDS: MONTELUKAST SODIUM 10 MG TABLET PO SCH (20:55)
[2023-05-29] MEDS: ENOXAPARIN INJ 40 MG/0.4 ML SYR SQ SCH (20:56)
[2023-05-30 06:37] LABS: Hematocrit (blood only) 44.5 % (42.0-52.0); Hemoglobin 15.5 g/dl (14.0-18.0); Mean Corpuscular Hemoglobin 32.6 pg (25.0-34.0); Mean Corpuscular Hgb Conc 34.8 g/dL (32.0-36.0); Mean Corpuscular Volume 93.5 fL (80.0-100.0); Mean Platelet Volume 8.9 fL (9.4-12.4); Platelet Count 263 K/uL (130-400); RDW Coefficient of Variation 13.2 % (11.5-14.5); RDW Standard Deviation 45.3 fL (36.4-46.3); Red Blood Count 4.76 M/uL (4.70-6.10); White Blood Count 18.75 K/ul (4.8-10.8)
[2023-05-30 06:51] LABS: Albumin Globulin Ratio 1.6 (0.9-2); Albumin Level 4.1 gm/dl (3.4-5.0); BUN Creatinine Ratio 24.7 (10-20); Bilirubin,Total 0.6 mg/dl (0.2-1.0); Calcium 9.3 mg/dl (8.6-10.3); Creatinine Clr Calc Pharmacy 71.5 ml/min; Est GFR (African American) 99.5 ml/min; Est GFR (Non-African American) 85.8 ml/min; Globulin 2.5 gm/dl (2.5-4.0); Potassium 3.9 mmol/L (3.5-5.1); Total Protein 6.6 gm/dl (6.0-8.3)
[2023-05-30 06:58] LABS: Basophils # (auto) 0.02 K/uL (0.00-0.20); Basophils % (auto) 0.1 %; Immature Granulocytes % (auto) 0.5 %; Lymphocytes % (auto) 3.2 %; Monocytes # (auto) 0.94 K/uL (0.11-0.59); Neutrophils # (auto) 17.09 K/uL (1.40-6.50); Neutrophils % (auto) 91.2 %
[2023-05-30] MEDS: FORMOTEROL 20 MCG/2 ML VIAL NEB SCH ×2 (07:02→18:40)
[2023-05-30] MEDS: BUDESONIDE 0.5 MG/2 ML VIAL (PULMICORT) NEB SCH ×2 (07:03→18:40)
[2023-05-30] MEDS: SODIUM CHLOR 7% 4 ML NEB NEB SCH ×2 (07:03→18:40)
[2023-05-30] MEDS: UMECLIDINIUM BROMIDE 62.5MCG/BLISTER 7 PUFFS/INHALER INH SCH (08:18)
[2023-05-30] MEDS: FUROSEMIDE 40 MG TAB PO SCH (08:19)
[2023-05-30] MEDS: PRAVASTATIN SOD 40 MG TAB PO SCH (08:19)
[2023-05-30] MEDS: methylPREDNISolone 40 MG in SYRINGE 0 ML IV SCH (08:19)
[2023-05-30] MEDS: guaiFENesin 600 MG TABCR PO SCH ×2 (08:19→20:31)
--- NOTE | 2023-05-30 09:04 | Hospitalist Progress Note ---
Date of Service May 30, 2023 Assessment & Plan (1) COVID-19: Plan: Patient admitted with shortness of breath and cough and found to have COVID-19 Patient does report increased shortness of breath with exertion. Home oxygen 2.5 L/min by nasal cannula. Patient does have desaturation with ambulation Continue with IV steroids while inpatient. Will plan on discharging patient with steroid taper when he is ready. Discussed taper with Dr. Canales. He would like 40 mg prednisone p.o. x 5 days, 30 mg prednisone p.o. x 3 days, 20 mg prednisone p.o. x 3 days, 10 mg prednisone p.o. x 3 days, then resume home dose of 5 mg prednisone daily Also discussed with Dr. Segura. He suggest trial of BiPAP. Will place order for that with respiratory (2) Acute on chronic respiratory failure: Plan: COPD exacerbation secondary to COVID-19 infection Continue supplemental oxygen to maintain SpO2 between 88 and 92% Patient on home O2. Outpatient follow-up with pulmonary clinic (3) COPD exacerbation: Plan: Follows with Dr. Segura in the outpatient clinic PFTs from 12/08/2022 with severe obstructive lung dysfunction, air trapping, severe decrease in DLCO. * FVC 85% of predicted, FEV1 29% of predicted, FEV1/FVC 34% of predicted. RV 234% of predicted, TLC 134% of predicted, RV/TLC 175% of predicted, DLCOunc 26% of predicted with minimal improvement for alveolar volume to 34% of predicted Continue patient on ICS/LAMA/LABA Continue IV steroids until discharge and then convert to prednisone taper Follow-up in the outpatient clinic in 1 to 2 weeks Continue supplemental oxygen to maintain SpO2 between 88 and 92% Leukotriene inhibitor held on admission. Resume (4) Hyperglycemia: Plan: Most likely from steroids No history of diabetes mellitus Most recent hemoglobin A1c is from January 2022 which was 5.4% Plan Anticipate patient will be discharged home when stable No additional discharge needs at this time. Trial of BiPAP while inpatient Will also consult palliative care for end-stage pulmonary disease Admission and Anticipated Discharge Date Admission Date: May 28, 2023 Supervising Physician Co-Signing Physician Notes PA Supervision Note: I did not personally see or examine the patient today, but I verified all nugent points of YEISON Saleem's assessment and plan with the following exceptions/additions: None Subjective Attending: Dr. Almazan 67-year-old male with severe COPD, air trapping, reduction and diffusion capacity. Presented with shortness of breath and found to be positive for COVID-19. Patient improved with IV steroids and supportive care. Pulmonary consult placed. Although patient states that he is feeling somewhat better. He does not feel safe to go home. Continues to have increased shortness of breath with ambulation. Also noted to have some dyspnea with conversation today. Long discussion with the patient regarding his end-stage COPD and air trapping. Also discussed mucous plugging and importance of incentive spirometry and flutter valve. Discussed patient with Dr. Segura from pulmonary and asked him to revisit since he follows him in the outpatient clinic. Appreciate his input. Patient denies any fever, chills, sweats, rigors. He does have a cough which does have some clear sputum. He does have increased sputum production with flutter valve use. No other acute complaints Review of Systems 2 Review of Systems: A total of 10 systems was reviewed and is negative other than as listed in the HPI Physical Exam 2 Physical Exam: GENERAL : No acute distress EYES: No icterus, gaze conjugate NOSE: No evidence of epistaxis MOUTH: No lesions or candidiasis NECK: Supple LUNGS: CTA B/L, no wheezes, rales or rhonchi. Decreased breath sounds globally HEART: Regular, rate controlled ABDOMEN: Soft, NT, ND, BS Present EXTREMITIES: No LE edema, pedal pulses intact NEURO: A&OX3 Results & Data Results & Data Vital Signs (Past 12 Hours) Vital Signs Temp Pulse Pulse Resp BP Pulse Ox O2 Del Method 05/30/23 07:27 103 H 05/30/23 07:05 84 16 97 Nasal Cannula 05/30/23 03:21 36.6 C 90 18 108/57 L 93 Room Air 05/30/23 00:00 88 05/29/23 23:51 36.9 C 87 18 105/83 93 Nasal Cannula O2 Flow Rate 05/30/23 07:27 05/30/23 07:05 2 05/30/23 03:21 05/30/23 00:00 05/29/23 23:51 2 Laboratory Results Abnormal lab results 05/30/23 Range/Units 06:05 WBC 18.75 H D (4.8-10.8) K/ul MPV 8.9 L (9.4-12.4) fL Neut # (Auto) 17.09 H (1.40-6.50) K/uL Lymph # (Auto) 0.60 L (1.20-3.40) K/uL [place] # (Auto) 0.94 H (0.11-0.59) K/uL BUN/Creatinine Ratio 24.7 H (10-20) Glucose 148 H (70-99(Fasting)) mg/dl 05/30/23 06:05 05/30/23 06:05 PG Care Time/CCT Total # of Minutes Spent Total Time Spent with Patient: Total time spent is greater than 50% in coordination of care (as documented) at patient's floor/unit and/or counseling patient: Coding Level of Care Code 84705 SUB INP/OBS CARE 3/50MIN Diagnoses COVID-19 U07.1 Acute on chronic respiratory failure J96.20 Respiratory failure complication: unspecified whether with hypoxia or hypercapnia COPD exacerbation J44.1 Hyperglycemia R73.9 Time Spent (min) 60 Comment 60 minutes [id number] with the patient plus chart prep and documentation (2) Acute on chronic respiratory failure Respiratory failure complication: unspecified whether with hypoxia or hypercapnia Qualified Code(s): J96.20 - Acute and chronic respiratory failure, unspecified whether with hypoxia or hypercapnia
--- NOTE | 2023-05-30 15:08 | Pulmonology Progress Note ---
Date of Service May 30, 2023 Assessment & Plan (1) End stage COPD: (2) COVID-19: (3) Chronic dyspnea: Plan 67-year-old male with a past medical history of essentially end-stage COPD on chronic oxygen therapy. He tested positive for COVID-19 this admission. He has a history of chronic hypercapnia and hypoxemia. He has been intolerant of BiPAP in the past. He is willing to try BiPAP tonight. Will obtain an ABG in the morning. He would likely qualify for AVAPS/trilogy. He is not currently bronchospastic. I am going to change methylprednisolone to prednisone at a dose of 30 mg which could be then tapered back to his typical dose of 5 mg a day after 7 days. Continue formoterol and budesonide nebs. Continue Incruse Ellipta. We discussed things such as lung transplantation and bronchoscopic lung volume reduction. He was referred to [facility] and ultimately was not deemed a candidate as he is currently chewing tobacco. He is a poor candidate for bronchoscopic lung volume reduction due to his severely low diffusion capacity and his diffuse homogenous emphysema pattern on CT. He did not complete pulmonary rehab as an outpatient. He notes that he only went to 3 or 4 sessions. We discussed at length that he has end-stage COPD and his disease is progressive as evidenced by his frequent hospitalizations and worsening symptoms. He would benefit from a palliative care evaluation and possibly transitioning to hospice. I discussed with the hospitalist service who is going to request a palliative care consultation. I did refer the patient to outpatient palliative care medicine, but he never scheduled an appointment. Admission and Anticipated Discharge Date Admission Date: May 28, 2023 Subjective Patient seen and examined. He feels that he is more short of breath than his baseline from 2 to 3 weeks ago. He has a minimal cough. He is appetite has been reasonable. He denies any chest pain. No fevers, chills or night sweats. He does get short of breath walking 30 to 40 feet. He is very frustrated with his symptoms. Review of Systems Review of Systems: All systems reviewed & are unremarkable except as noted in HPI & below Physical Exam Physical Exam: Constitutional: No acute distress HEENT: EOMI, PERRLA Respiratory system: Decreased air entry bilaterally, no wheeze, no rhonchi, positive crackles bilateral lower lobes CVS: S1-S2 positive, distant heart sounds Abdomen: Soft, nontender, nondistended, positive bowel sounds x4 Extremities: +2 pulses bilaterally radialis/ dorsalis pedis, no cyanosis, no edema Neuro: Awake alert oriented x3 Psych: Normal mood and affect G/U: No Paul Skin: no rashes, warm and dry Lymphatic: no cervical or axillary lymphadenopathy Results & Data Results & Data Vital Signs (Past 12 Hours) Vital Signs Temp Pulse Pulse Resp BP BP Pulse Ox 05/30/23 11:38 36.8 C 91 H 19 135/75 99 05/30/23 09:49 05/30/23 09:23 37.1 C 90 21 123/68 98 05/30/23 07:27 103 H 05/30/23 07:05 84 16 97 05/30/23 03:21 36.6 C 90 18 108/57 L 93 O2 Del Method O2 Flow Rate 05/30/23 11:38 Nasal Cannula 2 05/30/23 09:49 Nasal Cannula 2 05/30/23 09:23 Nasal Cannula 2 05/30/23 07:27 05/30/23 07:05 Nasal Cannula 2 05/30/23 03:21 Room Air PG Care Time/CCT Total # of Minutes Spent Total Time Spent with Patient: Total time spent is greater than 50% in coordination of care (as documented) at patient's floor/unit and/or counseling patient: Coding Level of Care Code 39348 SUB INP/OBS CARE 3/50MIN Diagnoses End stage COPD J44.9 COVID-19 U07.1 Chronic dyspnea R06.09
[2023-05-30] MEDS: AZITHROMYCIN 500 MG in DEXTROSE 5% 250 ML IV SCH (18:27)
[2023-05-30] MEDS: MONTELUKAST SODIUM 10 MG TABLET PO SCH (20:31)
[2023-05-30] MEDS: ENOXAPARIN INJ 40 MG/0.4 ML SYR SQ SCH (20:31)
[2023-05-31 06:49] LABS: Allen Test Pos (Pos); Base Excess ABG 6.7 mEq/L (-9-1.8); HCO3 ABG 30 mmol/L (19-24); Oxygen Saturation ABG 95.8 % (90-95); PCO2 ABG 39 mmHg (35-46); PO2 ABG 67 mmHg (80-95)
[2023-05-31 07:04] LABS: Basophils # (auto) 0.01 K/uL (0.00-0.20); Basophils % (auto) 0.1 %; Hematocrit (blood only) 44.8 % (42.0-52.0); Hemoglobin 14.9 g/dl (14.0-18.0); Immature Granulocytes # (auto) 0.06 K/uL (0.01-0.20); Immature Granulocytes % (auto) 0.6 %; Lymphocytes # (auto) 0.93 K/uL (1.20-3.40); Lymphocytes % (auto) 8.9 %; Mean Corpuscular Hgb Conc 33.3 g/dL (32.0-36.0); Mean Corpuscular Volume 96.1 fL (80.0-100.0); Mean Platelet Volume 9.1 fL (9.4-12.4); Monocytes # (auto) 1.48 K/uL (0.11-0.59); Monocytes % (auto) 14.2 %; Neutrophils # (auto) 7.96 K/uL (1.40-6.50); Neutrophils % (auto) 76.2 %; Platelet Count 214 K/uL (130-400); RDW Coefficient of Variation 13.3 % (11.5-14.5); RDW Standard Deviation 47.4 fL (36.4-46.3); Red Blood Count 4.66 M/uL (4.70-6.10); White Blood Count 10.44 K/ul (4.8-10.8)
[2023-05-31 07:23] LABS: Albumin Globulin Ratio 1.7 (0.9-2); Albumin Level 3.7 gm/dl (3.4-5.0); BUN Creatinine Ratio 27.9 (10-20); Bilirubin,Total 0.6 mg/dl (0.2-1.0); Calcium 8.8 mg/dl (8.6-10.3); Creatinine Clr Calc Pharmacy 77.3 ml/min; Est GFR (African American) 105.5 ml/min; Globulin 2.2 gm/dl (2.5-4.0); Potassium 3.9 mmol/L (3.5-5.1); Total Protein 5.9 gm/dl (6.0-8.3)
[2023-05-31] MEDS: BUDESONIDE 0.5 MG/2 ML VIAL (PULMICORT) NEB SCH (07:44)
[2023-05-31] MEDS: FORMOTEROL 20 MCG/2 ML VIAL NEB SCH (07:44)
[2023-05-31] MEDS: SODIUM CHLOR 7% 4 ML NEB NEB SCH (07:44)
--- NOTE | 2023-05-31 08:40 | Pulmonology Progress Note ---
Date of Service May 31, 2023 Assessment & Plan (1) End stage COPD: (2) COVID-19: (3) Chronic dyspnea: Plan IMPRESSION: 67-year-old male with a significant past medical history of end- stage COPD who was admitted in the setting of acute COVID-19 infection with worsening dyspnea and hypoxia. RECOMMENDATIONS: 1. End-stage COPD - I had the pleasure of seeing this patient in the outpatient as well. He has been extensively evaluated from a pulmonary perspective from his end-stage COPD. He has been reluctant to undergo transplant evaluation, and had been declined secondary to continuation of chewing snuff. He is back to his baseline supplemental oxygen at 2 L nasal cannula at this point. He is not bronchospastic on exam. At this point, patient can be titrated down over the next several days to his baseline 5 mg prednisone. Continue with supplemental oxygen as needed. Close follow-up in the pulmonary outpatient in the next few weeks. Continue with AVAPS at night and with naps. Can transition back to his Trelegy at home which he prefers over nebulizers at this time. 2. COVID-19 Infection - Continues to improve. Appears to have resulted in an exacerbation of the patient's underlying severe COPD. Improving and nearing his baseline at this time. 3. Chronic Dyspnea - Likely secondary to #1. Has been extensively evaluated in the past. Continue with supplemental O2 as needed. Thank you for allowing us to participate in the care of this patient. Pulmonary medicine will sign off at this time. Please contact us directly with any further questions/concerns. Admission and Anticipated Discharge Date Admission Date: May 28, 2023 Subjective Patient was seen and evaluated at bedside this morning. He reports that he is persistently dyspneic. He does note that he is slightly improved from the time of admission, however. He reports a slight cough that is minimally productive. He reports that he did use the AVAPS machine overnight for approximately 2 hours. He does note that he felt better with using it, but was still a bit uncomfortable with the mask. Otherwise, we had an extensive conversation regarding management moving forward. Review of Systems Review of Systems: All systems reviewed and are unremarkable except as noted in HPI and below. Physical Exam Physical Exam: VITAL SIGNS - Vital signs and nursing notes were reviewed. GENERAL - 67-year-old male appearing his stated age who is in no acute distress. Communicates well with provider and answers questions appropriately. LUNGS - Chest wall evaluation demonstrates increased chest wall A:P diameter. Auscultation reveals delayed air entry without wheezes, rales, or rhonchi appreciated. CARDIAC - RRR with S1/S2. No murmur, rubs, or gallops appreciated. PSYCH - A&Ox3 and cooperates fully with examiner. Pt is very pleasant and interacts well with examiner. Results & Data Results & Data Vital Signs (Past 12 Hours) Vital Signs Temp Pulse Pulse Resp BP Pulse Ox O2 Del Method 05/31/23 07:44 101 H 20 92 Nasal Cannula 05/31/23 07:06 88 05/31/23 03:04 37.4 C 82 20 134/71 93 Nasal Cannula 05/30/23 22:50 78 20 95 05/30/23 22:47 90 05/30/23 22:42 36.5 C 84 20 131/79 94 Nasal Cannula O2 Flow Rate 05/31/23 07:44 2 05/31/23 07:06 05/31/23 03:04 2 05/30/23 22:50 2 05/30/23 22:47 05/30/23 22:42 2 PG Care Time/CCT Total # of Minutes Spent Total Time Spent with Patient: Total time spent is greater than 50% in coordination of care (as documented) at patient's floor/unit and/or counseling patient: Coding Level of Care Code 87744 SUB INP/OBS CARE 2/35MIN Diagnoses End stage COPD J44.9 COVID-19 U07.1 Chronic dyspnea R06.09
[2023-05-31] MEDS ORDERED: predniSONE 10 MG TABLET PO SCH (09:00)
[2023-05-31] MEDS: guaiFENesin 600 MG TABCR PO SCH (09:02)
[2023-05-31] MEDS: UMECLIDINIUM BROMIDE 62.5MCG/BLISTER 7 PUFFS/INHALER INH SCH (09:02)
[2023-05-31] MEDS: FUROSEMIDE 40 MG TAB PO SCH (09:03)
[2023-05-31] MEDS: PRAVASTATIN SOD 40 MG TAB PO SCH (09:03)
--- NOTE | 2023-05-31 13:22 | Discharge Summary ---
Discharge Summary Date of Service May 31, 2023 Notes For Next Care Provider Needs BiPAP set up through Pulmonology office as an outpatient Medication Changes From Visit Prednisone taper Started hypertonic saline nebs Admission HPI Per Admitting Provider Bisi is a 67 year old male with a PMH significant for end-stage COPD on 1 to 5 L nasal cannula chronically, on chronic steroid therapy and HFpEF who presented to the [facility] ED on 05/28 with complaints of URI symptoms and increased SOB than baseline. He remained stable on his baseline 2L NC, tachycardic ar 106, and otherwise stable. Labs were significant for a lymphocyte count of 0.72, VBG pH of 7.39 with pCO2 of 52, and pO2 of 21, and Covid 19 positive. Chest xray was read as "1. Emphysema without acute process. 2. Prior granulomatous disease. ". Prior to admission the patient was given an hour long albuterol treatment, a dose of Guaifenesin, 1L NSS, and 125 mg IV methylprednisolone. At the time of the exam the patient was sitting in bed in no acute distress with his son sitting bedside. He states that he started to develop a productive cough with white sputum, increased SOB, and significant BARCENAS compared to baseline symptoms 3 days ago. When asked, he states that he does not have a chronic cough at baseline, despite his end stage COPD. His oxygen has been stable at rest, but he states he is having to increase his O2 requirements with minimal exertion. He denies recent fever, chills, chest pain, hemoptysis, nausea, vomiting, diarrhea, dysuria, hematuria, melena, LE Swelling, and recent trauma. He had some improvement in symptoms with the initial treatment in the ED. I explained that he is high risk for clinical decline with his significant Pulmonary disease, he expressed understaging. We discussed code status, he confirms that he is a DNR/DNI. Please refer to Dr. Naidu's attestaion for any changes to the treatment plan Principal Dx & Hospital Course #1 = Principal Diagnosis (1) COVID-19: Patient admitted with shortness of breath and cough and found to have COVID-19 Patient does report increased shortness of breath with exertion. Home oxygen 2.5 L/min by nasal cannula and up to 4-5 L with exertion. Patient does have desaturation with ambulation Received IV steroids while inpatient and dc to home on po prednisone steroid taper back to home dose 5mg daily Pulm suggested trial of BiPAP and he tolerated it for 2 hours here. He is willing to use it again at nighttime only if cost affordbale. This can be arranged through outpt PULM office his abg on AM of discharge was 7.50/39/67 on 2LNC (2) Acute on chronic respiratory failure: COPD exacerbation secondary to COVID-19 infection Continue supplemental oxygen to maintain SpO2 between 88 and 92% Patient on home O2. Outpatient follow-up with pulmonary clinic steroid taper continue usual inhalers and added hypertonic saline (3) COPD exacerbation: Follows with Dr. Segura in the outpatient clinic PFTs from 12/08/2022 with severe obstructive lung dysfunction, air trapping, severe decrease in DLCO. * FVC 85% of predicted, FEV1 29% of predicted, FEV1/FVC 34% of predicted. RV 234% of predicted, TLC 134% of predicted, RV/TLC 175% of predicted, DLCOunc 26% of predicted with minimal improvement for alveolar volume to 34% of predicted Continue patient on ICS/LAMA/LABA Continue prednisone taper Follow-up in the outpatient clinic in 1 to 2 weeks Continue supplemental oxygen to maintain SpO2 between 88 and 92% Leukotriene inhibitor continues (4) Hyperglycemia: Most likely from steroids No history of diabetes mellitus Most recent hemoglobin A1c is from January 2022 which was 5.4% Plan Dispo-dc to home Discharge Exam Constitutional WD/WN, vitals as above Respiratory normal respiratory effort (some tachypnea with speaking full sentences) Auscultation: + diminished lung sounds (throughout); no crackles, no rhonchi and no wheezes Cardiovascular Rate/Rhythm: regular rate and regular rhythm Heart Sounds: no murmur Extremities: no edema Psychiatric A+Ox3, euthymic affect Updated Medication List Medication Instructions Recorded Confirmed Type cetirizine 10 mg tablet (Zyrtec) 10 mg PO DAILY PRN allergies 06/16/21 05/28/23 History guaifenesin 600 mg tablet, 600 mg PO BID #60 tabs 04/12/22 05/28/23 Rx extended release 12 hr (Mucinex) Oxygen Home #1 ea 04/14/22 05/26/23 Rx montelukast 10 mg tablet 10 mg PO HS #90 tabs 06/09/22 05/28/23 Rx (Singulair) azelastine 137 mcg (0.1 %) nasal 2 spray intranasal BID #30 mL 07/13/22 05/28/23 Rx spray aerosol potassium chloride 20 mEq 20 meq PO QAM #90 tabs 08/09/22 05/28/23 Rx tablet,extended release albuterol sulfate 90 mcg/actuation 2 puff inhalation Q6H PRN 01/10/23 05/28/23 Rx aerosol inhaler (Ventolin HFA) Shortness Of Breath Or Wheezing #18 grams fluticasone fur. 200 mcg-umeclid 1 inh inhalation DAILY #60 ea 04/18/23 05/28/23 Rx 62.5 mcg-vilant 25 mcg inhalat.powder (Trelegy Ellipta) furosemide 40 mg tablet 40 mg PO QAM #90 tabs 05/19/23 05/28/23 Rx pravastatin 40 mg tablet 40 mg PO QAM #90 tabs 05/19/23 05/28/23 Rx prednisone 5 mg tablet 5 mg PO DAILY #90 tabs 05/19/23 05/28/23 Rx ipratropium 0.5 mg-albuterol 3 mg See Rx Instructions .Route .COMPLEX 05/28/23 05/28/23 History (2.5 mg base)/3 mL nebulization soln azithromycin 250 mg tablet 250 mg PO DAILY #12 tabs 05/31/23 Rx prednisone 10 mg tablet 30 mg (3 x 10 mg) PO DAILY #12 tabs 05/31/23 Rx sodium chloride 7 % for 4 ml NEB BIDR #120 mL 05/31/23 Rx nebulization Hospital Stay Data Consultations 05/28/23 15:51 ED Decision to Admit Stat 05/28/23 16:18 Consult Pulmonology Routine 05/30/23 17:31 Consult Palliative Care Routine Pending Results Patient Have Any Pending Studies at Discharge: No Discharge Instructions Given to Patient (Per Discharging Provider) Finish out a taper of prednisone back to your usual dose of 5mg daily. The Mainframe Architect would like you to remain on azithromycin for 2 more days and then go to taking it regularly on Tuesday, Tuesday, and Fridays to prevent COPD exacerbation. The Pulmonology office can look into the cost of the BiPAP machine for your use at home. Total Time Total Time Spent Total Time Spent (In Minutes): 40 min Coding Level of Care Code 53754 INP/OBS DISCH >30 MIN Diagnoses COVID-19 U07.1 Acute on chronic respiratory failure J96.20 Respiratory failure complication: unspecified whether with hypoxia or hypercapnia COPD exacerbation J44.1 Hyperglycemia R73.9
--- NOTE | 2023-05-31 14:12 | Palliative Care Consultation ---
Date of Consultation May 31, 2023 Assessment & Plan (1) Dyspnea and respiratory abnormalities: Due to very severe COPD currently exacerbated by an active COVID infection. Patient has progressive and incurable lung disease. He has been evaluated for intervention such as lung transplantation and bronchoscopic lung volume reduction. He was referred to [facility] and ultimately deemed not a candidate due to current chewing tobacco abuse. He is not a candidate for bronchoscopic lung volume reduction due to severe low diffusion capacity and his diffuse homogenous emphysema pattern on CT. (2) Stage 4 very severe COPD by GOLD classification: Last PFT November 2022: very severe obstructive lung dysfunction with insignificant bronchodilator response. Air trapping. Very serious decrease in DLCO. Increased TLC with normal ERV. Pulm Med notes: "lung transplantation and bronchoscopic lung volume reduction. He was referred to [facility] and ultimately was not deemed a candidate as he is currently chewing tobacco. He is a poor candidate for bronchoscopic lung volume reduction due to his severely low diffusion capacity and his diffuse homogenous emphysema pattern on CT. He did not complete pulmonary rehab as an outpatient. He notes that he only went to 3 or 4 sessions. We discussed at length that he has end-stage COPD and his disease is progressive as evidenced by his frequent hospitalizations and worsening symptoms. He would benefit from a palliative care evaluation and possibly transitioning to hospice. I discussed with the hospitalist service who is going to request a palliative care consultation. I did refer the patient to outpatient palliative care medicine, but he never scheduled an appointment." (3) Acute on chronic respiratory failure with hypoxia and hypercapnia: (4) COVID-19: (5) Fatigue: Fatigue type: chronic, unspecified Qualified Code(s): R53.82 - Chronic fatigue, unspecified (6) Weakness generalized: (7) Palliative care by specialist: Met with pt/no family present. Provided overview of Palliative Medicine, a subspecialty that provides specialized medical care for people living with a serious illness by offering a focus on quality of life. Palliative Medicine is often conflated with hospice: I advised patient/family that Palliative and hospice can be partners but we are not the same. It is important to understand the difference so that we may be informed, and not afraid. Palliative Medicine works to improve QOL through reduction of symptom burden/more control over their illness, for both the patient and family. Palliative medicine clinicians are board certified, specially-trained and another member of the patient's medical care team. We often provide an extra layer of support because our care is based on the needs of the patient, not the prognosis; as such, it's appropriate at any age/advancing stage of a serious illness and can be provided along with curative treatment. Palliative Medicine clinicians are also trained in advanced communication methodologies, to facilitate complex discussions about advanced illness planning, which are needed to help assure that the treatment choices match the patient's goals, aka delivering Goal Concordant care. Finally, we discussed that hospice is a visiting nurse service that focuses on care delivered at the very end of life for patients with terminal illness, with life expectancy less than 6 month. (8) Advanced care planning/counseling discussion: I met with Mr. Durbin [id number] at the bedside in his COVID isolation room for 40 minutes. There was no other family present. We had a long and detailed discussion regarding advanced illness planning. He tells me he has been planning for the progression of his illness and overall needs for the better part of the last decade. He moved here from [facility] to live with his son and family as his lung disease was worsening. He feels he has very good support at home currently with his family. He feels he is also attended to his legal and financial matters and "tied up all my loosens as best as I can." He tells me that his brother also from COPD and he watched that process happened over the years. He feels he has a very good understanding of the progressive nature of the disease, the symptoms that he evolve, and what to expect if things worsen. At this moment he continues to feel that he has a reasonable quality of life. He is happy with his current level of functionality. He has purchased his own oxygen concentrator's, his own Inogen device, and is seeking to add NIV to his home regimen which he has benefited from significantly through this admission.[facility] is working on this approval for him. He had many questions about the cost of NIV/monthly charges etc and I asked him to follow up with CM for those issues. Although Mr. Durbin is very severe disease demonstrated on pulmonary function testing, he continues to feel that his disease and is in a more moderate to severe stage and he is "handling things as well as possible." He does not feel that he needs any additional assistance or changes to his plan of care. He wishes to continue on the current regimen of inhalers, nebulizers and have noninvasive ventilation support added at home. He is pleased with his current portable oxygen and oxygen concentrator set up at home. He does not feel that any of that needs to be modified except for possibly the flow rate of oxygen for which she will require an ambulatory oximetry study prior to discharge given that he has an acute exacerbation due to his COVID. He is not interested in rehab. He was previously referred to pulmonary rehabilitation and attended just a handful of sessions before deciding not to go back. He is very open about the fact that those types of interventions "are not for me." He is not interested in any interventions or supplemental resource support at home through hospice.We discussed the goals of hospice as a patient service and the goals of care; we discussed EOL trajectories and transitions margie the emotional impact of realizing mortality as a concrete reality from prior abstract considerations. Pt was reassured that no matter where they are along this trajectory, they are not alone - their medical team will remain by their side through their journey. Discussed the pros/cons of accepting help when espec ially weakened and distressed by pain-which would also help provide relief/decrease caregiver burden/strain. Plan * Ambulatory oximetry prior to discharge to assure that he is on the right amount of exertional oxygen support * Noninvasive ventilation to be arranged through care management, please see their note for additional details * I offered patient ongoing follow-up in outpatient palliative medicine clinic and provided him with my business card and contact information. Advised him that I could help with ongoing symptom management due to the burden of progressive and incurable lung disease. He excepted this information and thanked me for my time, stated he will call if he feels it would be helpful or necessary. * Patient is decisionally intact. He is very clear that right now he is not interested in supportive resources such as hospice at this time. He continues to feel he is a very reasonable quality of life and good support at home which makes everything manageable. He is not seeking to change his current plan of care or medication regimens. He does not want to stop anything that he is on or modify any therapies, other than to add noninvasive ventilation to his home regimen. * He is a very strong grasp of the progressive nature of COPD especially as it reaches its end stages from his experience with his older brother. He tells me he has done all that he can to make arrangements for his affairs as his disease progresses and feels that he has had sudarshan conversations with his family. He has elected and reaffirms DNR/DNI election. He knows that he would not survive prolonged ventilatory support nor would he likely successfully liberate from ventilator at this stage of very advanced lung disease. He does not wish to stop his tobacco use and defines that is something that adds to his quality of life. Thank you for allowing us to participate in the ongoing care of this patient. Please don't hesitate to call or page with any additional concerns. Dr. Toshia Montez DNP Director, Palliative Care History of Present Illness Reason for Consultation: adv COPD, GOC Attending Physician: Brit Almazan MD Allergies Allergy/AdvReac Type Severity Reaction Status Date / Time codeine AdvReac Unknown Rash Verified 05/28/23 14:53 Sulfa (Sulfonamide AdvReac Unknown Rash Verified 05/28/23 14:53 Antibiotics) Home Medications Medication Instructions Recorded Confirmed Type cetirizine 10 mg tablet (Zyrtec) 10 mg PO DAILY PRN allergies 06/16/21 05/28/23 History guaifenesin 600 mg tablet, 600 mg PO BID #60 tabs 04/12/22 05/28/23 Rx extended release 12 hr (Mucinex) Oxygen Home #1 ea 04/14/22 05/26/23 Rx montelukast 10 mg tablet 10 mg PO HS #90 tabs 06/09/22 05/28/23 Rx (Singulair) azelastine 137 mcg (0.1 %) nasal 2 spray intranasal BID #30 mL 07/13/22 05/28/23 Rx spray aerosol potassium chloride 20 mEq 20 meq PO QAM #90 tabs 08/09/22 05/28/23 Rx tablet,extended release albuterol sulfate 90 mcg/actuation 2 puff inhalation Q6H PRN 01/10/23 05/28/23 Rx aerosol inhaler (Ventolin HFA) Shortness Of Breath Or Wheezing #18 grams fluticasone fur. 200 mcg-umeclid 1 inh inhalation DAILY #60 ea 04/18/23 05/28/23 Rx 62.5 mcg-vilant 25 mcg inhalat.powder (Trelegy Ellipta) furosemide 40 mg tablet 40 mg PO QAM #90 tabs 05/19/23 05/28/23 Rx pravastatin 40 mg tablet 40 mg PO QAM #90 tabs 05/19/23 05/28/23 Rx prednisone 5 mg tablet 5 mg PO DAILY #90 tabs 05/19/23 05/28/23 Rx ipratropium 0.5 mg-albuterol 3 mg See Rx Instructions .Route .COMPLEX 05/28/23 05/28/23 History (2.5 mg base)/3 mL nebulization soln azithromycin 250 mg tablet 250 mg PO DAILY #12 tabs 05/31/23 Rx prednisone 10 mg tablet 30 mg (3 x 10 mg) PO DAILY #12 tabs 05/31/23 Rx sodium chloride 7 % for 4 ml NEB BIDR #120 mL 05/31/23 Rx nebulization Patient History Medical History COVID-19 Acute pneumonia Chronic obstructive pulmonary disease with hypoxia End stage COPD Elevated troponin COPD exacerbation Pneumonia SOB (shortness of breath) Respiratory distress Chronic dyspnea Chronic hypoxemic respiratory failure Chronic obstructive pulmonary disease Former smoker Non-ST elevation CA (NSTEMI) COPD with acute exacerbation Surgical History S/P inguinal hernia repair History of cataract surgery History of knee surgery Family History Sister Breast cancer Brother Lung disease Other Myocardial infarction Denies family history of Colon cancer Ovarian cancer Prostate cancer Social History Smoking Status: Former smoker Tobacco Type: Cigarettes Age Started Using Tobacco: 22; Age Quit Using Tobacco: 57; packs per day: 2; Second Hand Exposure: No; Do You Dip or Chew Tobacco: No; Hx Alcohol Use: Yes Alcohol type: beer Hx Substance Use: No Preferred Language: [place] Communication Ability: Effective Visual Impairment: No Limitations Hearing Ability: Hard of Hearing Technical Manager Required: No Beliefs That Will Affect Care: None marital status: Single Current Living Situation: Family current occupational status: disabled Feels Safe at Home: Yes Childhood Exposure to Second-Hand Smoke: Yes Diet: regular Diet Comment: regular Dental Care, Regularly: No Physical Activity Frequency: Does not Exercise Seatbelt Use: always Sunscreen Use: Yes Assistive Devices: Oxygen - Continuous Review of Systems Review of Systems: All systems reviewed & are unremarkable except as noted in Subjective Physical Exam Constitutional: + ill appearing, + physical limitations, + frail appearing, well groomed and + underweight Eyes: PERRL, conjunctivae normal, anicteric sclerae ENMT: Mouth: + dry oral mucous membranes and + poor dentition Neck: normal visual inspection and trachea midline Respiratory: + labored breathing, + uses accessory mu scles, + cough, able to speak in complete sentences, + prolonged expiratory phase and + pursed lip breathing Auscultation: + diminished lung sounds and + rhonchi Cardiovascular: Rate/Rhythm: + tachycardic Gastrointestinal (Abdomen): normal bowel sounds, soft, nontender, no hepatosplenomegaly Musculoskeletal: deconditioning+ Skin: + turgor decreased, + ecchymosis and + p allor +clubbing nails Neurologic: PERRL, EOMI, accommodation nl, no face palsy, no dysarthria AAOx3 Results & Data Vital Signs (Past 12 Hours) Vital Signs Temp Pulse Pulse Resp BP BP Pulse Ox 05/31/23 13:22 37.4 C 103 H 19 113/74 118/91 94 05/31/23 12:51 37.4 C 103 H 19 113/74 94 05/31/23 09:44 05/31/23 07:44 101 H 20 92 05/31/23 07:06 88 05/31/23 03:04 37.4 C 82 20 134/71 93 O2 Del Method O2 Flow Rate 05/31/23 13:22 05/31/23 12:51 Nasal Cannula 2 05/31/23 09:44 Nasal Cannula 2 05/31/23 07:44 Nasal Cannula 2 05/31/23 07:06 05/31/23 03:04 Nasal Cannula 2 Laboratory Results data reviewed Diagnostic Findings PFT done 12/08/2022: Very severe obstructive ventilatory dysfunction confirmed by decrease in FEV1/FVC ratio. There is insignificant response to bronchodilators. There is evidence of significant air trapping confirmed by increased RV and RV/TLC ratio. There is increased TLC with normal ERV. Diffusion capacity reveals a very severe decrease in the DLCO which does not correct for alveolar volume. Overall assessment is very severe obstructive lung dysfunction with insignificant bronchodilator response. Air trapping. Very serious decrease in DLCO. Increased TLC with normal ERV. PFT done 07/06/2022: Very severe airflow obstruction with no significant postbronchodilator response. Lung volumes suggest severe air trapping. DLCO severely reduced. PG Care Time/CCT Total # of Minutes Spent Total Time Spent: 105 Total Time Spent with Patient: Total time spent is greater than 50% in coordination of care (as documented) at patient's floor/unit and/or counseling patient: I spent 105 minutes overall addressing this case: 20 min in medical data review/discussion with referring p leobardo(s) and/or preparation for the visit 20 min in direct interaction with the patient/exam 40 min in Advance Care Planning/Goals of Care discussions as detailed above in note (must be >16min) 10 min in subsequent review and synthesis of assessment and plan 15 min communicating with other providers regarding the patient's case: nursing, primary team, CM Advanced Care Planning 82954 Advanced Care Planning 30 Min [id number] Advanced Care Planning Additional 30 [place] [address] IN/OBS CONSULT LVL 5,80M Patient Type New History Comprehensive Exam Comprehensive Medical Decision Making High Complexity Diagnoses Dyspnea and respiratory abnormalities R06.00; R06.89 Stage 4 very severe COPD by GOLD classification J44.9 Acute on chronic respiratory failure with hypoxia and hypercapnia J96.21; J96.22 COVID-19 U07.1 Chronic fatigue R53.82 Fatigue type: chronic, unspecified Weakness generalized R53.1 Palliative care by specialist Z51.5 Advanced care planning/counseling discussion Z71.89 Additional Codes Advanced Care Planning - 97936 Advanced Care Planning 30 Min: [id number] Advanced Care Planning 30 Min ([id number]) Advanced Care Planning - 52575 Advanced Care Planning Additional 30 Min: [id number] A dvanced Care Planning Additional 30 Min ([id number])
== END 2023-05-31 16:30 | disposition home or self-care (01) | DRG 177 ==
LOC: ED 09:34 → SUATTDRO 15:53 → EDINP 15:53 → INTOOBSV 15:53 → 2E 17:42 → UNDODISIN 05-31 15:04

== ENCOUNTER 2024-07-29 19:39 | Inpatient (IN) ==
[2024-07-29 20:35] LABS: Basophils # (auto) 0.05 K/uL (0.00-0.20); Basophils % (auto) 0.2 %; Eosinophils # (auto) 0.08 K/uL (0.00-0.50); Eosinophils % (auto) 0.3 %; Hemoglobin 17.2 g/dl (14.0-18.0); Immature Granulocytes # (auto) 0.16 K/uL (0.01-0.20); Immature Granulocytes % (auto) 0.7 %; Lymphocytes # (auto) 2.31 K/uL (1.20-3.40); Lymphocytes % (auto) 9.5 %; Mean Corpuscular Hemoglobin 31.4 pg (25.0-34.0); Mean Corpuscular Hgb Conc 33.7 g/dL (32.0-36.0); Mean Corpuscular Volume 93.2 fL (80.0-100.0); Mean Platelet Volume 9.4 fL (9.4-12.4); Monocytes # (auto) 2.18 K/uL (0.11-0.59); Neutrophils # (auto) 19.55 K/uL (1.40-6.50); Neutrophils % (auto) 80.3 %; Platelet Count 278 K/uL (130-400); RDW Coefficient of Variation 13.1 % (11.5-14.5); RDW Standard Deviation 44.3 fL (36.4-46.3); Red Blood Count 5.47 M/uL (4.70-6.10); White Blood Count 24.33 K/ul (4.8-10.8)
[2024-07-29 20:44] LABS: Albumin Globulin Ratio 1.6 (0.9-2); Albumin Level 4.6 gm/dl (3.4-5.0); BUN Creatinine Ratio 12.4 (10-20); Bilirubin,Total 0.9 mg/dl (0.2-1.0); Calcium 9.8 mg/dl (8.6-10.3); Creatinine Clr Calc Pharmacy 47.9 ml/min; Globulin 2.9 gm/dl (2.5-4.0); Potassium 3.7 mmol/L (3.5-5.1); Total Protein 7.5 gm/dl (6.0-8.3)
[2024-07-29 20:51] LABS: Troponin I High Sensitivity 8.5 pg/ml (0-20)
[2024-07-29] MEDS: ALBUT/IPRATROP 3MG/0.5MG NEB 3 ML VIAL NEB STA (21:04)
[2024-07-29 21:22] LABS: Adenovirus PCR Not Detected (NotDetected); Bordetella parapertussis PCR Not Detected (NotDetected); Bordetella pertussis PCR Not Detected (NotDetected); Chlamydia pneumoniae PCR Not Detected (NotDetected); Coronavirus 229E PCR Not Detected (NotDetected); Coronavirus CoV-2 (COVID19)PCR Not Detected (NotDetected); Coronavirus HKU1 PCR Not Detected (NotDetected); Coronavirus NL63 PCR DETECTED (NotDetected); Coronavirus OC43PCR Not Detected (NotDetected); Human Metapneumovirus PCR Not Detected (NotDetected); Influenza A PCR Not Detected (NotDetected); Influenza B PCR Not Detected (NotDetected); Mycoplasma pneumoniae PCR Not Detected (NotDetected); Parainfluenza Virus 1 PCR Not Detected (NotDetected); Parainfluenza Virus 2 PCR Not Detected (NotDetected); Parainfluenza Virus 3 PCR Not Detected (NotDetected); Parainfluenza Virus 4 PCR Not Detected (NotDetected); Respiratory Syncytial VirusPCR Not Detected (NotDetected); Rhinovirus/Enterovirus PCR Not Detected (NotDetected)
--- NOTE | 2024-07-29 21:34 | XRay Report ---
Exam(s): XR CXR 1 VIEW EXAM: XR Chest, 1 View CLINICAL HISTORY: Reason for exam: Dyspnea. TECHNIQUE: Frontal view of the chest. COMPARISON: 05/28/2023 FINDINGS: Lungs: Emphysematous changes. Atelectasis at the lung bases. No consolidation or interstitial edema. Pleural space: No pleural effusion. No pneumothorax. Heart: Unremarkable. No cardiomegaly. IMPRESSION: Emphysematous changes. Atelectasis at the lung bases. No consolidation or interstitial edema. Electronically signed by: Ken Amaral MD 07/29/24 21:33 PM
--- NOTE | 2024-07-29 22:04 | Emergency Department Note ---
Impression & Plan Acute hypoxic respiratory failure, Coronavirus infection, Upper respiratory infection, viral ED Provider Note NAME: HERO ORTEGA III AGE: 68 SEX: M : 1955 ARRIVES VIA: Walk-In INFORMANT: Patient, ED PROVIDER(S): Tanya Mirza MD CHIEF COMPLAINT: Shortness of breath HPI: This is 68-year-old male present for shortness of breath. Patient states that the past 5 to 7 days he has had increasing shortness of breath. He had a constellation of chills, diarrhea and weakness. He reports to 2.5 L nasal cannula normally and 3.5 when he walks. He notes that over the past 1 day he has noted increasing shortness of breath and desaturations to about 82% when walking to the bathroom and back. He reports increasing weakness without chest pain. No nausea or vomiting recently. He has a severe COPD as per son. ROS: See above HPI for pertinent positives & negatives. A total of 10 systems reviewed and were otherwise negative. PAST MEDICAL HISTORY: See Below PAST SURGICAL HISTORY: See Below FAMILY HISTORY: See Below SOCIAL HISTORY: See Below HOME MEDICATIONS: See Below ALLERGIES: See Below VITALS: See Below PHYSICAL EXAMINATION: General: resting comfortably in no acute distress Head: Normocephalic and atraumatic Eyes: Normal inspection, extraocular muscles intact Ear, nose, throat: Normal external exam Neck: Normal range of motion normal QRS normal AR normal axis Respiratory: Rhonchi with slight expiratory wheeze Cardiovascular: Regular rate/rhythm, no murmur GI: soft, nontender, no guarding or rebound Extremities: nontender, moves all extremities normal QTc Neuro: The patient awake and alert, appropriately conversive, no focal deficits, symmetric faces Skin: Warm, dry, and intact MEDICAL DECISION MAKING: This is a 68-year-old male with severe COPD presenting for shortness of breath. Patient does have some of the congestion in his chest. Otherwise he appears to have a fever and symptoms of URI/pneumonia. -Leukocytosis 24.33 at this time. Otherwise electrolytes within normal limits. -Patient positive for coronavirus NL 63 -Chest x-ray is reviewed as emphysematous changes with atelectasis at the lung bases, no consolidation or edema -Patient significantly hypoxic, given albuterol treatments here. Will admit for URI requiring extra oxygen and acute hypoxic respiratory failure -Care discussed with Dr. Rivas for admission Differential diagnosis: URI, pneumonia, COPD, PE Independent History obtained from: Son Diagnostics interpreted by me: ECG: None Cardiac Monitoring: An order was placed for continuous cardiac monitoring. The monitor shows a rate of 90 with sinus rhythm. Past Med/Surg History Problem List (Updated 07/30/24 @ 01:44 by Tanya Mirza MD) Upper respiratory infection, viral (Acute) Coronavirus infection (Acute) Acute hypoxic respiratory failure (Acute) Leukocytosis Coronavirus infection End stage COPD Acute and chronic respiratory failure with hypoxia Advanced care planning/counseling discussion Palliative care by specialist Weakness generalized Stage 4 very severe COPD by GOLD classification (Chronic) Last PFT November 2022: very severe obstructive lung dysfunction with insignificant bronchodilator response. Air trapping. Very serious decrease in DLCO. Increased TLC with normal ERV. 05/30/23 Pulm Med notes: "lung transplantation and bronchoscopic lung volume reduction. He was referred to [facility] and ultimately was not deemed a candidate as he is currently chewing tobacco. He is a poor candidate for bronchoscopic lung volume reduction due to his severely low diffusion capacity and his diffuse homogenous emphysema pattern on CT. He did not complete pulmonary rehab as an outpatient. He notes that he only went to 3 or 4 sessions. We discussed at length that he has end-stage COPD and his disease is progressive as evidenced by his frequent hospitalizations and worsening symptoms. He would benefit from a palliative care evaluation and possibly transitioning to hospice. I discussed with the hospitalist service who is going to request a palliative care consultation. I did refer the patient to outpatient palliative care medicine, but he never scheduled an appointment." Solitary pulmonary nodule on lung CT Acute pneumonia Diastolic heart failure (Chronic) Vitamin D deficiency (Chronic) Stasis dermatitis (Chronic) Allergic rhinitis (Chronic) Multiple pulmonary nodules determined by computed tomography of lung (Chronic) Hypomagnesemia (Chronic) Hypokalemia (Chronic) Hyperlipidemia (Chronic) Edema (Chronic) Aortic root dilatation (Chronic) Aortic valve insufficiency (Chronic) Diastolic dysfunction (Chronic) Steroid dependence Acute on chronic respiratory failure with hypoxia and hypercapnia Left shoulder pain LVH (left ventricular hypertrophy) (Chronic) Excessive thirst Fatigue Occupational lung disease Left rotator cuff tear arthropathy Anemia Medical History Pneumonia due to COVID-19 virus Necrotizing granulomatous inflammation of lung Chronic obstructive pulmonary disease with hypoxia End stage COPD Elevated troponin Pneumonia SOB (shortness of breath) Respiratory distress Chronic dyspnea Chronic hypoxemic respiratory failure Chronic obstructive pulmonary disease Former smoker Non-ST elevation DE (NSTEMI) COPD with acute exacerbation Surgical History S/P inguinal hernia repair History of cataract surgery History of knee surgery Family History Sister Breast cancer Brother Lung disease Other Myocardial infarction Denies family history of Colon cancer Ovarian cancer Prostate cancer Social History Smoking Status: Former smoker Tobacco Type: Cigarettes Age Started Using Tobacco: 22; Age Quit Using Tobacco: 57; packs per day: 2; Second Hand Exposure: No; Do You Dip or Chew Tobacco: No; Hx Alcohol Use: Yes Alcohol type: beer Hx Substance Use: No Preferred Language: Tongan Communication Ability: Effective Visual Impairment: No Limitations Hearing Ability: Hard of Hearing School Counselor Required: No Beliefs That Will Affect Care: None marital status: Single Current Living Situation: Family current occupational status: disabled Feels Safe at Home: Yes Childhood Exposure to Second-Hand Smoke: Yes Diet: regular Diet Comment: regular Dental Care, Regularly: No Physical Activity Frequency: Does not Exercise Seatbelt Use: always Sunscreen Use: Yes Assistive Devices: Oxygen - Continuous Allergies Allergies Allergy/AdvReac Type Severity Reaction Status Date / Time codeine AdvReac Unknown Rash Verified 07/26/24 16:00 Sulfa (Sulfonamide AdvReac Unknown Rash Verified 07/26/24 16:00 Antibiotics) Home Meds Home Medications Medication Instructions Recorded Confirmed cetirizine 10 mg tablet (Zyrtec) 10 mg PO DAILY PRN allergies 06/16/21 07/30/24 ipratropium bromide 21 mcg (0.03 2 spray intranasal BID 03/13/24 07/30/24 %) nasal spray Previous Rx's Medication Instructions Recorded guaifenesin 600 mg tablet, 600 mg PO BID #60 tabs 04/12/22 extended release 12 hr (Mucinex) Oxygen Home #1 ea 04/14/22 albuterol sulfate 90 mcg/actuation 2 puff inhalation Q6H PRN 01/10/23 aerosol inhaler (Ventolin HFA) Shortness Of Breath Or Wheezing #18 grams potassium chloride 20 mEq 20 meq PO QAM #90 tabs 07/20/23 tablet,extended release montelukast 10 mg tablet 10 mg PO HS PRN allergy symptoms 08/16/23 (Singulair) #90 tabs prednisone 5 mg tablet 5 mg PO DAILY #90 tabs 02/14/24 fluticasone fur. 200 mcg-umeclid 1 inh inhalation DAILY #60 ea 06/20/24 62.5 mcg-vilant 25 mcg inhalat.powder (Trelegy Ellipta) furosemide 40 mg tablet 40 mg PO QAM #90 tabs 07/05/24 pravastatin 40 mg tablet 40 mg PO QAM #90 tabs 07/06/24 Results & Data (ED) Vital Signs Vital Signs - 24 hr 07/29/24 19:41 07/29/24 19:48 07/29/24 19:48 Temperature 38.2 C H Temperature Source Temporal Artery Scan Pulse Rate 109 H Pulse Rate [Left Finger] Respiratory Rate 22 Respiratory Effort / Characteristics Short of Breath Labored Respiratory Depth Respiratory Pattern Blood Pressure [Left Arm] Blood Pressure Mean [Left Arm] Pulse Oximetry 87 L Oxygen Delivery Method Nasal Cannula Nasal Cannula Nasal Cannula Oxygen Flow Rate 3 2.5 2.5 Sepsis Recent Fever Within 48 Hours No Sepsis New/Unexplained Change in Mental Status No Sepsis Action Taken by Nursing No Action Required 07/29/24 19:53 07/29/24 19:57 07/29/24 20:13 Temperature 36.9 C Temperature Source Oral Pulse Rate 108 H 104 H Pulse Rate [Left Finger] 108 H Respiratory Rate 19 19 Respiratory Effort / Characteristics Non-Labored Spontaneous Respiratory Depth Normal Respiratory Pattern Regular Blood Pressure [Left Arm] 170/98 H Blood Pressure Mean [Left Arm] 122 Pulse Oximetry 92 99 Oxygen Delivery Method Nasal Cannula Oxymask Oxygen Flow Rate 6 6 Sepsis Recent Fever Within 48 Hours Sepsis New/Unexplained Change in Mental Status Sepsis Action Taken by Nursing 07/29/24 23:50 Temperature Temperature Source Pulse Rate 90 Pulse Rate [Left Finger] Respiratory Rate Respiratory Effort / Characteristics Respiratory Depth Respiratory Pattern Blood Pressure [Left Arm] Blood Pressure Mean [Left Arm] Pulse Oximetry Oxygen Delivery Method Oxygen Flow Rate Sepsis Recent Fever Within 48 Hours Sepsis New/Unexplained Change in Mental Status Sepsis Action Taken by Nursing Laboratory Data 07/29/24 19:56 07/29/24 19:56 Lab Results 07/29/24 07/29/24 Range/Units 19:56 Unknown WBC 24.33 H (4.8-10.8) K/ul RBC 5.47 (4.70-6.10) M/uL Hgb 17.2 (14.0-18.0) g/dl Hct 51.0 (42.0-52.0) % MCV 93.2 (80.0-100.0) fL MCH 31.4 (25.0-34.0) pg MCHC 33.7 (32.0-36.0) g/dL RDW Std Deviation 44.3 (36.4-46.3) fL RDW Coeff of Trent 13.1 (11.5-14.5) % Plt Count 278 (130-400) K/uL MPV 9.4 (9.4-12.4) fL Immature Gran % (Auto) 0.7 % Neut % (Auto) 80.3 % Lymph % (Auto) 9.5 % Reeves % (Auto) 9.0 % Eos % (Auto) 0.3 % Baso % (Auto) 0.2 % Neut # (Auto) 19.55 H (1.40-6.50) K/uL Lymph # (Auto) 2.31 (1.20-3.40) K/uL Reeves # (Auto) 2.18 H (0.11-0.59) K/uL Eos # (Auto) 0.08 (0.00-0.50) K/uL Baso # (Auto) 0.05 (0.00-0.20) K/uL Immature Gran # (Auto) 0.16 (0.01-0.20) K/uL Sodium 138 (136-145) mmol/L Potassium 3.7 (3.5-5.1) mmol/L Chloride 102 (98-107) mmol/L Carbon Dioxide 28 (21-32) mmol/L Anion Gap 8 (3-11) BUN 17 (6-23) mg/dl Creatinine 1.37 (0.6-1.4) mg/dl Est Cr Clr Drug Dosing 47.9 ml/min eGFR 56.89 BUN/Creatinine Ratio 12.4 (10-20) Glucose 93 (70-99(Fasting)) mg/dl Calcium 9.8 (8.6-10.3) mg/dl Total Bilirubin 0.9 (0.2-1.0) mg/dl AST 15 (13-39) U/L ALT 15 (7-52) U/L Alkaline Phosphatase 83 (34-104) U/L Troponin I High Sens 8.5 (0-20) pg/ml B-Natriuretic Peptide 62 (0-100) pg/ml Total Protein 7.5 (6.0-8.3) gm/dl Albumin 4.6 (3.4-5.0) gm/dl Globulin 2.9 (2.5-4.0) gm/dl Albumin/Globulin Ratio 1.6 (0.9-2) Adenovirus (PCR) Not Detected (NotDetected) B. pertussis DNA (PCR) Not Detected (NotDetected) B.parapertussis DNA PCR Not Detected (NotDetected) C. pneumoniae DNA (PCR) Not Detected (NotDetected) Coronavirus OC43 (PCR) Not Detected (NotDetected) Coronavirus HKU1 (PCR) Not Detected (NotDetected) Coronavirus 229E (PCR) Not Detected (NotDetected) SARS-CoV-2 (PCR) Not Detected (NotDetected) Coronavirus NL63 (PCR) DETECTED A (NotDetected) Human Metapneumovir PCR Not Detected (NotDetected) Influenza Type A (PCR) Not Detected (NotDetected) Influenza Type B (PCR) Not Detected (NotDetected) M. pneumoniae (PCR) Not Detected (NotDetected) Parainfluenza 1 (PCR) Not Detected (NotDetected) Parainfluenza 2 (PCR) Not Detected (NotDetected) Parainfluenza 3 (PCR) Not Detected (NotDetected) Parainfluenza 4 (PCR) Not Detected (NotDetected) RSV (PCR) Not Detected (NotDetected) Entero/Rhino (PCR) Not Detected (NotDetected) Administered Medications Azithromycin 500 mg/ Sodium (Chloride) 255 mls @ 127.5 mls/hr IV NOW STA Stop: 07/30/24 01:45 Last Admin: 07/30/24 00:07 Dose: 127.5 mls/hr Documented By: TJS Discontinued Medications Albuterol (Albut/Ipratrop 3mg/0.5mg Neb 3 Ml Vial) 3 ml NEB NOW STA; Protocol Stop: 07/29/24 20:55 Last Admin: 07/29/24 21:04 Dose: 3 ml Documented By: VINI Methylprednisolone (Methylprednisolone 125 Mg/2 Ml Vial) 40 mg IV NOW STA Stop: 07/29/24 22:39 Last Admin: 07/29/24 22:57 Dose: 40 mg Documented By: VINI Imaging Data Radiologist's Impression: Chest X-Ray 07/29/24 20:13 Exam(s): XR CXR 1 VIEW EXAM: XR Chest, 1 View CLINICAL HISTORY: Reason for exam: Dyspnea. TECHNIQUE: Frontal view of the chest. COMPARISON: 05/28/2023 FINDINGS: Lungs: Emphysematous changes. Atelectasis at the lung bases. No consolidation or interstitial edema. Pleural space: No pleural effusion. No pneumothorax. Heart: Unremarkable. No cardiomegaly. IMPRESSION: Emphysematous changes. Atelectasis at the lung bases. No consolidation or interstitial edema. Electronically signed by: Ken Amaral MD 07/29/24 21:33 PM Discharge Plan Visit Data Chief Complaint: Shortness of Breath/Dyspnea Stated Complaint: SOB, COUGH, SCRATCHY/ITCHY EYES, MUCOUS, COPD ED Provider: Tanya Mirza Discharge Problem: Acute hypoxic respiratory failure, Coronavirus infection, Upper respiratory infection, viral Forms Stand Alone Forms: [facility] [employer] Prescriptions Prescriptions: No Action guaifenesin [Mucinex] 600 mg tablet extended release 12hr 600 mg PO BID Qty: 60 0RF (DME) Oxygen Home Liters Per Minute See Rx Instructions .ROUTE .MEDSUPPLY Qty: 1 0RF Dose Instruction: As directed Rx Instructions: 1-4L nasal cannula continuously albuterol sulfate [Ventolin HFA] 90 mcg/actuation HFA aerosol inhaler 2 puff inhalation Q6H PRN (Reason: Shortness Of Breath Or Wheezing) Qty: 18 5RF potassium chloride 20 mEq tablet extended release 20 meq PO QAM Qty: 90 3RF montelukast [Singulair] 10 mg tablet 10 mg PO HS PRN (Reason: allergy symptoms) Qty: 90 3RF prednisone 5 mg tablet 5 mg PO DAILY Qty: 90 1RF Trelegy Ellipta 200-62.5-25 mcg blister with device 1 inh inhalation DAILY Qty: 60 5RF furosemide 40 mg tablet 40 mg PO QAM Qty: 90 3RF pravastatin 40 mg tablet 40 mg PO QAM Qty: 90 3RF cetirizine [Zyrtec] 10 mg tablet 10 mg PO DAILY PRN (Reason: allergies) ipratropium bromide 21 mcg (0.03 %) spray,non-aerosol 2 spray intranasal BID Rx Instructions: administer into each nostril Referrals Referrals: Reece Lambert III, CRNP [Primary Care Provider] -
--- NOTE | 2024-07-29 22:13 | History & Physical Report ---
Date of Service July 29, 2024 Assessment & Plan (1) Acute and chronic respiratory failure with hypoxia: (2) End stage COPD: (3) Coronavirus infection: (4) Leukocytosis: Plan Patient is a 68-year-old male with past medical history of end-stage COPD on chronic oxygen, hypertension, hyperlipidemia. Patient presents with worsening dyspnea, cough with sputum production, chills, weakness x 7 days. He tested positive for coronavirus NL 63 on bio fire in ED and was placed on an oxime mask for an oxygen level of 87% on his baseline home oxygen. He is being admitted for acute on chronic hypoxemic respiratory failure and a COPD exacerbation requiring IV steroids. #copd exacerbation/acute on chronic hypoxemic respiratory failure/coronavirus NL63 CXR showed emphysematous changes and atelectasis positive for coronavirus NL 63 on BioFire on oxy mask 6L on admission Isolation precautions Continue home inhalers sputum cultures ordered - hx of pansensitive h influ, strep pneumo, and Stenotrophomonas maltophilia azithromycin IV started on admission Solu-Medrol 40 Q8H, attempt to titrate down when clinically indicated - History of hyperglycemia with IV steroid use, stable on admission however monitor - PPI ordered with high dose steroid use duonebs (schedule and prn), flutter valve QID, incentive spirometry, Mucinex, Tessalon perles Promote oral hydration wean oxygen as tolerated to baseline 2.5L at rest and 3.5L on exertion hold Lasix with acute infection #leukocytosis WBC 24.33 with neutrophil predominance on admission (intermittently elevated chronically) does not appear septic on admission, VSS, afebrile On chronic prednisone 5 Mg daily - suspect cause of leukocytosis Anticipate to remain elevated with IV steroids as above Trend CBC Chronic stable diagnoses: HLD - continue statin HTN - holding lasix with acute infection VTE ppx: SCDs Diet: regular Dispo: PCU Admission and Anticipated Discharge Date Admission Date: 07/29/24 History of Present Illness Chief Complaint: dyspnea Primary Care Provider: Reece Lambert, BERHANE, BRIDGER Patient is a 68-year-old male with past medical history of end-stage COPD on chronic oxygen, hypertension, hyperlipidemia. Patient presents with worsening dyspnea, cough with sputum production, chills, weakness x 7 days. He tested positive for coronavirus NL 63 on bio fire in ED and was placed on an oxime mask for an oxygen level of 87% on his baseline home oxygen. He is being admitted for acute on chronic hypoxemic respiratory failure and a COPD exacerbation requiring IV steroids. Patient seen at bedside. He stated for the past 7 to 8 days he has had increased dyspnea on exertion and at risk with a much increased recovery time. He chronically uses 2.5L at rest and 3.5L on exertion of nasal cannula oxygen. He also endorses a cough with some sputum production that is light brown, however stated his cough and sputum production is much better than his previous COPD exacerbations. He endorses feeling feverish and with chills. He also endorses some bowel incontinence with his coughing fits however denies any di arrhea or loose watery stools. He also endorses weakness. He stated he fell like he was wheezy earlier but the DuoNeb resolved that in the ED. He did see his PCP in the beginning of May and completed a course of Augmentin for 14 days and a prednisone taper and was doing much better from that until the past week. He is chronically on prednisone 5 Mg daily and still continues to takes his Lasix. Patient is concerned because he was told to no longer use DuoNebs as needed at home but rather saline nebs as needed which he has been using twice daily for this past week. Discussed benefits with acute exacerbation and acute viral illness of DuoNeb treatment. Patient is agreeable. Patient is aware that he is at the end stage of COPD and feels as though he is fighting a losing fernandes, however is optimal that admission and treatment will improve his exacerbation. Patient continues to chew tobacco however no longer smokes. He lives at home with his son and his family. He does endorse alcohol use and drinks approximately a sixpack of beer per week. He took his home medications today but is due for his evening medications. He wishes to maintain his DNR/DNI status that was discussed with palliative medicine in May 2023. Allergies Allergy/AdvReac Type Severity Reaction Status Date / Time codeine AdvReac Unknown Rash Verified 07/26/24 16:00 Sulfa (Sulfonamide AdvReac Unknown Rash Verified 07/26/24 16:00 Antibiotics) Home Medications Medication Instructions Recorded Confirmed Type cetirizine 10 mg tablet (Zyrtec) 10 mg PO DAILY PRN allergies 06/16/21 07/30/24 History guaifenesin 600 mg tablet, 600 mg PO BID #60 tabs 04/12/22 07/30/24 Rx extended release 12 hr (Mucinex) Oxygen Home #1 ea 04/14/22 07/30/24 Rx albuterol sulfate 90 mcg/actuation 2 puff inhalation Q6H PRN 01/10/23 07/30/24 Rx aerosol inhaler (Ventolin HFA) Shortness Of Breath Or Wheezing #18 grams potassium chloride 20 mEq 20 meq PO QAM #90 tabs 07/20/23 07/30/24 Rx tablet,extended release montelukast 10 mg tablet 10 mg PO HS PRN allergy symptoms 08/16/23 07/30/24 Rx (Singulair) #90 tabs prednisone 5 mg tablet 5 mg PO DAILY #90 tabs 02/14/24 07/30/24 Rx ipratropium bromide 21 mcg (0.03 2 spray intranasal BID 03/13/24 07/30/24 History %) nasal spray fluticasone fur. 200 mcg-umeclid 1 inh inhalation DAILY #60 ea 06/20/24 07/30/24 Rx 62.5 mcg-vilant 25 mcg inhalat.powder (Trelegy Ellipta) furosemide 40 mg tablet 40 mg PO QAM #90 tabs 07/05/24 07/30/24 Rx pravastatin 40 mg tablet 40 mg PO QAM #90 tabs 07/06/24 07/30/24 Rx Past Med/Surg History Problem List (Updated 07/30/24 @ 02:54 by Background Daemon) Upper respiratory infection, viral (Acute) Coronavirus infection (Acute) Acute hypoxic respiratory failure (Acute) Leukocytosis Coronavirus infection End stage COPD Acute and chronic respiratory failure with hypoxia Advanced care planning/counseling discussion Palliative care by specialist Weakness generalized Stage 4 very severe COPD by GOLD classification (Chronic) Last PFT November 2022: very severe obstructive lung dysfunction with insignificant bronchodilator response. Air trapping. Very serious decrease in DLCO. Increased TLC with normal ERV. 05/30/23 Pulm Med notes: "lung transplantation and bronchoscopic lung volume reduction. He was referred to [facility] and ultimately was not deemed a candidate as he is currently chewing tobacco. He is a poor candidate for bronchoscopic lung volume reduction due to his severely low diffusion capacity and his diffuse homogenous emphysema pattern on CT. He did not complete pulmonary rehab as an outpatient. He notes that he only went to 3 or 4 sessions. We discussed at length that he has end-stage COPD and his disease is progressive as evidenced by his frequent hospitalizations and worsening symptoms. He would benefit from a palliative care evaluation and possibly transitioning to hospice. I discussed with the hospitalist service who is going to request a palliative care consultation. I did refer the patient to outpatient palliative care medicine, but he never scheduled an appointment." Solitary pulmonary nodule on lung CT Acute pneumonia Diastolic heart failure (Chronic) Vitamin D deficiency (Chronic) Stasis dermatitis (Chronic) Allergic rhinitis (Chronic) Multiple pulmonary nodules determined by computed tomography of lung (Chronic) Hypomagnesemia (Chronic) Hypokalemia (Chronic) Hyperlipidemia (Chronic) Edema (Chronic) Aortic root dilatation (Chronic) Aortic valve insufficiency (Chronic) Diastolic dysfunction (Chronic) Steroid dependence Acute on chronic respiratory failure with hypoxia and hypercapnia Left shoulder pain LVH (left ventricular hypertrophy) (Chronic) Excessive thirst Fatigue Occupational lung disease Left rotator cuff tear arthropathy Anemia Medical History Pneumonia due to COVID-19 virus Necrotizing granulomatous inflammation of lung Chronic obstructive pulmonary disease with hypoxia End stage COPD Elevated troponin Pneumonia SOB (shortness of breath) Respiratory distress Chronic dyspnea Chronic hypoxemic respiratory failure Chronic obstructive pulmonary disease Former smoker Non-ST elevation [place] (NSTEMI) COPD with acute exacerbation Surgical History S/P inguinal hernia repair History of cataract surgery History of knee surgery Family History Sister Breast cancer Brother Lung disease Other Myocardial infarction Denies family history of Colon cancer Ovarian cancer Prostate cancer Social History Smoking Status: Never smoker Tobacco Type: Smokeless Tobacco (Dip or Chew) Age Started Using Tobacco: 22; Age Quit Using Tobacco: 57; packs per day: 2; Second Hand Exposure: No; Do You Dip or Chew Tobacco: Yes; Hx Alcohol Use: Yes Alcohol type: beer Hx Substance Use: No Preferred Language: Yi Communication Ability: Effective Visual Impairment: No Limitations Hearing Ability: Hard of Hearing Etl Data Architect Required: No Beliefs That Will Affect Care: None marital status: Single Current Living Situation: Family current occupational status: disabled Other Information That Helps Us Care for You: No Feels Safe at Home: Yes Safety Concerns: Feels Safe At This Time Childhood Exposure to Second-Hand Smoke: Yes Diet: regular Diet Comment: regular Dental Care, Regularly: No Physical Activity Frequency: Does not Exercise Seatbelt Use: always Sunscreen Use: Yes Assistive Devices: Oxygen - Continuous Review of Systems Review of Systems: see HPI Physical Exam Physical Exam: The patient is awake, alert and oriented 3, Frail, dyspneic, on oxy mask. HEENT- EOMI, mucous membranes Dry. Hearing grossly intact. Heart-normal S1 and S2. No murmurs, rubs or gallops. Lungs- Decreased bilaterally, no adventitious sounds. Abdomen-normal bowel sounds and soft. No ascites noted. Non-tender. Extremities- no clubbing, cyanosis, or edema. Results & Data Results & Data Vital Signs (Past 12 Hours) Vital Signs Temp Pulse Pulse Resp BP Pulse Ox O2 Del Method 07/29/24 20:13 104 H 19 99 Oxymask 07/29/24 19:57 108 H 07/29/24 19:53 36.9 C 108 H 19 170/98 H 92 Nasal Cannula 07/29/24 19:48 Nasal Cannula 07/29/24 19:48 Nasal Cannula 07/29/24 19:41 38.2 C H 109 H 22 87 L Nasal Cannula O2 Flow Rate 07/29/24 20:13 6 07/29/24 19:57 07/29/24 19:53 6 07/29/24 19:48 2.5 07/29/24 19:48 2.5 07/29/24 19:41 3 Laboratory Results reviewed CBC, CMP, BioFire Diagnostic Findings reviewed CXR Medications Administered EDDuoNeb x 1 AdmissionSolu-Medrol 40 Mg IV and azithromycin 500mg IV ECG Additional Comments: ordered Code Status & VTE Plan Code Status DNR/DNI VTE Prophylaxis Plan VTE Prophylaxis will be ordered: Yes Supervising Physician Co-Signing Physician Notes Attending addendum: I have physically seen this patient, have supervised the KETTY's activities, and agree with the H&P unless as otherwise noted. Assessment and Plan: The patient is a 68-year-old male past medical history including end-stage COPD on chronic O2, hypertension, hyperlipidemia. He presents to the emergency department with worsening shortness of breath, dyspnea on exertion, productive cough, chills and weakness over the past 7 days. In the emergency department, BioFire testing was positive for coronavirus NL 63. Patient was 87% room air, and improved to 95% on 6 L nasal mask. [facility] with hypoxia, and COPD exacerbation, requiring IV steroids. Acute on chronic respiratory failure hypoxia/COPD exacerbation/end-stage COPD/coronavirus NL 63- Chest x-ray with emphysematous changes and atelectasis Initial pulse ox 87% on room air improved to 95% on 6 L oxime mask DuoNebs 4 times daily, every 2 hours as needed Methylprednisolone 40 mg IV every 8 hours Mucinex 600 mg p.o. every 12 hours Follow sputum culture and sensitivity Continue usual home inhalers Droplet precautions Chronic medical conditions: Hyperlipidemia-continue pravastatin 40 mg daily Allergic symptoms: Continue cetirizine Remaining orders and notations as noted PG Care Time/CCT Total # of Minutes Spent Total Time Spent with Patient: Total time spent is greater than 50% in coordination of care (as documented) at patient's floor/unit and/or counseling patient: Coding Level of Care Code 16255 INT INP/OBS CARE MIN Diagnoses Acute and chronic respiratory failure with hypoxia J96.21 End stage COPD J44.9 Coronavirus infection B34.2 Leukocytosis D72.829
[2024-07-29] MEDS ORDERED: methylPREDNISolone 40 MG in SYRINGE 0 ML IV ONE (22:33)
[2024-07-29] MEDS: methylPREDNISolone 125 MG/2 ML VIAL IV STA (22:57)
[2024-07-29] MEDS ORDERED: AZITHROMYCIN 500 MG VIAL IV STA (23:18)
[2024-07-30] MEDS: AZITHROMYCIN 500 MG in SODIUM CHLORIDE 0.9% 250 ML IV STA (00:07)
[2024-07-30 02:05] LABS: Appearance Urine Clear (Clear); Bacteria Urine Automated None Seen (None Seen); Bilirubin Urine Negative (Negative); Blood Urine Negative (Negative); Cast Urine Automated 0-2 /lpf (0-2); Color Urine Yellow; Epithelial Cell Urine Auto 0-2 /hpf (0-2); Glucose Urine UA Negative (Negative); Ketones Urine 1+ (Negative); Leukocyte Esterase Urine Negative (Negative); Nitrite Urine Negative (Negative); Protein Urine 1+ (Negative); Specific Gravity Urine 1.025 (1.000-1.030); Urobilinogen Urine Negative (Negative); WBC Urine Automated 0-5 /hpf (0-5)
[2024-07-30] MEDS ORDERED: ALBUT/IPRATROP 3MG/0.5MG NEB 3 ML VIAL NEB PRN (02:53)
[2024-07-30] MEDS ORDERED: ONDANSETRON INJ 2 MG/ML 2 ML VIAL IV PRN (02:53)
[2024-07-30] MEDS ORDERED: ACETAMINOPHEN 325 MG TAB PO PRN (02:53)
[2024-07-30] MEDS: ALBUT/IPRATROP 3MG/0.5MG NEB 3 ML VIAL NEB SCH (03:18)
[2024-07-30] MEDS: BENZONATATE 100 MG CAPSULE PO SCH (03:22)
[2024-07-30] MEDS: guaiFENesin 600 MG TABCR PO SCH (03:22)
[2024-07-30 07:38] LABS: Hematocrit (blood only) 44.2 % (42.0-52.0); Mean Corpuscular Hemoglobin 31.7 pg (25.0-34.0); Mean Corpuscular Hgb Conc 33.9 g/dL (32.0-36.0); Mean Corpuscular Volume 93.4 fL (80.0-100.0); Mean Platelet Volume 9.6 fL (9.4-12.4); Platelet Count 247 K/uL (130-400); RDW Coefficient of Variation 12.9 % (11.5-14.5); RDW Standard Deviation 44.4 fL (36.4-46.3); Red Blood Count 4.73 M/uL (4.70-6.10)
[2024-07-30 07:57] LABS: BUN Creatinine Ratio 15.5 (10-20); Calcium 9.4 mg/dl (8.6-10.3); Creatinine Clr Calc Pharmacy 67.6 ml/min; Magnesium 1.9 mg/dl (1.7-2.4); Potassium 4.5 mmol/L (3.5-5.1)
[2024-07-30] MEDS: methylPREDNISolone 40 MG in SYRINGE 0 ML IV SCH ×2 (08:01→20:55)
[2024-07-30] MEDS: PANTOprazole 40 MG TAB PO SCH (08:01)
[2024-07-30 08:02] LABS: Basophils # (auto) 0.02 K/uL (0.00-0.20); Basophils % (auto) 0.1 %; Eosinophils # (auto) 0.02 K/uL (0.00-0.50); Eosinophils % (auto) 0.1 %; Immature Granulocytes # (auto) 0.09 K/uL (0.01-0.20); Immature Granulocytes % (auto) 0.6 %; Lymphocytes # (auto) 0.56 K/uL (1.20-3.40); Lymphocytes % (auto) 3.5 %; Monocytes # (auto) 0.23 K/uL (0.11-0.59); Monocytes % (auto) 1.4 %; Neutrophils # (auto) 15.18 K/uL (1.40-6.50); Neutrophils % (auto) 94.3 %
[2024-07-30] MEDS: PRAVASTATIN SOD 40 MG TAB PO SCH (08:02)
[2024-07-30] MEDS: UMECLIDINIUM/VILANTEROL 62.5/25MCG 7 PUFFS/INHALER INH SCH (08:02)
[2024-07-30] MEDS: FLUTICASONE FUROATE 200MCG 14 PUFFS/INHALER INH SCH (08:02)
[2024-07-30] MEDS: IPRATROPIUM BROMIDE NASAL SPRAY 0.06% 15ML NAE SCH (08:03)
[2024-07-30] MEDS ORDERED: AZITHROMYCIN 500 MG VIAL IV SCH (09:00)
[2024-07-30] MEDS ORDERED: CARBOHYDRATES FOR HYPOGLYCEMIA PO PRN (13:01)
[2024-07-30] MEDS ORDERED: DEXTROSE 50% 50 ML SYRINGE IV PRN (13:01)
[2024-07-30] MEDS ORDERED: GLUCOSE 40% GEL 15 GM TUBE PO PRN (13:01)
[2024-07-30] MEDS ORDERED: GLUCOSE 10 TAB/TUBE PO PRN (13:01)
[2024-07-30] MEDS ORDERED: GLUCAGON FOR INJ 1 MG VIAL SQ PRN (13:01)
--- NOTE | 2024-07-30 13:02 | Hospitalist Progress Note ---
Date of Service July 30, 2024 Assessment & Plan (1) Acute and chronic respiratory failure with hypoxia: (2) End stage COPD: (3) Coronavirus infection: (4) Leukocytosis: Plan Patient is a 68-year-old male with past medical history of end-stage COPD on chronic oxygen and prednisone,HTN, HLD who p/w worsening dyspnea, cough with sputum production, chills, weakness x 7 days. He tested positive for coronavirus NL 63 on bio fire in ED and was placed on an oxymask for POx 87% on his baseline home oxygen. He is being admitted for acute on chronic hypoxemic respiratory failure and a COPD exacerbation requiring IV steroids. #COPD exacerbation/acute on chronic hypoxemic respiratory failure/coronavirus NL63 -CXR showed emphysematous changes and bibasilar atelectasis but no PNA. COughing up yellow brown sputum, no fever here but with WBC count 24k and now improved. On oxy mask 6L on admission and now weaned to 4LNC. Continues with wheezing and SOB. Has a hx of pansensitive h influ, strep pneumo, and Stenotrophomonas maltophilia on previous sputum cxs -continue IV Solu Medrol but decrease frequency to 40mg IV q12h from q8h given hyperglycemia. 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 Is on PPI for GI prophylaxis Dispo: continued stay PCU Admission and Anticipated Discharge Date Admission Date: July 29, 2024 Subjective Pt feeling slightly better than yesterday, still SOB with minimal exertion. Reports he had a few sharp right sided brief chest pains yesterday but none since then. He is coughing up sputum. Tele with NSR rates 90s Physical Exam Constitutional: WD/WN, vitals as above Respiratory: normal respiratory effort and + cough Auscultation: + diminished lung sounds (throughout) and + wheezes (mild, exp wheezes bilat); no crackles Cardiovascular: RRR, no murmur, no edema Vessels: dorsalis pedis pulses present (1+ DP bilat) Gastrointestinal (Abdomen): normal bowel sounds, soft, nontender, no hepatosplenomegaly Psychiatric: A+Ox3, euthymic affect Results & Data Results & Data Vital Signs (Past 12 Hours) Vital Signs Pulse Pulse Resp BP BP Pulse Ox O2 Del Method 07/30/24 09:58 90 20 96 Oxymask 07/30/24 08:00 84 23 119/74 96 Oxymask 07/30/24 07:33 85 07/30/24 07:02 84 18 98 Oxymask 07/30/24 07:00 86 124/77 99 Nasal Cannula 07/30/24 06:49 82 18 121/71 98 Oxyhood 07/30/24 04:33 Oxymask 07/30/24 04:33 83 20 124/71 95 Oxymask 07/30/24 03:21 80 23 134/80 97 Oxymask 07/30/24 03:20 78 19 134/80 99 Oxymask 07/30/24 03:20 83 25 H 134/80 98 Oxymask 07/30/24 03:00 82 21 118/82 98 Oxymask 07/30/24 02:53 80 20 96 Oxymask 07/30/24 02:30 84 18 121/76 99 Oxymask 07/30/24 02:00 87 20 99/64 L 98 Oxymask O2 Flow Rate 07/30/24 09:58 4 07/30/24 08:00 4 07/30/24 07:33 07/30/24 07:02 6 07/30/24 07:00 6 07/30/24 06:49 6 07/30/24 04:33 7 07/30/24 04:33 6 07/30/24 03:21 7 07/30/24 03:20 6 07/30/24 03:20 7 07/30/24 03:00 6 07/30/24 02:53 6 07/30/24 02:30 6 07/30/24 02:00 6 Laboratory Results CBC, BMP, sputum cx reviewed PG Care Time/CCT Total # of Minutes Spent Total Time Spent with Patient: Total time spent is greater than 50% in coordination of care (as documented) at patient's floor/unit and/or counseling patient: Coding Level of Care Code 54147 SUB INP/OBS CARE 3/50MIN Diagnoses Acute and chronic respiratory failure with hypoxia J96.21 End stage COPD J44.9 Coronavirus infection B34.2 Leukocytosis D72.829
[2024-07-30] MEDS: INSULIN ASPART PER UNIT CHARGE SC STA (13:36)
[2024-07-30] MEDS: ENOXAPARIN INJ 40 MG/0.4 ML SYR SQ SCH (13:56)
[2024-07-30 14:26] LABS: Estimated Average Glucose 103 mg/dl; Hemoglobin A1C 5.2 % (4.5-5.6)
[2024-07-30] MEDS: INSULIN ASPART PER UNIT CHARGE SC SCH (16:40)
[2024-07-30] MEDS: AZITHROMYCIN 250 MG TAB PO SCH (20:57)
[2024-07-30] MEDS ORDERED: AZITHROMYCIN 500 MG in SODIUM CHLORIDE 0.9% 250 ML IV SCH (21:00)
[2024-07-31 06:27] LABS: BUN Creatinine Ratio 24.7 (10-20); Creatinine Clr Calc Pharmacy 69.6 ml/min; Magnesium 2.1 mg/dl (1.7-2.4); Potassium 4.1 mmol/L (3.5-5.1)
[2024-07-31] MEDS: MONTELUKAST SODIUM 10 MG TABLET PO PRN (08:24)
[2024-07-31] MEDS: CETIRIZINE HCL 10 MG TABLET PO PRN (08:24)
[2024-07-31] MEDS: FUROSEMIDE 40 MG TAB PO SCH (09:22)
[2024-07-31] MEDS: POTASSIUM CHLORIDE CRTAB 20 MEQ TABCR PO SCH (09:23)
[2024-07-31] MEDS ORDERED: COUGH DROP (SUGAR FREE) LOZ 24 LOZ/1 BOX BUCCAL PRN (12:01)
[2024-07-31] MEDS: COUGH DROP (SUGAR FREE) LOZ 24 LOZ/1 BOX BUCCAL ONE (12:02)
[2024-07-31] MEDS: NYSTATIN SUSP 500,000 U/5 ML UDC PO SCH (12:38)
--- NOTE | 2024-07-31 18:47 | Hospitalist Progress Note ---
Date of Service July 31, 2024 Assessment & Plan (1) Acute and chronic respiratory failure with hypoxia: (2) End stage COPD: (3) Coronavirus infection: (4) Leukocytosis: Plan Patient is a 68-year-old male with past medical history of end-stage COPD on chronic oxygen and prednisone,HTN, HLD who p/w worsening dyspnea, cough with sputum production, chills, weakness x 7 days. He tested positive for coronavirus NL 63 on bio fire in ED and was placed on an oxymask for POx 87% on his baseline home oxygen. He is being admitted for acute on chronic hypoxemic respiratory failure and a COPD exacerbation requiring IV steroids. #COPD exacerbation/acute on chronic hypoxemic respiratory failure/coronavirus NL63 -CXR showed emphysematous changes and bibasilar atelectasis but no PNA. COughing up yellow brown sputum, no fever here but with WBC count 24k and now improved. On oxy mask 6L on admission and now weaned to 2.5 LNC. -Continues with wheezing and SOB. Has a hx of pansensitive h influ, strep pneumo, and Stenotrophomonas maltophilia on previous sputum cxs -CBC 07/30 w/ leukocytosis of 16, downtrending. BMP stable -continue IV Solu Medrol 40mg IV q12h- Wean back to home prednisone 5mg daily eventually -continue scheduled Duonebs q4 -continue azithromycin 250mg through 08/02. -continue Isolation precautions -continue tessalon perles, guaifenesin -continue home maintenance inhalers or formulary equivalent -follow sputum culture, prelim w/ moderate normal joseph present. -currently on baseline 2.5L at rest. wean to 3.5L on exertion -Lasix resumed 07/31, BP stable -concern for thrush, started PO nystatin QID x 10 days 07/31 -repeat CBC/BMP in AM -add flutter valve #Hyperglycemia -glucose 223 on POC check.Last A1C normal in 2021 and no history of DMII -A1c 07/30 5.2 -cont ADA diet, BSGs qachs -cont Novolog CF 30, CR 1:15, add Lantus 7 units hs #Allergies-stable -continue Singulair and Zyrtec #HLD - continue statin #HTN - Lasix resumed 07/31, BP stable VTE ppx: SCDs, Lovenox SQ. Is on PPI for GI prophylaxis Dispo: continued stay PCU Admission and Anticipated Discharge Date Admission Date: July 29, 2024 Supervising Physician Co-Signing Physician Notes PA Supervision Note: I personally saw and examined the patient. I verified all nugent points and agree with YEISON Nguyễn with the following exceptions and/or additions: S-pt still feeling SOB with minimal exertion, wonders if he will return to his baseline. Wonders if he needs a new chest CT-reviewed low dose lung CT from 05/28/24 O- Vitals reviewed Gen: [AAOx3, NAD] HEENT: [anicteric sclerae] CV: [RRR no mgr nl S1S2] Pulm: [diminished throughout, no wcr] BMP, sputum cx reviewed A/P-69y male here with COPD exacrbation and coronavirus, plan outlined as above no need for chest CT at this point Subjective Patient seen and examined this evening. Patient reports that he feels he is improving. He is now down to 2.5L of oxygen at rest. He reports that this is his "new" baseline as of 10 days ago. He reports he is still having a cough but is unable to bring up mucus and feels it is more dry. He denies any CP. Physical Exam Constitutional: WD/WN, vitals as above Eyes: PERRL, conjunctivae normal, anicteric sclerae ENMT: mild whiteness on tongue, appeared dry Respiratory: +cough. Normal effort. diminished lung s ounds throughout all lung chávez. No crackles or wheezing ausculated Cardiovascular: RRR, no murmur, no edema Musculoskeletal: moves all extremities Psychiatric: A+Ox3, euthymic affect Results & Data Results & Data Vital Signs (Past 12 Hours) Vital Signs Temp Pulse Pulse Resp BP Pulse Ox O2 Del Method 07/31/24 15:12 107 H 26 H 91 Nasal Cannula 07/31/24 14:53 36.6 C 103 H 18 134/87 97 Nasal Cannula 07/31/24 14:00 105 H 07/31/24 11:08 103 H 20 95 Nasal Cannula 07/31/24 10:48 36.3 C L 101 H 18 124/69 95 Nasal Cannula 07/31/24 07:17 79 22 95 Nasal Cannula 07/31/24 07:11 36.4 C L 92 H 18 132/76 93 Nasal Cannula 07/31/24 07:10 102 H 07/31/24 07:10 Nasal Cannula O2 Flow Rate 07/31/24 15:12 2.5 07/31/24 14:53 2.5 07/31/24 14:00 07/31/24 11:08 2.5 07/31/24 10:48 2 07/31/24 07:17 3 07/31/24 07:11 3 07/31/24 07:10 07/31/24 07:10 2 Laboratory Results BMP, magnesium, sputum cx reviewed PG Care Time/CCT Total # of Minutes Spent Total Time Spent with Patient: Total time spent is greater than 50% in coordination of care (as documented) at patient's floor/unit and/or counseling patient: Coding Level of Care Code 90217 SUB INP/OBS CARE 2/35MIN Diagnoses Acute and chronic respiratory failure with hypoxia J96.21 End stage COPD J44.9 Coronavirus infection B34.2 Leukocytosis D72.829
[2024-07-31] MEDS: LANTUS PER UNIT CHARGE SQ SCH (20:55)
[2024-08-01 05:58] LABS: Hematocrit (blood only) 42.7 % (42.0-52.0); Hemoglobin 14.8 g/dl (14.0-18.0); Mean Corpuscular Hemoglobin 31.9 pg (25.0-34.0); Mean Corpuscular Hgb Conc 34.7 g/dL (32.0-36.0); Mean Platelet Volume 9.1 fL (9.4-12.4); Platelet Count 292 K/uL (130-400); RDW Standard Deviation 43.8 fL (36.4-46.3); Red Blood Count 4.64 M/uL (4.70-6.10); White Blood Count 17.22 K/ul (4.8-10.8)
[2024-08-01 06:18] LABS: BUN Creatinine Ratio 25.5 (10-20); Calcium 9.6 mg/dl (8.6-10.3); Potassium 3.8 mmol/L (3.5-5.1)
[2024-08-01] MEDS: DOCUSATE SODIUM 100 MG CAP PO PRN (12:16)
--- NOTE | 2024-08-01 16:31 | Hospitalist Progress Note ---
Date of Service August 01, 2024 Assessment & Plan (1) Acute and chronic respiratory failure with hypoxia: (2) End stage COPD: (3) Coronavirus infection: (4) Leukocytosis: Plan Patient is a 68-year-old male with past medical history of end-stage COPD on chronic oxygen and prednisone,HTN, HLD who p/w worsening dyspnea, cough with sputum production, chills, weakness x 7 days. He tested positive for coronavirus NL 63 on bio fire in ED and was placed on an oxymask for POx 87% on his baseline home oxygen. He is admitted for acute on chronic hypoxemic respiratory failure and a COPD exacerbation requiring IV steroids. #COPD exacerbation/acute on chronic hypoxemic respiratory failure/coronavirus [id number] showed emphysematous changes and bibasilar atelectasis but no PNA. COughing up yellow brown sputum, no fever here but with WBC count 24k and now improved. On oxy mask 6L on admission and now weaned to 2.5 LNC. -Wheezing now improved, but with some BARCENAS. Sputum cx moderate normal joseph -continue IV Solu Medrol 40mg IV q12h- change to prednisone 40mg po daily o 08/02 and then wean back to home prednisone 5mg daily eventually -change Duonebs q4 to Xopenex and presribe on discharge (for tachycardia) -continue azithromycin 250mg through 08/02. -continue Isolation precautions -change tessalon perles to prn as may contribute to constipation; continue guaifenesin -continue home maintenance inhalers or formulary equivalent -wean O2 and check 2 step prior to discharge -continue flutter valve #Oral Candidiasis- -concern for thrush on 07/31 -continue PO nystatin QID x 10 days through 08/09 #Hyperglycemia-A1c 07/30 5.2%, not diabetic but having hyperglycemia from steroids improving -continue BSGs and Novolog SSI, decrease lantus to 5 units -cont ADA diet #Constipation-add Miralax and make docusate scheduled bid #Allergies-stable -continue Singulair and Zyrtec #HLD - continue pravastatin #HTN - Lasix resumed 07/31, BP stable VTE ppx: SCDs, Lovenox SQ. Is on PPI for GI prophylaxis Dispo: continued stay on med/surg, possible dc on 08/02 Admission and Anticipated Discharge Date Admission Date: July 29, 2024 Anticipated date of discharge: 08/02/24 Subjective Pt anxious. Feels like heart is racing with albuterol nebs. RT switched him to Xopenex and now feels better C/o hard "rabbit turds" with BMs. Feels SOB with exertion Physical Exam Constitutional: WD/WN, vitals as above Respiratory: normal respiratory effort and able to speak in complete sentences (but gets a little tachypneic with complete sentences) Auscultation: + diminished lung sounds (throughout); no crackles, no rhonchi and no wheezes Cardiovascular: RRR, no murmur, no edema Gastrointestinal (Abdomen): normal bowel sounds, soft, nontender, no h epatosplenomegaly Psychiatric: Orientation: alert and oriented x 3 Mood: + anxious mood Results & Data Results & Data Vital Signs (Past 12 Hours) Vital Signs Temp Pulse Resp BP Pulse Ox O2 Del Method O2 Flow Rate 08/01/24 14:43 36.7 C 100 H 20 144/80 H 94 Nasal Cannula 2 08/01/24 11:23 90 20 91 Nasal Cannula 3 08/01/24 09:00 Nasal Cannula 2 08/01/24 08:00 103 H 18 96 Nasal Cannula 3 08/01/24 07:14 36.5 C 101 H 18 134/75 94 Nasal Cannula 2.5 Laboratory Results CBC, BMP, sputum cx reviewed PG Care Time/CCT Total # of Minutes Spent Total Time Spent with Patient: Total time spent is greater than 50% in coordination of care (as documented) at patient's floor/unit and/or counseling patient: Coding Level of Care Code 76744 SUB INP/OBS CARE 2/35MIN Diagnoses Acute and chronic respiratory failure with hypoxia J96.21 End stage COPD J44.9 Coronavirus infection B34.2 Leukocytosis D72.829
[2024-08-01] MEDS: POLYETHYLENE (MIRALAX) 17 GM PACK PO SCH (17:01)
--- NOTE | 2024-08-01 17:04 | Electrocardiogram Report ---
Test Reason : Blood Pressure : */* mmHG Vent. Rate : 108 BPM Atrial Rate : 108 BPM P-R Int : 140 ms QRS Dur : 90 ms QT Int : 334 ms P-R-T Axes : 72 26 69 degrees QTcB Int : 447 ms Poor data quality, interpretation may be adversely affected Sinus tachycardia Nonspecific ST abnormality Abnormal ECG When compared with ECG of 28-May-2023 11:30, No significant change was found Confirmed by Abdulaziz Barajas ([id number]) on 08/01/2024 5:04:23 PM Referred By: REFERRED SELF Confirmed By: Abdulaziz Barajas
[2024-08-01] MEDS: LEVALBUTEROL 1.25 MG/3 ML NEB NEB SCH (19:27)
[2024-08-01] MEDS: IPRATROPIUM BROMIDE NEB SOLN 0.02% 0.5MG/2.5ML VIAL NEB SCH (19:27)
[2024-08-01] MEDS: DOCUSATE SODIUM 100 MG CAP PO SCH (20:49)
[2024-08-01] MEDS: MELATONIN 3 MG TAB PO PRN (20:49)
[2024-08-01] MEDS: LANTUS PER UNIT CHARGE SQ SCH (20:52)
[2024-08-02] MEDS: predniSONE 20 MG TAB PO SCH (08:13)
--- NOTE | 2024-08-02 11:41 | Hospitalist Progress Note ---
Date of Service August 02, 2024 Assessment & Plan (1) Acute and chronic respiratory failure with hypoxia: (2) End stage COPD: (3) Coronavirus infection: (4) Leukocytosis: Plan Patient is a 68-year-old male with past medical history of end-stage COPD on chronic oxygen and prednisone,HTN, HLD who p/w worsening dyspnea, cough with sputum production, chills, weakness x 7 days. He tested positive for coronavirus NL 63 on bio fire in ED and was placed on an oxymask for POx 87% on his baseline home oxygen. He is admitted for acute on chronic hypoxemic respiratory failure and a COPD exacerbation requiring IV steroids. #COPD exacerbation/acute on chronic hypoxemic respiratory failure/coronavirus [id number] showed emphysematous changes and bibasilar atelectasis but no PNA. COughing up yellow brown sputum, no fever here but with WBC count 24k and now improved. On oxy mask 6L on admission and now weaned to 2.5 LNC. -Wheezing now improved, but with ongoing significant BARCENAS, only able to walk 10 feet-typically can walk at least 20 feet before having to stop. Sputum cx moderate normal joseph. Inhalers are not effective-switching to nebulizers for maintenance meds -Received IV Solu Medrol 40mg IV q12h and changed to prednisone 40mg po daily o 08/02-wean back to home chronic prednisone 5mg daily -Continue Xopenex and ipratropium nebs every 4 hours-albuterol made him tachycardic -continue azithromycin 250mg through 08/02. -continue Isolation precautions -Continue tessalon perles prn and e guaifenesin -Switch maintenance inhalers to nebulized Pulmicort twice daily and Perforomist twice daily-prescribe on discharge along with as needed Xopenex/ipratropium nebs to replace Trelegy -wean O2 and check 2 step prior to discharge -continue flutter valve #Oral Candidiasis- -concern for thrush on 07/31-now appears resolved -continue PO nystatin QID x 10 days through 08/09 #Hyperglycemia-A1c 07/30 5.2%, not diabetic but having hyperglycemia from steroids now resolved as steroids being weaned -continue BSGs and Novolog SSI, but will now discontinue Lantus -cont ADA diet #Constipation-now resolved -Continue Miralax and docusate #Allergies-stable -continue Singulair and Zyrtec, ipratropium nasal spray #HLD - continue pravastatin #HTN -continue Lasix and potassium VTE ppx: SCDs, Lovenox SQ. Is on PPI for GI prophylaxis while on steroids Dispo: continued stay on med/surg, plan to discharge to home eventually once he feels his dyspnea has improved-likely another 2 days in the hospital needed Admission and Anticipated Discharge Date Admission Date: July 29, 2024 Subjective Patient still feels like there is mucus down in his chest that he cannot cough out. Still very short of breath and can only walk 10 feet before he has to stop and catch his breath. At home, he can typically walk at least 20 feet before doing so. He did move his bowels regularly and feels better with that. We had a long discussion about changing his nebulizers around and adding back the hypertonic saline. Gave education on the various medications and how they work. I discussed his care with respiratory therapy Physical Exam Constitutional: WD/WN, vitals as above Respiratory: + cough and able to speak in complete se ntences (but gets a lit tle tachypneic with complete sentences) Auscultation: + diminished lung sounds (throughout but slightly more air movement in lower lung chávez); no crackles, no rhonchi and no wheezes Cardiovascular: RRR, no murmur, no edema Psychiatric: Orientation: alert and oriented x 3 Mood: + anxious mood Results & Data Results & Data Vital Signs (Past 12 Hours) Vital Signs Temp Pulse Resp BP BP Pulse Ox O2 Del Method 08/02/24 10:41 100 H 20 90 Nasal Cannula 08/02/24 09:35 92 H 18 125/72 92 Nasal Cannula 08/02/24 07:49 36.3 C L 98 H 22 180/90 H 92 Nasal Cannula 08/02/24 07:25 100 H 20 92 Nasal Cannula 08/02/24 02:12 100 H 17 92 Nasal Cannula O2 Flow Rate 08/02/24 10:41 2 08/02/24 09:35 2.5 08/02/24 07:49 3.0 08/02/24 07:25 2 08/02/24 02:12 3 Laboratory Results Sputum culture with moderate normal joseph PG Care Time/CCT Total # of Minutes Spent Total Time Spent with Patient: Total time spent is greater than 50% in coordination of care (as documented) at patient's floor/unit and/or counseling patient: Coding Level of Care Code 76401 SUB INP/OBS CARE 350MIN Diagnoses Acute and chronic respiratory failure with hypoxia J96.21 End stage COPD J44.9 Coronavirus infection B34.2 Leukocytosis D72.829
[2024-08-02] MEDS: SODIUM CHLOR 7% 4 ML NEB NEB SCH (11:43)
[2024-08-02] MEDS: FORMOTEROL 20 MCG/2 ML VIAL NEB SCH (11:43)
[2024-08-02] MEDS: SODIUM CHLOR 7% 4 ML NEB ONE (11:48)
[2024-08-02] MEDS: BUDESONIDE 0.5 MG/2 ML VIAL (PULMICORT) NEB SCH (20:39)
[2024-08-02] MEDS: BENZONATATE 100 MG CAPSULE PO PRN (21:04)
--- NOTE | 2024-08-03 10:53 | Hospitalist Progress Note ---
Date of Service August 03, 2024 Assessment & Plan (1) Acute and chronic respiratory failure with hypoxia: Plan: CXR showed emphysematous changes and bibasilar atelectasis but no PNA. COughing up yellow brown sputum, no fever here but with WBC count 24k and now improved. On oxy mask 6L on admission and now weaned to 2.5 LNC. -Wheezing now improved, but with ongoing significant BARCENAS, only able to walk 10 feet-typically can walk at least 20 feet before having to stop. Sputum cx moderate normal joseph. Inhalers are not effective-switching to nebulizers for maintenance meds -Received IV Solu Medrol 40mg IV q12h and changed to prednisone 40mg po daily o 08/02-wean back to home chronic prednisone 5mg daily -Continue Xopenex and ipratropium nebs every 4 hours-albuterol made him tachycardic -continue azithromycin 250mg through 08/02. -continue Isolation precautions -Continue tessalon perles prn and e guaifenesin -Switch maintenance inhalers to nebulized Pulmicort twice daily and Perforomist twice daily-prescri (2) End stage COPD: Plan: be on discharge along with as needed Xopenex/ipratropium nebs to replace Trelegy -wean O2 and check 2 step prior to discharge -continue flutter valve (3) Coronavirus infection: Plan Patient is a 68-year-old male with past medical history of end-stage COPD on chronic oxygen and prednisone,HTN, HLD who p/w worsening dyspnea, cough with sputum production, chills, weakness x 7 days. He tested positive for coronavirus NL 63 on bio fire in ED and was placed on an oxymask for POx 87% on his baseline home oxygen. He is admitted for acute on chronic hypoxemic respiratory failure and a COPD exacerbation requiring IV steroids. on steroids Dispo: plan for d/c in am 8 Admission and Anticipated Discharge Date Admission Date: July 29, 2024 Subjective Pt still feeling SOB this am. Review of Systems Review of Systems: CONST: Negative for fever, body aches and chills. HENT: Negative for neck pain/stiffness, headache, congestion, sore throat, swelling. EYES: Negative for discharge/pain or vision changes. RESP: Negative for cough/hemoptysis and shortness of breath. CV: Negative chest pain, difficulty breathing, palpitations. ABD: Negative pain, nausea, vomiting. : Negative increase frequency, dysuria, blood in urine or stool. MUSC: Negative for muscle aches, edema. SKIN: Negative rash, lesions/sores. NEURO: Negative headache, dizziness, weakness. Physical Exam Physical Exam: GENERAL APPEARANCE NAD, activity normal for age, well developed/ well nourished, no cyanosis, pallor, or diaphoresis. EYES lids/conjunctiva normal. EARS/NOSE/THROAT Mucous membranes moist, nares normal, lips/teeth normal uvula midline without oral pharyngeal erythema, exudate or swelling TMs normal bilaterally. No lymphangitis/lymphedema. HEAD/NECK normocephalic atraumatic, no facial trauma, neck is supple. RESPIRATORY respiratory effort normal, speaks in full sentences, no tripod position, no accessory muscle use. Lungs clear to auscultation without rhonchi, wheezes, rales CARDIAC Regular rate and rhythm, no edema. ABDOMINAL Soft, ND/NT. No evidence of fluid wave. No pulsatile masses on exam, rebound tenderness, Stoddard sign or pain over Mcburney's point. MUSCLES/EXTREMITIES No abnormal range of motion, no swelling. SKIN Warm, pink and dry. No rashes, dermatoses, petechiae or lesions. NEUROLOGICAL Speech is clear and appropriate. Normal level of consciousness. G ait and coordination are normal. 5/5 strength in all extremities. PSYCH Normal mood and affect. Judgement/competence is appropriate Results & Data Results & Data Vital Signs (Past 12 Hours) Vital Signs Temp Pulse Pulse Resp BP Pulse Ox O2 Del Method 08/03/24 07:40 36.9 C 98 H 18 130/58 L 92 Nasal Cannula 08/03/24 07:06 100 H 20 92 Nasal Cannula 08/03/24 03:25 99 H 22 89 L Nasal Cannula 08/02/24 22:58 93 H 17 95 Nasal Cannula O2 Flow Rate 08/03/24 07:40 3 08/03/24 07:06 3 08/03/24 03:25 2.5 08/02/24 22:58 2 PG Care Time/CCT Total # of Minutes Spent Total Time Spent with Patient: Total time spent is greater than 50% in coordination of care (as documented) at patient's floor/unit and/or counseling patient: Coding Level of Care Code 03084 SUB INP/OBS CARE MIN Diagnoses Acute and chronic respiratory failure with hypoxia J96.21 End stage COPD J44.9 Coronavirus infection B34.2
[2024-08-04 07:02] VITALS: BP 122/72; TEMP 97.7
--- NOTE | 2024-08-04 10:25 | Discharge Summary ---
Discharge Summary Date of Service August 04, 2024 Principal Dx & Hospital Course #1 = Principal Diagnosis (1) Acute and chronic respiratory failure with hypoxia: CXR showed emphysematous changes and bibasilar atelectasis but no PNA. COughing up yellow brown sputum, no fever here but with WBC count 24k and now improved. On oxy mask 6L on admission and now weaned to 2.5 LNC. -Wheezing now improved, but with ongoing significant BARCENAS, only able to walk 10 feet-typically can walk at least 20 feet before having to stop. Sputum cx moderate normal joseph. Inhalers are not effective-switching to nebulizers for maintenance meds -Received IV Solu Medrol 40mg IV q12h and changed to prednisone 40mg po daily o 08/02-wean back to home chronic prednisone 5mg daily -Continue Xopenex and ipratropium nebs every 4 hours-albuterol made him tachycardic -continue azithromycin 250mg through 08/02. -continue Isolation precautions -Continue tessalon perles prn and e guaifenesin -Switch maintenance inhalers to nebulized Pulmicort twice daily and Perforomist twice daily-prescri (2) End stage COPD: be on discharge along with as needed Xopenex/ipratropium nebs to replace Trelegy -wean O2 and check 2 step prior to discharge -continue flutter valve (3) Coronavirus infection: Plan Patient is a 68-year-old male with past medical history of end-stage COPD on chronic oxygen and prednisone,HTN, HLD who p/w worsening dyspnea, cough with sputum production, chills, weakness x 7 days. He tested positive for coronavirus NL 63 on [employer] fire in ED and was placed on an oxymask for POx 87% on his baseline home oxygen. He is admitted for acute on chronic hypoxemic respiratory failure and a COPD exacerbation requiring IV steroids. on steroids Dispo: plan for d/c in am 8 Admission HPI Per Admitting Provider Patient is a 68-year-old male with past medical history of end-stage COPD on chr onic oxygen, hypertension, hyperlipidemia. Patient presents with worsening dyspnea, cough with sputum production, chills, weakness x 7 days. He tested positive for coronavirus NL 63 on bio fire in ED and was placed on an oxime mask for an oxygen level of 87% on his baseline home oxygen. He is being admitted for acute on chronic hypoxemic respiratory failure and a COPD exacerbation requiring IV steroids. Patient seen at bedside. He stated for the past 7 to 8 days he has had increased dyspnea on exertion and at risk with a much increased recovery time. He chronically uses 2.5L at rest and 3.5L on exertion of nasal cannula oxygen. He also endorses a cough with some sputum production that is light brown, however stated his cough and sputum production is much better than his previous COPD exacerbations. He endorses feeling feverish and with chills. He also endorses some bowel incontinence with his coughing fits however denies any diarrhea or loose watery stools. He also endorses weakness. He stated he fell like he was wheezy earlier but the DuoNeb resolved that in the ED. He did see his PCP in the beginning of May and completed a course of Augmentin for 14 days and a prednisone taper and was doing much better from that until the past week. He is chronically on prednisone 5 Mg daily and still continues to takes his Lasix. Patient is concerned because he was told to no longer use DuoNebs as needed at home but rather saline nebs as needed which he has been using twice daily for this past week. Discussed benefits with acute exacerbation and acute viral illness of DuoNeb treatment. Patient is agreeable. Patient is aware that he is at the end stage of COPD and feels as though he is fighting a losing fernandes, however is optimal that admission and treatment will improve his exacerbation. Patient continues to chew tobacco however no longer smokes. He lives at home with his son and his family. He does endorse alcohol use and drinks approximately a sixpack of beer per week. He took his home medications today but is due for his evening medications. He wishes to maintain his DNR/DNI status that was discussed with palliative medicine in May 2023. Discharge Exam GENERAL APPEARANCE NAD, activity normal for age, well developed/ well nourished, no cyanosis, pallor, or diaphoresis. EYES lids/conjunctiva normal. EARS/NOSE/THROAT Mucous membranes moist, nares normal, lips/teeth normal uvula midline without oral pharyngeal erythema, exudate or swelling TMs normal bilaterally. No lymphangitis/lymphedema. HEAD/NECK normocephalic atraumatic, no facial trauma, neck is supple. RESPIRATORY respiratory effort normal, speaks in full sentences, no tripod position, no accessory muscle use. Lungs clear to auscultation without rhonchi, wheezes, rales CARDIAC Regular rate and rhythm, no edema. ABDOMINAL Soft, ND/NT. No evidence of fluid wave. No pulsatile masses on exam, rebound tenderness, Stoddard sign or pain over Mcburney's point. MUSCLES/EXTREMITIES No abnormal range of motion, no swelling. SKIN Warm, pink and dry. No rashes, dermatoses, petechiae or lesions. NEUROLOGICAL Speech is clear and appropriate. Normal level of consciousness. Gait and coordination are normal. 5/5 strength in all extremities. PSYCH Normal mood and affect. Judgement/competence is appropriate Discharge Plan Discharge Items Patient Disposition: Home - Self-Care Reason For Visit: COPD EXACERBATION, CORONAVIRUS NL 63 Discharge Diagnosis: COPD exacerbation Coronavirus NL63 Acute on chronic respiratory failure with hypoxemia Condition on Discharge: Fair Activity: As commented below Lifting: Gradually increase as tolerated Bathing: No limitations Exercise/Sports: Gradually increase as tolerated Non-emergency contact: Primary Care Provider and Safety And Security Officer Call non-emergency contact if: you have any medication questions and your symptoms worsen Follow-up/Referrals: Reece Lambert III, CRNP [Primary Care Provider] - (Please follow up within 1- 2 weeks) Josue Segura MD [Physician] - (Please reschedule your appointment within 2 weeks) Diet: Regular Addtl Attending Provider Instructions: Follow up with pmh in 1 week Pending Studies at Discharge: No Stand-Alone Forms: My [employer], Smoking Cessation Medications and DC Order Prescriptions: New levalbuterol HCl 1.25 mg/3 mL Solution For Nebulization 1.25 mg NEB Q4R PRN (Reason: shortness of breath or wheezing) Qty: 90 0RF prednisone 10 mg tablet 10 mg PO DIRECTED Qty: 20 0RF Rx Instructions: see taper instructions take 4 pills for 2 days then 3 pills for 2 days then 2 pills for 2 days then 1 pill for 2 days. Continued guaifenesin [Mucinex] 600 mg tablet extended release 12hr 600 mg PO BID Qty: 60 0RF (DME) Oxygen Home Liters Per Minute See Rx Instructions .ROUTE .MEDSUPPLY Qty: 1 0RF Dose Instruction: As directed Rx Instructions: 1-4L nasal cannula continuously potassium chloride 20 mEq tablet extended release 20 meq PO QAM Qty: 90 3RF montelukast [Singulair] 10 mg tablet 10 mg PO HS PRN (Reason: allergy symptoms) Qty: 90 3RF prednisone 5 mg tablet 5 mg PO DAILY Qty: 90 1RF Trelegy Ellipta 200-62.5-25 mcg blister with device 1 inh inhalation DAILY Qty: 60 5RF furosemide 40 mg tablet 40 mg PO QAM Qty: 90 3RF pravastatin 40 mg tablet 40 mg PO QAM Qty: 90 3RF cetirizine [Zyrtec] 10 mg tablet 10 mg PO DAILY PRN (Reason: allergies) ipratropium bromide 21 mcg (0.03 %) spray,non-aerosol 2 spray intranasal BID Rx Instructions: administer into each nostril Discontinued albuterol sulfate [Ventolin HFA] 90 mcg/actuation HFA aerosol inhaler 2 puff inhalation Q6H PRN (Reason: Shortness Of Breath Or Wheezing) Qty: 18 5RF Discharge Orders: Discharge Order (Routine); Ordered 08/04/24 Ordered By: Aston Arambula Admission Data Admit Date/Time: 07/29/24 22:49 Attending Provider: Aston Arambula Admit Provider: Antoni Naidu Primary Care Provider: Reece Lambert III Other Providers: Antoni Naidu Hospital Stay Data Consultations 07/29/24 22:02 ED Decision to Admit Stat Pending Results Patient Have Any Pending Studies at Discharge: No Discharge Instructions Given to Patient (Per Discharging Provider) Follow up with pmh in 1 week Total Time Total Time Spent Total Time Spent (In Minutes): 50 Coding Level of Care Code 67289 INP/OBS DISCH >30 MIN Diagnoses Acute and chronic respiratory failure with hypoxia J96.21 End stage COPD J44.9 Coronavirus infection B34.2
[2024-08-04 11:30] VITALS: PULSE 96; RESP 18; O2SAT 85
== END 2024-08-04 12:54 | disposition home or self-care (01) | DRG 189 ==
LOC: SUATTDRO → ED 19:39 → EDINP 22:49 → SUATTDRO 22:49 → 2E 07-30 02:54 → 3E 07-31 23:43